=== PATIENT | male | born 1950 | race Caucasian/White ===

== ENCOUNTER → 2017-03-26 | Outpatient (CLI) | payer MEDICARE, OTHER ==
[2017-03-26 06:43] LABS: MEAN CORPUSCULAR HEMOGLOBIN 29.7 pg (27.0-33.0); MEAN CORPUSCULAR HGB CONC 33.6 g/dl (32.0-36.5); MEAN CORPUSCULAR VOLUME 88.6 fl (80.0-96.0); WHITE BLOOD COUNT 5.3 K/mm3 (4.0-10.0)
== END ==
LOC: M LAB 06:10
PROVIDERS: ATTEND Internal Medicine Cardiovascular Disease
DX: R97.20 Elevated prostate specific antigen [PSA] (principal); E78.5 Hyperlipidemia, unspecified; E11.9 Type 2 diabetes mellitus without complications; I25.10 Atherosclerotic heart disease of native coronary artery without angina pectoris

== ENCOUNTER → 2017-09-14 | Outpatient (CLI) | payer MEDICARE, OTHER ==
[2017-09-14 12:53] LABS: MEAN CORPUSCULAR HEMOGLOBIN 28.9 pg (27.0-33.0); MEAN CORPUSCULAR VOLUME 90.3 fl (80.0-96.0); PLATELET COUNT, AUTOMATED 162 10^3/uL (150-450); RED CELL DISTRIBUTION WIDTH 14.6 % (11.5-14.5)
[2017-09-14 13:05] LABS: ANION GAP 9 MEQ/L (8-16); BLOOD UREA NITROGEN 28 MG/DL (7-18); CALCIUM LEVEL 9.5 MG/DL (8.8-10.2); CARBON DIOXIDE LEVEL 25 MEQ/L (21-32); CHLORIDE LEVEL 108 MEQ/L (98-107); CREATININE FOR GFR 1.04 MG/DL (0.70-1.30); GLOMERULAR FILTRATION RATE > 60.0 (>49); GLUCOSE, FASTING 130 MG/DL (80-110); POTASSIUM SERUM 4.6 MEQ/L (3.5-5.1); SODIUM LEVEL 142 MEQ/L (136-145)
== END ==
LOC: M WUC 08:50
PROVIDERS: ATTEND Internal Medicine Cardiovascular Disease
DX: E11.9 Type 2 diabetes mellitus without complications (principal); I25.10 Atherosclerotic heart disease of native coronary artery without angina pectoris

== ENCOUNTER → 2018-01-15 | Outpatient (CLI) | payer MEDICARE, OTHER ==
[2018-01-15 13:22] LABS: CREATININE FOR GFR 1.18 MG/DL (0.70-1.30); GLOMERULAR FILTRATION RATE > 60.0 (>49)
[2018-01-15 13:22] LABS: BLOOD UREA NITROGEN 26 MG/DL (7-18)
== END ==
LOC: M WUC 08:47
DX: R97.20 Elevated prostate specific antigen [PSA] (principal); Z01.812 Encounter for preprocedural laboratory examination
CPT/HCPCS: 82565

== ENCOUNTER → 2018-03-12 | Outpatient (CLI) | payer MEDICARE, OTHER ==
[2018-03-12 12:22] LABS: ESTIMATED AVERAGE GLUCOSE 151 MG/DL (60-110); HEMOGLOBIN A1c 6.9 %
== END ==
LOC: M WUC 08:45
DX: E11.9 Type 2 diabetes mellitus without complications (principal)
CPT/HCPCS: 83036

== ENCOUNTER → 2018-08-17 | Outpatient (CLI) | payer MEDICARE, OTHER ==
[2018-08-17 20:16] LABS: PROSTATIC SPECIFIC AG MONITOR 8.67 NG/ML (< 4.0)
== END ==
LOC: M WUC 16:31
DX: R97.20 Elevated prostate specific antigen [PSA] (principal)
CPT/HCPCS: 84153

== ENCOUNTER → 2018-10-08 | Outpatient (CLI) | payer MEDICARE, OTHER | LOC: M WUC 08:02 | PROVIDERS: ATTEND Urology | DX: R97.20 Elevated prostate specific antigen [PSA] (principal) | CPT/HCPCS: 36415; G0103 ==

== ENCOUNTER → 2019-04-02 | Outpatient (CLI) | payer MEDICARE, OTHER ==
[2019-04-02 17:56] LABS: HEMATOCRIT 41.8 % (42.0-52.0); MEAN CORPUSCULAR HEMOGLOBIN 27.9 pg (27.0-33.0); MEAN CORPUSCULAR HGB CONC 31.1 g/dl (32.0-36.5); MEAN CORPUSCULAR VOLUME 89.7 fl (80.0-96.0); PLATELET COUNT, AUTOMATED 180 10^3/uL (150-450); RED BLOOD COUNT 4.66 10^6/uL (4.30-6.10)
[2019-04-02 18:02] LABS: ALBUMIN 3.4 GM/DL (3.2-5.2); ALT/SGPT 71 U/L (12-78); BILIRUBIN,TOTAL 0.2 MG/DL (0.2-1.0); BLOOD UREA NITROGEN 19 MG/DL (7-18); CALCIUM LEVEL 8.5 MG/DL (8.8-10.2); CARBON DIOXIDE LEVEL 26 MEQ/L (21-32); CHLORIDE LEVEL 106 MEQ/L (98-107); CHOLESTEROL LEVEL 135 MG/DL (<200); CHOLESTEROL RISK RATIO 3.214 (<5); CREATININE FOR GFR 1.03 MG/DL (0.70-1.30); GLOMERULAR FILTRATION RATE > 60.0 (>49); GLUCOSE, FASTING 186 MG/DL (70-100); HDL CHOLESTEROL 42 MG/DL (>40); LDL CHOLESTEROL 69 MG/DL (<100); NON-HDL-C 93 MG/DL; POTASSIUM SERUM 4.5 MEQ/L (3.5-5.1); SODIUM LEVEL 142 MEQ/L (136-145); TRIGLYCERIDES LEVEL 122 MG/DL (<150)
[2019-04-02 18:12] LABS: HEMOGLOBIN A1c 8.7 %
[2019-04-06 00:06] LABS: PSA % FREE 7.7 % (.); PSA FREE 0.56 ng/mL; PSA TOTAL 7.3 ng/mL (0.0-4.0)
== END ==
LOC: M WUC 08:17
PROVIDERS: ATTEND Internal Medicine Cardiovascular Disease
DX: I25.10 Atherosclerotic heart disease of native coronary artery without angina pectoris (principal)

== ENCOUNTER → 2019-09-17 | Outpatient (CLI) | payer MEDICARE, OTHER ==
[2019-09-17 14:17] LABS: ALBUMIN 3.6 GM/DL (3.2-5.2); ALT/SGPT 41 U/L (12-78); BILIRUBIN,TOTAL 0.4 MG/DL (0.2-1.0); BLOOD UREA NITROGEN 23 MG/DL (7-18); CALCIUM LEVEL 9.3 MG/DL (8.8-10.2); CARBON DIOXIDE LEVEL 28 MEQ/L (21-32); CHLORIDE LEVEL 108 MEQ/L (98-107); CREATININE FOR GFR 1.04 MG/DL (0.70-1.30); GLOMERULAR FILTRATION RATE > 60.0 (>49); GLUCOSE, FASTING 110 MG/DL (70-100); POTASSIUM SERUM 4.6 MEQ/L (3.5-5.1); SODIUM LEVEL 143 MEQ/L (136-145); TOTAL PROTEIN 7.2 GM/DL (6.4-8.2)
[2019-09-17 14:33] LABS: HEMOGLOBIN A1c 7.5 %
[2019-09-17 14:41] LABS: MALB URINE SIEMENS 13.4 MG/L; MAU/CREAT RATIO 13.2 MCG/MG (0.0-30.0)
== END ==
LOC: M WUC 08:04
PROVIDERS: ATTEND Physician Assistant
DX: E11.9 Type 2 diabetes mellitus without complications (principal); Z79.899 Other long term (current) drug therapy

== ENCOUNTER → 2019-12-17 | Outpatient (CLI) | payer MEDICARE, OTHER ==
[2019-12-17 12:46] LABS: BASO % 0.5 % (0.0-1.0); EOS # 0.2 10^3/uL (0.0-0.5); HEMATOCRIT 46.2 % (42.0-52.0); HEMOGLOBIN 14.3 g/dl (13.5-17.5); LYMPH # 3.2 10^3/uL (1.5-5.0); LYMPH % 43.3 % (24.0-44.0); MEAN CORPUSCULAR HEMOGLOBIN 27.8 pg (27.0-33.0); MEAN CORPUSCULAR VOLUME 89.9 fl (80.0-96.0); MONO # 0.6 10^3/uL (0.0-0.8); MONO % 7.7 % (0.0-5.0); NEUTROPHILS # 3.3 10^3/uL (1.5-8.5); NEUTROPHILS % 45.2 % (36.0-66.0); PLATELET COUNT, AUTOMATED 205 10^3/uL (150-450); RED BLOOD COUNT 5.14 10^6/uL (4.30-6.10); WHITE BLOOD COUNT 7.4 10^3/uL (4.0-10.0)
[2019-12-17 12:51] LABS: ALT/SGPT 43 U/L (12-78); BILIRUBIN,TOTAL 0.4 MG/DL (0.2-1.0); BLOOD UREA NITROGEN 27 MG/DL (7-18); CALCIUM LEVEL 9.1 MG/DL (8.8-10.2); CARBON DIOXIDE LEVEL 26 MEQ/L (21-32); CHLORIDE LEVEL 109 MEQ/L (98-107); CHOLESTEROL LEVEL 133 MG/DL (<200); CHOLESTEROL RISK RATIO 2.829 (<5); CREATININE FOR GFR 1.04 MG/DL (0.70-1.30); GLOMERULAR FILTRATION RATE > 60.0 (>49); GLUCOSE, FASTING 106 MG/DL (70-100); HDL CHOLESTEROL 47 MG/DL (>40); LDL CHOLESTEROL 65 MG/DL (<100); NON-HDL-C 86 MG/DL; POTASSIUM SERUM 4.9 MEQ/L (3.5-5.1); SODIUM LEVEL 141 MEQ/L (136-145); TOTAL PROTEIN 7.4 GM/DL (6.4-8.2); TRIGLYCERIDES LEVEL 104 MG/DL (<150)
[2019-12-17 13:02] LABS: HEMOGLOBIN A1c 7.1 %
== END ==
LOC: M WUC 08:17
PROVIDERS: ATTEND Family Medicine
DX: E11.65 Type 2 diabetes mellitus with hyperglycemia (principal); E78.5 Hyperlipidemia, unspecified

== ENCOUNTER 2020-04-07 23:30 | Emergency (ER) | payer MEDICARE, OTHER ==
[~2020-04-07] VITALS: Ht 170.2 cm; Wt 100.0 kg
[2020-04-07] MEDS ORDERED: METF500T13 PO (23:46)
[2020-04-07] MEDS ORDERED: ROSU20TA5 PO (23:46)
[2020-04-07] MEDS ORDERED: MONT10TA10 PO (23:46)
[2020-04-07] MEDS ORDERED: FLOM0.4C39 PO (23:46)
[2020-04-07] MEDS ORDERED: JARD1TAB3 PO (23:46)
[2020-04-07] MEDS ORDERED: METO1TAB32 PO (23:46)
[2020-04-07] MEDS ORDERED: ASPI81TA86 PO (23:46)
--- NOTE | 2020-04-08 01:02 | REPVR ---
PROCEDURE INFORMATION: Exam: US Pelvis Limited, Male Exam date and time: 04/08/2020 12:51 AM Age: 70 years old Clinical indication: Perianal pain; Additional info: Eval perirectal mass TECHNIQUE: Imaging protocol: Real-time pelvic ultrasound with image documentation. COMPARISON: No relevant prior studies available. FINDINGS: Left perianal fluid collection with internal complexity measuring 3.3 x 1.9 x 1.8 cm consistent with abscess. IMPRESSION: Complex left perianal fluid collection consistent with abscess measuring 3.3 x 1.9 x 1.8 cm. Electronically signed by: Saulo Olivares On 04/08/2020 01:01:38 AM
[2020-04-08] MEDS ORDERED: HYDROMORPHONE HCL 0.5 MG/ 0.5 ML SYRINGE (J1170 PER 1) IM ONE (01:30)
[2020-04-08] MEDS ORDERED: AUGMENTIN 875 MG TAB PO ONE (02:00)
[2020-04-08] MEDS ORDERED: AUGM500T34 PO (02:01)
[2020-04-08 02:15] VITALS: BP 110/60
[2020-04-08] MEDS ORDERED: NORCO 5/325MG TABLET (BULK FOR ED) PO ONE (02:15)
== END 2020-04-08 02:17 | disposition home or self-care (01) ==
LOC: M ED 23:30
DX: R10.2 Pelvic and perineal pain (principal); R93.5 Abnormal findings on diagnostic imaging of other abdominal regions, including retroperitoneum
CPT/HCPCS: 76857; 87070; 87077; 87186; 96372; 99283; J1170

== ENCOUNTER → 2020-06-01 | Outpatient (REF) | payer MEDICARE, OTHER ==
[~2020-06-01] MED LIST: ASPI81TA86 PO; AUGM500T34 PO; FLOM0.4C39 PO; JARD1TAB3 PO; METF500T13 PO; METO1TAB32 PO; MONT10TA4 PO; ROSU20TA5 PO
[2020-07-04 21:58] LABS: ALBUMIN 3.5 GM/DL (3.2-5.2); ALT/SGPT 32 U/L (12-78); BILIRUBIN,TOTAL 0.4 MG/DL (0.2-1.0); BLOOD UREA NITROGEN 20 MG/DL (7-18); CALCIUM LEVEL 9.4 MG/DL (8.8-10.2); CARBON DIOXIDE LEVEL 30 MEQ/L (21-32); CHLORIDE LEVEL 107 MEQ/L (98-107); CREATININE FOR GFR 1.09 MG/DL (0.70-1.30); GLOMERULAR FILTRATION RATE > 60.0 (>49); GLUCOSE, FASTING 115 MG/DL (70-100); POTASSIUM SERUM 5.3 MEQ/L (3.5-5.1); SODIUM LEVEL 141 MEQ/L (136-145); TOTAL PROTEIN 6.9 GM/DL (6.4-8.2)
[2020-07-04 21:59] LABS: HEMOGLOBIN A1c 6.6 %
== END ==
LOC: M WUC 08:27
PROVIDERS: ATTEND Physician Assistant
DX: E11.65 Type 2 diabetes mellitus with hyperglycemia (principal)

== ENCOUNTER 2020-11-12 16:14 | Inpatient (IN) | payer MEDICARE, OTHER ==
[~2020-11-12] VITALS: Ht 170.2 cm; Wt 101.9 kg
[~2020-11-12 16:14] MED LIST changes: +MONT10TA10 PO; -MONT10TA4 PO
--- OUTSIDE RECORDS SUMMARY | 2020-11-12 17:02 | CCD ---
Author Author [facility] Organization [facility] Address Unknown Phone Unavailable Care Team Providers Care Reverberatory Skimmer Name Role Phone Bob, Reagan PA Unavailable Unavailable Bob, Reagan PA Unavailable Unavailable Bob, Reagan PA Unavailable Unavailable Bob, Reagan PA Unavailable Unavailable Bob, Reagan PA Unavailable Unavailable Bob, Reagan PA Unavailable Unavailable Bob, Reagan PA Unavailable Unavailable Bob, Reagan PA Unavailable Unavailable Bob, Reagan PA Unavailable Unavailable Bob, Reagan PA Unavailable Unavailable Bob, Reagan PA Unavailable Unavailable Bob, Reagan PA Unavailable Unavailable Bob, Reagan PA Unavailable Unavailable Bob, Reagan PA Unavailable Unavailable Bob, Reagan PA Unavailable Unavailable Bob, Reagan PA Unavailable Unavailable Bob, Reagan PA Unavailable Unavailable Bob, Reagan PA Unavailable Unavailable Bob, Reagan PA Unavailable Unavailable Bob, Reagan PA Unavailable Unavailable Bob, Reagan PA Unavailable Unavailable Bob, Reagan PA Unavailable Unavailable Bob, Reagan PA Unavailable Unavailable Bob, Reagan PA Unavailable Unavailable Bob, Reagan PA Unavailable Unavailable Bob, Reagan PA Unavailable Unavailable Bob, Reagan PA Unavailable Unavailable Bob, Reagan PA Unavailable Unavailable Bob, Reagan PA Unavailable Unavailable Bob, Reagan PA Unavailable Unavailable Bob, Reagan PA Unavailable Unavailable Bob, Reagan PA Unavailable Unavailable Bob, Reagan PA Unavailable Unavailable Bob, Reagan PA Unavailable Unavailable Bob, Reagan PA Unavailable Unavailable Bob, Reagan PA Unavailable Unavailable Bob, Reagan PA Unavailable Unavailable Bob, Reagan PA Unavailable Unavailable Bob, Reagan PA Unavailable Unavailable Bob, Reagan PA Unavailable Unavailable Bob, Reagan PA Unavailable Unavailable Bob, Reagan PA Unavailable Unavailable Bob, Reagan PA Unavailable Unavailable Bob, Reagan PA Unavailable Unavailable Bob, Reagan PA Unavailable Unavailable Bob, Reagan PA Unavailable Unavailable Bob, Reagan PA Unavailable Unavailable Bob, Reagan PA Unavailable Unavailable Woods, L Marina PA Unavailable Unavailable Woods, L Marina PA Unavailable Unavailable Woods, L Marina PA Unavailable Unavailable Woods, L Marina PA Unavailable Unavailable Woods, L Marina PA Unavailable Unavailable Woods, L Marina PA Unavailable Unavailable Woods, L Marina PA Unavailable Unavailable Woods, L Marina PA Unavailable Unavailable Woods, L Marina PA Unavailable Unavailable Woods, L Marina PA Unavailable Unavailable Woods, L Marina PA Unavailable Unavailable Woods, L Marina PA Unavailable Unavailable Woods, L Marina PA Unavailable Unavailable Woods, L Marina PA Unavailable Unavailable Woods, L Marina PA Unavailable Unavailable Woods, L Marina PA Unavailable Unavailable Woods, L Marina PA Unavailable Unavailable Woods, L Marina PA Unavailable Unavailable Woods, L Marina PA Unavailable Unavailable Woods, L Marina PA Unavailable Unavailable Woods, L Marina PA Unavailable Unavailable Woods, L Marina PA Unavailable Unavailable Woods, L Marina PA Unavailable Unavailable Woods, L Marina PA Unavailable Unavailable Woods, L Marina PA Unavailable Unavailable Woods, L Marina PA Unavailable Unavailable Woods, L Marina PA Unavailable Unavailable Woods, L Marina PA Unavailable Unavailable Woods, L Marina PA Unavailable Unavailable Woods, L Marina PA Unavailable Unavailable Woods, L Marina PA Unavailable Unavailable Woods, L Marina PA Unavailable Unavailable Woods, L Marina PA Unavailable Unavailable Woods, L Marina PA Unavailable Unavailable Woods, L Marina PA Unavailable Unavailable Woods, L Marina PA Unavailable Unavailable KAYLEEN-XOCHITL, GHAZALA DO Unavailable Unavailable KAYLEEN-XOCHITL, GHAZALA DO Unavailable Unavailable KALYEEN-XOCHITL, GHAZALA DO Unavailable Unavailable KAYLEEN-XOCHITL, GHAZALA DO Unavailable Unavailable KAYLEEN-XOCHITL, GHAZALA DO Unavailable Unavailable KAYLEEN-XOCHITL, GHAZALA DO Unavailable Unavailable KAYLEEN-XOCHITL, GHAZALA DO Unavailable Unavailable KAYLEEN-XOCHITL, GHAZALA DO Unavailable Unavailable KAYLEEN-XOCHITL, GHAZALA DO Unavailable Unavailable KAYLEEN-XOCHITL, GHAZALA DO Unavailable Unavailable KAYLEEN-XOCHITL, GHAZALA DO Unavailable Unavailable KAYLEEN-XOCHITL, GHAZALA DO Unavailable Unavailable KAYLEEN-XOCHITL, GHAZALA DO Unavailable Unavailable KAYLEEN-XOCHITL, GHAZALA DO Unavailable Unavailable KAYLEEN-XOCHITL, GHAZALA DO Unavailable Unavailable KAYLEEN-XOCHITL, GHAZALA DO Unavailable Unavailable KAYLEEN-XOCHITL, GHAZALA DO Unavailable Unavailable KAYLEEN-XOCHITL, GHAZALA DO Unavailable Unavailable KAYLEEN-XOCHITL, GHAZALA DO Unavailable Unavailable KAYLEEN-XOCHITL, GHAZALA DO Unavailable Unavailable KAYLEEN-XOCHITL, GHAZALA DO Unavailable Unavailable KAYLEEN-XOCHITL, GHAZALA DO Unavailable Unavailable KAYLEEN-XOCHITL, GHAZALA DO Unavailable Unavailable KAYLEEN-XOCHITL, GHAZALA DO Unavailable Unavailable KAYLEEN-XOCHITL, GHAZALA DO Unavailable Unavailable KAYLEEN-XOCHITL, GHAZALA DO Unavailable Unavailable KAYLEEN-XOCHITL, GHAZALA DO Unavailable Unavailable KYALEEN-XOCHITL, GHAZALA DO Unavailable Unavailable KAYLEEN-XOCHITL, GHAZALA DO Unavailable Unavailable KAYLEEN-XOCHITL, GHAZALA DO Unavailable Unavailable KAYLEEN-XOCHITL, GHAZALA DO Unavailable Unavailable KAYLEEN-XOCHITL, GHAZALA DO Unavailable Unavailable KAYLEEN-XOCHITL, GHAZALA DO Unavailable Unavailable KAYLEEN-XOCHITL, GHAZALA DO Unavailable Unavailable KAYLEEN-XOCHITL, GHAZALA DO Unavailable Unavailable KAYLEEN-XOCHITL, GHAZALA DO Unavailable Unavailable KAYLEEN-XOCHITL, GHAZALA DO Unavailable Unavailable KAYLEEN-XOCHITL, GHAZALA DO Unavailable Unavailable KAYLEEN-XOCHITL, GHAZALA DO Unavailable Unavailable KAYLEEN-XOCHITL, GHAZALA DO Unavailable Unavailable KAYLEEN-XOCHITL, GHAZALA DO Unavailable Unavailable KAYLEEN-XOCHITL, GHAZALA DO Unavailable Unavailable KAYLEEN-XOCHITL, GHAZALA DO Unavailable Unavailable KAYLEEN-XOCHITL, GHAZALA DO Unavailable Unavailable KAYLEEN-XOCHITL, GHAZALA DO Unavailable Unavailable KAYLEEN-XOCHITL, GHAZALA DO Unavailable Unavailable KAYLEEN-XOCHITL, GHAZALA DO Unavailable Unavailable KAYLEEN-XOCHITL, GHAZALA DO Unavailable Unavailable KAYLEEN-XOCHITL, GHAZALA DO Unavailable Unavailable KAYLEEN-XOCHITL, GHAZALA DO Unavailable Unavailable KAYLEEN-XOCHITL, GHAZALA DO Unavailable Unavailable KAYLEEN-XOCHITL, GHAZALA DO Unavailable Unavailable KAYLEEN-XOCHITL, GHAZALA DO Unavailable Unavailable KAYLEEN-XOCHITL, GHAZALA DO Unavailable Unavailable KAYLEEN-XOCHITL, GHAZALA DO Unavailable Unavailable KAYLEEN-XOCHITL, GHAZALA DO Unavailable Unavailable KAYLEEN-XOCHITL, GHAZALA DO Unavailable Unavailable KAYLEEN-XOCHITL, GHAZALA DO Unavailable Unavailable KAYLEEN-XOCHITL, GHAZALA DO Unavailable Unavailable KAYLEEN-XOCHITL, GHAZALA DO Unavailable Unavailable KAYLEEN-XOCHITL, GHAZALA DO Unavailable Unavailable KAYLEEN-XOCHITL, GHAZALA DO Unavailable Unavailable KAYLEEN-XOCHITL, GHAZALA DO Unavailable Unavailable KAYLEEN-XOCHITL, GHAZALA DO Unavailable Unavailable KAYLEEN-XOCHITL, GHAZALA DO Unavailable Unavailable KAYLEEN-XOCHITL, GHAZALA DO Unavailable Unavailable KAYLEEN-XOCHITL, GHAZALA DO Unavailable Unavailable KAYLEEN-XOCHITL, GHAZALA DO Unavailable Unavailable KAYLEEN-XOCHITL, GHAZALA DO Unavailable Unavailable KAYLEEN-XOCHITL, GHAZALA DO Unavailable Unavailable KAYLEEN-XOCHITL, GHAZALA DO Unavailable Unavailable KAYLEEN-XOCHITL, GHAZALA DO Unavailable Unavailable KAYLEEN-XOCHITL, GHAZALA DO Unavailable Unavailable KAYLEEN-XOCHITL, GHAZALA DO Unavailable Unavailable KAYLEEN-XOCHITL, GHAZALA DO Unavailable Unavailable KAYLEEN-XOCHITL, GHAZALA DO Unavailable Unavailable KAYLEEN-XOCHITL, GHAZALA DO Unavailable Unavailable KAYLEEN-XOCHITL, GHAZALA DO Unavailable Unavailable KAYLEEN-XOCHITL, GHAZALA DO Unavailable Unavailable KAYLEEN-XOCHITL, GHAZALA DO Unavailable Unavailable KAYLEEN-XOCHITL, GHAZALA DO Unavailable Unavailable KAYLEEN-XOCHITL, GHAZALA DO Unavailable Unavailable Daly, Ly BUGGY MAN Unavailable Unavailable Daly, Ly BUGGY MAN Unavailable Unavailable Daly, Ly BUGGY MAN Unavailable Unavailable Daly, Ly BUGGY MAN Unavailable Unavailable Daly, Ly BUGGY MAN Unavailable Unavailable Daly, Ly BUGGY MAN Unavailable Unavailable Daly, Ly BUGGY MAN Unavailable Unavailable Daly, Ly BUGGY MAN Unavailable Unavailable Daly, Ly BUGGY MAN Unavailable Unavailable Daly, Ly BUGGY MAN Unavailable Unavailable Daly, Ly BUGGY MAN Unavailable Unavailable O'aiyana, A Narayan PA Unavailable Unavailable O'aiyana, A Narayan PA Unavailable Unavailable O'aiyana, A Narayna PA Unavailable Unavailable O'aiyana, A Narayan PA Unavailable Unavailable O'aiyana, A Narayan PA Unavailable Unavailable O'aiyana, A Narayan PA Unavailable Unavailable O'aiyana, A Narayan PA Unavailable Unavailable O'aiyana, A Narayan PA Unavailable Unavailable O'aiyana, A Narayan PA Unavailable Unavailable O'aiyana, A Narayan PA Unavailable Unavailable O'aiyana, A Narayan PA Unavailable Unavailable O'aiyana, A Narayan PA Unavailable Unavailable O'aiyana, A Narayan PA Unavailable Unavailable O'aiyana, A Narayan PA Unavailable Unavailable O'aiyana, A Narayan PA Unavailable Unavailable O'aiyana, A Narayan PA Unavailable Unavailable O'aiyana, A Narayan PA Unavailable Unavailable O'aiyana, A Narayan PA Unavailable Unavailable O'aiyana, A Narayan PA Unavailable Unavailable O'aiyana, A Narayan PA Unavailable Unavailable O'aiyana, A Narayan PA Unavailable Unavailable O'aiyana, A Narayan PA Unavailable Unavailable O'aiyana, A Narayan PA Unavailable Unavailable O'aiyana, A Narayan PA Unavailable Unavailable O'aiyana, A Narayan PA Unavailable Unavailable O'aiyana, A Narayan PA Unavailable Unavailable O'aiyana, A Narayan PA Unavailable Unavailable O'aiyana, A Narayan PA Unavailable Unavailable O'aiyana, A Narayan PA Unavailable Unavailable O'aiyana, A Narayan PA Unavailable Unavailable O'aiyana, A Narayan PA Unavailable Unavailable O'aiyana, A Narayan PA Unavailable Unavailable Ventura, V MOHIT PA-C Unavailable Unavailable Ventura, V MOHIT PA-C Unavailable Unavailable Ventura, V MOHIT PA-C Unavailable Unavailable Sebas, V MOHIT PA-C Unavailable Unavailable Ventura, V MOHIT PA-C Unavailable Unavailable Ventura, V MOHIT PA-C Unavailable Unavailable Ventura, V MOHIT PA-C Unavailable Unavailable Re-disclosure Warning The records that you are about to access may contain information from federally-assisted alcohol or drug abuse programs. If such information is present, then the following federally mandated warning applies: This information has been disclosed to you from records protected by federal confidentiality rules (42 CFR part 2). The federal rules prohibit you from making any further disclosure of this information unless further disclosure is expressly permitted by the written consent of the person to whom it pertains or as otherwise permitted by 42 CFR part 2. A general authorization for the release of medical or other information is NOT sufficient for this purpose. The Federal rules restrict any use of the information to criminally investigate or prosecute any alcohol or drug abuse patient.The records that you are about to access may contain highly sensitive health information, the redisclosure of which is protected by Article 27-F of the [facility] Public Health law. If you continue you may have access to information: Regarding HIV / AIDS; Provided by facilities licensed or operated by the [facility] Office of Mental Health; or Provided by the [facility] Office for People With Developmental Disabilities. If such information is present, then the following [facility] mandated warning applies: This information has been disclosed to you from confidential records which are protected by state law. State law prohibits you from making any further disclosure of this information without the specific written consent of the person to whom it pertains, or as otherwise permitted by law. Any unauthorized further disclosure in violation of state law may result in a fine or mcc sentence or both. A general authorization for the release of medical or other information is NOT sufficient authorization for further disc losure. Family History Family Member Name Family Member Gender Family Member Status Date o f Status Description Data Source(s) Unknown Unknown Problem [facility] ([facility]) father, mother and sister Unknown Male Problem [facility] ([facility]) () Unknown Female Problem [facility] ([facility]) Encounters Encounter Providers Location Date Indications Data Source(s ) Outpatient Attender: MOHIT TOSCANOCReferrer: John [email or web address] 10/16/2020 12:00:00 AM EST - 10/16/2020 04:21:20 PM EST [facility] Outpatient Attender: Narayan [facility] 06/19/2020 03:00:00 PM EDT [facility] ([facility]) Outpatient Attender: Reagan [facility] 04/10/2020 01:00:00 PM EDT [facility] ([facility]) Outpatient Attender: Marina [email or web address] 12:00:00 AM EDT - 04/09/2020 04:01:17 PM EDT [facility] Outpatient Attender: Ly Daly NP Donna Becerra Gretel fidelina 04/07/2020 11:10:00 AM EDT [facility] Outpatient Attender: Narayan MONROE [facility] 12/20/2019 02:30:00 PM EST [facility] ([facility]) Outpatient Attender: Marina [email or web address] 12:00:00 AM EST [facility] Outpatient Attender: GHAZALA LANGSTON DO [facility] 09/19/2019 01:30:00 PM EST [facility] ([facility]) Immunizations Vaccine Date Status Description Data Source(s) INFLUENZA VACCINE QUADRIVALENT (65 YR UP)/MF59 C.1/PF 08/13/2020 12:00:00 AM EDT completed [facility] Medications Medication Brand Name Start Date Product Form Dose Route Admi nistrative Instructions Pharmacy Instructions Status Indications Reaction Description Data Source(s) Rosuvastatin calcium 20 MG Oral Tablet rosuvastatin (C RESTOR) 20 MG tablet rosuvastatin (CRESTOR) 20 MG tablet 09/25/2020 12:00:00 AM EST 20 mg Oral active Hyperlipidemia, unspecified hyperlipidemia type Take 1 tablet (20 mg total) by mouth daily [facility] Hyperlipidemia, unspecified hyperlipidem ia type FLUAD QUADRIVALENT 0.5 ML PRSY [id number] 08/13/2020 12:00:00 AM EDT active INJECT DIRECTED IN THE LE FT ARM [facility] 24 HR metoprolol succinate 25 MG Extende d Release Oral Tablet metoprolol succinate (TOPROL-XL) 25 MG 24 hr tablet metoprolol succinate (TOPROL-XL) 25 MG 24 hr tablet 07/02/2020 12:00:00 AM EDT activ e TAKE ONE TABLET BY MOUTH EVERY DAY [facility] 500-125 mg 04/08/2020 12:00:00 AM EDT tablet 20 TAKE ONE TABLET BY MOUTH EVERY 8 HOURS TAKE ONE TABLET BY MOUTH EVERY 8 HOURS SOLD: 04/08/2020 [facility] Amoxicillin 500 MG / Clavulanate 125 MG Oral Tablet amoxicillin-clavulanate (AUGMENTIN) 500-125 MG per tablet amoxicillin-clavulanate (AUGMENTIN) 500- 125 MG per tablet 04/08/2020 12:00:00 AM EDT aborted [facility] 2.5 % 04/07/2020 12:00:00 AM EDT cream with perineal tu licator 60 APPLY RECTALLY TWO TIMES A DAY FOR 14 DAYS APPLY RECTALLY TWO TIMES A DAY FOR 14 DAYS SOLD: 04/07/2020 [facility] Hydrocortisone 25 MG/ML Rectal Cream Hydrocortisone (Periana l) 04/07/2020 12:00:00 AM EDT active M [facility]ENT ([facility]) Hydrocortisone 25 MG/ML Topical Cream [P roctozone HC] PROCTOZONE-HC 2.5 % rectal cream PROCTOZONE-HC 2.5 % rectal cream 04/07/2020 12:00:00 AM EDT active as needed [facility] empagliflozin 25 MG Oral Tablet [Jardiance] JARDIANCE 25 MG TABS JARDIANCE 25 MG TABS 03/12/2020 12:00:00 AM EDT active [facility] tadalafil 5 MG Oral Tablet tadalafil (CIALIS) 5 MG tab let tadalafil (CIALIS) 5 MG tablet 03/01/2020 12:00:00 AM EDT active [facility] empagliflozin 25 MG Oral Tablet [Jardiance] Jardiance 12/20/2019 12:00:00 AM EST ORAL active [facility] ([facility]) Metformin hydrochloride 500 MG Oral Tablet metFORMIN ( GLUCOPHAGE) 500 MG tablet metFORMIN (GLUCOPHAGE) 500 MG tablet 09/25/2019 12:00:00 AM EST 100 0 mg Oral active Take 1,000 mg by mouth 2 (two) times a day with meals [facility] Insurance Providers Payer name Policy type / Coverage type Policy ID Covered libertarian ID Covered libertarian's relationship to shah Policy Shah Plan Information [facility] [id number] SP [id number] MEDICARE [id number] SP [id number] UMR [id number] MEDICARE [id number] UMR [id number] Jaelyn [id number] MEDICARE [id number] Jaelyn [id number] UMR O [id number] S [id number] MEDICARE C [id number] S [id number] [facility] [id number] SP [id number] [employer] Med[employer] Part B [id number] Self [id number] Medicare Medigap Part B [id number] Self [id number] Umr Medigap Part B [id number] Self [id number] Medicare Medicare Primary [id number] Self [id number] MEDICARE [id number] SP [id number] A [employer] [id number] SP [id number] [employer] Medigap Part B [id number] Self [id number] Medicare Medicare Primary [id number] Self [id number] [employer] Medigap Part B [id number] Self [id number] Medicare Natl Gov't Servi Medicare Primary [id number] Self [id number] [employer] Commercial Self [employer] (pr) Commercial Self [employer]-O/P [id number] 18 [id number] Problems, Conditions, and Diagnoses Code Display Name Description Problem Type Effective Dates Data Source(s) E66.9 Class 2 obesity in adult Class 2 obesity in adult 6457 200010/16/2020 12:00:00 AM EST [facility] [id number] Long-term current use of oral hypoglycem ic medication Long-term current use of oral hypoglycemic medication Problem 06/19/2020 12:00 :00 AM EDT [facility] ([facility]) [id number] Diabetic peripheral neuropathy Diabetic peripheral leonel ropathy Problem 06/19/2020 12:00:00 AM EDT [facility] ([facility]) M79.604 Leg pain, anterior, right Leg pain, anterior, right [id number] 04/09/2020 12:00:00 AM EDT [facility] [id number] Type II diabetes mellitus uncontrolled T ype II diabetes mellitus uncontrolled Problem 12/20/2019 12:00:00 AM EST [facility] ([facility]) Z98.61 Coronary angioplasty status Coronary angioplasty statu s Diagnosis 10/16/2020 03:19:46 PM EST [facility] E11.65 Type 2 diabetes mellitus with hyperglyce gretel Type 2 diabetes mellitus with hyperglyce Diagnosis 04/09/2020 02:58:03 PM EDT [facility] R97.20 Elevated prostate specific antigen (PSA) Elevated prostate specific antigen (PSA) Diagnosis 04/09/2020 02:58:03 PM EDT [facility] E78.2 Mixed hyperlipidemia Mixed hyperlipidemia Diagnosis 04/09/2020 02:58:03 PM EDT [facility] I73.9 Peripheral vascular disease, unspecified Peripheral vascular disease, unspecified Diagnosis 04/09/2020 02:58:03 PM EDT [facility] Surgeries/Procedures Procedure Description Date Indications Data Source(s) ECG ROUTINE ECG W/LEAST 12 LDS W/I&R POCT AMB EKG Routine 10/16/2020 4:10 PM EST Coronary angioplasty status 10/16/2020 09:10:00 PM EST Coron mercedes angioplasty status [facility] Coronary angioplasty status Results ID Date Data Source [id number] 10/16/2020 08:07:00 AM EST [facility] Name Value Range Interpretation Code Description Data Mandi rce(s) Supporting Document(s) SARS-CoV-2 [facility] This lab was ordered by [facility] and reported by [facility]. ID Date Data Source [id number] 09/18/2020 04:00:00 AM EST [facility] Name Value Range Interpretation Code Description Data Mandi rce(s) Supporting Document(s) SARS-CoV-2 [facility] This lab was ordered by [facility] and reported by [facility]. ID Date Data Source [id number] 09/04/2020 12:00:00 AM EST [facility] Name Value Range Interpretation Code Description Data Mandi rce(s) Supporting Document(s) SARS [facility] This lab was ordered by [facility]- [facility] and reported by [employer]. ID Date Data Source [id number] 08/28/2020 12:00:00 AM EST [facility] Name Value Range Interpretation Code Description Data Mandi rce(s) Supporting Document(s) SARS [facility] This lab was ordered by [facility] and reported by [employer]. ID Date Data Source [id number] 08/21/2020 12:00:00 AM EDT [facility] Name Value Range Interpretation Code Description Data Mandi rce(s) Supporting Document(s) SARS [facility] This lab was ordered by [facility] and reported by [employer]. ID Date Data Source [id number] 08/14/2020 12:30:00 AM EDT [facility] Name Value Range Interpretation Code Description Data Mandi rce(s) Supporting Document(s) SARS-CoV-2 [facility] This lab was ordered by [employer] and reported by [employer]. ID Date Data Source [id number] 07/24/2020 10:07:00 PM EDT [facility] Name Value Range Interpretation Code Description Data Mandi rce(s) Supporting Document(s) SARS-CoV-2 [facility] This lab was ordered by [employer] and reported by [employer]. ID Date Data Source [id number] 07/17/2020 08:21:00 AM EDT [facility] Name Value Range Interpretation Code Description Data Mandi rce(s) Supporting Document(s) SARS-CoV-2 [facility] This lab was ordered by [employer] and reported by [employer]. ID Date Data Source [id number] 07/10/2020 10:01:00 AM EDT [facility] Name Value Range Interpretation Code Description Data Mandi rce(s) Supporting Document(s) SARS-CoV-2 [facility] This lab was ordered by [employer] and reported by [employer]. ID Date Data Source [id number] 07/03/2020 01:51:00 PM EDT [facility] Name Value Range Interpretation Code Description Data Mandi rce(s) Supporting Document(s) SARS-CoV-2 [facility] This lab was ordered by [employer] and reported by [employer]. ID Date Data Source [id number] 06/26/2020 06:00:00 PM EDT [facility] Name Value Range Interpretation Code Description Data Mandi rce(s) Supporting Document(s) SARS-CoV-2 [facility] This lab was ordered by [facility] and reported by [employer]. ID Date Data Source [id number] 06/19/2020 12:00:00 AM EDT [facility] Name Value Range Interpretation Code Description Data Mandi rce(s) Supporting Document(s) 2018-nCoV RNA XXX RYLIE+probe-Imp [facility] This lab was ordered by [facility] and repo rted by [employer] ID Date Data Source [id number] 06/12/2020 12:00:00 AM EDT [facility] Name Value Range Interpretation Code Description Data Mandi rce(s) Supporting Document(s) 2018-nCoV RNA XXX RYLIE+probe-Imp [facility] This lab was ordered by [facility] and repo rted by [employer] ID Date Data Source [id number] 06/06/2020 12:00:00 AM EDT [facility] Patient Name: WILLIS [id number] Date of : 1950[place] [address] Date of Exam: 06/06/2020PH#: Fax: EXAM: CT ANGIO LWR EXTR W/O&W/DYEPROCEDURE INFORMATION:Exam: CTA Right Lower Extremity With ContrastExam date and time: 06/06/2020 12:36 PM Age: 70 years oldClinical indication: NumbnessTECHNIQUE: Imaging protocol: CTA images of the Right lower extremity withintravenous contrast using CT angiography protocol. 3D rendering: MIPand/or 3D reconstructed images were created by the technologist. Radiationoptimization: All CT scans at this facility use at least one of these doseoptimization techniques: automated exposure control; mA and/or kVadjustment per patient size (includes targeted exams where dose is matchedto clinical indication); or iterative reconstruction. Contrast material:OPTIRAY 350; Contrast volume: 125 ml; Contrast route: INTRAVENOUS (IV);COMPARISON: No relevant prior studies available.FINDINGS: Right iliac arteries: There is opacification the right iliacartery and right femoral artery. There is also opacification of the femoralartery through the thigh along with popliteal artery. There is 3 vesselrunoff with good opacification of all 3 vessels. There is opacification ofthe dorsal and plantar arch.Right femoral/popliteal arteries: No occlusion or significant stenosis.Right infrapopliteal arteries: No occlusion or significant stenosis.Bladder: There is moderate enlargement of the prostate with impression onthe floor of the urinary bladder.Bones/joints: There is no evidence of fracture. There is osteophyteformation at the 1st metatarsophalangeal joint. There is moderate posteriorosteophyte formation L5- S1. There is no evidence of bony abnormality.IMPRESSION:1. Good opacification of the right femoral artery, popliteal artery, withthree-vessel runoff and also opacification of the dorsal in plantar arch.No evidence of bony or soft tissue abnormality.2. Moderate enlargement the prostate impressing on the floor of the urinarybladder.Thank you for allowing us to participate in the care of your patient.Dictated and Authenticated by: Job Peoples MD 06/06/2020 5:24 PM [facility] ( & [place])Jose AlfredoV/Rosanna you for referring WILLIS RAMIREZ to our office. Electronically Signed - JOSE ALFREDO 06/07/20 8:47 Name Value Range Interpretation Code Description Data Mandi rce(s) Supporting Document(s) ID Date Data Source [id number] 06/01/2020 08:30:00 AM EDT [facility] ([facility]) Name Value Range Interpretation Code Description Data Mandi rce(s) Supporting Document(s) Creatinine, Urine Laboratory test result Normal (applies to non-numeric results) [facility] ([facility]) Test not performed. Please resubmit wit h new order and sample. Malb Urine Siemens 11.0 mg/L Normal (applies to non-numer ic results) [facility] ([facility]) ID Date Data Source [id number] 06/01/2020 08:30:00 AM EDT [facility]) Name Value Range Interpretation Code Description Data Mandi rce(s) Supporting Document(s) Hemoglobin A1c 6.6 % Normal (applies to non-numeric r esults) [facility] ([facility]) <content>REFERENCE RANGES:</content><br/ ><content></content>
<content><=5.6% NORMAL</content>
<content>5.7-6.4% SUGGESTS IMPAIRED GLUCOSE METABOLISM/PREDIABETIC</content>
<content>>= 6.5% ABNORMAL</content>
<content></content> Estimated Average Glucose 143 mg/dL 60-110 Above high normal [facility] ([facility]) ID Date Data Source [id number] 06/01/2020 08:30:00 AM EDT [facility] ([facility]) Name Value Range Interpretation Code Description Data Mandi rce(s) Supporting Document(s) Glucose, Fasting 115 mg/dL 70-100 Above high normal [facility] ([facility]) Glomerular Filtration Rate Laboratory test result Normal (applies to non- numeric results) [facility] ([facility]) <content>Units are mL/min/1.73 m2</content>
<content></content>
<content>Chronic Kidney Disease Staging per NKF:</content>
<content></content>
<content>Stage I & II GFR >=60 Normal to Mildly Decreased</content>
<content>Stage III GFR 30- 59 Moderately Decreased</content>
<content>Stage IV GFR 15-29 Severely Decreased</content>
<content>Stage V GFR <15 Very Little GFR Left</content>
<content>ESRD GFR <15 on LAW PROFESSOR</content>
<content></content> Creatinine For GFR 1.09 mg/dL 0.70-1.30 Normal (applies to non -numeric results) [facility] ([facility]) Blood Urea Nitrogen 20 mg/dL 7-18 Above high normal [facility] Potassium Serum 5.3 meq/L 3.5-5.1 Above high normal [facility] ([facility]) Chloride Level 107 meq/L 98-107 Normal (applies to non-numeric r esults) [facility] ([facility]) Sodium Level 141 meq/L 136-145 Normal (applies to non-numeric res ults) [facility] ([facility]) Carbon Dioxide Level 30 meq/L 21-32 Normal (applies to non-num magalis results) [facility] ([facility]) Anion Gap 4 meq/L 8-16 Below low normal [facility] ( [facility]) Ast/Sgot 18 U/L 7-37 Normal (applies to non-numeric resul ts) [facility] ([facility]) Calcium Level 9.4 mg/dL 8.8-10.2 Normal (applies to non-numeric re sults) [facility] ([facility]) Bilirubin,Total 0.4 mg/dL 0.2-1.0 Normal (applies to non-numeric results) [facility] ([facility]) Alkaline Phosphatase 66 U/L 45-117 Normal (applies to non-num magalis results) [facility] ([facility]) Alt/SGPT 32 U/L 12-78 Normal (applies to non-numeric resul ts) [facility] ([facility]) Albumin 3.5 GM/DL 3.2-5.2 Normal (applies to non-numeric resul ts) [facility] ([facility]) Total Protein 6.9 GM/DL 6.4-8.2 Normal (applies to non-numeric re sults) [facility] ([facility]) Albumin/Globulin Ratio 1.0 Normal (applies to non-n umeric results) [facility] ([facility]) ID Date Data Source [id number] 05/29/2020 12:00:00 AM EDT [facility] Name Value Range Interpretation Code Description Data [facility] rce(s) Supporting Document(s) 2019-nCoV RNA XXX RYLIE+probe-Imp [facility] This lab was ordered by [employer] and repo rted by [employer]. ID Date Data Source [id number] 05/22/2020 12:00:00 AM EDT [facility] Name Value Range Interpretation Code Description Data Mandi rce(s) Supporting Document(s) 2018-nCoV RNA XXX RYLIE+probe-Imp [facility] This lab was ordered by [facility] and repo rted by [employer] ID Date Data Source [id number] 05/15/2020 12:00:00 AM EDT [facility] Name Value Range Interpretation Code Description Data Mandi rce(s) Supporting Document(s) 2018-nCoV RNA XXX RYLIE+probe-Imp [facility] This lab was ordered by [employer] and repo rted by [employer] ID Date Data Source [id number] 05/08/2020 12:00:00 AM EDT [facility] Name Value Range Interpretation Code Description Data Mandi rce(s) Supporting Document(s) 2018-nCoV RNA XXX RYLIE+probe-Imp [facility] This lab was ordered by [employer] and repo rted by [employer] ID Date Data Source [id number] 05/01/2020 12:00:00 AM EDT [facility] Name Value Range Interpretation Code Description Data Mandi rce(s) Supporting Document(s) 2018-nCoV RNA XXX RYLIE+probe-Imp [facility] This lab was ordered by [facility] and repo rted by [employer] ID Date Data Source [id number] 04/24/2020 12:00:00 AM EDT [facility] Name Value Range Interpretation Code Description Data Mandi rce(s) Supporting Document(s) 2018-nCoV RNA XXX RYLIE+probe-Imp [facility] This lab was ordered by [employer] and repo rted by [employer]. ID Date Data Source [id number] 04/17/2020 12:00:00 AM EDT [facility] Name Value Range Interpretation Code Description Data Mandi rce(s) Supporting Document(s) 2018-nCoV RNA XXX RYLIE+probe-Imp [facility] This lab was ordered by [employer] and repo rted by [employer]. ID Date Data Source [id number] 04/10/2020 12:00:00 AM EDT [facility] Name Value Range Interpretation Code Description Data Mandi rce(s) Supporting Document(s) 2019-nCoV RNA XXX RYLIE+probe-Imp [facility] This lab was ordered by [employer] and repo rted by [employer]. ID Date Data Source [id number] 04/08/2020 02:03:00 AM EDT [facility] ([facility]) Name Value Range Interpretation Code Description Data Mandi rce(s) Supporting Document(s) Wound Culture Laboratory test result Normal (applies t o non-numeric results) [facility] ([facility]) <content>FULL REPORT IN LAB NOTES ([facility] a nd [facility]).</content>
<content></content>
<content>ORGANISM 1: STREP AGALACTIAE GROUP B</content>
<content></content>
<content>QUANTITY OF GROWTH FEW</content>
<content></content>
<content></content>
<content>ORGAN ISM 1: STREP AGALACTIAE GROUP B</content>
<content></content>
<content> STREP AGALACTIAE GROUP B: REACTION</content>
<content>ICR (INDUCIBLE CC RESISTANCE) IV ICR TEST RESULT</content>
<content>TETRACYCLINE PO 250 mg qid <=0.25 S</content>
<content>PENICILLIN G IV 1 mu q6h <=0.06 S</content>
<content>PENICILLIN G PO 250mg q6h fasting <=0.06 S</content>
<content>AMPICILLIN IV 500mg q6h <=0.25 S</content>
<content>AMPICILLIN PO 500mg q6h fasting <=0.25 S</content>
<content>ERYTHROMYCIN IV 500mg q6h >=8 R</content>
<content> ERYTHROMYCIN PO 500mg q6h >=8 R</content>
<content>LEVOFLOXACIN IV 500mg qd 0.5 S</content>
<content>LEVOFLOXACIN PO 250mg qd 0.5 S</content>
<content>LEVOFLOXACIN PO 500mg qd 0.5 S</content>
<content>VANCOMYCIN IV 500mg q8h 0.5 S</content>
<content>MOXIFLOXACIN (AVELOX) IV 400MG QD 0.12 S</content>
<content> MOXIFLOXACIN (AVELOX) PO 400MG QD 0.12 S</content>
<content>CEFTRIAXONE IV 1gm q24h <=0.12 S</content>
<content>CEFOTAXIME IV 1gm q8h <=0.12 S</content>
<content>An isolate with a (+) POSITIVE ICR test is considered</content>
<content>CLINDAMYCIN RESISTANT; however, clindamycin may still</content>
<content>be effective in some patients.</content>
<content>An isolate with a (-) NEGATIVE ICR test is considered</content>
<content>CLIDAMYCIN SENSITIVE.</content>
<content></content> ID Date Data Source [id number] 04/08/2020 12:00:00 AM EDT [facility] Name Value Range Interpretation Code Description Data Mandi rce(s) Supporting Document(s) 2018-nCoV RNA XXX RYLIE+probe-Imp [facility] This lab was ordered by [employer] rted by [employer]. ID Date Data Source [id number] 04/03/2020 12:00:00 AM EDT [facility] Name Value Range Interpretation Code Description Data Mandi rce(s) Supporting Document(s) 2018-nCoV RNA XXX RYLIE+probe-Imp [facility] This lab was ordered by [employer] rted by [employer]. ID Date Data Source [id number] 04/02/2020 12:00:00 AM EDT [facility] Name Value Range Interpretation Code Description Data Mandi rce(s) Supporting Document(s) 2018-nCoV RNA XXX RYLIE+probe-Imp [facility] This lab was ordered by [facility] and repo rted by [employer] ID Date Data Source [id number] 03/26/2020 12:00:00 AM EDT [facility] Name Value Range Interpretation Code Description Data Mandi rce(s) Supporting Document(s) 2018-nCoV RNA XXX RYLIE+probe-Imp [facility] This lab was ordered by [facility] and repo rted by [employer] ID Date Data Source [id number] 03/19/2020 12:00:00 AM EDT [facility] Name Value Range Interpretation Code Description Data Mandi rce(s) Supporting Document(s) 2018-nCoV RNA XXX RYLIE+probe-Imp [facility] This lab was ordered by [facility] and repo rted by [employer] ID Date Data Source [id number] 12/17/2019 08:19:00 AM EST [facility] ([facility]) Name Value Range Interpretation Code Description Data Mandi rce(s) Supporting Document(s) Red Blood Count 5.14 10 4.30-6.10 Normal (applies to non-numeric results) [facility] ([facility]) White Blood Count 7.4 10 4.0-10.0 Normal (applies to non-numeri c results) [facility] ([facility]) Hemoglobin 14.3 g/dL 13.5-17.5 Normal (applies to non-numeric resul ts) [facility] ([facility]) Hematocrit 46.2 % 42.0-52.0 Normal (applies to non-numeric resul ts) [facility] ([facility]) Mean Corpuscular Volume 89.9 fl 80.0-96.0 Normal ( applies to non-numeric results) [facility] ([facility]) Mean Corpuscular Hemoglobin 27.8 pg 27.0-33.0 Norm al (applies to non-numeric results) [facility] ([facility]) Mean Corpuscular HGB Conc 31.0 g/dL 32.0-36.5 Below low normal [facility] ([facility]) Red Cell Distribution Width 14.9 % 11.5-14.5 Above high normal [facility] ([facility]) Neutrophils % 45.2 % 36.0-66.0 Normal (applies to non-numeric re sults) [facility] ([facility]) Platelet Count, Automated 205 10 150-450 Normal (applies to non-numeric results) [facility] ([facility]) Lymph % 43.3 % 24.0-44.0 Normal (applies to non-numeric resul ts) [facility] ([facility]) [place] % 7.7 % 0.0-5.0 Above high normal [facility] ([facility]) Baso % 0.5 % 0.0-1.0 Normal (applies to non-numeric resul ts) [facility] ([facility]) Eos % 3.0 % 0.0-3.0 Normal (applies to non-numeric resul ts) [facility] ([facility]) Immature Granulocyte % 0.3 % 0-3.0 Normal (applies to non-n umeric results) [facility] ([facility]) Nucleated Red Blood Cell % 0.0 % 0-0 Normal (applies to n on-numeric results) [facility] ([facility]) Neutrophils # 3.3 10 1.5-8.5 Normal (applies to non-numeric re sults) [facility] ([facility]) Lymph # 3.2 10 1.5-5.0 Normal (applies to non-numeric resul ts) [facility] ([facility]) [place] # 0.6 10 0.0-0.8 Normal (applies to non-numeric resul ts) [facility] ([facility]) Eos # 0.2 10 0.0-0.5 Normal (applies to non-numeric resul ts) [facility] ([facility]) Baso # 0.0 10 0.0-0.2 Normal (applies to non-numeric resul ts) [facility] ([facility]) ID Date Data Source [id number] 12/17/2019 08:19:00 AM EST [facility] ([facility]) Name Value Range Interpretation Code Description Data Mandi rce(s) Supporting Document(s) Triglycerides Level 104 mg/dL Normal (applies to non-nume kristen results) [facility] ([facility]) HDL Cholesterol 47 mg/dL Normal (applies to non-numeric results) [facility] ([facility]) Cholesterol Level 133 mg/dL Normal (applies to non-numeri c results) [facility] ([facility]) LDL Cholesterol 65 mg/dL Normal (applies to non-numeric results) [facility] ([facility]) Non-HDL-C 86 mg/dL Normal (applies to non-numeric resul ts) [facility] ([facility]) Cholesterol Risk Ratio 2.829 Normal (applies to non-n umeric results) [facility] ([facility]) ID Date Data Source [id number] 12/17/2019 08:19:00 AM EST [facility] ([facility]) Name Value Range Interpretation Code Description Data Mandi rce(s) Supporting Document(s) Hemoglobin A1c 7.1 % Normal (applies to non-numeric r esults) [facility] ([facility]) REFERENCE RANGES: 4.5-5.6% NORMAL 5.7-6.4% SUGGESTS IMPAIRED GLUCOSE META BOLISM >= 6.5% ABNORMAL Estimated Average Glucose 157 mg/dL 60-110 Above high normal [facility] ([facility]) ID Date Data Source [id number] 12/17/2019 08:19:00 AM EST [facility] Name Value Range Interpretation Code Description Data Mandi rce(s) Supporting Document(s) Glucose, Fasting 106 mg/dL 70-100 Above high normal [facility]) Creatinine For GFR 1.04 mg/dL 0.70-1.30 Normal (applies to non -numeric results) [facility] ([facility]) Blood Urea Nitrogen 27 mg/dL 7-18 Above high normal [facility] ([facility]) Glomerular Filtration Rate Laboratory test result Normal (applies to non- numeric results) [facility] ([facility]) <content>Units are mL/min/1.73 m2</content>
<content></content>
<content>Chronic Kidney Disease Staging per NKF:</content>
<content></content>
<content>Stage I & II GFR >=60 Normal to Mildly Decreased</content>
<content>Stage III GFR 30- 59 Moderately Decreased</content>
<content>Stage IV GFR 15-29 Severely Decreased</content>
<content>Stage V GFR <15 Very Little GFR Left</content>
<content>ESRD GFR <15 on LAW PROFESSOR</content>
<content></content> Sodium Level 141 meq/L 136-145 Normal (applies to non-numeric res ults) [facility] ([facility]) Chloride Level 109 meq/L 98-107 Above high normal [facility] ([facility]) Potassium Serum 4.9 meq/L 3.5-5.1 Normal (applies to non-numeric results) [facility] ([facility]) Carbon Dioxide Level 26 meq/L 21-32 Normal (applies to non-num magalis results) [facility] ([facility]) Anion Gap 6 meq/L 8-16 Below low normal [facility] ( [facility]) Ast/Sgot 19 U/L 7-37 Normal (applies to non-numeric resul ts) [facility] ([facility]) Calcium Level 9.1 mg/dL 8.8-10.2 Normal (applies to non-numeric re sults) [facility] ([facility]) Alt/SGPT 43 U/L 12-78 Normal (applies to non-numeric resul ts) [facility] ([facility]) Alkaline Phosphatase 65 U/L 45-117 Normal (applies to non-num magalis results) [facility] ([facility]) Bilirubin,Total 0.4 mg/dL 0.2-1.0 Normal (applies to non-numeric results) [facility] ([facility]) Albumin 4.0 GM/DL 3.2-5.2 Normal (applies to non-numeric resul ts) [facility] ([facility]) Total Protein 7.4 GM/DL 6.4-8.2 Normal (applies to non-numeric re sults) [facility] ([facility]) Albumin/Globulin Ratio 1.18 1.00-1.93 Normal (applies to non-numeric results) [facility] ([facility]) ID Date Data Source [id number] 09/17/2019 08:04:00 AM EST [facility] ([facility]) Name Value Range Interpretation Code Description Data Mandi rce(s) Supporting Document(s) Creatinine, Urine 101.0 mg/dL Normal (applies to non-numer ic results) [facility] ([facility]) Malb Urine Siemens 13.4 mg/L Normal (applies to non-numer ic results) [facility] ([facility]) Jordy/Creat Ratio 13.2 MCG/MG 0.0-30.0 Normal (applies to non-numeric results) [facility] ([facility]) THE [employer] STATES THAT MICROALBUMINURIA IS PRESENT IF THE MICROALBUMIN/CREATININE RATIO EXCEEDS 30 MCG/MG. THE THRESHOLD FOR CLINICAL ALBUMINURIA IS REACHED AT 300 MCG/MG. THE CLASSIFICATION OF A PATIENT SHOULD BE BASED UPON AT LEAST 2 OF 3 ABNORMAL RESULTS ON SPECIMENS COLLECTED WITHIN A 3 TO 6 MONTH TIME FRAME. ID Date Data Source [id number] 09/17/2019 08:04:00 AM EST [facility] Name Value Range Interpretation Code Description Data Mandi rce(s) Supporting Document(s) Hemoglobin A1c 7.5 % Normal (applies to non-numeric r esults) [facility]) REFERENCE RANGES: 4.5-5.6% NORMAL 5.7-6.4% SUGGESTS IMPAIRED GLUCOSE META BOLISM >= 6.5% ABNORMAL Estimated Average Glucose 169 mg/dL 60-110 Above high normal [facility] ([facility]) ID Date Data Source [id number] 09/17/2019 08:04:00 AM EST [facility] Name Value Range Interpretation Code Description Data Mandi rce(s) Supporting Document(s) Glucose, Fasting 110 mg/dL 70-100 Above high normal [facility] Blood Urea Nitrogen 23 mg/dL 7-18 Above high normal [facility] ([facility]) Creatinine For GFR 1.04 mg/dL 0.70-1.30 Normal (applies to non -numeric results) [facility] ([facility]) Glomerular Filtration Rate > 60.0 Normal (applies to n on-numeric results) [facility]) <content>Units are mL/min/1.73 m2</content>
<content></content>
<content>Chronic Kidney Disease Staging per NKF:</content>
<content></content>
<content>Stage I & II GFR >=60 Normal to Mildly Decreased</content>
<content>Stage III GFR 30- 59 Moderately Decreased</content>
<content>Stage IV GFR 15-29 Severely Decreased</content>
<content>Stage V GFR <15 Very Little GFR Left</content>
<content>ESRD GFR <15 on LAW PROFESSOR</content>
<content></content> Sodium Level 143 meq/L 136-145 Normal (applies to non-numeric res ults) [facility] ([facility]) Potassium Serum 4.6 meq/L 3.5-5.1 Normal (applies to non-numeric results) [facility] ([facility]) Chloride Level 108 meq/L 98-107 Above high normal [facility] ([facility]) Carbon Dioxide Level 28 meq/L 21-32 Normal (applies to non-num magalis results) [facility] ([facility]) Anion Gap 7 meq/L 8-16 Below low normal [facility] ( [facility]) Ast/Sgot 25 U/L 7-37 Normal (applies to non-numeric resul ts) [facility] ([facility]) Calcium Level 9.3 mg/dL 8.8-10.2 Normal (applies to non-numeric re sults) [facility] ([facility]) Alt/SGPT 41 U/L 12-78 Normal (applies to non-numeric resul ts) [facility] ([facility]) Alkaline Phosphatase 67 U/L 45-117 Normal (applies to non-num magalis results) [facility] ([facility]) Bilirubin,Total 0.4 mg/dL 0.2-1.0 Normal (applies to non-numeric results) [facility] ([facility]) Total Protein 7.2 GM/DL 6.4-8.2 Normal (applies to non-numeric re sults) [facility] ([facility]) Albumin/Globulin Ratio 1.00 1.00-1.93 Normal (applies to non-numeric results) [facility] ([facility]) Albumin 3.6 GM/DL 3.2-5.2 Normal (applies to non-numeric resul ts) [facility] ([facility]) Procedure Social History Code Duration Value Status Description Data Source(s ) Alcohol intake 10/16/2020 12:00:00 AM EST Yes completed [facility] Smoking 10/16/2020 12:00:00 AM EST Never smoker completed Never s moker [facility] Smoking 04/07/2020 12:00:00 AM EDT Patient has never smoked co mpleted Patient has never smoked [facility] ([facility]) Smoking 09/19/2019 12:00:00 AM EST Patient has never smoked co mpleted Patient has never smoked [facility] ([facility] Vital Signs ID Date Data Source UNK Name Value Range Interpretation Code Description Data Source(s) Oxygen saturation in Arterial blood by Pulse oximetry 96 % 96 % [facility] Body mass index (BMI) [Ratio] 35.71 kg/m2 35.71 kg/m2 [facility] Body weight 103.42 kg 103.42 kg [facility] Body height 170.2 cm 170.2 cm [facility] Heart rate 92 /min 92 /min [facility] Diastolic blood pressure 70 mm[Hg] 70 mm[Hg] [facility] Systolic blood pressure 108 mm[Hg] 108 mm[Hg] [facility] Oxygen saturation in Arterial blood by Pulse oximetry 89 % 89 % [facility] ([facility] Body temperature 98.5 [degF] 98.5 [degF] [facility] ([facility] Respiratory rate 18 /min 18 /min [facility] ( [facility] Heart rate 89 /min 89 /min [facility] [facility]) Body mass index (BMI) [Ratio] 35.9 kg/m2 35.9 k g/m2 [facility] ([facility] Body weight 220.38 [lb_av] 220.38 [lb_av] MEDEN T ([facility]) Body height 65.7 [in_i] 65.7 [in_i] [facility] ([facility]) 5'5.70" Diastolic blood pressure 68 mm[Hg] 68 mm[Hg] [facility] ([facility]) Systolic blood pressure 122 mm[Hg] 122 mm[Hg] M EDENT ([facility]) Oxygen saturation in Arterial blood by Pulse oximetry 96 % 96 % [facility] ([facility] Body temperature 99.4 [degF] 99.4 [degF] [facility] ([facility]) Respiratory rate 20 /min 20 /min [facility] ( [facility] Heart rate 92 /min 92 /min [facility] ([facility] Body mass index (BMI) [Ratio] 35.8 kg/m2 35.8 k g/m2 [facility] ([facility] Body weight 220.00 [lb_av] 220.00 [lb_av] MEDEN T ([facility]) Body height 65.7 [in_i] 65.7 [in_i] [facility] ([facility]) 5'5.70" Diastolic blood pressure 84 mm[Hg] 84 mm[Hg] [facility] ([facility] Systolic blood pressure 124 mm[Hg] 124 mm[Hg] M EDENT ([facility]) Body mass index (BMI) [Ratio] 34.1 kg/m2 34.1 k g/m2 [facility] ([facility]) Body height 67 [in_i] 67 [in_i] MEDENT ([facility], [facility]) 5'7" Body weight 218.00 [lb_av] 218.00 [lb_av] MEDEN T ([facility], [facility]) Body temperature 98.3 [degF] 98.3 [degF] [facility] ([facility], [facility]) Oxygen saturation in Arterial blood by Pulse oximetry 96 % 96 % [facility] ([facility], [facility]) Respiratory rate 17 /min 17 /min [facility] ( [facility], [facility]) Heart rate 89 /min 89 /min [facility] ([facility], [facility]) Diastolic blood pressure 78 mm[Hg] 78 mm[Hg] [facility] ([facility], [facility]) Systolic blood pressure 118 mm[Hg] 118 mm[Hg] M EDENT ([facility]) Oxygen saturation in Arterial blood by Pulse oximetry 97 % 97 % [facility] ([facility] Body temperature 98.5 [degF] 98.5 [degF] [facility] ([facility]) Respiratory rate 18 /min 18 /min [facility] ( [facility] Heart rate 78 /min 78 /min [facility] ([facility] Body mass index (BMI) [Ratio] 36.4 kg/m2 36.4 k g/m2 [facility] ([facility] Body weight 223.38 [lb_av] 223.38 [lb_av] MEDEN T ([facility] Body height 65.7 [in_i] 65.7 [in_i] [facility] ([facility]) 5'5.70" Diastolic blood pressure 78 mm[Hg] 78 mm[Hg] [facility] ([facility] Systolic blood pressure 122 mm[Hg] 122 mm[Hg] M EDENT ([facility] Body weight 229.38 [lb_av] 229.38 [lb_av] MEDEN T ([facility] Body height 65.7 [in_i] 65.7 [in_i] [facility] ([facility]) 5'5.70" Diastolic blood pressure 70 mm[Hg] 70 mm[Hg] [facility] ([facility] Systolic blood pressure 135 mm[Hg] 135 mm[Hg] M EDENT ([facility]) Oxygen saturation in Arterial blood by Pulse oximetry 95 % 95 % [facility] ([facility] Body temperature 98.9 [degF] 98.9 [degF] [facility] ([facility] Respiratory rate 18 /min 18 /min [facility] ( [facility] Heart rate 88 /min 88 /min [facility] ([facility] Body mass index (BMI) [Ratio] 37.4 kg/m2 37.4 k g/m2 [facility] ([facility]) Patient Treatment Plan of Care Planned Activity Planned Date Details Description Data Source (s) Rosuvastatin calcium 20 MG Oral Tablet 09/25/2020 12:00:00 AM EST [facility] FLUAD QUADRIVALENT 0.5 ML PRSY 08/13/2020 12:00:00 AM EDT [facility] 24 HR metoprolol succinate 25 MG Extended Release Oral Tablet 07/02/2020 12:00:00 AM EDT [facility] Amoxicillin 500 MG / Clavulanate 125 MG Oral Tablet 04/08/20 12:00:00 AM EDT [facility] Hydrocortisone 25 MG/ML Topical Cream [Proctozone HC] 04/07/2020 12:00:00 AM EDT [facility] empagliflozin 25 MG Oral Tablet [Jardiance] 03/12/2020 12:00:00 AM EDT [facility] tadalafil 5 MG Oral Tablet 03/01/2020 12:00:00 AM EDT [facility] Metformin hydrochloride 500 MG Oral Tablet 09/25/2019 12:00:00 AM E [facility]
[2020-11-12] MEDS ORDERED: NS 1,000 ML IV ONE (17:15)
[2020-11-12] MEDS ORDERED: ACETAMINOPHEN 325 MG TAB PO ONE (17:15)
[2020-11-12] MEDS ORDERED: ONDANSETRON 4MG/2ML VIAL IV ONE (17:15)
[2020-11-12 17:37] LABS: BASO % 0.3 % (0.0-1.0); EOS % 0.1 % (0.0-3.0); HEMATOCRIT 40.5 % (42.0-52.0); HEMOGLOBIN 12.7 g/dl (13.5-17.5); LYMPH # 0.7 10^3/uL (1.5-5.0); LYMPH % 9.7 % (24.0-44.0); MEAN CORPUSCULAR HEMOGLOBIN 28.2 pg (27.0-33.0); MEAN CORPUSCULAR HGB CONC 31.4 g/dl (32.0-36.5); MEAN CORPUSCULAR VOLUME 89.8 fl (80.0-96.0); MONO # 0.6 10^3/uL (0.0-0.8); MONO % 8.4 % (0.0-5.0); NEUTROPHILS # 5.6 10^3/uL (1.5-8.5); NEUTROPHILS % 81.1 % (36.0-66.0); PLATELET COUNT, AUTOMATED 180 10^3/uL (150-450); RED BLOOD COUNT 4.51 10^6/uL (4.30-6.10); WHITE BLOOD COUNT 6.9 10^3/uL (4.0-10.0)
[2020-11-12 17:55] LABS: D-DIMER QUANT 617.94 ng/ml (<500)
[2020-11-12 18:05] LABS: ALBUMIN 3.5 GM/DL (3.2-5.2); BILIRUBIN,DIRECT 0.2 MG/DL (0.0-0.2); BILIRUBIN,TOTAL 0.4 MG/DL (0.2-1.0); C REACTIVE PROTEIN QUANTITATIV 6.22 MG/DL (0.00-0.30); TOTAL PROTEIN 6.8 GM/DL (6.4-8.2)
--- NOTE | 2020-11-12 18:06 | REP ---
INDICATION: CHEST PAIN. COMPARISON: Comparison chest x-ray April 16, 2012. TECHNIQUE: Portable upright AP chest radiograph. FINDINGS: The lungs are well inflated and free of infiltrate. Pleural angles are sharp. Heart size is normal. Pulmonary vasculature is not increased. Thoracic aorta is somewhat tortuous as before. IMPRESSION: No active disease. <Electronically signed by Eliecer Huntley > 11/12/20 [id number]
[2020-11-12 18:21] LABS: ERYTHROCYTE SEDIMENTATION RATE 47 mm/hr (0-20)
[2020-11-12] MEDS ORDERED: ISOVUE-370 76% 100ML VIAL As Ordered ONE (19:02)
--- OUTSIDE RECORDS SUMMARY | 2020-11-12 19:05 | CCD ---
Author Author [facility] Organization [facility] Address Unknown Phone Unavailable Care Team Providers Care Salt Manager Name Role Phone Bob, Reagan PA Unavailable [...] Unavailable Bob, Reagan PA Unavailable Unavailable Bob, Reagna PA Unavailable Unavailable Bob, Reagan PA Unavailable [...] Unavailable KAYLEEN-XOCHITL, GHAZALA DO Unavailable Unavailable KAYLEEN-XOCHITL, HGAZALA DO Unavailable Unavailable KAYLEEN-XOCHITL, GHAZALA DO Unavailable [...] KAYLEEN-XOCHITL, GHAZALA DO Unavailable Unavailable Daly, Ly PRODUCTION HELPER Unavailable Unavailable Daly, Ly PRODUCTION HELPER Unavailable Unavailable Daly, Ly PRODUCTION HELPER Unavailable Unavailable Daly, Ly PRODUCTION HELPER Unavailable Unavailable Daly, Ly PRODUCTION HELPER Unavailable Unavailable Daly, Ly PRODUCTION HELPER Unavailable Unavailable Daly, Ly PRODUCTION HELPER Unavailable Unavailable Daly, Ly PRODUCTION HELPER Unavailable Unavailable Daly, Ly PRODUCTION HELPER Unavailable Unavailable Daly, Ly PRODUCTION HELPER Unavailable Unavailable Daly, Ly PRODUCTION HELPER Unavailable Unavailable O'aiyana, A Narayan PA Unavailable [...] Unavailable O'aiyana, A Narayan PA Unavailable Unavailable Gaston, V MOHIT PA-C Unavailable Unavailable Gaston, V MOHIT PA-C Unavailable Unavailable Gaston, V MOHIT PA-C Unavailable Unavailable Sebas, V MOHIT PA-C Unavailable Unavailable Gaston, V MOHIT PA-C Unavailable Unavailable Gaston, V MOHIT PA-C Unavailable Unavailable Gaston, V MOHIT PA-C Unavailable Unavailable Re-disclosure Warning [...] is protected by Article 27-F of the [facility] Public Health law. If you continue you may have access to information: Regarding HIV / AIDS; Provided by facilities licensed or operated by the [facility] Office of Mental Health; or Provided by the [facility] Office for People With Developmental Disabilities. If such information is present, then the following [facility] mandated warning applies: This information has [...] law may result in a fine or alf sentence or both. A general authorization for the release of medical or other information is NOT sufficient authorization for further disc losure. Family History Family Member Name Family Member Gender Family Member Status Date o f Status Description Data Source(s) Unknown Unknown Problem [facility] ([facility]) father, mother and sister Unknown Male Problem [facility] ([facility] [facility] [place]) () Unknown Female Problem [facility] ([facility]) Encounters Encounter Providers Location Date Indications Data Source(s ) Outpatient Attender: MOHIT TOSCANOCReferrer: John [email or web address] 10/16/2020 12:00:00 AM EST - 10/16/2020 04:21:20 PM EST [facility] Outpatient Attender: Narayan MONROE [facility] 06/19/2020 03:00:00 PM EDT [facility] ([facility]) Outpatient Attender: Reagan MONROE [facility] 04/10/2020 01:00:00 PM EDT [facility] (Family Medicine [facility]) Outpatient Attender: Marina [email or web address] 12:00:00 AM EDT - 04/09/2020 04:01:17 PM EDT [facility] Outpatient Attender: Ly Daly NP Donna Becerra Gretel fidelina 04/07/2020 11:10:00 AM EDT [facility] Outpatient Attender: Narayan MONROE [facility] 12/20/2019 02:30:00 PM EST [facility] ([facility]) Outpatient Attender: Marina [email or web address] 12:00:00 AM EST [facility] Outpatient Attender: GHAZALA LANGSTON DO [facility] 09/19/2019 01:30:00 PM EST [facility] ([facility]) Immunizations Vaccine Date Status Description Data Source(s) INFLUENZA VACCINE QUADRIVALENT (65 YR UP)/MF59 C.1/PF 08/13/2020 12:00:00 AM EDT completed [facility] Medications Medication Brand Name Start Date Product Form Dose Route Admi nistrative Instructions Pharmacy Instructions Status Indications Reaction Description Data Source(s) Rosuvastatin calcium 20 MG Oral Tablet rosuvastatin (C RESTOR) 20 MG tablet rosuvastatin (CRESTOR) 20 MG tablet 09/25/2020 12:00:00 AM EST 20 mg Oral active Hyperlipidemia, unspecified hyperlipidemia type Take 1 tablet (20 mg total) by mouth daily [facility] Hyperlipidemia, unspecified hyperlipidem ia type FLUAD QUADRIVALENT 0.5 ML PRSY [id number] 08/13/2020 12:00:00 AM EDT active INJECT DIRECTED IN THE LE FT ARM [facility] 24 HR metoprolol succinate 25 MG Extende d Release Oral Tablet metoprolol succinate (TOPROL-XL) 25 MG 24 hr tablet metoprolol succinate (TOPROL-XL) 25 MG 24 hr tablet 07/02/2020 12:00:00 AM EDT activ e TAKE ONE TABLET BY MOUTH EVERY DAY [facility] 500-125 mg 04/08/2020 12:00:00 AM EDT tablet 20 TAKE ONE TABLET BY MOUTH EVERY 8 HOURS TAKE ONE TABLET BY MOUTH EVERY 8 HOURS SOLD: 04/08/2020 [facility] Amoxicillin 500 MG / Clavulanate 125 MG Oral Tablet amoxicillin-clavulanate (AUGMENTIN) 500-125 MG per tablet amoxicillin-clavulanate (AUGMENTIN) 500- 125 MG per tablet 04/08/2020 12:00:00 AM EDT aborted [facility] 2.5 % 04/07/2020 12:00:00 AM EDT cream with perineal tu licator 60 APPLY RECTALLY TWO TIMES A DAY FOR 14 DAYS APPLY RECTALLY TWO TIMES A DAY FOR 14 DAYS SOLD: 04/07/2020 [facility] Hydrocortisone 25 MG/ML Rectal Cream Hydrocortisone (Periana l) 04/07/2020 12:00:00 AM EDT active M [facility] ([facility]) Hydrocortisone 25 MG/ML Topical Cream [P roctozone HC] PROCTOZONE-HC 2.5 % rectal cream PROCTOZONE-HC 2.5 % rectal cream 04/07/2020 12:00:00 AM EDT active as needed [facility] empagliflozin 25 MG Oral Tablet [Jardiance] JARDIANCE 25 MG TABS JARDIANCE 25 MG TABS 03/12/2020 12:00:00 AM EDT active [facility] tadalafil 5 MG Oral Tablet tadalafil (CIALIS) 5 MG tab let tadalafil (CIALIS) 5 MG tablet 03/01/2020 12:00:00 AM EDT active [facility] empagliflozin 25 MG Oral Tablet [Jardiance] Jardiance 12/20/2019 12:00:00 AM EST ORAL active [facility] ([facility]) Metformin hydrochloride 500 MG Oral Tablet metFORMIN ( GLUCOPHAGE) 500 MG tablet metFORMIN (GLUCOPHAGE) 500 MG tablet 09/25/2019 12:00:00 AM EST 100 0 mg Oral active Take 1,000 mg by mouth 2 (two) times a day with meals [facility] Insurance Providers Payer name Policy type / Coverage type Policy ID Covered democrat ID Covered democrat's relationship to shah Policy Shah Plan Information [facility] [id number] SP [id number] MEDICARE [id number] SP [id number] UMR [id number] MEDICARE [id number] UMR [id number] Jaelyn [id number] MEDICARE [id number] Jaelyn [id number] UMR O [id number] S [id number] MEDICARE C [id number] S [id number] UMR [facility] [id number] SP [id number] [employer] Medigap Part B [id number] Self [id number] Medicare Medigap Part B [id number] Self [id number] Umr Medigap Part B [id number] Self [id number] Medicare Medicare Primary [id number] Self [id number] MEDICARE [id number] SP [id number] A POMCO [id number] SP [id number] [employer] Medigap Part B [id number] Self [id number] Medicare Medicare Primary [id number] Self [id number] [employer] Medigap Part B [id number] Self [id number] Medicare Natl Gov't Servi Medicare Primary [id number] Self [id number] [employer] Commercial Self [employer] (pr) Commercial Self POMCO-O/P [id number] 18 [id number] Problems, Conditions, and Diagnoses Code Display Name Description Problem Type Effective Dates Data Source(s) E66.9 Class 2 obesity in adult Class 2 obesity in adult 6457 200010/16/2020 12:00:00 AM EST [facility] [id number] Long-term current use of oral hypoglycem ic medication Long-term current use of oral hypoglycemic medication Problem 06/19/2020 12:00 :00 AM EDT [facility] ([facility]) [id number] Diabetic peripheral neuropathy Diabetic peripheral leonel ropathy Problem 06/19/2020 12:00:00 AM EDT [facility] ([facility]) M79.604 Leg pain, anterior, right Leg pain, anterior, right [id number] 04/09/2020 12:00:00 AM EDT [facility] [id number] Type II diabetes mellitus uncontrolled T ype II diabetes mellitus uncontrolled Problem 12/20/2019 12:00:00 AM EST [facility] (Famil [facility]) Z98.61 Coronary angioplasty status Coronary angioplasty statu s Diagnosis 10/16/2020 03:19:46 PM EST [facility] E11.65 Type 2 diabetes mellitus with hyperglyce gretel Type 2 diabetes mellitus with hyperglyce Diagnosis 04/09/2020 02:58:03 PM EDT [facility] R97.20 Elevated prostate specific antigen (PSA) Elevated prostate specific antigen (PSA) Diagnosis 04/09/2020 02:58:03 PM EDT [facility] E78.2 Mixed hyperlipidemia Mixed hyperlipidemia Diagnosis 04/09/2020 02:58:03 PM EDT [facility] I73.9 Peripheral vascular disease, unspecified Peripheral vascular disease, unspecified Diagnosis 04/09/2020 02:58:03 PM EDT [facility] Surgeries/Procedures Procedure Description Date Indications Data Source(s) ECG ROUTINE ECG W/LEAST 12 LDS W/I&R POCT AMB EKG Routine 10/16/2020 4:10 PM EST Coronary angioplasty status 10/16/2020 09:10:00 PM EST Coron mercedes angioplasty status [facility] Coronary angioplasty status Results ID Date Data Source [id number] 10/16/2020 08:07:00 AM EST [facility] Name Value Range Interpretation Code Description Data Mandi rce(s) Supporting Document(s) SARS-CoV-2 [facility] This lab was ordered by [email or web address] and reported by [employer]. ID Date Data Source [id number] 09/18/2020 04:00:00 AM EST [facility] Name Value Range Interpretation Code Description Data Mandi rce(s) Supporting Document(s) SARS-CoV-2 [facility] This lab was ordered by [email or web address] and reported by [employer]. ID Date Data Source [id number] 09/04/2020 12:00:00 AM EST [facility] Name Value Range Interpretation Code Description Data Mandi rce(s) Supporting Document(s) SARS [facility] This lab was ordered by [facility] and reported by [employer]. ID Date Data Source [id number] 08/28/2020 12:00:00 AM EST [facility] Name Value Range Interpretation Code Description Data Mandi rce(s) Supporting Document(s) SARS [facility] This lab was ordered by [facility] and reported by [employer]. ID Date Data Source [id number] 08/21/2020 12:00:00 AM EDT [facility] Name Value Range Interpretation Code Description Data Mandi rce(s) Supporting Document(s) SARS [facility] This lab was ordered by [facility] and reported by [employer]. ID Date Data Source [id number] 08/14/2020 12:30:00 AM EDT [facility] Name Value Range Interpretation Code Description Data Mandi rce(s) Supporting Document(s) SARS-CoV-2 [facility] This lab was ordered by [email or web address] and reported by [employer]. ID Date Data Source [id number] 07/24/2020 10:07:00 PM EDT [facility] Name Value Range Interpretation Code Description Data Mandi rce(s) Supporting Document(s) SARS-CoV-2 [facility] This lab was ordered by [email or web address] and reported by [employer]. ID Date Data Source [id number] 07/17/2020 08:21:00 AM EDT [facility] Name Value Range Interpretation Code Description Data Mandi rce(s) Supporting Document(s) SARS-CoV-2 [facility] This lab was ordered by [email or web address] and reported by [employer]. ID Date Data Source [id number] 07/10/2020 10:01:00 AM EDT [facility] Name Value Range Interpretation Code Description Data Mandi rce(s) Supporting Document(s) SARS-CoV-2 [facility] This lab was ordered by [email or web address] and reported by [employer]. ID Date Data Source [id number] 07/03/2020 01:51:00 PM EDT [facility] Name Value Range Interpretation Code Description Data Mandi rce(s) Supporting Document(s) SARS-CoV-2 [facility] This lab was ordered by [email or web address] and reported by [employer]. ID Date Data Source [id number] 06/26/2020 06:00:00 PM EDT [facility] Name Value Range Interpretation Code Description Data Mandi rce(s) Supporting Document(s) SARS-CoV-2 [facility] This lab was ordered by [facility] and reported by [employer]. ID Date Data Source [id number] 06/19/2020 12:00:00 AM EDT [facility] Name Value Range Interpretation Code Description Data Mandi rce(s) Supporting Document(s) 2018-nCoV RNA XXX RYLIE+probe-Imp [facility] This lab was ordered by [employer] and repo rted by [employer] ID Date Data Source [id number] 06/12/2020 12:00:00 AM EDT [facility] Name Value Range Interpretation Code Description Data Mandi rce(s) Supporting Document(s) 2018-nCoV RNA XXX RYLIE+probe-Imp [facility] This lab was ordered by [employer] and repo rted by [employer] ID Date Data Source [id number] 06/06/2020 12:00:00 AM EDT [facility] [place] Patient Name: WILLIS [id number] Date of : 1950[place] [address] Date of Exam: 06/06/2020PH#: Fax: EXAM: CT [...] by: Job Peoples MD 06/06/2020 5:[address] [facility] ( [facility] [place])Jose AlfredoV/Rosanna you for referring WILLIS RAMIREZ to our office. Electronically Signed - JOSE ALFREDO 06/07/20 8:47 Name Value Range Interpretation Code Description Data Mandi rce(s) Supporting Document(s) ID Date Data Source [id number] 06/01/2020 08:30:00 AM EDT [facility] Name Value Range Interpretation Code Description Data Mandi rce(s) Supporting Document(s) Creatinine, Urine Laboratory test result Normal (applies to non-numeric results) [facility] ([facility]) Test not performed. Please resubmit wit h new order and sample. Malb Urine Siemens 11.0 mg/L Normal (applies to non-numer ic results) [facility] ([facility]) ID Date Data Source [id number] 06/01/2020 08:30:00 AM EDT [facility]) Name Value Range Interpretation Code Description Data Mandi rce(s) Supporting Document(s) Hemoglobin A1c 6.6 % Normal (applies to non-numeric r esults) [facility] ([facility]) <content>REFERENCE RANGES:</content><br/ ><content></content>
<content><=5.6% NORMAL</content>
<content>5.7-6.4% SUGGESTS IMPAIRED GLUCOSE METABOLISM/PREDIABETIC</content>
<content>>= 6.5% ABNORMAL</content>
<content></content> Estimated Average Glucose 143 mg/dL 60-110 Above high normal [facility] ([facility]) ID Date Data Source [id number] 06/01/2020 08:30:00 AM EDT [facility] ([facility]) Name Value Range Interpretation Code Description Data Mandi rce(s) Supporting Document(s) Glucose, Fasting 115 mg/dL 70-100 Above high normal [facility] ([facility]) Glomerular Filtration Rate Laboratory test result Normal (applies to non- numeric results) [facility] ([facility]) <content>Units are mL/min/1.73 m2</content>
<content></content>
<content>Chronic Kidney Disease Staging per NKF:</content>
<content></content>
<content>Stage I & II GFR >=60 Normal to Mildly Decreased</content>
<content>Stage III GFR 30- 59 Moderately Decreased</content>
<content>Stage IV GFR 15-29 Severely Decreased</content>
<content>Stage V GFR <15 Very Little GFR Left</content>
<content>ESRD GFR <15 on SOCIETY REPORTER</content>
<content></content> Creatinine For GFR 1.09 mg/dL 0.70-1.30 Normal (applies to non -numeric results) [facility] ([facility]) Blood Urea Nitrogen 20 mg/dL 7-18 Above high normal [facility] Potassium Serum 5.3 meq/L 3.5-5.1 Above high normal [facility] ([facility]) Chloride Level 107 meq/L 98-107 Normal (applies to non-numeric r esults) [facility] ([facility]) Sodium Level 141 meq/L 136-145 Normal (applies to non-numeric res ults) [facility] ([facility]) Carbon Dioxide Level 30 meq/L 21-32 Normal (applies to non-num magalis results) [facility] ([facility]) Anion Gap 4 meq/L 8-16 Below low normal [facility] ( [facility]) Ast/Sgot 18 U/L 7-37 Normal (applies to non-numeric resul ts) [facility]) Calcium Level 9.4 mg/dL 8.8-10.2 Normal (applies to non-numeric re sults) [facility] ([facility]) Bilirubin,Total 0.4 mg/dL 0.2-1.0 Normal (applies to non-numeric results) [facility] ([facility]) Alkaline Phosphatase 66 U/L 45-117 Normal (applies to non-num magalis results) [facility] ([facility]) Alt/SGPT 32 U/L 12-78 Normal (applies to non-numeric resul ts) [facility] ([facility]) Albumin 3.5 GM/DL 3.2-5.2 Normal (applies to non-numeric resul ts) [facility] ([facility]) Total Protein 6.9 GM/DL 6.4-8.2 Normal (applies to non-numeric re sults) [facility] ([facility]) Albumin/Globulin Ratio 1.0 Normal (applies to non-n umeric results) [facility] ([facility]) ID Date Data Source [id number] 05/29/2020 12:00:00 AM EDT [facility] Name Value Range Interpretation Code Description Data [facility] rce(s) Supporting Document(s) 2019-nCoV RNA XXX RYLIE+probe-Imp [facility] This lab was ordered by [employer] and repo rted by [employer]. ID Date Data Source [id number] 05/22/2020 12:00:00 AM EDT [facility] Name Value Range Interpretation Code Description Data Mandi rce(s) Supporting Document(s) 2018-nCoV RNA XXX RYLIE+probe-Imp [facility] This lab was ordered by [facility] and repo rted by [employer] ID Date Data Source [id number] 05/15/2020 12:00:00 AM EDT [facility] Name Value Range Interpretation Code Description Data Mandi rce(s) Supporting Document(s) 2018-nCoV RNA XXX RYLIE+probe-Imp [facility] This lab was ordered by [employer] and repo rted by [employer] ID Date Data Source [id number] 05/08/2020 12:00:00 AM EDT [facility] Name Value Range Interpretation Code Description Data Mandi rce(s) Supporting Document(s) 2018-nCoV RNA XXX RYLIE+probe-Imp [facility] This lab was ordered by [employer] and repo rted by [employer] ID Date Data Source [id number] 05/01/2020 12:00:00 AM EDT [facility] Name Value Range Interpretation Code Description Data Mandi rce(s) Supporting Document(s) 2018-nCoV RNA XXX RYLIE+probe-Imp [facility] This lab was ordered by [facility] and repo rted by [employer] ID Date Data Source [id number] 04/24/2020 12:00:00 AM EDT [facility] Name Value Range Interpretation Code Description Data Mandi rce(s) Supporting Document(s) 2018-nCoV RNA XXX RYLIE+probe-Imp [facility] This lab was ordered by [employer] and repo rted by [employer]. ID Date Data Source [id number] 04/17/2020 12:00:00 AM EDT [facility] Name Value Range Interpretation Code Description Data Mandi rce(s) Supporting Document(s) 2018-nCoV RNA XXX RYLIE+probe-Imp [facility] This lab was ordered by [employer] and repo rted by [employer]. ID Date Data Source [id number] 04/10/2020 12:00:00 AM EDT [facility] Name Value Range Interpretation Code Description Data Mandi rce(s) Supporting Document(s) 2019-nCoV RNA XXX RYLIE+probe-Imp [facility] This lab was ordered by [employer] and repo rted by [employer]. ID Date Data Source [id number] 04/08/2020 02:03:00 AM EDT [facility] ([facility]) Name Value Range Interpretation Code Description Data Mandi rce(s) Supporting Document(s) Wound Culture Laboratory test result Normal (applies t o non-numeric results) [facility] ([facility]) <content>FULL REPORT IN LAB NOTES (eCW a [...]
<content>CLIDAMYCIN SENSITIVE.</content>
<content></content> ID Date Data Source [id number] 04/08/2020 12:00:00 AM EDT [facility] Name Value Range Interpretation Code Description Data Mandi rce(s) Supporting Document(s) 2018-nCoV RNA XXX RYLIE+probe-Imp [facility] This lab was ordered by [employer] rted by [employer]. ID Date Data Source [id number] 04/03/2020 12:00:00 AM EDT [facility] Name Value Range Interpretation Code Description Data Mandi rce(s) Supporting Document(s) 2018-nCoV RNA XXX RYLIE+probe-Imp [facility] This lab was ordered by [employer] rted by [employer]. ID Date Data Source [id number] 04/02/2020 12:00:00 AM EDT [facility] Name Value Range Interpretation Code Description Data Mandi rce(s) Supporting Document(s) 2018-nCoV RNA XXX RYLIE+probe-Imp [facility] This lab was ordered by [facility] and repo rted by [employer] ID Date Data Source [id number] 03/26/2020 12:00:00 AM EDT [facility] Name Value Range Interpretation Code Description Data Mandi rce(s) Supporting Document(s) 2018-nCoV RNA XXX RYLIE+probe-Imp [facility] This lab was ordered by [facility] and repo rted by [employer] ID Date Data Source [id number] 03/19/2020 12:00:00 AM EDT [facility] Name Value Range Interpretation Code Description Data Mandi rce(s) Supporting Document(s) 2018-nCoV RNA XXX RYLIE+probe-Imp [facility] This lab was ordered by [facility] and repo rted by [employer] ID Date Data Source [id number] 12/17/2019 08:19:00 AM EST [facility] ([facility]) Name Value Range Interpretation Code Description Data Mandi rce(s) Supporting Document(s) Red Blood Count 5.14 10 4.30-6.10 Normal (applies to non-numeric results) [facility]) White Blood Count 7.4 10 4.0-10.0 Normal (applies to non-numeri c results) [facility] ([facility]) Hemoglobin 14.3 g/dL 13.5-17.5 Normal (applies to non-numeric resul ts) [facility] ([facility]) Hematocrit 46.2 % 42.0-52.0 Normal (applies to non-numeric resul ts) [facility] ([facility]) Mean Corpuscular Volume 89.9 fl 80.0-96.0 Normal ( applies to non-numeric results) [facility] ([facility]) Mean Corpuscular Hemoglobin 27.8 pg 27.0-33.0 Norm al (applies to non-numeric results) [facility] ([facility]) Mean Corpuscular HGB Conc 31.0 g/dL 32.0-36.5 Below low normal [facility] ([facility]) Red Cell Distribution Width 14.9 % 11.5-14.5 Above high normal [facility] ([facility]) Neutrophils % 45.2 % 36.0-66.0 Normal (applies to non-numeric re sults) [facility] ([facility]) Platelet Count, Automated 205 10 150-450 Normal (applies to non-numeric results) [facility] ([facility]) Lymph % 43.3 % 24.0-44.0 Normal (applies to non-numeric resul ts) [facility] ([facility]) Lander % 7.7 % 0.0-5.0 Above high normal [facility] ([facility]) Baso % 0.5 % 0.0-1.0 Normal (applies to non-numeric resul ts) [facility] ([facility]) Eos % 3.0 % 0.0-3.0 Normal (applies to non-numeric resul ts) [facility] ([facility]) Immature Granulocyte % 0.3 % 0-3.0 Normal (applies to non-n umeric results) [facility] ([facility]) Nucleated Red Blood Cell % 0.0 % 0-0 Normal (applies to n on-numeric results) [facility] ([facility]) Neutrophils # 3.3 10 1.5-8.5 Normal (applies to non-numeric re sults) [facility] ([facility]) Lymph # 3.2 10 1.5-5.0 Normal (applies to non-numeric resul ts) [facility] ([facility]) Lander # 0.6 10 0.0-0.8 Normal (applies to non-numeric resul ts) [facility] ([facility]) Eos # 0.2 10 0.0-0.5 Normal (applies to non-numeric resul ts) [facility] ([facility]) Baso # 0.0 10 0.0-0.2 Normal (applies to non-numeric resul ts) [facility] ([facility]) ID Date Data Source [id number] 12/17/2019 08:19:00 AM EST [facility] ([facility]) Name Value Range Interpretation Code Description Data Mandi rce(s) Supporting Document(s) Triglycerides Level 104 mg/dL Normal (applies to non-nume kristen results) [facility] ([facility]) HDL Cholesterol 47 mg/dL Normal (applies to non-numeric results) [facility] ([facility]) Cholesterol Level 133 mg/dL Normal (applies to non-numeri c results) [facility]) LDL Cholesterol 65 mg/dL Normal (applies to non-numeric results) [facility] ([facility]) Non-HDL-C 86 mg/dL Normal (applies to non-numeric resul ts) [facility] ([facility]) Cholesterol Risk Ratio 2.829 Normal (applies to non-n umeric results) [facility] ([facility]) ID Date Data Source [id number] 12/17/2019 08:19:00 AM EST [facility] ([facility]) Name Value Range Interpretation Code Description Data Mandi rce(s) Supporting Document(s) Hemoglobin A1c 7.1 % Normal (applies to non-numeric r esults) [facility] ([facility]) REFERENCE RANGES: 4.5-5.6% NORMAL 5.7-6.4% SUGGESTS IMPAIRED GLUCOSE META BOLISM >= 6.5% ABNORMAL Estimated Average Glucose 157 mg/dL 60-110 Above high normal [facility] ([facility]) ID Date Data Source [id number] 12/17/2019 08:19:00 AM EST [facility] Name Value Range Interpretation Code Description Data Mandi rce(s) Supporting Document(s) Glucose, Fasting 106 mg/dL 70-100 Above high normal [facility] Creatinine For GFR 1.04 mg/dL 0.70-1.30 Normal (applies to non -numeric results) [facility]) Blood Urea Nitrogen 27 mg/dL 7-18 Above high normal [facility] ([facility]) Glomerular Filtration Rate Laboratory test result Normal (applies to non- numeric results) [facility] ([facility]) <content>Units are mL/min/1.73 m2</content>
<content></content>
<content>Chronic Kidney Disease Staging per NKF:</content>
<content></content>
<content>Stage I & II GFR >=60 Normal to Mildly Decreased</content>
<content>Stage III GFR 30- 59 Moderately Decreased</content>
<content>Stage IV GFR 15-29 Severely Decreased</content>
<content>Stage V GFR <15 Very Little GFR Left</content>
<content>ESRD GFR <15 on SOCIETY REPORTER</content>
<content></content> Sodium Level 141 meq/L 136-145 Normal (applies to non-numeric res ults) [facility]) Chloride Level 109 meq/L 98-107 Above high normal [facility] ([facility]) Potassium Serum 4.9 meq/L 3.5-5.1 Normal (applies to non-numeric results) [facility] ([facility]) Carbon Dioxide Level 26 meq/L 21-32 Normal (applies to non-num magalis results) [facility] ([facility]) Anion Gap 6 meq/L 8-16 Below low normal [facility] ( [facility]) Ast/Sgot 19 U/L 7-37 Normal (applies to non-numeric resul ts) [facility] ([facility]) Calcium Level 9.1 mg/dL 8.8-10.2 Normal (applies to non-numeric re sults) [facility] ([facility]) Alt/SGPT 43 U/L 12-78 Normal (applies to non-numeric resul ts) [facility] ([facility]) Alkaline Phosphatase 65 U/L 45-117 Normal (applies to non-num magalis results) [facility] ([facility]) Bilirubin,Total 0.4 mg/dL 0.2-1.0 Normal (applies to non-numeric results) [facility] ([facility]) Albumin 4.0 GM/DL 3.2-5.2 Normal (applies to non-numeric resul ts) [facility] ([facility]) Total Protein 7.4 GM/DL 6.4-8.2 Normal (applies to non-numeric re sults) [facility] ([facility]) Albumin/Globulin Ratio 1.18 1.00-1.93 Normal (applies to non-numeric results) [facility] ([facility]) ID Date Data Source [id number] 09/17/2019 08:04:00 AM EST [facility] ([facility]) Name Value Range Interpretation Code Description Data Mandi rce(s) Supporting Document(s) Creatinine, Urine 101.0 mg/dL Normal (applies to non-numer ic results) [facility] ([facility]) Malb Urine Siemens 13.4 mg/L Normal (applies to non-numer ic results) [facility] ([facility]) Jordy/Creat Ratio 13.2 MCG/MG 0.0-30.0 Normal (applies to non-numeric results) [facility] ([facility]) THE [employer] STATES THAT MICROALBUMINURIA IS PRESENT IF THE MICROALBUMIN/CREATININE RATIO EXCEEDS 30 MCG/MG. THE THRESHOLD FOR CLINICAL ALBUMINURIA IS REACHED AT 300 MCG/MG. THE CLASSIFICATION OF A PATIENT SHOULD BE BASED UPON AT LEAST 2 OF 3 ABNORMAL RESULTS ON SPECIMENS COLLECTED WITHIN A 3 TO 6 MONTH TIME FRAME. ID Date Data Source [id number] 09/17/2019 08:04:00 AM EST [facility] Name Value Range Interpretation Code Description Data Mandi rce(s) Supporting Document(s) Hemoglobin A1c 7.5 % Normal (applies to non-numeric r esults) [facility]) REFERENCE RANGES: 4.5-5.6% NORMAL 5.7-6.4% SUGGESTS IMPAIRED GLUCOSE META BOLISM >= 6.5% ABNORMAL Estimated Average Glucose 169 mg/dL 60-110 Above high normal [facility] ([facility]) ID Date Data Source [id number] 09/17/2019 08:04:00 AM EST [facility] Name Value Range Interpretation Code Description Data Mandi rce(s) Supporting Document(s) Glucose, Fasting 110 mg/dL 70-100 Above high normal [facility] Blood Urea Nitrogen 23 mg/dL 7-18 Above high normal [facility] ([facility]) Creatinine For GFR 1.04 mg/dL 0.70-1.30 Normal (applies to non -numeric results) [facility] ([facility]) Glomerular Filtration Rate > 60.0 Normal (applies to n on-numeric results) [facility]) <content>Units are mL/min/1.73 m2</content>
<content></content>
<content>Chronic Kidney Disease Staging per NKF:</content>
<content></content>
<content>Stage I & II GFR >=60 Normal to Mildly Decreased</content>
<content>Stage III GFR 30- 59 Moderately Decreased</content>
<content>Stage IV GFR 15-29 Severely Decreased</content>
<content>Stage V GFR <15 Very Little GFR Left</content>
<content>ESRD GFR <15 on SOCIETY REPORTER</content>
<content></content> Sodium Level 143 meq/L 136-145 Normal (applies to non-numeric res ults) [facility] ([facility]) Potassium Serum 4.6 meq/L 3.5-5.1 Normal (applies to non-numeric results) [facility] ([facility]) Chloride Level 108 meq/L 98-107 Above high normal [facility] ([facility]) Carbon Dioxide Level 28 meq/L 21-32 Normal (applies to non-num magalis results) [facility] ([facility]) Anion Gap 7 meq/L 8-16 Below low normal [facility] ( [facility]) Ast/Sgot 25 U/L 7-37 Normal (applies to non-numeric resul ts) [facility] ([facility]) Calcium Level 9.3 mg/dL 8.8-10.2 Normal (applies to non-numeric re sults) [facility] ([facility]) Alt/SGPT 41 U/L 12-78 Normal (applies to non-numeric resul ts) [facility] ([facility]) Alkaline Phosphatase 67 U/L 45-117 Normal (applies to non-num magalis results) [facility] ([facility]) Bilirubin,Total 0.4 mg/dL 0.2-1.0 Normal (applies to non-numeric results) [facility] ([facility]) Total Protein 7.2 GM/DL 6.4-8.2 Normal (applies to non-numeric re sults) [facility] ([facility]) Albumin/Globulin Ratio 1.00 1.00-1.93 Normal (applies to non-numeric results) [facility] ([facility]) Albumin 3.6 GM/DL 3.2-5.2 Normal (applies to non-numeric resul ts) [facility] ([facility]) Procedure Social History Code Duration Value Status Description Data Source(s ) Alcohol intake 10/16/2020 12:00:00 AM EST Yes completed [facility] Smoking 10/16/2020 12:00:00 AM EST Never smoker completed Never s moker [facility] Smoking 04/07/2020 12:00:00 AM EDT Patient has never smoked co mpleted Patient has never smoked [facility] ([facility]) Smoking 09/19/2019 12:00:00 AM EST Patient has never smoked co mpleted Patient has never smoked [facility] ([facility]) Vital Signs ID Date Data Source UNK Name Value Range Interpretation Code Description Data Source(s) Oxygen saturation in Arterial blood by Pulse oximetry 96 % 96 % [facility] Body mass index (BMI) [Ratio] 35.71 kg/m2 35.71 kg/m2 [facility] Body weight 103.42 kg 103.42 kg [facility] Body height 170.2 cm 170.2 cm [facility] Heart rate 92 /min 92 /min [facility] Diastolic blood pressure 70 mm[Hg] 70 mm[Hg] [facility] Systolic blood pressure 108 mm[Hg] 108 mm[Hg] [facility] Oxygen saturation in Arterial blood by Pulse oximetry 89 % 89 % [facility] Body temperature 98.5 [degF] 98.5 [degF] [facility] ([facility]) Respiratory rate 18 /min 18 /min [facility] ( [facility]) Heart rate 89 /min 89 /min [facility] Body mass index (BMI) [Ratio] 35.9 kg/m2 35.9 k g/m2 [facility] ([facility]) Body weight 220.38 [lb_av] 220.38 [lb_av] [facility] ([facility]) Body height 65.7 [in_i] 65.7 [in_i] [facility] ([facility]) 5'5.70" Diastolic blood pressure 68 mm[Hg] 68 mm[Hg] [facility] ([facility]) Systolic blood pressure 122 mm[Hg] 122 mm[Hg] [facility] ([facility]) Oxygen saturation in Arterial blood by Pulse oximetry 96 % 96 % [facility] ([facility]) Body temperature 99.4 [degF] 99.4 [degF] [facility] ([facility]) Respiratory rate 20 /min 20 /min [facility] ( [facility]) Heart rate 92 /min 92 /min [facility] ([facility]) Body mass index (BMI) [Ratio] 35.8 kg/m2 35.8 k g/m2 [facility] ([facility]) Body weight 220.00 [lb_av] 220.00 [lb_av] [facility] ([facility]) Body height 65.7 [in_i] 65.7 [in_i] [facility] ([facility]) 5'5.70" Diastolic blood pressure 84 mm[Hg] 84 mm[Hg] [facility] ([facility]) Systolic blood pressure 124 mm[Hg] 124 mm[Hg] [facility] ([facility]) Body mass index (BMI) [Ratio] 34.1 kg/m2 34.1 k g/m2 [facility] ([facility]) Body height 67 [in_i] 67 [in_i] [facility] ([facility], [facility]) 5'7" Body weight 218.00 [lb_av] 218.00 [lb_av] [facility] ([facility], [facility]) Body temperature 98.3 [degF] 98.3 [degF] [facility] ([facility], [facility]) Oxygen saturation in Arterial blood by Pulse oximetry 96 % 96 % [facility] ([facility], [facility]) Respiratory rate 17 /min 17 /min [facility] ( [facility], [facility]) Heart rate 89 /min 89 /min [facility] ([facility], [facility]) Diastolic blood pressure 78 mm[Hg] 78 mm[Hg] [facility] ([facility], [facility]) Systolic blood pressure 118 mm[Hg] 118 mm[Hg] [facility] ([facility]) Oxygen saturation in Arterial blood by Pulse oximetry 97 % 97 % [facility] ([facility]) Body temperature 98.5 [degF] 98.5 [degF] [facility] ([facility]) Respiratory rate 18 /min 18 /min [facility] ( [facility]) Heart rate 78 /min 78 /min [facility] ([facility]) Body mass index (BMI) [Ratio] 36.4 kg/m2 36.4 k g/m2 [facility] ([facility]) Body weight 223.38 [lb_av] 223.38 [lb_av] [facility] ([facility]) Body height 65.7 [in_i] 65.7 [in_i] [facility] ([facility]) 5'5.70" Diastolic blood pressure 78 mm[Hg] 78 mm[Hg] [facility] ([facility]) Systolic blood pressure 122 mm[Hg] 122 mm[Hg] [facility] ([facility]) Body weight 229.38 [lb_av] 229.38 [lb_av] [facility] ([facility]) Body height 65.7 [in_i] 65.7 [in_i] [facility] ([facility]) 5'5.70" Diastolic blood pressure 70 mm[Hg] 70 mm[Hg] [facility] ([facility]) Systolic blood pressure 135 mm[Hg] 135 mm[Hg] [facility] ([facility]) Oxygen saturation in Arterial blood by Pulse oximetry 95 % 95 % [facility] ([facility]) Body temperature 98.9 [degF] 98.9 [degF] [facility] ([facility]) Respiratory rate 18 /min 18 /min [facility] ( [facility]) Heart rate 88 /min 88 /min [facility] ([facility]) Body mass index (BMI) [Ratio] 37.4 kg/m2 37.4 k g/m2 [facility] ([facility]) Patient Treatment Plan of Care Planned Activity Planned Date Details Description Data Source (s) Rosuvastatin calcium 20 MG Oral Tablet 09/25/2020 12:00:00 AM EST [facility] FLUAD QUADRIVALENT 0.5 ML PRSY 08/13/2020 12:00:00 AM EDT [facility] 24 HR metoprolol succinate 25 MG Extended Release Oral Tablet 07/02/2020 12:00:00 AM EDT [facility] Amoxicillin 500 MG / Clavulanate 125 MG Oral Tablet 04/08/20 12:00:00 AM EDT [facility] Hydrocortisone 25 MG/ML Topical Cream [Proctozone HC] 04/07/2020 12:00:00 AM EDT [facility] empagliflozin 25 MG Oral Tablet [Jardiance] 03/12/2020 12:00:00 AM EDT [facility] tadalafil 5 MG Oral Tablet 03/01/2020 12:00:00 AM EDT [facility] Metformin hydrochloride 500 MG Oral Tablet 09/25/2019 12:00:[address] [facility]
--- NOTE | 2020-11-12 19:19 | REPVR ---
PROCEDURE INFORMATION: Exam: CT Head Without Contrast Exam date and time: 11/12/2020 6:47 PM Age: 70 years old Clinical indication: Pain; Headache; Additional info: Loc, hit head TECHNIQUE: Imaging protocol: Computed tomography of the head without contrast. Radiation optimization: All CT scans at this facility use at least one of these dose optimization techniques: automated exposure control; mA and/or kV adjustment per patient size (includes targeted exams where dose is matched to clinical indication); or iterative reconstruction. COMPARISON: No relevant prior studies available. FINDINGS: Brain: Age-related volume loss. No acute intracranial hemorrhage, midline shift or intracranial mass effect. Chronic lacunar infarct versus perivascular space at the left lentiform nucleus. Cerebral ventricles: No hydrocephalus. Bones/joints: Unremarkable. No acute fracture. Paranasal sinuses: Visualized sinuses are unremarkable. No fluid levels. Mastoid air cells: Visualized mastoid air cells are well aerated. Soft tissues: Unremarkable. IMPRESSION: No acute intracranial abnormality. Electronically signed by: Shaun Clark On 11/12/2020 19:18:45 PM
--- NOTE | 2020-11-12 19:53 | REPVR ---
PROCEDURE INFORMATION: Exam: CT Angiography Chest With Contrast Exam date and time: 11/12/2020 7:30 PM Age: 70 years old Clinical indication: Chest pain; Additional info: Pain on inspiration TECHNIQUE: Imaging protocol: Computed tomographic angiography of the chest with intravenous contrast. 3D rendering (Not supervised by radiologist): MIP and/or 3D reconstructed images were created by the technologist. Radiation optimization: All CT scans at this facility use at least one of these dose optimization techniques: automated exposure control; mA and/or kV adjustment per patient size (includes targeted exams where dose is matched to clinical indication); or iterative reconstruction. Contrast material: ISOVUE 370; Contrast volume: 75 ml; Contrast route: INTRAVENOUS (IV); COMPARISON: ME PORTABLE CHEST X-RAY 11/12/2020 5:48 PM FINDINGS: Pulmonary arteries: No evidence of pulmonary embolus. Aorta: Unremarkable. No aortic aneurysm. No aortic dissection. Lungs: Airspace disease predominately involving the right lower lobe with mild involvement of the right upper lobe, lingula and left lower lobe. Pleural space: Unremarkable. No pneumothorax. No pleural effusion. Heart: Unremarkable. No cardiomegaly. No pericardial effusion. Lymph nodes: Unremarkable. No enlarged lymph nodes. Liver: Hepatic steatosis. Gallbladder and bile ducts: Previous cholecystectomy. Bones/joints: There are degenerative changes involving the spine. Soft tissues: Unremarkable. IMPRESSION: 1. Airspace disease greatest at the right lower lobe concerning for pneumonia. 2. No evidence of pulmonary embolus. Electronically signed by: Shaun Clark On 11/12/2020 19:53:15 PM
[2020-11-12] MEDS ORDERED: ALBUTEROL 90 MCG/ACT 8GM HFA INHALER INH ONE (20:45)
[2020-11-12] MEDS ORDERED: TAMSULOSIN 0.4 MG CAP PO SCH (21:00)
[2020-11-12] MEDS ORDERED: HumaLOG INSULIN (NovoLOG) PER UNIT SC SCH (21:00)
[2020-11-12] MEDS ORDERED: methylPREDNISolone 125MG 2ML VIAL IV STA (22:23)
[2020-11-12] MEDS ORDERED: DEXTROSE 50% 50 ML SYRINGE IV PRN (22:30)
[2020-11-12] MEDS ORDERED: ACETAMINOPHEN TAB 650MG DOSE (2X325MG) PO PRN (22:30)
[2020-11-12] MEDS ORDERED: GLUCOSE 4GM CHEW TABLET PO PRN (22:30)
[2020-11-12] MEDS ORDERED: GLUCAGON INJ 1MG VIAL SC PRN (22:30)
[2020-11-12] MEDS ORDERED: MAG SULF 1GM/100ML (MAG RUN) 1 GM in IV 1 EA IV ONE (22:30)
[2020-11-12] MEDS ORDERED: MAALOX 30 ML SUSP *UDC PO PRN (22:30)
[2020-11-12] MEDS ORDERED: MOM 30ML SUSPENSION UDC PO PRN (22:30)
[2020-11-12] MEDS ORDERED: CIAL5TAB PO (22:34)
[2020-11-12] MEDS ORDERED: METF-839 PO (22:34)
[2020-11-12] MEDS ORDERED: FLOM0.4C39 PO (22:34)
[2020-11-12] MEDS ORDERED: MONT10TA10 PO (22:34)
[2020-11-12] MEDS ORDERED: JARD1TAB3 PO (22:34)
[2020-11-12] MEDS ORDERED: ASPI-161 PO (22:34)
[2020-11-12] MEDS ORDERED: METO1TAB32 PO (22:34)
[2020-11-12] MEDS ORDERED: ROSU20TA5 PO (22:34)
--- NOTE | 2020-11-12 22:37 | HPEPDOC ---
[facility] Medical History & Physical Date of Admission Nov 12, 2020 Date of Service: Nov 12, 2020 Primary Care Physician: GHAZALA LANGSTON DO Attending Physician: ADAMA BUSH MD History and Physical TIME OF SERVICE: 1055PM CHIEF COMPLAINT: passed out HISTORY OF PRESENT ILLNESS: This 70 yr old M was diagnosed with COVID on Wednesday and moved out of his primary residence to another house. He has been having a dry cough, chest pain with coughing, fever, chills, episodes of sweating, and nausea without vomiting. He denies having diarrhea or rashes. At about 1 or 2 PM he passed out. When he woke-up he found himself on the ground therefore he decided to come to the ER for evaluation. He was told that he likely hit his head by ER staff because he had a bruise on his head. REVIEW OF SYSTEMS: 12-point review of systems negative except as listed in HPI PAST MEDICAL/ SURGICAL HISTORY: BPH s/p TURM CAD s/p placement of 1 stent (he denies having an acute NH) DM2 Class 1 Obesity Appendectomy Cholecystectomy SOCIAL HISTORY: He doesnt smoke He drinks alcohol occasionally FAMILY HISTORY: Both his parents had cancer ALLERGIES: Please see below. HOME MEDICATIONS: Please see below. PHYSICAL EXAMINATION: Vital Signs Date Time Temp Pulse Resp B/P (MAP) Pulse Ox O2 Delivery O2 Flow Rate FiO2 11/12/20 16:29 84 19 96 11/12/20 16:30 129/67 (87) 11/12/20 17:00 102.1 11/12/20 17:30 Room Air GENERAL APPEARANCE: NAD HEENT: lips are not cyanotic / he is on room air CARDIOVASCULAR: his pulse is regular / he doesnt have BLE edema LUNGS: O2 sats are 98% / he is able to speak full sentences without stopping to take a breath/ he is not tacypneic and is not using accessory muscles ABDOMEN: obese MUSCULOSKELETAL: ZORAN x4 INTEGUMENT: bruising at the left frontal aspect of his skull NEUROLOGICAL: CN 2-12 grossly intact / speech not dysarthric PSYCHIATRIC: A&O x3 LABORATORY DATA: 11/12/20 17:18 11/12/20 17:18: Immature Granulocyte % (Auto) 0.4, Neutrophils (%) (Auto) 81.1H, Lymphocytes (%) (Auto) 9.7L, Monocytes (%) (Auto) 8.4H, Eosinophils (%) (Auto) 0.1, Basophils (%) (Auto) 0.3, Neutrophils # (Auto) 5.6, Lymphocytes # (Auto) 0.7L, Monocytes # (Auto) 0.6, Eosinophils # (Auto) 0.0, Basophils # (Auto) 0.0, Nucleated Red Blood Cells % (auto) 0.0, Erythrocyte Sedimentation Rate 47H, D-Dimer, Quantitative 617.94H, Total Bilirubin 0.4, Direct Bilirubin 0.2, Aspartate Amino Transf (AST/SGOT) 101H, Alanine Aminotransferase (ALT/SGPT) 97H, Alkaline Phosphatase 63, C-Reactive Protein, Quantitative 6.22H, PF-Reb-I-Type Natriureti c Peptide 72, Total Protein 6.8, Albumin 3.5, Albumin/Globulin Ratio 1.1 11/12/20 17:47: POC Glucose (Misc Panel) 161H, POC Sodium (Misc Panel) 137, POC Potassium (Misc Panel) 4.0, POC Chloride (Misc Panel) 100, POC Total CO2 (Misc Panel) 26.0, POC Blood Urea Nitrogen (Misc Panel 21, POC Ionized Calcium (Misc Panel) 4.5, POC Creatinine (Misc Panel) 1.1, POC Hematocrit (Misc Panel) 42.0 11/12/20 17:49: POC Lactate (Misc Panel) 1.73 11/12/20 18:02: POC Troponin I (Misc) 0.00 IMAGING: Chest xray IMPRESSION: No active disease. CT head IMPRESSION: No acute intracranial abnormality. CT chest IMPRESSION: 1. Airspace disease greatest at the right lower lobe concerning for pneumonia. 2. No evidence of pulmonary embolus. MICROBIOLOGY: per patient COVID -19 positive ASSESSMENT: is a 70 yr old w a hx of CAD, DM & obesity who was diagnosed with COVID-19 2 days ago and came to the hospital for evaluation after having a syncopal event; he will be admitted for evaluation of syncope. PLAN: 1 Syncope Possibly due to hypoxia vs other cause TBD Plan: admit to medical floor / telemetry / f/u ABG & orthostats / dc in AM w recs to PCP for 2. COVID-19 associated RLL PNA He has dyspnea, cough, fever, and nausea The abnormal ESR, d-dimer, LFTs, ferritin and CRP are likely due to COVID-19 His qCSI score is 0 therefore he doesnt meet criteria for admission for COVID Plan: continuous pulse ox / droplet precautions / in f/u repeat plts (if low indicates bad prognosis), CRP (if high indicates bad prognosis), troponins, INR, BMP, fibrinogen, INR, D-dimer, PT, PTT (if patient has DIC indicates bad prognosis), ferritin, LDH / he is not a candidate for Remdesivir or steroids / f/u sputum cx, mycoplasma and legionella / will start PO Levofloxacin for PNA 3. DM2 Plan: diabetic diet / f/u accuchecks & A1C / hypoglycemia protocol / sliding scale insulin / hold oral anti-glycemic agents 4. Chronic CAD Plan: c/w ASA, BB and statin 5. BPH Plan: tamsulosin 6. Class 1 Obesity Since the patients BMI >35 with co-existing DM he is a candidate for bariatric surgery Plan: f/u A1C / the patient can f/u w his PCP for sleep apnea screening, undercover agent consult, to discuss staring Saxenda, which is indicated in patients with a BMI >27 with co-existing DM, HTN or dyslipidemia to help with weight control as an adjunct to exercise & referral to a Bariatric Surgeon / recommend cardiovascular exercise for 40 min 4-5 days a week DVT Px ASA with medium dose Lovenox Dispo: possibly home in the morning with PO abx if there are no events on telemetry Home Medications Scheduled Aspirin (Aspirin EC) 81 Mg Tablet.dr, 81 MG PO DAILY Empagliflozin (Jardiance) 25 Mg Tablet, 25 MG PO DAILY Metformin HCl (Metformin HCl) 500 Mg Tablet, 500 MG PO BID Metoprolol Succinate (Metoprolol Succinate) 25 Mg Tab.er.24h, 25 MG PO DAILY Montelukast Sodium (Montelukast Sodium) 10 Mg Tablet, 10 MG PO DAILY Rosuvastatin Calcium (Rosuvastatin Calcium) 20 Mg Tablet, 20 MG PO QHS Tadalafil (Cialis) 5 Mg Tablet, 5 MG PO QHS Tamsulosin HCl (Flomax) 0.4 Mg Capsule, 0.8 MG PO QHS Allergies Coded Allergies: No Known Allergies (Unverified , 04/07/20) A-FIB/CHADSVASC A-FIB History Current/History of A-Fib/PAF?: No Current PO Anticoag Therapy: No ADAMA BUSH MD Nov 12, 2020 22:37
[2020-11-12] MEDS ORDERED: ALBUTEROL 90 MCG/ACT 8GM HFA INHALER INH PRN (22:45)
--- OUTSIDE RECORDS SUMMARY | 2020-11-12 22:46 | CCD ---
Author Author [facility] Organization [facility] Address Unknown Phone Unavailable Care Team Providers Care Manager Test Name Role Phone Bob, Reagan PA Unavailable [...] KAYLEEN-XOCHITL, GHAZALA DO Unavailable Unavailable Daly, Ly HYDRAULIC RIVETER Unavailable Unavailable Daly, Ly HYDRAULIC RIVETER Unavailable Unavailable Daly, Ly HYDRAULIC RIVETER Unavailable Unavailable Daly, Ly HYDRAULIC RIVETER Unavailable Unavailable Daly, Ly HYDRAULIC RIVETER Unavailable Unavailable Daly, Ly HYDRAULIC RIVETER Unavailable Unavailable Daly, Yl HYDRAULIC RIVETER Unavailable Unavailable Daly, Ly HYDRAULIC RIVETER Unavailable Unavailable Daly, Ly HYDRAULIC RIVETER Unavailable Unavailable Daly, Ly HYDRAULIC RIVETER Unavailable Unavailable Daly, Ly HYDRAULIC RIVETER Unavailable Unavailable O'aiyana, A Narayan PA Unavailable [...] Unavailable O'aiyana, A Narayan PA Unavailable Unavailable [place], V MOHIT PA-C Unavailable Unavailable [place], V MOHIT PA-C Unavailable Unavailable [place], V MOHIT PA-C Unavailable Unavailable Sebas, V MOHIT PA-C Unavailable Unavailable [place], V MOHIT PA-C Unavailable Unavailable [place], V MOHIT PA-C Unavailable Unavailable [place], V MOHIT PA-C Unavailable Unavailable Re-disclosure Warning [...] is protected by Article 27-F of the [facility] Public Health law. If you continue you may have access to information: Regarding HIV / AIDS; Provided by facilities licensed or operated by the [facility] Office of Mental Health; or Provided by the [facility] Office for People With Developmental Disabilities. If such information is present, then the following [facility] mandated warning applies: This information has [...] law may result in a fine or prison sentence or both. A general authorization for the release of medical or other information is NOT sufficient authorization for further disc losure. Family History Family Member Name Family Member Gender Family Member Status Date o f Status Description Data Source(s) Unknown Unknown Problem [facility] ([facility]) father, mother and sister Unknown Male Problem [facility] ([facility] [place] () Unknown Female Problem [facility] ([facility]) Encounters Encounter Providers Location Date Indications Data Source(s ) Outpatient Attender: MOHIT TOSCANOCReferrer: John [email or web address] 10/16/2020 12:00:00 AM EST - 10/16/2020 04:21:20 PM EST [facility] Outpatient Attender: Narayan MONROE [facility] 06/19/2020 03:00:00 PM EDT [facility] ([facility]) Outpatient Attender: Reagan MONROE Family [facility] 04/10/2020 01:00:00 PM EDT [facility] ([facility]) Outpatient Attender: Marina [email or web address] 12:00:00 AM EDT - 04/09/2020 04:01:17 PM EDT [facility] Outpatient Attender: Ly Daly NP Donna Becerra Gretel fidelina 04/07/2020 11:10:00 AM EDT [facility] ([facility] Outpatient Attender: Narayan MONROE [facility] 12/20/2019 02:30:00 PM EST [facility] ([facility]) Outpatient Attender: Marina [email or web address] 12:00:00 AM EST [facility] Outpatient Attender: GHAZALA LANGSTON DO [facility] 09/19/2019 01:30:00 PM EST [facility] ([facility]) Immunizations Vaccine Date Status Description Data Source(s) INFLUENZA VACCINE QUADRIVALENT (65 YR UP)/MF59 C.1/PF 08/13/2020 12:00:00 AM EDT completed [facility] Medications Medication Brand Name Start Date Product Form Dose Route Admi nistrative Instructions Pharmacy Instructions Status Indications Reaction Description Data Source(s) Rosuvastatin calcium 20 MG Oral Tablet rosuvastatin (C RESTOR) 20 MG tablet rosuvastatin (CRESTOR) 20 MG tablet 09/25/2020 12:00:00 AM EST 20 mg Oral active Hyperlipidemia, unspecified hyperlipidemia type Take 1 tablet (20 mg total) by mouth daily [facility] Hyperlipidemia, unspecified hyperlipidem ia type FLUAD QUADRIVALENT 0.5 ML PRSY [id number] 08/13/2020 12:00:00 AM EDT active INJECT DIRECTED IN THE LE FT ARM [facility] 24 HR metoprolol succinate 25 MG Extende d Release Oral Tablet metoprolol succinate (TOPROL-XL) 25 MG 24 hr tablet metoprolol succinate (TOPROL-XL) 25 MG 24 hr tablet 07/02/2020 12:00:00 AM EDT activ e TAKE ONE TABLET BY MOUTH EVERY DAY [facility] 500-125 mg 04/08/2020 12:00:00 AM EDT tablet 20 TAKE ONE TABLET BY MOUTH EVERY 8 HOURS TAKE ONE TABLET BY MOUTH EVERY 8 HOURS SOLD: 04/08/2020 [facility] Amoxicillin 500 MG / Clavulanate 125 MG Oral Tablet amoxicillin-clavulanate (AUGMENTIN) 500-125 MG per tablet amoxicillin-clavulanate (AUGMENTIN) 500- 125 MG per tablet 04/08/2020 12:00:00 AM EDT aborted [facility] 2.5 % 04/07/2020 12:00:00 AM EDT cream with perineal tu licator 60 APPLY RECTALLY TWO TIMES A DAY FOR 14 DAYS APPLY RECTALLY TWO TIMES A DAY FOR 14 DAYS SOLD: 04/07/2020 [facility] Hydrocortisone 25 MG/ML Rectal Cream Hydrocortisone (Periana l) 04/07/2020 12:00:00 AM EDT active M [facility] ([facility]) Hydrocortisone 25 MG/ML Topical Cream [P roctozone HC] PROCTOZONE-HC 2.5 % rectal cream PROCTOZONE-HC 2.5 % rectal cream 04/07/2020 12:00:00 AM EDT active as needed [facility] empagliflozin 25 MG Oral Tablet [Jardiance] JARDIANCE 25 MG TABS JARDIANCE 25 MG TABS 03/12/2020 12:00:00 AM EDT active [facility] tadalafil 5 MG Oral Tablet tadalafil (CIALIS) 5 MG tab let tadalafil (CIALIS) 5 MG tablet 03/01/2020 12:00:00 AM EDT active [facility] empagliflozin 25 MG Oral Tablet [Jardiance] Jardiance 12/20/2019 12:00:00 AM EST ORAL active [facility] ([facility]) Metformin hydrochloride 500 MG Oral Tablet metFORMIN ( GLUCOPHAGE) 500 MG tablet metFORMIN (GLUCOPHAGE) 500 MG tablet 09/25/2019 12:00:00 AM EST 100 0 mg Oral active Take 1,000 mg by mouth 2 (two) times a day with meals [facility] Insurance Providers Payer name Policy type / Coverage type Policy ID Covered republican ID Covered republican's relationship to shah Policy Shah Plan Information [facility] [id number] SP [id number] MEDICARE [id number] SP [id number] UMR [id number] MEDICARE [id number] UMR [id number] Jaelyn [id number] MEDICARE [id number] Jaelyn [id number] UMR O [id number] S [id number] MEDICARE C [id number] S [id number] UMR [facility] [id number] SP [id number] [employer] Medigap Part B [id number] Self [id number] Medicare Medigap Part B [id number] Self [id number] Umr Medigap Part B [id number] Self [id number] Medicare Medicare Primary [id number] Self [id number] MEDICARE [id number] SP [id number] A [employer]OM[employer] [id number] SP [id number] [employer] Medigap Part B [id number] Self [id number] Medicare Medicare Primary [id number] Self [id number] [place] Medigap Part B [id number] Self [id number] Medicare Natl Gov't Servi Medicare Primary [id number] Self [id number] [employer] Commercial Self [employer] (pr) Commercial Self [employer]OM[employer]-O/P [id number] 18 [id number] Problems, Conditions, and Diagnoses Code Display Name Description Problem Type Effective Dates Data Source(s) E66.9 Class 2 obesity in adult Class 2 obesity in adult 6457 200010/16/2020 12:00:00 AM EST [facility] [id number] Long-term current use of oral hypoglycem ic medication Long-term current use of oral hypoglycemic medication Problem 06/19/2020 12:00 :00 AM EDT [facility] ([facility]) [id number] Diabetic peripheral neuropathy Diabetic peripheral leonel ropathy Problem 06/19/2020 12:00:00 AM EDT [facility] ([facility]) M79.604 Leg pain, anterior, right Leg pain, anterior, right 64 [id number] 04/09/2020 12:00:00 AM EDT [facility] [id number] Type II diabetes mellitus uncontrolled T ype II diabetes mellitus uncontrolled Problem 12/20/2019 12:00:00 AM EST [facility] ([facility]) Z98.61 Coronary angioplasty status Coronary angioplasty statu s Diagnosis 10/16/2020 03:19:46 PM EST [facility] E11.65 Type 2 diabetes mellitus with hyperglyce gretel Type 2 diabetes mellitus with hyperglyce Diagnosis 04/09/2020 02:58:03 PM EDT [facility] R97.20 Elevated prostate specific antigen (PSA) Elevated prostate specific antigen (PSA) Diagnosis 04/09/2020 02:58:03 PM EDT [facility] E78.2 Mixed hyperlipidemia Mixed hyperlipidemia Diagnosis 04/09/2020 02:58:03 PM EDT [facility] I73.9 Peripheral vascular disease, unspecified Peripheral vascular disease, unspecified Diagnosis 04/09/2020 02:58:03 PM EDT [facility] Surgeries/Procedures Procedure Description Date Indications Data Source(s) ECG ROUTINE ECG W/LEAST 12 LDS W/I&R POCT AMB EKG Routine 10/16/2020 4:10 PM EST Coronary angioplasty status 10/16/2020 09:10:00 PM EST Coron mercedes angioplasty status [facility] Coronary angioplasty status Results ID Date Data Source [id number] 10/16/2020 08:07:00 AM EST [facility] Name Value Range Interpretation Code Description Data Mandi rce(s) Supporting Document(s) SARS-CoV-2 [facility] This lab was ordered by [facility] and reported by [employer]. ID Date Data Source [id number] 09/18/2020 04:00:00 AM EST [facility] Name Value Range Interpretation Code Description Data Mandi rce(s) Supporting Document(s) SARS-CoV-2 [facility] This lab was ordered by [facility] and reported by [employer]. ID Date Data Source [id number] 09/04/2020 12:00:00 AM EST [facility] Name Value Range Interpretation Code Description Data Mandi rce(s) Supporting Document(s) SARS [facility] This lab was ordered by [facility]- Employee and reported by [employer]. ID Date Data Source [id number] 08/28/2020 12:00:00 AM EST [facility] Name Value Range Interpretation Code Description Data Mandi rce(s) Supporting Document(s) SARS [facility] This lab was ordered by [facility] and reported by [employer]. ID Date Data Source [id number] 08/21/2020 12:00:00 AM EDT [facility] Name Value Range Interpretation Code Description Data Mandi rce(s) Supporting Document(s) SARS [facility] This lab was ordered by [facility]- Employee and reported by [employer]. ID Date Data Source [id number] 08/14/2020 12:30:00 AM EDT [facility] Name Value Range Interpretation Code Description Data Mandi rce(s) Supporting Document(s) SARS-CoV-2 [facility] This lab was ordered by [facility] and reported by [employer]. ID Date Data Source [id number] 07/24/2020 10:07:00 PM EDT [facility] Name Value Range Interpretation Code Description Data Mandi rce(s) Supporting Document(s) SARS-CoV-2 [facility] This lab was ordered by [facility] and reported by [employer]. ID Date Data Source [id number] 07/17/2020 08:21:00 AM EDT [facility] Name Value Range Interpretation Code Description Data Manid rce(s) Supporting Document(s) SARS-CoV-2 [facility] This lab was ordered by [facility] and reported by [employer]. ID Date Data Source [id number] 07/10/2020 10:01:00 AM EDT [facility] Name Value Range Interpretation Code Description Data Mandi rce(s) Supporting Document(s) SARS-CoV-2 [facility] This lab was ordered by [facility] and reported by [employer]. ID Date Data Source [id number] 07/03/2020 01:51:00 PM EDT [facility] Name Value Range Interpretation Code Description Data Mandi rce(s) Supporting Document(s) SARS-CoV-2 [facility] This lab was ordered by [facility] and reported by [employer]. ID Date Data Source [id number] 06/26/2020 06:00:00 PM EDT [facility] Name Value Range Interpretation Code Description Data Mandi rce(s) Supporting Document(s) SARS-CoV-2 [facility] This lab was ordered by [facility] and reported by [employer]. ID Date Data Source [id number] 06/19/2020 12:00:00 AM EDT [facility] Name Value Range Interpretation Code Description Data Mandi rce(s) Supporting Document(s) 2018-nCoV RNA XXX RYLIE+probe-Imp [facility] This lab was ordered by [email or web address] and repo rted by [employer] ID Date Data Source [id number] 06/12/2020 12:00:00 AM EDT [facility] Name Value Range Interpretation Code Description Data Mandi rce(s) Supporting Document(s) 2018-nCoV RNA XXX RYLIE+probe-Imp [facility] This lab was ordered by [email or web address] and repo rted by [employer] ID Date Data Source [id number] 06/06/2020 12:00:00 AM EDT [facility] Patient Name: WILLIS [id number] Date of : 1950[place] [address] Date of Exam: 06/06/2020PH#: Fax: EXAM: CT [...] by: Job Peoples MD 06/06/2020 5:24 PM [facility] ( & [place])Jose AlfredoV/Rosanna you for referring WILLIS RAMIREZ to our office. Electronically Signed - JOSE ALFREDO 06/07/20 8:47 Name Value Range Interpretation Code Description Data Mandi rce(s) Supporting Document(s) ID Date Data Source [id number] 06/01/2020 08:30:00 AM [facility] Name Value Range Interpretation Code Description Data Mandi rce(s) Supporting Document(s) Creatinine, Urine Laboratory test result Normal (applies to non-numeric results) [facility] ([facility]) Test not performed. Please resubmit wit h new order and sample. Malb Urine Siemens 11.0 mg/L Normal (applies to non-numer ic results) [facility] ([facility]) ID Date Data Source [id number] 06/01/2020 08:30:00 AM EDT [facility]) Name Value Range Interpretation Code Description Data Mandi rce(s) Supporting Document(s) Hemoglobin A1c 6.6 % Normal (applies to non-numeric r esults) [facility] ([facility]) <content>REFERENCE RANGES:</content><br/ ><content></content>
<content><=5.6% NORMAL</content>
<content>5.7-6.4% SUGGESTS IMPAIRED GLUCOSE METABOLISM/PREDIABETIC</content>
<content>>= 6.5% ABNORMAL</content>
<content></content> Estimated Average Glucose 143 mg/dL 60-110 Above high normal [facility] ([facility]) ID Date Data Source [id number] 06/01/2020 08:30:00 AM EDT [facility] ([facility]) Name Value Range Interpretation Code Description Data Mandi rce(s) Supporting Document(s) Glucose, Fasting 115 mg/dL 70-100 Above high normal [facility] ([facility]) Glomerular Filtration Rate Laboratory test result Normal (applies to non- numeric results) [facility] ([facility]) <content>Units are mL/min/1.73 m2</content>
<content></content>
<content>Chronic Kidney Disease Staging per NKF:</content>
<content></content>
<content>Stage I & II GFR >=60 Normal to Mildly Decreased</content>
<content>Stage III GFR 30- 59 Moderately Decreased</content>
<content>Stage IV GFR 15-29 Severely Decreased</content>
<content>Stage V GFR <15 Very Little GFR Left</content>
<content>ESRD GFR <15 on [employer] SUPERVISOR</content>
<content></content> Creatinine For GFR 1.09 mg/dL 0.70-1.30 Normal (applies to non -numeric results) [facility] ([facility]) Blood Urea Nitrogen 20 mg/dL 7-18 Above high [facility] Potassium Serum 5.3 meq/L 3.5-5.1 Above high normal [facility] ([facility]) Chloride Level 107 meq/L 98-107 Normal (applies to non-numeric r esults) [facility] ([facility]) Sodium Level 141 meq/L 136-145 Normal (applies to non-numeric res ults) [facility] ([facility]) Carbon Dioxide Level 30 meq/L 21-32 Normal (applies to non-num magalis results) [facility] ([facility]) Anion Gap 4 meq/L 8-16 Below low normal [facility] ( [facility]) Ast/Sgot 18 U/L 7-37 Normal (applies to non-numeric resul ts) [facility] Calcium Level 9.4 mg/dL 8.8-10.2 Normal (applies to non-numeric re sults) [facility] ([facility]) Bilirubin,Total 0.4 mg/dL 0.2-1.0 Normal (applies to non-numeric results) [facility] ([facility]) Alkaline Phosphatase 66 U/L 45-117 Normal (applies to non-num magalis results) [facility] ([facility]) Alt/SGPT 32 U/L 12-78 Normal (applies to non-numeric resul ts) [facility]) Albumin 3.5 GM/DL 3.2-5.2 Normal (applies to non-numeric resul ts) [facility]) Total Protein 6.9 GM/DL 6.4-8.2 Normal (applies to non-numeric re sults) [facility] ([facility]) Albumin/Globulin Ratio 1.0 Normal (applies to non-n umeric results) [facility] ([facility]) ID Date Data Source [id number] 05/29/2020 12:00:00 AM EDT [facility] Name Value Range Interpretation Code Description Data [facility] rce(s) Supporting Document(s) 2019-nCoV RNA XXX RYLIE+probe-Imp [facility] This lab was ordered by [facility] [employer] and repo rted by [employer]. ID Date Data Source [id number] 05/22/2020 12:00:00 AM EDT [facility] Name Value Range Interpretation Code Description Data Mandi rce(s) Supporting Document(s) 2018-nCoV RNA XXX RYLIE+probe-Imp [facility] This lab was ordered by [facility] and repo rted by [employer] ID Date Data Source [id number] 05/15/2020 12:00:00 AM EDT [facility] Name Value Range Interpretation Code Description Data Mandi rce(s) Supporting Document(s) 2018-nCoV RNA XXX RYLIE+probe-Imp [facility] This lab was ordered by [facility] and repo rted by [employer] ID Date Data Source [id number] 05/08/2020 12:00:00 AM EDT [facility] Name Value Range Interpretation Code Description Data Mandi rce(s) Supporting Document(s) 2018-nCoV RNA XXX RYLIE+probe-Imp [facility] This lab was ordered by [facility] and repo rted by [employer] ID Date Data Source [id number] 05/01/2020 12:00:00 AM EDT [facility] Name Value Range Interpretation Code Description Data Mandi rce(s) Supporting Document(s) 2018-nCoV RNA XXX RYLIE+probe-Imp [facility] This lab was ordered by [facility] and repo rted by [employer] ID Date Data Source [id number] 04/24/2020 12:00:00 AM EDT [facility] Name Value Range Interpretation Code Description Data Mandi rce(s) Supporting Document(s) 2018-nCoV RNA XXX RYLIE+probe-Imp [facility] This lab was ordered by [facility] [employer] and repo rted by [employer]. ID Date Data Source [id number] 04/17/2020 12:00:00 AM EDT [facility] Name Value Range Interpretation Code Description Data Mandi rce(s) Supporting Document(s) 2018-nCoV RNA XXX RYLIE+probe-Imp [facility] This lab was ordered by [facility] and repo rted by [employer]. ID Date Data Source [id number] 04/10/2020 12:00:00 AM EDT [facility] Name Value Range Interpretation Code Description Data Mandi rce(s) Supporting Document(s) 2019-nCoV RNA XXX RYLIE+probe-Imp [facility] This lab was ordered by [email or web address] and repo rted by [employer]. ID Date Data Source [id number] 04/08/2020 02:03:00 AM EDT [facility] ([facility]) Name Value Range Interpretation Code Description Data Mandi rce(s) Supporting Document(s) Wound Culture Laboratory test result Normal (applies t o non-numeric results) [facility] ([facility]) <content>FULL REPORT IN LAB NOTES (eCW a [...]
<content>CLIDAMYCIN SENSITIVE.</content>
<content></content> ID Date Data Source [id number] 04/08/2020 12:00:00 AM EDT [facility] Name Value Range Interpretation Code Description Data Mandi rce(s) Supporting Document(s) 2018-nCoV RNA XXX RYLIE+probe-Imp [facility] This lab was ordered by [employer] [facility] [employer]. ID Date Data Source [id number] 04/03/2020 12:00:00 AM EDT [facility] Name Value Range Interpretation Code Description Data Mandi rce(s) Supporting Document(s) 2018-nCoV RNA XXX RYLIE+probe-Imp [facility] This lab was ordered by [employer] [facility] [facility] [employer]. ID Date Data Source [id number] 04/02/2020 12:00:00 AM EDT [facility] Name Value Range Interpretation Code Description Data Mandi rce(s) Supporting Document(s) 2018-nCoV RNA XXX RYLIE+probe-Imp [facility] This lab was ordered by [facility] and repo rted by [employer] ID Date Data Source [id number] 03/26/2020 12:00:00 AM EDT [facility] Name Value Range Interpretation Code Description Data Mandi rce(s) Supporting Document(s) 2018-nCoV RNA XXX RYLIE+probe-Imp [facility] This lab was ordered by [facility] and repo rted by [employer] ID Date Data Source [id number] 03/19/2020 12:00:00 AM EDT [facility] Name Value Range Interpretation Code Description Data Mandi rce(s) Supporting Document(s) 2018-nCoV RNA XXX RYLIE+probe-Imp [facility] This lab was ordered by [facility] and repo rted by [employer] ID Date Data Source [id number] 12/17/2019 08:19:00 AM EST [facility] ([facility]) Name Value Range Interpretation Code Description Data Mandi rce(s) Supporting Document(s) Red Blood Count 5.14 10 4.30-6.10 Normal (applies to non-numeric results) [facility] White Blood Count 7.4 10 4.0-10.0 Normal (applies to non-numeri c results) [facility]) Hemoglobin 14.3 g/dL 13.5-17.5 Normal (applies to non-numeric resul ts) [facility]) Hematocrit 46.2 % 42.0-52.0 Normal (applies to non-numeric resul ts) [facility]) Mean Corpuscular Volume 89.9 fl 80.0-96.0 Normal ( applies to non-numeric results) [facility] ([facility]) Mean Corpuscular Hemoglobin 27.8 pg 27.0-33.0 Norm al (applies to non-numeric results) [facility] ([facility]) Mean Corpuscular HGB Conc 31.0 g/dL 32.0-36.5 Below low normal [facility] ([facility]) Red Cell Distribution Width 14.9 % 11.5-14.5 Above high normal [facility] ([facility]) Neutrophils % 45.2 % 36.0-66.0 Normal (applies to non-numeric re sults) [facility] ([facility]) Platelet Count, Automated 205 10 150-450 Normal (applies to non-numeric results) [facility] ([facility]) Lymph % 43.3 % 24.0-44.0 Normal (applies to non-numeric resul ts) [facility] ([facility]) Stanton % 7.7 % 0.0-5.0 Above high normal [facility] ([facility]) Baso % 0.5 % 0.0-1.0 Normal (applies to non-numeric resul ts) [facility] ([facility]) Eos % 3.0 % 0.0-3.0 Normal (applies to non-numeric resul ts) [facility] ([facility]) Immature Granulocyte % 0.3 % 0-3.0 Normal (applies to non-n umeric results) [facility] ([facility]) Nucleated Red Blood Cell % 0.0 % 0-0 Normal (applies to n on-numeric results) [facility] ([facility]) Neutrophils # 3.3 10 1.5-8.5 Normal (applies to non-numeric re sults) [facility] ([facility]) Lymph # 3.2 10 1.5-5.0 Normal (applies to non-numeric resul ts) [facility] ([facility]) Stanton # 0.6 10 0.0-0.8 Normal (applies to non-numeric resul ts) [facility] ([facility]) Eos # 0.2 10 0.0-0.5 Normal (applies to non-numeric resul ts) [facility] ([facility]) Baso # 0.0 10 0.0-0.2 Normal (applies to non-numeric resul ts) [facility] ([facility]) ID Date Data Source [id number] 12/17/2019 08:19:00 AM EST [facility] ([facility]) Name Value Range Interpretation Code Description Data Mandi rce(s) Supporting Document(s) Triglycerides Level 104 mg/dL Normal (applies to non-nume kristen results) [facility] ([facility]) HDL Cholesterol 47 mg/dL Normal (applies to non-numeric results) [facility] ([facility]) Cholesterol Level 133 mg/dL Normal (applies to non-numeri c results) [facility] ([facility]) LDL Cholesterol 65 mg/dL Normal (applies to non-numeric results) [facility] ([facility]) Non-HDL-C 86 mg/dL Normal (applies to non-numeric resul ts) [facility] ([facility]) Cholesterol Risk Ratio 2.829 Normal (applies to non-n umeric results) [facility] ([facility]) ID Date Data Source [id number] 12/17/2019 08:19:00 AM EST [facility] ([facility]) Name Value Range Interpretation Code Description Data Mandi rce(s) Supporting Document(s) Hemoglobin A1c 7.1 % Normal (applies to non-numeric r esults) [facility] ([facility]) REFERENCE RANGES: 4.5-5.6% NORMAL 5.7-6.4% SUGGESTS IMPAIRED GLUCOSE META BOLISM >= 6.5% ABNORMAL Estimated Average Glucose 157 mg/dL 60-110 Above high normal [facility] ([facility]) ID Date Data Source [id number] 12/17/2019 08:19:00 AM EST [facility] Name Value Range Interpretation Code Description Data Mandi rce(s) Supporting Document(s) Glucose, Fasting 106 mg/dL 70-100 Above high normal [facility] Creatinine For GFR 1.04 mg/dL 0.70-1.30 Normal (applies to non -numeric results) [facility] ([facility]) Blood Urea Nitrogen 27 mg/dL 7-18 Above high normal [facility] ([facility]) Glomerular Filtration Rate Laboratory test result Normal (applies to non- numeric results) [facility] ([facility]) <content>Units are mL/min/1.73 m2</content>
<content></content>
<content>Chronic Kidney Disease Staging per NKF:</content>
<content></content>
<content>Stage I & II GFR >=60 Normal to Mildly Decreased</content>
<content>Stage III GFR 30- 59 Moderately Decreased</content>
<content>Stage IV GFR 15-29 Severely Decreased</content>
<content>Stage V GFR <15 Very Little GFR Left</content>
<content>ESRD GFR <15 on [employer]</content>
<content></content> Sodium Level 141 meq/L 136-145 Normal (applies to non-numeric res ults) [facility] ([facility]) Chloride Level 109 meq/L 98-107 Above high normal [facility] ([facility]) Potassium Serum 4.9 meq/L 3.5-5.1 Normal (applies to non-numeric results) [facility] ([facility]) Carbon Dioxide Level 26 meq/L 21-32 Normal (applies to non-num magalis results) [facility] ([facility]) Anion Gap 6 meq/L 8-16 Below low normal [facility] ( [facility]) Ast/Sgot 19 U/L 7-37 Normal (applies to non-numeric resul ts) [facility] ([facility]) Calcium Level 9.1 mg/dL 8.8-10.2 Normal (applies to non-numeric re sults) [facility] ([facility]) Alt/SGPT 43 U/L 12-78 Normal (applies to non-numeric resul ts) [facility] ([facility]) Alkaline Phosphatase 65 U/L 45-117 Normal (applies to non-num magalis results) [facility] ([facility]) Bilirubin,Total 0.4 mg/dL 0.2-1.0 Normal (applies to non-numeric results) [facility] ([facility]) Albumin 4.0 GM/DL 3.2-5.2 Normal (applies to non-numeric resul ts) [facility] ([facility]) Total Protein 7.4 GM/DL 6.4-8.2 Normal (applies to non-numeric re sults) [facility] ([facility]) Albumin/Globulin Ratio 1.18 1.00-1.93 Normal (applies to non-numeric results) [facility] ([facility]) ID Date Data Source [id number] 09/17/2019 08:04:00 AM EST [facility] ([facility]) Name Value Range Interpretation Code Description Data Mandi rce(s) Supporting Document(s) Creatinine, Urine 101.0 mg/dL Normal (applies to non-numer ic results) [facility] ([facility]) Malb Urine Siemens 13.4 mg/L Normal (applies to non-numer ic results) [facility] ([facility]) Jordy/Creat Ratio 13.2 MCG/MG 0.0-30.0 Normal (applies to non-numeric results) [facility] ([facility]) [employer] STATES THAT MICROALBUMINURIA IS PRESENT IF THE MICROALBUMIN/CREATININE RATIO EXCEEDS 30 MCG/MG. THE THRESHOLD FOR CLINICAL ALBUMINURIA IS REACHED AT 300 MCG/MG. THE CLASSIFICATION OF A PATIENT SHOULD BE BASED UPON AT LEAST 2 OF 3 ABNORMAL RESULTS ON SPECIMENS COLLECTED WITHIN A 3 TO 6 MONTH TIME FRAME. ID Date Data Source [id number] 09/17/2019 08:04:00 AM EST [facility] Name Value Range Interpretation Code Description Data Mandi rce(s) Supporting Document(s) Hemoglobin A1c 7.5 % Normal (applies to non-numeric r esults) [facility] REFERENCE RANGES: 4.5-5.6% NORMAL 5.7-6.4% SUGGESTS IMPAIRED GLUCOSE META BOLISM >= 6.5% ABNORMAL Estimated Average Glucose 169 mg/dL 60-110 Above high normal [facility] ([facility]) ID Date Data Source [id number] 09/17/2019 08:04:00 AM EST [facility] Name Value Range Interpretation Code Description Data Mandi rce(s) Supporting Document(s) Glucose, Fasting 110 mg/dL 70-100 Above high normal [facility] Blood Urea Nitrogen 23 mg/dL 7-18 Above high normal [facility] ([facility]) Creatinine For GFR 1.04 mg/dL 0.70-1.30 Normal (applies to non -numeric results) [facility] ([facility]) Glomerular Filtration Rate > 60.0 Normal (applies to n on-numeric results) [facility] <content>Units are mL/min/1.73 m2</content>
<content></content>
<content>Chronic Kidney Disease Staging per NKF:</content>
<content></content>
<content>Stage I & II GFR >=60 Normal to Mildly Decreased</content>
<content>Stage III GFR 30- 59 Moderately Decreased</content>
<content>Stage IV GFR 15-29 Severely Decreased</content>
<content>Stage V GFR <15 Very Little GFR Left</content>
<content>ESRD GFR <15 on [employer]</content>
<content></content> Sodium Level 143 meq/L 136-145 Normal (applies to non-numeric res ults) [facility] ([facility]) Potassium Serum 4.6 meq/L 3.5-5.1 Normal (applies to non-numeric results) [facility] ([facility]) Chloride Level 108 meq/L 98-107 Above high normal [facility] ([facility]) Carbon Dioxide Level 28 meq/L 21-32 Normal (applies to non-num magalis results) [facility] ([facility]) Anion Gap 7 meq/L 8-16 Below low normal [facility] ( [facility]) Ast/Sgot 25 U/L 7-37 Normal (applies to non-numeric resul ts) [facility] ([facility]) Calcium Level 9.3 mg/dL 8.8-10.2 Normal (applies to non-numeric re sults) [facility] ([facility]) Alt/SGPT 41 U/L 12-78 Normal (applies to non-numeric resul ts) [facility] ([facility]) Alkaline Phosphatase 67 U/L 45-117 Normal (applies to non-num magalis results) [facility] ([facility]) Bilirubin,Total 0.4 mg/dL 0.2-1.0 Normal (applies to non-numeric results) [facility] ([facility]) Total Protein 7.2 GM/DL 6.4-8.2 Normal (applies to non-numeric re sults) [facility] ([facility]) Albumin/Globulin Ratio 1.00 1.00-1.93 Normal (applies to non-numeric results) [facility] ([facility]) Albumin 3.6 GM/DL 3.2-5.2 Normal (applies to non-numeric resul ts) [facility] ([facility]) Procedure Social History Code Duration Value Status Description Data Source(s ) Alcohol intake 10/16/2020 12:00:00 AM EST Yes completed [facility] Smoking 10/16/2020 12:00:00 AM EST Never smoker completed Never s moker [facility] Smoking 04/07/2020 12:00:00 AM EDT Patient has never smoked co mpleted Patient has never smoked [facility] ([facility]) Smoking 09/19/2019 12:00:00 AM EST Patient has never smoked co mpleted Patient has never smoked [facility] ([facility]) Vital Signs ID Date Data Source UNK Name Value Range Interpretation Code Description Data Source(s) Oxygen saturation in Arterial blood by Pulse oximetry 96 % 96 % [facility] Body mass index (BMI) [Ratio] 35.71 kg/m2 35.71 kg/m2 [facility] Body weight 103.42 kg 103.42 kg [facility] Body height 170.2 cm 170.2 cm [facility] Heart rate 92 /min 92 /min [facility] Diastolic blood pressure 70 mm[Hg] 70 mm[Hg] [facility] Systolic blood pressure 108 mm[Hg] 108 mm[Hg] [facility] Oxygen saturation in Arterial blood by Pulse oximetry 89 % 89 % [facility] Body temperature 98.5 [degF] 98.5 [degF] [facility] ([facility]) Respiratory rate 18 /min 18 /min [facility] ( [facility]) Heart rate 89 /min 89 /min [facility] Body mass index (BMI) [Ratio] 35.9 kg/m2 35.9 k g/m2 [facility] ([facility]) Body weight 220.38 [lb_av] 220.38 [lb_av] [facility] ([facility]) Body height 65.7 [in_i] 65.7 [in_i] [facility] ([facility]) 5'5.70" Diastolic blood pressure 68 mm[Hg] 68 mm[Hg] [facility] ([facility]) Systolic blood pressure 122 mm[Hg] 122 mm[Hg] [facility] ([facility]) Oxygen saturation in Arterial blood by Pulse oximetry 96 % 96 % [facility] ([facility]) Body temperature 99.4 [degF] 99.4 [degF] [facility] ([facility]) Respiratory rate 20 /min 20 /min [facility] ( [facility]) Heart rate 92 /min 92 /min [facility] ([facility]) Body mass index (BMI) [Ratio] 35.8 kg/m2 35.8 k g/m2 [facility] ([facility]) Body weight 220.00 [lb_av] 220.00 [lb_av] [facility] ([facility]) Body height 65.7 [in_i] 65.7 [in_i] [facility] ([facility]) 5'5.70" Diastolic blood pressure 84 mm[Hg] 84 mm[Hg] [facility] ([facility]) Systolic blood pressure 124 mm[Hg] 124 mm[Hg] [facility] ([facility]) Body mass index (BMI) [Ratio] 34.1 kg/m2 34.1 k g/m2 [facility] ([facility]) Body height 67 [in_i] 67 [in_i] [facility] ([facility]) 5'7" Body weight 218.00 [lb_av] 218.00 [lb_av] [facility] ([facility], [facility]) Body temperature 98.3 [degF] 98.3 [degF] [facility] ([facility], [facility]) Oxygen saturation in Arterial blood by Pulse oximetry 96 % 96 % [facility] ([facility], [facility]) Respiratory rate 17 /min 17 /min [facility] ( [facility], [facility]) Heart rate 89 /min 89 /min [facility] ([facility]) Diastolic blood pressure 78 mm[Hg] 78 mm[Hg] [facility] ([facility], [facility]) Systolic blood pressure 118 mm[Hg] 118 mm[Hg] [facility] ([facility]) Oxygen saturation in Arterial blood by Pulse oximetry 97 % 97 % [facility] ([facility]) Body temperature 98.5 [degF] 98.5 [degF] [facility] ([facility]) Respiratory rate 18 /min 18 /min [facility] ( [facility]) Heart rate 78 /min 78 /min [facility] ([facility]) Body mass index (BMI) [Ratio] 36.4 kg/m2 36.4 k g/m2 [facility] ([facility]) Body weight 223.38 [lb_av] 223.38 [lb_av] [facility] ([facility]) Body height 65.7 [in_i] 65.7 [in_i] [facility] ([facility]) 5'5.70" Diastolic blood pressure 78 mm[Hg] 78 mm[Hg] [facility] ([facility]) Systolic blood pressure 122 mm[Hg] 122 mm[Hg] [facility] ([facility]) Body weight 229.38 [lb_av] 229.38 [lb_av] [facility] ([facility]) Body height 65.7 [in_i] 65.7 [in_i] [facility] ([facility]) 5'5.70" Diastolic blood pressure 70 mm[Hg] 70 mm[Hg] [facility] ([facility]) Systolic blood pressure 135 mm[Hg] 135 mm[Hg] [facility] ([facility]) Oxygen saturation in Arterial blood by Pulse oximetry 95 % 95 % [facility] ([facility]) Body temperature 98.9 [degF] 98.9 [degF] [facility] ([facility]) Respiratory rate 18 /min 18 /min [facility] ( [facility]) Heart rate 88 /min 88 /min [facility] ([facility]) Body mass index (BMI) [Ratio] 37.4 kg/m2 37.4 k g/m2 [facility] ([facility] Patient Treatment Plan of Care Planned Activity Planned Date Details Description Data Source (s) Rosuvastatin calcium 20 MG Oral Tablet 09/25/2020 12:00:00 AM EST [facility] FLUAD QUADRIVALENT 0.5 ML PRSY 08/13/2020 12:00:00 AM EDT [facility] 24 HR metoprolol succinate 25 MG Extended Release Oral Tablet 07/02/2020 12:00:00 AM EDT [facility] Amoxicillin 500 MG / Clavulanate 125 MG Oral Tablet 04/08/20 12:00:00 AM EDT [facility] Hydrocortisone 25 MG/ML Topical Cream [Proctozone HC] 04/07/2020 12:00:00 AM EDT [facility] empagliflozin 25 MG Oral Tablet [Jardiance] 03/12/2020 12:00:00 AM EDT [facility] tadalafil 5 MG Oral Tablet 03/01/2020 12:00:00 AM EDT [facility] Metformin hydrochloride 500 MG Oral Tablet 09/25/2019 12:00:00 AM E [facility]
[2020-11-12 22:51] LABS: PROTHROMBIN TIME 13.4 SECONDS (12.5-14.3)
[2020-11-12 22:52] LABS: PARTIAL THROMBOPLASTIN TIME 30.6 SECONDS (24.2-38.5)
[2020-11-12 22:58] LABS: ABG HCO3 23.5 MEQ/L (22.0-26.0); ABG O2 SATURATION 96.6 % (95.0-99.0); ABG PARTIAL PRESSURE CO2 38.6 mmHg (35.0-45.0); ABG PARTIAL PRESSURE O2 85.3 mmHg (75.0-100.0); ABG STANDARD HCO3 23.7 MEQ/L (22.0-26.0); ABG TOTAL CO2 24.7 MEQ/L (23.0-31.0); ABG pH (ARTERIAL) 7.403 UNITS (7.350-7.450)
[2020-11-12 22:59] LABS: MAGNESIUM LEVEL 2.1 MG/DL (1.8-2.4)
[2020-11-12] MEDS ORDERED: cefTRIAXone SOD 1 GM in D5W MINI-BAG PLUS 50 ML IV SCH (23:00)
[2020-11-12] MEDS ORDERED: AZITHROMYCIN INJ 500 MG, VIAL MATE ADAPTER 1 EACH in D5W 250 ML IV SCH (23:30)
[2020-11-12 23:44] VITALS: BP 131/67
[2020-11-13] VITALS: O2SAT 97
[2020-11-13] MEDS: ENOXAPARIN 60MG/0.6ML SYRINGE (J1650 PER 10MG) SC SCH ×2 (00:34→12:14)
[2020-11-13] MEDS ORDERED: LevoFLOXacin 750 MG TABLET PO SCH (00:45)
[2020-11-13 04:00] VITALS: O2SAT 98
[2020-11-13 04:05] VITALS: BP 118/71
--- NOTE | 2020-11-13 05:57 | ECGEPIP ---
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
[2020-11-13 07:02] LABS: BASO % 0.2 % (0.0-1.0); EOS % 0.2 % (0.0-3.0); HEMATOCRIT 38.3 % (42.0-52.0); HEMOGLOBIN 12.3 g/dl (13.5-17.5); LYMPH # 1.5 10^3/uL (1.5-5.0); LYMPH % 25.5 % (24.0-44.0); MEAN CORPUSCULAR HEMOGLOBIN 28.5 pg (27.0-33.0); MEAN CORPUSCULAR HGB CONC 32.1 g/dl (32.0-36.5); MEAN CORPUSCULAR VOLUME 88.7 fl (80.0-96.0); MONO # 0.7 10^3/uL (0.0-0.8); MONO % 11.3 % (0.0-5.0); NEUTROPHILS # 3.8 10^3/uL (1.5-8.5); NEUTROPHILS % 62.5 % (36.0-66.0); PLATELET COUNT, AUTOMATED 170 10^3/uL (150-450); RED BLOOD COUNT 4.32 10^6/uL (4.30-6.10)
[2020-11-13 07:28] LABS: BLOOD UREA NITROGEN 23 MG/DL (7-18); CALCIUM LEVEL 8.5 MG/DL (8.8-10.2); CARBON DIOXIDE LEVEL 27 MEQ/L (21-32); CHLORIDE LEVEL 107 MEQ/L (98-107); CREATININE FOR GFR 0.94 MG/DL (0.70-1.30); GLOMERULAR FILTRATION RATE > 60.0 (>49); GLUCOSE, FASTING 97 MG/DL (70-100); IRON (FE) 21 UG/DL (65-175); MAGNESIUM LEVEL 2.5 MG/DL (1.8-2.4); PERCENT SATURATION 8.4 % (19.7-50.0); POTASSIUM SERUM 3.8 MEQ/L (3.5-5.1); SODIUM LEVEL 140 MEQ/L (136-145); TOTAL IRON BINDING CAPACITY 250 UG/DL (250-450); TROPONIN I < 0.02 NG/ML (< 0.10)
[2020-11-13] MEDS: HumaLOG INSULIN (NovoLOG) PER UNIT SC SCH ×2 (07:30→12:14)
[2020-11-13] MEDS ORDERED: ADVAIR HFA 230/21MCG INHALER INH SCH (08:00)
[2020-11-13] MEDS ORDERED: predniSONE 20 MG TAB PO SCH (09:00)
[2020-11-13] MEDS ORDERED: PANTOPRAZOLE 40MG TAB (PROTONIX) PO SCH (09:00)
[2020-11-13] MEDS ORDERED: MONTELUKAST 10 MG TAB PO SCH (09:00)
[2020-11-13] MEDS ORDERED: ASPIRIN 81 MG ENTERIC TAB PO SCH (09:00)
[2020-11-13] MEDS ORDERED: METOPROLOL SUCC *XL* 25MG TAB (TopROL *XL*) PO SCH (09:00)
[2020-11-13 09:39] VITALS: BP 129/72
[2020-11-13 09:44] LABS: HEMOGLOBIN A1c 7.2 %
[2020-11-13 11:10] LABS: FOLATE 18.6 NG/ML (>5.4); VITAMIN B12 LEVEL 343 PG/ML (247-911)
[2020-11-13 11:44] VITALS: BP 127/66
[2020-11-13 12:19] VITALS: BP_SYST 130; BP_SYST 131; BP_DIAS 64; BP_DIAS 67; BP_DIAS 71
[2020-11-13] MEDS ORDERED: LEVO750T13 PO (13:52)
[2020-11-13] MEDS ORDERED: VENTAER INH (13:52)
--- NOTE | 2020-11-13 17:07 | DS.PDOC ---
Discharge Summary General Date of Admission Nov 12, 2020 at 22:40 Date of Discharge 11/13/2020 Discharge Summary PROCEDURES PERFORMED DURING STAY: [None]. ADMITTING DIAGNOSES: Syncope Covid-19 infection DM2 Chronic CAD BPH Class 1 obesity DISCHARGE DIAGNOSES: Syncope Covid-19 infection DM2 Chronic CAD BPH Class 1 obesity COMPLICATIONS/CHIEF COMPLAINT: Pneumonia Due To Covid 19 Virus, Syncope. HISTORY OF PRESENT ILLNESS: This 70 yr old M was diagnosed with COVID on Wednesday and moved out of his primary residence to another house. He has been having a dry cough, chest pain with coughing, fever, chills, episodes of sweating, and nausea without vomiting. He denies having diarrhea or rashes. At about 1 or 2 PM he passed out. When he woke-up he found himself on the ground therefore he decided to come to the ER for evaluation. He was told that he likely hit his head by ER staff because he had a bruise on his head. HOSPITAL COURSE: Patient was admitted for overnight observation on telemetry given syncope as reason for admission. He endorses reduced po fluid intake, which has contributed to syncopal episodes in the past. No concerning events were noted on telemetry. An echo was performed to assess for contractility and valvular function, and will be followed up on outpatient basis. Patient's orthostatic blood pressures were unremarkable. He had a fever of 100.5, which is likely related to covid-19 infection. He had no leukocytosis. CXR was positive for likely pneumonia and patient was started on a 7 day course of levaquin (qtc 431). Patient was stable upon DC and was advised to quarantine for total of 10 days and to follow up with his PCP in 3-5 days. DISCHARGE MEDICATIONS: Please see below. ALLERGIES: Please see below. PHYSICAL EXAMINATION ON DISCHARGE: VITAL SIGNS: please see below General: NAD, comfortable HEENT: PERRLA, EOMI, sclerae clear Neck: supple, normal ROM, no JVD Respiratory: lungs CTAB, no wheeze, no rales, no crackles CVS: RRR, normal S1, S2, no murmurs Abdo: soft, no masses, no hepatosplenomegaly, BS+, no rebound tenderness Extremities: no edema, pulses 2+ MSK: no joint deformities, normal ROM Neuro: no focal neuro deficits, moving all 4 extremities, CN2-12 intact. Strength 5/5 in all 4 extremities. No nystagmus. Psych: calm, cooperative, AAO x 3 LABORATORY DATA: Please see below. IMAGING: Chest xray IMPRESSION: No active disease. CT head IMPRESSION: No acute intracranial abnormality. CT chest IMPRESSION: 1. Airspace disease greatest at the right lower lobe concerning for pneumonia. 2. No evidence of pulmonary embolus. PROGNOSIS: good ACTIVITY: As tolerated DIET: consistent carbohydrate DISCHARGE PLAN: follow up with PCP 3-5 days. Continue to quarantine for 10 days. DISPOSITION: home, with quarantine DISCHARGE INSTRUCTIONS: . Please follow-up with your primary care doctor within 3-5 days . Please taking medications as prescribed. Levaquin for 7 days total. . If you develop bleeding, chest pain, shortness of breath, seizures, nausea, fevers, or otherwise worsening of your symptoms, please call 911 or return to the nearest emergency room ITEMS TO FOLLOWUP ON ON OUTPATIENT: Echocardiogram DISCHARGE CONDITION: [Stable]. TIME SPENT ON DISCHARGE: 35 minutes Vital Signs/I&Os Vital Signs Date Time Temp Pulse Resp B/P (MAP) Pulse Ox O2 Delivery O2 Flow Rate FiO2 11/13/20 13:15 100.0 11/13/20 12:19 85 131/64 (86) 86 130/67 (88) 96 130/71 (90) 11/13/20 11:44 20 98 Room Air I&O- Last 24 Hours up to 6 AM 11/13/20 06:00 Intake Total 1120 ml Balance 1120 ml Laboratory Data Labs 24H Laboratory Tests 2 11/12/20 17:18: Immature Granulocyte % (Auto) 0.4, Neutrophils (%) (Auto) 81.1H, Lymphocytes (%) (Auto) 9.7L, Monocytes (%) (Auto) 8.4H, Eosinophils (%) (Auto) 0.1, Basophils (%) (Auto) 0.3, Neutrophils # (Auto) 5.6, Lymphocytes # (Auto) 0.7L, Monocytes # (Auto) 0.6, Eosinophils # (Auto) 0.0, Basophils # (Auto) 0.0, Nucleated Red Blood Cells % (auto) 0.0, Erythrocyte Sedimentation Rate 47H, Prothrombin Time 13.4, Prothromb Time International Ratio 1.00, Activated Partial Thromboplast Time 30.6, Fibrinogen 533H, D-Dimer, Quantitative 617.94H, Magnesium Level 2.1, Ferritin 701H, Total Bilirubin 0.4, Direct Bilirubin 0.2, Aspartate Amino Transf (AST/SGOT) 101H, Alanine Aminotransferase (ALT/SGPT) 97H, Alkaline Phosphatase 63, Lactate Dehydrogenase 211, C-Reactive Protein, Quantitative 6.22H, JC-Mfh-R-Type Natriuretic Peptide 72, Total Protein 6.8, Albumin 3.5, Albumin/Globulin Ratio 1.1 11/12/20 17:47: POC Glucose (Misc Panel) 161H, POC Sodium (Misc Panel) 137, POC Potassium (Misc Panel) 4.0, POC Chloride (Misc Panel) 100, POC Total CO2 (Misc Panel) 26.0, POC Blood Urea Nitrogen (Misc Panel 21, POC Ionized Calcium (Misc Panel) 4.5, POC Creatinine (Misc Panel) 1.1, POC Hematocrit (Misc Panel) 42.0 11/12/20 17:49: POC Lactate (Misc Panel) 1.73 11/12/20 18:02: POC Troponin I (Misc) 0.00 11/12/20 22:23: Blood Gas Bicarbonate Standard 23.7, Arterial Blood pH 7.403, Arterial Blood Partial Pressure CO2 38.6, Arterial Blood Partial Pressure O2 85.3, Arterial Blood Total CO2 24.7, Arterial Blood HCO3 23.5, Arterial Blood Base Excess -1.0, Arterial Blood Oxygen Saturation 96.6 11/13/20 00:10: Troponin I < 0.02 11/13/20 00:14: Bedside Glucose (Misc Panel) 164H 11/13/20 06:34: Troponin I < 0.02, Immature Granulocyte % (Auto) 0.3, Neutrophils (%) (Auto) 62.5, Lymphocytes (%) (Auto) 25.5, Monocytes (%) (Auto) 11.3H, Eosinophils (%) (Auto) 0.2, Basophils (%) (Auto) 0.2, Neutrophils # (Auto) 3.8, Lymphocytes # (Auto) 1.5, Monocytes # (Auto) 0.7, Eosinophils # (Auto) 0.0, Basophils # (Auto) 0.0, Nucleated Red Blood Cells % (auto) 0.0, Anion Gap 6L, Glomerular Filtration Rate > 60.0, Estimated Mean Plasma Glucose 160H, Hemoglobin A1c 7.2, Calcium Level 8.5L, Magnesium Level 2.5H, Iron Level 21L, Total Iron Binding Capacity 250, Transferrin % Saturation 8.4L, Vitamin B12 Level 343, Folate 18.6, Procalcitonin 0.26 11/13/20 11:34: Bedside Glucose (Misc Panel) 116H 11/13/20 12:50: Lab Scanned Report Miscellaneous Lab CBC/BMP Laboratory Tests 11/12/20 17:18 11/13/20 06:34 FSBS Laboratory Tests Test 11/13/20 00:14 11/13/20 11:34 Range/Units Bedside Glucose (Misc Panel) 164 116 80-115 MG/DL Microbiology Microbiology 11/13/20 Stool Occult Blood (DIANA) - Final, Complete Discharge Medications Scheduled Aspirin (Aspirin EC) 81 Mg Tablet.dr, 81 MG PO DAILY, (Reported) Empagliflozin (Jardiance) 25 Mg Tablet, 25 MG PO DAILY, (Reported) Levofloxacin (Levofloxacin) 750 Mg Tablet, 750 MG PO DAILY@06 Metformin HCl (Metformin HCl) 500 Mg Tablet, 500 MG PO BID, (Reported) Metoprolol Succinate (Metoprolol Succinate) 25 Mg Tab.er.24h, 25 MG PO DAILY, (Reported) Montelukast Sodium (Montelukast Sodium) 10 Mg Tablet, 10 MG PO DAILY, (Reported) Rosuvastatin Calcium (Rosuvastatin Calcium) 20 Mg Tablet, 20 MG PO QHS, (Reported) Tadalafil (Cialis) 5 Mg Tablet, 5 MG PO QHS, (Reported) Tamsulosin HCl (Flomax) 0.4 Mg Capsule, 0.8 MG PO QHS, (Reported) Scheduled PRN Albuterol Sulfate (Ventolin Hfa) 18 Gm Hfa.aer.ad, 2 PUFF INH Q4H PRN for dys pnea Allergies Coded Allergies: No Known Allergies (Unverified , 04/07/20) BAO ADKINS MD Nov 13, 2020 17:07
[2020-11-13] MEDS ORDERED: ROSUVASTATIN 10 MG TAB (CRESTOR) PO SCH (21:00)
--- NOTE | 2020-11-15 12:12 | ECHO ---
DATE OF PROCEDURE: 11/13/2020 Age: 70 Gender: Male REFERRING PHYSICIAN: Michelle Souza MD PATIENT LOCATION: Room 4110 REASON FOR STUDY: Syncope. 2D MEASUREMENTS: IVS 0.87 cm LV 5.1 cm LVPW 0.9 cm LA 4.3 cm Aorta 3.0 cm IVC 1.7 cm DOPPLER MEASUREMENT Peak velocity across the aortic valve 1.6 m/s Peak velocity across the LVOT 1.1 m/s Mitral E 0.89 Mitral A 0.93 with a ratio of less than 1.0 2D COMMENTS: 1. Normal left ventricle size, wall thickness, and normal global left ventricular systolic function. The estimated left ventricular systolic ejection fraction is 60% to 65%. 2. Mildly enlarged left atrium. Normal right atrium and right ventricle. 3. The atrial septum appeared to be normal without evidence of defect or shunt. 4. Normal aortic root. 5. No pericardial effusion seen. 6. Mildly calcified aortic valve with normal leaflet excursion. Mildly calcified mitral annulus with normal anterior mitral valve leaflet motion. Normal tricuspid valve. The pulmonic valve and proximal pulmonary artery branches were not well visualized. 7. The inferior vena cava was normal in size, central venous pressure is most likely normal. DOPPLER: No significant valvular abnormalities detected. Assessment of the left ventricular diastolic function revealed abnormal relaxation consistent with features of grade 1 left ventricular diastolic dysfunction. IMPRESSION: 1. Normal global left ventricular systolic function. There are some features of left ventricular diastolic dysfunction manifested by abnormal relaxation. 2. Aortic valve sclerosis without stenosis or aortic regurgitation. 3. Isolated mildly dilated left atrium at 4.3 cm. Mitral annular calcification was noted, but no evidence of significant mitral regurgitation or stenosis. MTDD
[2020-11-15 15:08] LABS: MYCOPLASMA PNEUMONIAE IgG <100 U/mL (0-99); MYCOPLASMA PNEUMONIAE IgM <770 U/mL (0-769)
== END 2020-11-13 16:38 | disposition home or self-care (01) | DRG 177 ==
LOC: M ED 16:14 → M ED INP 22:40 → M 4MAIN 23:45
PROVIDERS: ADMIT Internal Medicine; ATTEND Family Medicine
DX: U07.1 COVID-19 (principal); J12.89 Other viral pneumonia; N40.0 Benign prostatic hyperplasia without lower urinary tract symptoms; I25.10 Atherosclerotic heart disease of native coronary artery without angina pectoris; R55 Syncope and collapse; E11.9 Type 2 diabetes mellitus without complications; E66.9 Obesity, unspecified; Z90.49 Acquired absence of other specified parts of digestive tract; Z95.5 Presence of coronary angioplasty implant and graft; Z79.82 Long term (current) use of aspirin; Z79.84 Long term (current) use of oral hypoglycemic drugs; Z79.899 Other long term (current) drug therapy; Z68.35 Body mass index [BMI] 35.0-35.9, adult

== ENCOUNTER 2020-11-17 21:51 | Inpatient (IN) | payer MEDICARE, OTHER ==
[~2020-11-17] VITALS: Ht 170.2 cm; Wt 100.8 kg
[~2020-11-17 21:51] MED LIST changes: +ASPI-161 PO; +CIAL5TAB PO; +LEVO750T13 PO; +METF-839 PO; +VENTAER INH
[2020-11-17] MEDS ORDERED: METAL LOCK LOOP XX ONE (22:38)
[2020-11-17] MEDS ORDERED: ACETAMINOPHEN 500 MG TAB PO ONE (22:45)
[2020-11-17 22:52] LABS: BASO % 0.1 % (0.0-1.0); HEMATOCRIT 42.8 % (42.0-52.0); HEMOGLOBIN 13.7 g/dl (13.5-17.5); LYMPH # 0.6 10^3/uL (1.5-5.0); LYMPH % 5.8 % (24.0-44.0); MEAN CORPUSCULAR HEMOGLOBIN 27.8 pg (27.0-33.0); MONO # 0.4 10^3/uL (0.0-0.8); MONO % 4.3 % (0.0-5.0); NEUTROPHILS # 8.7 10^3/uL (1.5-8.5); PLATELET COUNT, AUTOMATED 258 10^3/uL (150-450); RED BLOOD COUNT 4.92 10^6/uL (4.30-6.10); WHITE BLOOD COUNT 9.9 10^3/uL (4.0-10.0)
--- NOTE | 2020-11-17 23:02 | REPVR ---
PROCEDURE INFORMATION: Exam: XR Chest, 1 View Exam date and time: 11/17/2020 10:52 PM Age: 70 years old Clinical indication: Shortness of breath; Additional info: Coronavirus workup TECHNIQUE: Imaging protocol: XR of the chest Views: 1 view. COMPARISON: [place] PORTABLE CHEST X-RAY 11/12/2020 5:48 PM FINDINGS: Lungs: Airspace disease at the left greater than right lung bases. Pleural space: Unremarkable. No pleural effusion. No pneumothorax. Heart/Mediastinum: Stable cardiac silhouette. Vasculature: Elongation of the thoracic aorta. Bones/joints: Unremarkable. IMPRESSION: Airspace disease at the left greater than right lung bases. Electronically signed by: Shaun Clark On 11/17/2020 23:01:49 PM
[2020-11-17 23:03] LABS: INR 1.12; PROTHROMBIN TIME 14.6 SECONDS (12.5-14.3)
[2020-11-17 23:04] LABS: PARTIAL THROMBOPLASTIN TIME 31.5 SECONDS (24.2-38.5)
[2020-11-17 23:07] LABS: D-DIMER QUANT 1722.37 ng/ml (<500)
[2020-11-17 23:29] LABS: BLOOD UREA NITROGEN 33 MG/DL (7-18); CREATININE FOR GFR 1.18 MG/DL (0.70-1.30); GLUCOSE, FASTING 120 MG/DL (70-100)
[2020-11-17 23:30] LABS: ALBUMIN 2.8 GM/DL (3.2-5.2); ALT/SGPT 36 U/L (12-78); BILIRUBIN,TOTAL 0.6 MG/DL (0.2-1.0); CALCIUM LEVEL 8.8 MG/DL (8.8-10.2); CARBON DIOXIDE LEVEL 23 MEQ/L (21-32); CHLORIDE LEVEL 105 MEQ/L (98-107); CK-MB VALUE MASS < 1.0 NG/ML (<3.6); CPK CREATINE PHOSPHOKINASE 95 U/L (39-308); FERRITIN 1550 NG/ML (26-388); GLOMERULAR FILTRATION RATE > 60.0 (>49); LDH LACTATE DEHYDROGENASE 383 U/L (87-241); MB/CK RELATIVE INDEX 1.05 (< OR =4); SODIUM LEVEL 138 MEQ/L (136-145); TOTAL PROTEIN 7.1 GM/DL (6.4-8.2); TROPONIN I < 0.02 NG/ML (< 0.10)
--- NOTE | 2020-11-17 23:32 | HPEPDOC ---
[facility] Medical History & Physical Date of Admission Nov 17, 2020 Date of Service: Nov 18, 2020 Attending Physician: ADAMA BUSH MD History and Physical TIME OF SERVICE: 1200am CHIEF COMPLAINT: dyspnea HISTORY OF PRESENT ILLNESS: This 70 yr old M was diagnosed with COVID 19 on Nov 10 and admitted for observation overnight from Nov 12 to after having a syncopal event. Today he returned with c/o feeling short of breath, feeling tired, feeling nauseous and having a poor appetite because food tastes bad. Per EMS O2 sats were noted to be 84% on RA when they arrived; when the patient arrived in the ER his O2 sats improved to the 90s on 3L. REVIEW OF SYSTEMS: 12-point review of systems negative except as listed in HPI PAST MEDICAL/ SURGICAL HISTORY: BPH s/p TURP CAD s/p placement of 1 stent (he denies having an acute FL) DM2 Class 1 Obesity Appendectomy Cholecystectomy SOCIAL HISTORY: He doesnt smoke He drinks alcohol occasionally FAMILY HISTORY: Both his parents had cancer ALLERGIES: Please see below. HOME MEDICATIONS: Please see below. PHYSICAL EXAMINATION: GENERAL APPEARANCE: appears ill / NAD HEENT: EOMI / NC in place CARDIOVASCULAR: tachycardic / NMRG LUNGS: equal air entry bilaterally / lungs CTAB ABDOMEN: obese MUSCULOSKELETAL: ZORAN x4 NEUROLOGICAL: CN 2-12 grossly intact / speech not dysarthric PSYCHIATRIC: A&O x3 /able to understand and follow all commands LABORATORY DATA: 11/17/20 22:36 Immature Granulocyte % (Auto) 1.8, Neutrophils (%) (Auto) 88.0H, Lymphocytes (%) (Auto) 5.8L, Monocytes (%) (Auto) 4.3, Eosinophils (%) (Auto) 0.0, Basophils (%) (Auto) 0.1, Neutrophils # (Auto) 8.7H, Lymphocytes # (Auto) 0.6L, Monocytes # (Auto) 0.4, Eosinophils # (Auto) 0.0, Basophils # (Auto) 0.0, Nucleated Red Blood Cells % (auto) 0.0, Prothrombin Time 14.6H, Prothromb Time International Ratio 1.12, Activated Partial Thromboplast Time 31.5, Fibrinogen 1248H, D-Dimer, Quantitative 1722.37H, Anion Gap 10, Glomerular Filtration Rate > 60.0, Calcium Level 8.8, Ferritin 1550H, Total Bilirubin 0.6, Aspartate Amino Transf (AST/SGOT) 37, Alanine Aminotransferase (ALT/SGPT) 36, Alkaline Phosphatase 64, Lactate Dehydrogenase 383H, Total Creatine Kinase 95, Creatine Kinase MB < 1.0, Creatine Kinase MB Relative Index 1.05, Troponin I < 0.02, C-Reactive Protein, Quantitative 25.70H, Total Protein 7.1, Albumin 2.8L, Albumin/Globulin Ratio 0.7 IMAGING: Chest xray IMPRESSION: Airspace disease at the left greater than right lung bases. MICROBIOLOGY: blood cx pending ASSESSMENT: is a 70 yr old w a hx of CAD, DM & obesity who was diagnosed with COVID-19 on Nov 10; EMS was called bc he was feeling short of breath. He will be admitted for management of hypoxemia 2/2 COVID. PLAN: 1. Sepsis 2/2 COVID-19 SIRs criteria include tachycardia and tachypnea Plan: continuous pulse ox / supplemental O2 up to 3L with target O2 sats between 92-95% / contact & air borne precautions / f/u lactic acid repeat plts (if low indicates bad prognosis), CRP (if high indicates bad prognosis), INR, BMP, fibrinogen, INR, D-dimer, PT, PTT (if patient has DIC indicates bad prognosis), ferritin, LDH, procalcitonin (if elevated will help rule out bacterial PNA), troponins (if elevated will need to order Echo to r/o cardiomyopathy) / f/u VBG to assess degree of hypoxemia / because he has clinical features c/w PNA will start Ceftriaxone, Azithromycin and Vanc for CAP pending procalcitonin, sputum cx, strep pneumo, legionella & mycoplasma, MRSA to r/o bacterial PNA / lovenox and ASA for embolic prophylaxis / will start IV dexamethasone / he has had the infection for several days therefore he is not a candidate for Remdesivir 3. DM2 A1c 7.2% Plan: diabetic diet / f/u accuchecks / hypoglycemia protocol / sliding scale insulin / hold oral anti-glycemic agents 4. Chronic CAD Plan: c/w ASA, BB and statin 5. BPH Plan: tamsulosin 6. Class 1 Obesity Since the patients BMI >35 with co-existing DM he is a candidate for bariatric surgery Plan: the patient can f/u w his PCP for sleep apnea screening, dough molder hand consult, to discuss staring Saxenda, which is indicated in patients with a BMI >27 with co-existing DM, HTN or dyslipidemia to help with weight control as an adjunct to exercise & referral to a Bariatric Surgeon / recommend cardiovascular exercise for 40 min 4-5 days a week DVT Px ASA with medium dose Lovenox Dispo: likely home after more than 2 midnights stay Home Medications Scheduled Aspirin (Aspirin EC) 81 Mg Tablet.dr, 81 MG PO DAILY Empagliflozin (Jardiance) 25 Mg Tablet, 25 MG PO DAILY Metformin HCl (Metformin HCl) 500 Mg Tablet, 1,000 MG PO BID Metoprolol Succinate (Metoprolol Succinate) 25 Mg Tab.er.24h, 25 MG PO DAILY Montelukast Sodium (Montelukast Sodium) 10 Mg Tablet, 10 MG PO DAILY Rosuvastatin Calcium (Rosuvastatin Calcium) 20 Mg Tablet, 20 MG PO DAILY Tadalafil (Cialis) 5 Mg Tablet, 5 MG PO QHS Tamsulosin HCl (Flomax) 0.4 Mg Capsule, 0.8 MG PO QHS levoFLOXacin (levoFLOXacin) 750 Mg Tablet, 750 MG PO DAILY STARTED 11/13/20 X 6 DAYS Scheduled PRN Albuterol Sulfate (Albuterol Sulfate Hfa) 8.5 Gm Hfa.aer.ad, 2 PUFFS INH Q4H PRN for SHORTNESS OF BREATH Allergies Coded Allergies: No Known Allergies (Unverified , 04/07/20) A-FIB/CHADSVASC A-FIB History Current/History of A-Fib/PAF?: No Current PO Anticoag Therapy: No ADAMA BUSH MD Nov 17, 2020 23:31
[2020-11-17] MEDS ORDERED: MAALOX 30 ML SUSP *UDC PO PRN (23:45)
[2020-11-17] MEDS ORDERED: MOM 30ML SUSPENSION UDC PO PRN (23:45)
[2020-11-17] MEDS ORDERED: ENOXAPARIN 100MG/1ML SYRINGE (J1650 PER 10MG) SC SCH (23:45)
[2020-11-17] MEDS ORDERED: VANCOMYCIN HCL 1,000 MG, VIAL MATE ADAPTER 1 EACH in D5W 250 ML IV SCH (23:45)
[2020-11-17] MEDS ORDERED: GLUCOSE 4GM CHEW TABLET PO PRN (23:45)
[2020-11-17] MEDS ORDERED: GLUCAGON INJ 1MG VIAL SC PRN (23:45)
[2020-11-17] MEDS ORDERED: LEVO750T14 PO (23:54)
[2020-11-17] MEDS ORDERED: ALBU8.5H INH (23:54)
[2020-11-18] MEDS ORDERED: NS 1,000 ML IV ONE
[2020-11-18 00:21] LABS: MAGNESIUM LEVEL 2.5 MG/DL (1.8-2.4)
[2020-11-18] MEDS: AZITHROMYCIN INJ 500 MG, VIAL MATE ADAPTER 1 EACH in D5W 250 ML IV SCH (00:24)
[2020-11-18] MEDS: ENOXAPARIN 100MG/1ML SYRINGE (J1650 PER 10MG) SC SCH ×2 (00:25→09:44)
[2020-11-18] MEDS: cefTRIAXone SOD 1 GM in D5W MINI-BAG PLUS 50 ML IV SCH (02:32)
[2020-11-18 03:56] VITALS: BP 122/75
[2020-11-18 08:00] VITALS: BP 157/81; O2SAT 90
[2020-11-18 09:29] LABS: VENOUS BASE EXCESS -0.5 (-2.0-2.0); VENOUS HCO3 24.2 MEQ/L (23.0-27.0); VENOUS O2 SATURATION 51.1 % (60.0-80.0); VENOUS PARTIAL PRESSURE O2 27.1 mmHg (30.0-50.0); VENOUS TOTAL CO2 25.4 MEQ/L (24.0-28.0)
[2020-11-18 09:36] LABS: BASO % 0.2 % (0.0-1.0); HEMOGLOBIN 13.6 g/dl (13.5-17.5); LYMPH # 1.1 10^3/uL (1.5-5.0); LYMPH % 10.8 % (24.0-44.0); MEAN CORPUSCULAR HEMOGLOBIN 27.6 pg (27.0-33.0); MEAN CORPUSCULAR HGB CONC 30.9 g/dl (32.0-36.5); MEAN CORPUSCULAR VOLUME 89.4 fl (80.0-96.0); MONO # 0.4 10^3/uL (0.0-0.8); MONO % 4.2 % (0.0-5.0); NEUTROPHILS # 8.7 10^3/uL (1.5-8.5); NEUTROPHILS % 83.1 % (36.0-66.0); PLATELET COUNT, AUTOMATED 272 10^3/uL (150-450); RED BLOOD COUNT 4.92 10^6/uL (4.30-6.10); WHITE BLOOD COUNT 10.5 10^3/uL (4.0-10.0)
[2020-11-18] MEDS: HumaLOG INSULIN (NovoLOG) PER UNIT SC SCH ×4 (09:43→20:29)
[2020-11-18] MEDS: dexameTHASONE 4 MG/ML 1ML VIAL (J1100 PER 1MG) IV SCH (09:43)
[2020-11-18] MEDS: ASPIRIN 81 MG ENTERIC TAB PO SCH (09:44)
[2020-11-18 10:12] LABS: BLOOD UREA NITROGEN 35 MG/DL (7-18); CALCIUM LEVEL 8.7 MG/DL (8.8-10.2); CARBON DIOXIDE LEVEL 26 MEQ/L (21-32); CHLORIDE LEVEL 105 MEQ/L (98-107); CREATININE FOR GFR 1.25 MG/DL (0.70-1.30); GLOMERULAR FILTRATION RATE > 60.0 (>49); GLUCOSE, FASTING 126 MG/DL (70-100); MAGNESIUM LEVEL 2.8 MG/DL (1.8-2.4); SODIUM LEVEL 140 MEQ/L (136-145)
[2020-11-18] MEDS ORDERED: ISOVUE-370 76% 100ML VIAL As Ordered ONE (10:39)
--- NOTE | 2020-11-18 11:05 | IPNPDOC ---
Text Note Date of Service The patient was seen on 11/18/20. NOTE update: @1615, was told by staff patient got up to use bathroom and failed to replace his oxygen, staff noticed he was satting in the 70's and moved quickly to replace it. He did have any symptoms during this time and did not notice much of a difference. She replaced it with nasal cannula without improvement, followed by high flow, then non-rebreather. She was able to put him on a venti mask but it was nearly maxed out, gave instructions to start patient on vapotherm. Subjective: No acute events overnight. Patient feels his shortness of breath is mostly unchanged, he continues to have shortness of breath, pleurisy, poor appetite, and complains of not having had a bowel movement in about 5 days, but relents this may be a result of his poor oral intake. He otherwise denies chest pain, palpitations, nausea/vomiting/diarrhea. Interval history: Patient states he has a weeklong history of symptomatology. He was diagnosed on 11/10/2020 and admitted for observation from following a syncopal event. He returned on 11/17 complaining of shortness of breath, fat igue, nausea, and poor appetite. On arrival he was saturating 84% on room air chest x-ray showing airspace disease left greater than right in the lung bases and was subsequently admitted for hypoxemia related to Covid 19 pneumonia. Objective: Physical examination: Vitals: See below. Satting 86% on 5 L nasal cannula General: Pleasant, nontoxic appearing male laying comfortably on his back in no acute distress speaking in complete sentences. HEENT: NC, AT. EOMI, no scleral icterus. Mucous membranes moist. Neck: No lymphadenopathy or JVD CV: RRR, Normal S1 and S2. No murmurs, gallops, or rubs. Resp: Diminished breath sounds bilaterally. No wheezes, crackles. Rhonchi auscultated in LLL. Abdomen: Bowel sounds present. Soft, NT, ND. Extremities: No swelling or edema. Assessment/Plan: Patient is a 70-year-old male with known Covid 19 who presents with a week long history of worsening upper respiratory symptoms admitted for acute hypoxic respiratory failure and sepsis secondary to Covid pneumonia #. Acute hypoxic respiratory failure secondary to Covid 19 pneumonia -Continue Rocephin and azithromycin for CAP, Patient was previously on Levaquin x5 days outpatient since 11/13/2020, this was not continued inpatient. -Pro-calcitonin, sputum culture, strep pneumo, Legionella, Mycoplasma, MRSA pending -IV dexamethasone (day 2) -Given risk factors (obesity, CAD, diabetes ) will start patient on Remdesivir (day 1) #. Sepsis secondary to Covid pneumonia -Improving, lactic acid trended down after single liter bolus, he has already been placed on antibiotics, and given the delicate fluid balance that Covid patients tend to have I agree with the decision to not follow a 30 mL/kg bolus for this patient as per sepsis guidelines. #. Type 2 diabetes A1c 7.2% Will continue to follow his insulin requirements as he continues dexamethasone Sliding scale insulin, diabetic diet #. Chronic CAD Continue aspirin, beta indigo, statin #. BPH Continue Flomax #. Class I obesity Complicating care DVT prophylaxis: Aspirin with prophylactic Lovenox. CODE STATUS: FULL CODE Disposition: Pending clinical improvement VS,Alberto, I+O VS, Alberto, I+O Laboratory Tests 11/17/20 22:36 11/18/20 09:20 Vital Signs Date Time Temp Pulse Resp B/P (MAP) Pulse Ox O2 Delivery O2 Flow Rate FiO2 11/18/20 08:00 99.3 98 20 157/81 (106) 90 Nasal Cannula 4.0 I&O- Last 24 Hours up to 6 AM 11/18/20 06:00 Intake Total 1305 ml Output Total 0 ml Balance 1305 ml GME ATTESTATION GME ATTESTATION My faculty preceptor for this patient encounter was physically present during the encounter and was fully available. All aspects of the patient interview, examination, medical decision making process, and medical care plan development were reviewed and approved by the faculty preceptor. The faculty preceptor is aware and concurs with the plan as stated in the body of this note and will attest to such by his/her cosignature. ATTENDING NOTE I, Khanh Stephenson MD, have independently examined this patient and performed my own physical exam, as well as reviewed the documentation and edited where necessary. I have discussed in detail with the resident / student the findings and plan of treatment as documented by the resident / student and edited their note. I agree with their findings and treatment plan and have edited their documentation. MELODY CABRERA DO Nov 18, 2020 11:05 KHANH STEPHENSON MD Nov 22, 2020 12:49
[2020-11-18] MEDS: ACETAMINOPHEN TAB 650MG DOSE (2X325MG) PO PRN (11:11)
[2020-11-18 12:00] VITALS: O2SAT 91
[2020-11-18] MEDS ORDERED: REMDESIVIR 200 MG in NS 250 ML IV ONE (12:00)
--- NOTE | 2020-11-18 12:03 | REP ---
INDICATION: SOB. COMPARISON: Comparison is made with chest x-ray from [address] angiography November 12, 2020.. TECHNIQUE: Contrast dose: 75 ML of Isovue [address] technique: Helical scanning is acquired and overlapping 1.5 mm and contiguous 3 mm axial images are reformatted. In addition, maximum intensity projection and multiplanar re-formation images are generated in sagittal and coronal imaging projections. FINDINGS: There is good opacification in the pulmonary arterial tree. There is no evidence of vessel cut off or filling defect to suggest pulmonary embolus. Homogeneous opacity is seen in the thoracic aorta. There is no evidence of aneurysm or dissection. Lung window settings demonstrate there are extensive infiltrates with ground-glass opacities predominantly peripheral but also perihilar. Bilateral involvement of the upper and lower lung mcallister. In comparison with November 12, 2020, there has been a extensive progression bilaterally. There are some reactive hilar and mediastinal lymph nodes again noted essentially unchanged. No pleural or pericardial effusion is seen. In the upper abdomen, there is fatty infiltration of the liver. An accessory splenule is seen in the left upper quadrant. No adrenal lesion is seen. IMPRESSION: Extensive progressive bilateral airspace disease consistent with progressive viral pneumonia. The lung mcallister are significantly worse than they were on [address] evidence of pulmonary embolus.. <Electronically signed by Eliecer Huntley > 11/18/20 1200
[2020-11-18] MEDS ORDERED: SODIUM CHLORIDE 0.9% INJ 10 ML SYR IV ONE (14:00)
[2020-11-18 16:00] VITALS: BP 133/73; O2SAT 90
[2020-11-18 20:00] VITALS: BP 117/64; O2SAT 96
[2020-11-18] MEDS: ENOXAPARIN 40MG/0.4ML SYRINGE (J1650 PER 10MG) SC SCH (20:44)
[2020-11-19] VITALS (7 sets, daily range): BP systolic 124–148; BP diastolic 58–77; O2SAT 91–95
[2020-11-19] MEDS: AZITHROMYCIN INJ 500 MG, VIAL MATE ADAPTER 1 EACH in D5W 250 ML IV SCH (00:20)
[2020-11-19] MEDS: cefTRIAXone SOD 1 GM in D5W MINI-BAG PLUS 50 ML IV SCH (01:34)
[2020-11-19] MEDS: ASPIRIN 81 MG ENTERIC TAB PO SCH (08:51)
[2020-11-19] MEDS: ENOXAPARIN 40MG/0.4ML SYRINGE (J1650 PER 10MG) SC SCH ×2 (08:51→20:35)
[2020-11-19] MEDS: dexameTHASONE 4 MG/ML 1ML VIAL (J1100 PER 1MG) IV SCH (08:51)
[2020-11-19] MEDS: HumaLOG INSULIN (NovoLOG) PER UNIT SC SCH ×4 (08:52→20:34)
[2020-11-19] MEDS: LEVEMIR (INSULIN DETEMIR) 1 UNITS/0.01ML SC SCH (09:00)
[2020-11-19 09:38] LABS: ALBUMIN 2.5 GM/DL (3.2-5.2); ALT/SGPT 32 U/L (12-78); BILIRUBIN,DIRECT 0.2 MG/DL (0.0-0.2); BILIRUBIN,TOTAL 0.4 MG/DL (0.2-1.0); CPK CREATINE PHOSPHOKINASE 98 U/L (39-308); FERRITIN 1780 NG/ML (26-388); LDH LACTATE DEHYDROGENASE 437 U/L (87-241); NT-PRO BNP 92 PG/ML (<125); TOTAL PROTEIN 6.5 GM/DL (6.4-8.2); TROPONIN I < 0.02 NG/ML (< 0.10)
[2020-11-19 09:49] LABS: INR 1.08; PARTIAL THROMBOPLASTIN TIME 40.3 SECONDS (24.2-38.5); PROTHROMBIN TIME 14.2 SECONDS (12.5-14.3)
[2020-11-19] MEDS: REMDESIVIR 100 MG in NS 250 ML IV SCH (12:48)
[2020-11-19] MEDS: SODIUM CHLORIDE 0.9% INJ 10 ML SYR IV SCH (12:48)
--- NOTE | 2020-11-19 12:54 | IPNPDOC ---
Text Note Date of Service The patient was seen on 11/19/20. NOTE Subjective: No acute events overnight. Patient tolerated the vapotherm well requiring uptitration to now 36L @100% FiO2 satting at 92%. He continues to not endorse dyspnea, but does not feel it has worsened since admission and stated today he was, "feeling pretty good". He states he was able to have a BM this morning and is tolerating his diet adequately. He otherwise denies chest pain, palpitations, nausea/vomiting/diarrhea. Interval history: Patient states he has a history of symptomatology since 11/10/2020 when he was diagnosed with COVID. He was admitted for observation from following a syncopal event. He returned on 11/17 complaining of shortness of breath, fatigue, nausea, and poor appetite. On arrival he was saturating 84% on room air chest x-ray showing airspace disease left greater than right in the lung bases and was subsequently admitted for hypoxemia related to Covid 19 pneumonia. Objective: Physical examination: Vitals: See below. General: Pleasant, nontoxic appearing male laying comfortably on his back in no acute distress speaking in complete sentences. HEENT: NC, AT. EOMI, no scleral icterus. Mucous membranes moist. Neck: No lymphadenopathy or JVD CV: RRR, Normal S1 and S2. No murmurs, gallops, or rubs. Resp: Diminished breath sounds bilaterally. No wheezes, crackles. Rhonchi auscultated in LLL. Abdomen: Bowel sounds present. Soft, NT, ND. Extremities: No swelling or edema. Neuro: A/Ox3, no focal neuro deficits, moves all 4 extremities. Assessment: Patient is a 70-year-old male with known Covid 19 who presents with a week long history of worsening upper respiratory symptoms admitted for acute hypoxic respiratory failure and sepsis secondary to Covid pneumonia. On day 1 of hospitalization he desaturated into the 70s after forgetting to replace his hi- flow nasal cannula which eventually required vapotherm, but was not in any respiratory distress during the event. Plan: #. Acute hypoxic respiratory failure secondary to Covid 19 pneumonia -Continue Rocephin and azithromycin for CAP (day 3), Pro-calcitonin >0.5. Patient was previously on Levaquin x5 days outpatient since 11/13/2020, this was not continued inpatient. -Sputum culture, strep pneumo, Legionella, Mycoplasma, MRSA pending. BC negx2. -IV dexamethasone (day 3) -Continue Remdesivir (day 2) given his risk factors (obesity, hx of CAD, diabetes) -Patient was updated on plan regarding his care. #. Sepsis secondary to Covid pneumonia -Resolved. #. Type 2 diabetes A1c 7.2% Will continue to follow his insulin requirements as he continues dexamethasone Sliding scale insulin, diabetic diet #. Chronic CAD Continue aspirin, beta indigo, statin #. BPH Continue Flomax #. Obesity Complicating care DVT prophylaxis: Aspirin with prophylactic Lovenox. CODE STATUS: FULL CODE Disposition: Pending clinical improvement VS,Fishbone, I+O VS, Fishbone, I+O Vital Signs Date Time Temp Pulse Resp B/P (MAP) Pulse Ox O2 Delivery O2 Flow Rate FiO2 11/19/20 10:37 92 HVNI-Vapotherm 36.0 100 11/19/20 08:00 98.1 85 19 133/74 (93) I&O- Last 24 Hours up to 6 AM 11/19/20 06:00 Intake Total 1550 ml Output Total 1550 ml Balance 0 ml GME ATTESTATION GME ATTESTATION My faculty preceptor for this patient encounter was physically present during the encounter and was fully available. All aspects of the patient interview, examination, medical decision making process, and medical care plan development were reviewed and approved by the faculty preceptor. The faculty preceptor is aware and concurs with the plan as stated in the body of this note and will attest to such by his/her cosignature. ATTENDING NOTE I, Khanh Stephenson MD, have independently examined this patient and performed my own physical exam, as well as reviewed the documentation and edited where necessary. I have discussed in detail with the resident / student the findings and plan of treatment as documented by the resident / student and edited their note. I agree with their findings and treatment plan and have edited their documentation. MELODY CABRERA DO Nov 19, 2020 12:54 KHANH STEPHENSON MD Nov 22, 2020 12:55
[2020-11-19] MEDS: ROSUVASTATIN 10 MG TAB (CRESTOR) PO SCH (18:17)
[2020-11-19] MEDS: BENZONATATE 100 MG CAP PO SCH (20:34)
[2020-11-19] MEDS: TAMSULOSIN 0.4 MG CAP PO SCH (20:34)
[2020-11-20] VITALS (9 sets, daily range): BP systolic 126–148; BP diastolic 64–78; O2SAT 88–94
[2020-11-20] MEDS: AZITHROMYCIN INJ 500 MG, VIAL MATE ADAPTER 1 EACH in D5W 250 ML IV SCH ×2 (00:06→23:12)
[2020-11-20] MEDS: cefTRIAXone SOD 1 GM in D5W MINI-BAG PLUS 50 ML IV SCH (01:18)
[2020-11-20] MEDS: HumaLOG INSULIN (NovoLOG) PER UNIT SC SCH ×4 (08:47→20:16)
[2020-11-20] MEDS: ENOXAPARIN 40MG/0.4ML SYRINGE (J1650 PER 10MG) SC SCH ×2 (08:48→20:21)
[2020-11-20] MEDS: LEVEMIR (INSULIN DETEMIR) 1 UNITS/0.01ML SC SCH (08:48)
[2020-11-20] MEDS: MONTELUKAST 10 MG TAB PO SCH (08:49)
[2020-11-20] MEDS: dexameTHASONE 4 MG/ML 1ML VIAL (J1100 PER 1MG) IV SCH (08:49)
[2020-11-20] MEDS: ASPIRIN 81 MG ENTERIC TAB PO SCH (08:49)
[2020-11-20] MEDS: ROSUVASTATIN 10 MG TAB (CRESTOR) PO SCH (08:49)
[2020-11-20] MEDS: BENZONATATE 100 MG CAP PO SCH ×3 (08:49→20:22)
[2020-11-20] MEDS: METOPROLOL SUCC *XL* 25MG TAB (TopROL *XL*) PO SCH (08:50)
[2020-11-20 09:05] LABS: BASO # 0.1 10^3/uL (0.0-0.2); BASO % 0.4 % (0.0-1.0); HEMOGLOBIN 13.2 g/dl (13.5-17.5); LYMPH # 1.4 10^3/uL (1.5-5.0); LYMPH % 11.2 % (24.0-44.0); MEAN CORPUSCULAR HGB CONC 31.4 g/dl (32.0-36.5); MEAN CORPUSCULAR VOLUME 89.2 fl (80.0-96.0); MONO # 0.6 10^3/uL (0.0-0.8); MONO % 4.5 % (0.0-5.0); NEUTROPHILS # 10.3 10^3/uL (1.5-8.5); NEUTROPHILS % 81.7 % (36.0-66.0); PLATELET COUNT, AUTOMATED 309 10^3/uL (150-450); RED BLOOD COUNT 4.71 10^6/uL (4.30-6.10); WHITE BLOOD COUNT 12.6 10^3/uL (4.0-10.0)
[2020-11-20 09:24] LABS: BLOOD UREA NITROGEN 32 MG/DL (7-18); CALCIUM LEVEL 8.7 MG/DL (8.8-10.2); CARBON DIOXIDE LEVEL 29 MEQ/L (21-32); CHLORIDE LEVEL 104 MEQ/L (98-107); CREATININE FOR GFR 0.97 MG/DL (0.70-1.30); GLOMERULAR FILTRATION RATE > 60.0 (>49); GLUCOSE, FASTING 141 MG/DL (70-100); POTASSIUM SERUM 3.8 MEQ/L (3.5-5.1); SODIUM LEVEL 143 MEQ/L (136-145)
[2020-11-20] MEDS ORDERED: FUROSEMIDE 20MG/2ML VIAL (J1940) IV ONE (10:00)
--- NOTE | 2020-11-20 10:34 | IPNPDOC ---
Text Note Date of Service The patient was seen on 11/20/20. NOTE Subjective: No acute events overnight. Patient's main complaint this morning is pleuritic chest pain that occurs primarily when he coughs or takes a very deep breath. It is unaffected by laying backward or forward. He denies any chest pain outside of this, pressure, palpitations, shortness of breath, abdominal pain, nausea, vomiting, diarrhea. He continues to tolerate his diet well. He continues to have no difficulties or issues going to the bathroom. Interval history: Patient states he has a history of symptomatology since 11/10/2020 when he was diagnosed with COVID. He was admitted for observation from following a syncopal event. He returned on 11/17 complaining of shortness of breath, fatigue, nausea, and poor appetite. On arrival he was saturating 84% on room air chest x-ray showing airspace disease left greater than right in the lung bases and was subsequently admitted for hypoxemia related to Covid 19 pneumonia. Objective: Physical examination: Vitals: See below. General: Pleasant, nontoxic appearing male laying comfortably on his back in no acute distress speaking in complete sentences. HEENT: NC, AT. EOMI, no scleral icterus. Mucous membranes moist. Neck: No lymphadenopathy or JVD CV: RRR, Normal S1 and S2. No murmurs, gallops, or rubs. Resp: Diminished inspiratory and expiratory breath sounds bilaterally. No wheezes, crackles, or rhonchi. Abdomen: Bowel sounds present. Soft, NT, ND. Extremities: No swelling or edema. Neuro: A/Ox3, no focal neuro deficits, moves all 4 extremities. Assessment: Patient is a 70-year-old male with known Covid 19 who presents with a week long history of worsening upper respiratory symptoms admitted for acute hypoxic respiratory failure and sepsis secondary to Covid pneumonia. On day 1 of hospitalization he desaturated into the 70s after forgetting to replace his hi- flow nasal cannula which eventually required vapotherm, but was not in any respiratory distress during the event. He has not required any additional supplemental oxygen and does not seem to be worsening at this time, some of the inflammatory markers on his lab work seem to be improving. Plan: #. Acute hypoxic respiratory failure secondary to Covid 19 pneumonia -Continue Rocephin and azithromycin for CAP (day 4), Pro-calcitonin >0.5. -Will recheck pro-calcitonin tomorrow. Patient was encouraged to lie prone for as often during the day and night as he was able to tolerate. - Mycoplasma pending, MRSA negative. BC negx2. -IV dexamethasone (day 4) -Continue Remdesivir (day 3) given his risk factors (obesity, hx of CAD, diabetes) -Patient was updated on plan regarding his care. 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 Informed nursing to trial him on 30L @80% FiO2 as he seems to be tolerating 36 L at 100% well for the past 48 hours without noticeable change unless he exerts himself. #. Type 2 diabetes A1c 7.2% Will continue to follow his insulin requirements as he continues dexamethasone Sliding scale insulin, diabetic diet #. Chronic CAD -Continue aspirin, beta indigo, statin #. BPH -Continue Flomax #. Obesity -Complicating care DVT prophylaxis: Aspirin with prophylactic Lovenox. CODE STATUS: FULL CODE Disposition: Pending clinical improvement VS,Alberto, I+O VS, Alberto, I+O Laboratory Tests 11/20/20 08:26 Vital Signs Date Time Temp Pulse Resp B/P (MAP) Pulse Ox O2 Delivery O2 Flow Rate FiO2 11/20/20 09:30 92 HVNI-Vapotherm 34.0 100 11/20/20 08:50 87 126/78 11/20/20 08:00 98.7 19 I&O- Last 24 Hours up to 6 AM 11/20/20 06:00 Intake Total 425 ml Output Total 375 ml Balance 50 ml GME ATTESTATION GME ATTESTATION My faculty preceptor for this patient encounter was physically present during the encounter and was fully available. All aspects of the patient interview, examination, medical decision making process, and medical care plan development were reviewed and approved by the faculty preceptor. The faculty preceptor is aware and concurs with the plan as stated in the body of this note and will attest to such by his/her cosignature. MELODY CABRERA DO Nov 20, 2020 10:34
[2020-11-20] MEDS: REMDESIVIR 100 MG in NS 250 ML IV SCH (12:26)
[2020-11-20] MEDS: SODIUM CHLORIDE 0.9% INJ 10 ML SYR IV SCH (14:11)
[2020-11-20] MEDS ORDERED: GABAPENTIN 100 MG CAP PO PRN (15:00)
[2020-11-20] MEDS ORDERED: FAMOTIDINE 20 MG TAB PO ONE (15:15)
[2020-11-20] MEDS ORDERED: IBUPROFEN 600MG TAB PO ONE (15:15)
[2020-11-20] MEDS ORDERED: COMBIVENT RESPIMAT 100-20MCG INHALER 4GM INH PRN (15:15)
[2020-11-20 16:11] LABS: MYCOPLASMA PNEUMONIAE IgG <100 U/mL (0-99); MYCOPLASMA PNEUMONIAE IgM <770 U/mL (0-769)
[2020-11-20] MEDS: TAMSULOSIN 0.4 MG CAP PO SCH (20:22)
[2020-11-21] VITALS (13 sets, daily range): BP systolic 107–146; BP diastolic 58–80; O2SAT 88–93
[2020-11-21] MEDS: cefTRIAXone SOD 1 GM in D5W MINI-BAG PLUS 50 ML IV SCH (01:07)
[2020-11-21 07:28] LABS: BASO # 0.1 10^3/uL (0.0-0.2); BASO % 0.5 % (0.0-1.0); EOS % 0.3 % (0.0-3.0); HEMATOCRIT 46.4 % (42.0-52.0); HEMOGLOBIN 14.1 g/dl (13.5-17.5); LYMPH # 1.3 10^3/uL (1.5-5.0); LYMPH % 11.3 % (24.0-44.0); MEAN CORPUSCULAR HEMOGLOBIN 27.4 pg (27.0-33.0); MEAN CORPUSCULAR HGB CONC 30.4 g/dl (32.0-36.5); MEAN CORPUSCULAR VOLUME 90.1 fl (80.0-96.0); MONO # 0.5 10^3/uL (0.0-0.8); MONO % 3.8 % (0.0-5.0); NEUTROPHILS # 9.6 10^3/uL (1.5-8.5); NEUTROPHILS % 80.7 % (36.0-66.0); PLATELET COUNT, AUTOMATED 315 10^3/uL (150-450); RED BLOOD COUNT 5.15 10^6/uL (4.30-6.10); WHITE BLOOD COUNT 11.9 10^3/uL (4.0-10.0)
[2020-11-21 08:09] LABS: ABG BASE EXCESS 0.5 (-2.0-2.0); ABG HCO3 23.6 MEQ/L (22.0-26.0); ABG PARTIAL PRESSURE CO2 33.3 mmHg (35.0-45.0); ABG PARTIAL PRESSURE O2 64.3 mmHg (75.0-100.0); ABG STANDARD HCO3 24.8 MEQ/L (22.0-26.0); ABG TOTAL CO2 24.7 MEQ/L (23.0-31.0); ABG pH (ARTERIAL) 7.469 UNITS (7.350-7.450)
[2020-11-21 08:43] LABS: ALBUMIN 2.6 GM/DL (3.2-5.2); ALT/SGPT 34 U/L (12-78); BILIRUBIN,DIRECT < 0.1 MG/DL (0.0-0.2); BILIRUBIN,TOTAL 0.4 MG/DL (0.2-1.0); BLOOD UREA NITROGEN 29 MG/DL (7-18); CALCIUM LEVEL 8.8 MG/DL (8.8-10.2); CARBON DIOXIDE LEVEL 29 MEQ/L (21-32); CHLORIDE LEVEL 105 MEQ/L (98-107); GLOMERULAR FILTRATION RATE > 60.0 (>49); GLUCOSE, FASTING 117 MG/DL (70-100); SODIUM LEVEL 141 MEQ/L (136-145)
[2020-11-21] MEDS: dexameTHASONE 4 MG/ML 1ML VIAL (J1100 PER 1MG) IV SCH (08:44)
[2020-11-21] MEDS: ENOXAPARIN 40MG/0.4ML SYRINGE (J1650 PER 10MG) SC SCH ×2 (08:45→20:08)
[2020-11-21] MEDS: BENZONATATE 100 MG CAP PO SCH ×3 (08:45→20:08)
[2020-11-21] MEDS: FAMOTIDINE 20 MG TAB PO SCH (08:46)
[2020-11-21] MEDS: MONTELUKAST 10 MG TAB PO SCH (08:46)
[2020-11-21] MEDS: ASPIRIN 81 MG ENTERIC TAB PO SCH (08:46)
[2020-11-21] MEDS: METOPROLOL SUCC *XL* 25MG TAB (TopROL *XL*) PO SCH (08:46)
[2020-11-21] MEDS: ROSUVASTATIN 10 MG TAB (CRESTOR) PO SCH (08:46)
[2020-11-21] MEDS: HumaLOG INSULIN (NovoLOG) PER UNIT SC SCH ×4 (09:00→20:09)
[2020-11-21] MEDS: ACETAMINOPHEN TAB 650MG DOSE (2X325MG) PO PRN (09:00)
[2020-11-21] MEDS: LEVEMIR (INSULIN DETEMIR) 1 UNITS/0.01ML SC SCH (09:00)
--- NOTE | 2020-11-21 09:50 | REP ---
INDICATION: dyspnea COMPARISON: 11/17/2020 TECHNIQUE: Portable AP view of the chest FINDINGS: Diffuse bilateral infiltrates again noted which may be slightly increased from prior examination. No effusion. No pneumothorax. Mediastinum and cardiac silhouette are incompletely evaluated due to overlying opacities. Skeletal structures intact. IMPRESSION: Diffuse bilateral infiltrates slightly increased from prior examination. <Electronically signed by Ángel Oliver > 11/21/20 0946
--- NOTE | 2020-11-21 11:37 | IPNPDOC ---
Text Note Date of Service The patient was seen on 11/21/20. NOTE Subjective: Received vocera from nursing shortly after 0700 that patient was maxed out on vapotherm and was saturating 85%. Apparently this had been occurring on and off for the past 3-4 hours as staff was uptitrating his oxygen and fiO2. Nursing staff attempted some repositioning with some success but noted significantly increased tachypnea. On entering the room the patient was breathing fast, speaking in incomplete sentences but on questioning did not feel he was especially short of breath. He also denied any fevers, chills, chest pain, abdominal pain, nausea, vomiting, diarrhea. Objective: Physical examination: Vitals: See below. General: Mildly toxic appearing male laying on his right side speaking in incomplete sentences using accessory muscles of respiration. HEENT: NC, AT. EOMI, no scleral icterus. Mucous membranes moist. Neck: No lymphadenopathy or JVD CV: RRR, Normal S1 and S2. No murmurs, gallops, or rubs. Resp: Diminished and shallow inspiratory and expiratory breath sounds bilaterally. No wheezes, crackles, or rhonchi. No dullness to percussion appreciated. Patient is using supraclavicular and intercostal accessory respiratory muscles. Abdomen: Bowel sounds present. Soft, NT, ND. Extremities: No swelling or edema. Neuro: A/Ox3, no focal neuro deficits, moves all 4 extremities. Assessment: Patient is a 70-year-old male with known Covid 19 since 11/10 who presented on 11/17 with a week long history of worsening upper respiratory sympto ms admitted for acute hypoxic respiratory failure and sepsis secondary to Covid pneumonia. On day 1 of hospitalization he desaturated into the 70s after forgetting to replace his hi-flow nasal cannula which eventually required vapotherm, but was not in any respiratory distress during the event. He has not required any additional supplemental oxygen and does not seem to be worsening at this time, some of the inflammatory markers on his lab work seem to be improving. On day 5 of his hospital stay patient was maxed out on Vapotherm and not maintaining his saturations so patient was transferred to the ICU and pulmonology was consulted for consideration of BiPAP. They advised CPAP at night, increased proning, incentive spirometry, oxycodone for his cough as they felt he was taking breaths that were too shallow. Plan: #. Acute hypoxic respiratory failure secondary to Covid 19 pneumonia -Continue Rocephin and azithromycin for CAP (day 5), Pro-calcitonin >0.5. -Pro-calcitonin downtrending. Patient was encouraged to lie prone for as often during the day and night as he was able to tolerate. - Mycoplasma, MRSA negative. BC negx2. -IV dexamethasone (day 5) -Continue Remdesivir (day 4) given his risk factors (obesity, hx of CAD, diabetes) -Patient appeared to be worsening clinically so he he was transferred to the ICU and pulmonology was consulted for consideration of BiPAP. They are advising CPAP at night given the likelihood of his SB, oxycodone with incentive spirometry as he is taking shallow breaths as he is afraid to take deep breaths because his cough is so painful. -Patient was updated on plan regarding his care. #. Type 2 diabetes A1c 7.2% Will continue to follow his insulin requirements as he continues dexamethasone Sliding scale insulin, diabetic diet #. Chronic CAD -Continue aspirin, beta indigo, statin #. BPH -Continue Flomax #. Obesity -Complicating care DVT prophylaxis: Aspirin with prophylactic Lovenox. CODE STATUS: FULL CODE Disposition: Pending clinical improvement VS,Fishbone, I+O VS, Fishbone, I+O Laboratory Tests 11/21/20 07:05 Vital Signs Date Time Temp Pulse Resp B/P (MAP) Pulse Ox O2 Delivery O2 Flow Rate FiO2 11/21/20 11:00 88 135/74 (94) 89 HVNI-Vapotherm 40.0 100 11/21/20 10:00 101.2 30 I&O- Last 24 Hours up to 6 AM 11/21/20 06:00 Intake Total 2400 ml Output Total 1800 ml Balance 600 ml GME ATTESTATION GME ATTESTATION My faculty preceptor for this patient encounter was physically present during the encounter and was fully available. All aspects of the patient interview, examination, medical decision making process, and medical care plan development were reviewed and approved by the faculty preceptor. The faculty preceptor is aware and concurs with the plan as stated in the body of this note and will attest to such by his/her cosignature. MELODY CABRERA DO Nov 21, 2020 11:37
[2020-11-21] MEDS: REMDESIVIR 100 MG in NS 250 ML IV SCH (12:10)
[2020-11-21] MEDS: guaiFENesin ER 600 MG TAB PO SCH ×2 (12:10→20:08)
[2020-11-21] MEDS: oxyCODONE 5MG TAB PO PRN ×2 (12:12→20:07)
[2020-11-21] MEDS: SODIUM CHLORIDE 0.9% INJ 10 ML SYR IV SCH (13:43)
--- NOTE | 2020-11-21 14:36 | CR ---
PULMONARY/CRITICAL CARE CONSULTATION DATE: 11/21/20 CHIEF COMPLAINT: Dyspnea. HISTORY OF PRESENT ILLNESS: Mr. Mary is a 70-year-old male with a past medical history of CAD, diabetes and obesity who presented with complaints of worsening dyspnea and fatigue. Patient had initially been diagnosed with COVID-19 on November 10. He had then presented to the ED on the with a complaint of syncope and he was admitted overnight for observation. Patient was quarantining at home when he started having more fatigue and dyspnea as well as nausea and a decreased appetite. Upon arrival to the ED on 11/18/20 patient was found to be hypoxic, he was 84% reportedly on room air although is oxygenation did improve with nasal cannula supplementation. Patient was noted to have significant desaturation with exertion. He was started on remdesivir as well as dexamethasone. Patient was also given broad spectrum antibiotics with Rocephin and azithromycin. The patient was initially admitted to the medical floor. He had worsening hypoxia; however, and was changed to Vapotherm. During the course of the next few days patient was requiring increasing amount of oxygen supplementation on the Vapotherm and was up to maximum settings of 100% FiO2 at 40 liters a minute. Despite this he was noted to be more tachypneic and was desating into the 80s on maximum settings. Patient was therefore transferred to the ICU for further management. In the ICU patient is tachypneic. He is using some mild accessory muscles for respiration although appears to be taking mostly abdominal breathing and is shallow breathing currently. He explains that he has not been taking deep breaths as it causes him to cough and then he will have chest pain particularly with coughing or with deep inspiration. He does not have an incentive spirometer and while he has been told to prone he admits he has been doing it only briefly yesterday. In terms of his dyspnea patient does not feel that his shortness of breath or dyspnea has significantly worsened. He denies any chest pain currently and has not had any abdominal pain or nausea or vomiting. He denies noticing any increased lower extremity edema. Patient denies any prior history of sleep apnea although he does admit that if his were questioned that she would probably report that he has had witnessed apneas and snoring at night. In terms of his cough patient reports his cough is mostly non-productive. He denies noticing any hemoptysis. He has not had any wheezing that he notices. PAST MEDICAL AND SURGICAL HISTORY: 1. BPH status post TURP. 2. CAD status post stent. 3. Diabetes. 4. Obesity. 5. Appendectomy. 6. Cholecystectomy. HOME MEDICATIONS: 1. Aspirin. 2. Jardiance. 3. Metformin. 4. Metoprolol. 5. Montelukast. 6. Rosuvastatin. 7. Tadalafil. 8. Tamsulosin. 9. Levaquin. 10. Albuterol p.r.n. ALLERGIES: No known drug allergies. SOCIAL HISTORY: Patient denies a history of smoking and drinks alcohol occasionally. FAMILY HISTORY: Parents with a history of cancer. PHYSICAL EXAMINATION: Vitals: T-max 103.2, pulse 106, respirations 36, blood pressure 139/64, O2 sat 91% on Vapotherm 40 liters a minute at 100% FiO2. In 1.7 liters out 1.6 liters. General: Patient is an obese male and is lying in bed, appears tachypneic and using some mild accessory muscles for respiration mostly abdominal breathing. He appears to have very shallow respirations. He is able to speak in short sentences. HEENT: Normocephalic, atraumatic. Pupils are reactive to light bilaterally. There are moist mucous membranes noted. Mallampati score 4. Neck: Supple, trachea is midline. No palpable cervical adenopathy and no JVD. Cardiac: Regular rate and rhythm, normal S1 and S2, unable to clearly auscultate any murmurs. Pulmonary: Diminished breath sounds bilaterally with crackles noted at the bases. There is no wheezing. There is occasional scant rhonchi. LABORATORY DATA: WBC 11, hemoglobin 14.1, platelets 315. Sodium 141, potassium 5, chloride 105, bicarb 29, BUN 29, creatinine 1, glucose 117. AST/ALT 34/74. Albumin 2.6. Ferritin is 1780. D-dimer 1557. Procalcitonin 0.79. ABG pH 7.469, PCO2 33.3, PO2 64.3. IMAGING: Chest x-ray this morning shows diffuse bilateral infiltrates with slight increase compared to admission chest x-ray particularly on the right upper lobe. ASSESSMENT AND PLAN: Mr. Mary is a 70-year-old male with a past medical history of obesity, diabetes, CAD who presented with worsening dyspnea. Patient with acute hypoxemic respiratory failure in the setting of COVID-19 pneumonia. -Acute hypoxemic respiratory failure in the setting of COVID-19 pneumonia with possible superimposed bacterial pneumonia: Patient has been on remdesivir as well as dexamethasone. As he has been requiring increasing amounts of FiO2 we will discontinue the dexamethasone and place patient on baricitinib instead as he is requiring Vapotherm for oxygenation. -Patient is on ceftriaxone and azithromycin for possible superimposed bacterial pneumonia. We will continue to trend his procalcitonin and deescalate antibiotics accordingly. -Patient was noted to have worsening hypoxia which is likely in the setting also of his poor inspiratory effort and very shallow breathing. He admits that he has not been taking deep breaths due to his concerns with coughing and chest pain with coughing and deep inspiration. We gave patient an incentive spirometer and observed his use. Patient had very poor attempt with the incentive spirometer initially, but with continued encouragement was noted to have improvement in its usage. Would continue to encourage incentive spirometer 10 times an hour and we will give him oxycodone p.r.n. for pain relief. We will also order Mucinex to help with his mucus clearance and he can continue with Tessalon Perles as needed for his cough. Patient was also encouraged to have awake pronation more often during the day. Patient was educated on the benefits of awake pronation with COVID-19 pneumonia. -Patient also is suspected to have undiagnosed SB given his body habitus and history with prior sleep symptoms. We can trial patient on CPAP at night and with naps to also help with giving additional positive pressure ventilation to help with his atelectasis. We will need to titrate his pressures to achieve adequate ventilation and oxygenation. If having difficulty with table top can transition him to our inpatient CPAP/BiPAP machine. - cont with vapotherm during the day and wean down FiO2 and flow rates as tolerated -Continue with DVT prophylaxis with weight based dosing given his morbid obesity. cont to trend D-dimer CODE STATUS: Full Code. Total care time spent not including any procedures approximately 1 hour and 30 minutes. MTDD
[2020-11-21] MEDS: TAMSULOSIN 0.4 MG CAP PO SCH (20:08)
[2020-11-22] VITALS (15 sets, daily range): BP systolic 92–157; BP diastolic 51–74; O2SAT 87–92
[2020-11-22] MEDS: AZITHROMYCIN INJ 500 MG, VIAL MATE ADAPTER 1 EACH in D5W 250 ML IV SCH (00:10)
[2020-11-22] MEDS: cefTRIAXone SOD 1 GM in D5W MINI-BAG PLUS 50 ML IV SCH (01:59)
[2020-11-22 05:11] LABS: BASO % 0.3 % (0.0-1.0); EOS # 0.1 10^3/uL (0.0-0.5); EOS % 0.6 % (0.0-3.0); HEMATOCRIT 40.1 % (42.0-52.0); HEMOGLOBIN 12.7 g/dl (13.5-17.5); LYMPH # 1.1 10^3/uL (1.5-5.0); LYMPH % 10.1 % (24.0-44.0); MEAN CORPUSCULAR HEMOGLOBIN 27.8 pg (27.0-33.0); MEAN CORPUSCULAR HGB CONC 31.7 g/dl (32.0-36.5); MEAN CORPUSCULAR VOLUME 87.7 fl (80.0-96.0); MONO # 0.3 10^3/uL (0.0-0.8); MONO % 2.4 % (0.0-5.0); NEUTROPHILS % 84.2 % (36.0-66.0); PLATELET COUNT, AUTOMATED 312 10^3/uL (150-450); RED BLOOD COUNT 4.57 10^6/uL (4.30-6.10); WHITE BLOOD COUNT 10.7 10^3/uL (4.0-10.0)
[2020-11-22 05:37] LABS: BLOOD UREA NITROGEN 21 MG/DL (7-18); CALCIUM LEVEL 8.7 MG/DL (8.8-10.2); CARBON DIOXIDE LEVEL 30 MEQ/L (21-32); CHLORIDE LEVEL 104 MEQ/L (98-107); CREATININE FOR GFR 0.84 MG/DL (0.70-1.30); GLOMERULAR FILTRATION RATE > 60.0 (>49); GLUCOSE, FASTING 121 MG/DL (70-100); POTASSIUM SERUM 3.8 MEQ/L (3.5-5.1); SODIUM LEVEL 141 MEQ/L (136-145)
[2020-11-22] MEDS: ENOXAPARIN 40MG/0.4ML SYRINGE (J1650 PER 10MG) SC SCH ×2 (08:34→21:14)
[2020-11-22] MEDS: LEVEMIR (INSULIN DETEMIR) 1 UNITS/0.01ML SC SCH (08:34)
[2020-11-22] MEDS: ROSUVASTATIN 10 MG TAB (CRESTOR) PO SCH (08:36)
[2020-11-22] MEDS: BENZONATATE 100 MG CAP PO SCH ×3 (08:36→21:13)
[2020-11-22] MEDS: MONTELUKAST 10 MG TAB PO SCH (08:36)
[2020-11-22] MEDS: BARICITINIB 2MG TABLET (OLUMIANT) FOR EUA PO SCH (08:36)
[2020-11-22] MEDS: METOPROLOL SUCC *XL* 25MG TAB (TopROL *XL*) PO SCH (08:37)
[2020-11-22] MEDS: ACETAMINOPHEN TAB 650MG DOSE (2X325MG) PO PRN ×2 (08:37→15:53)
[2020-11-22] MEDS: FAMOTIDINE 20 MG TAB PO SCH (08:37)
[2020-11-22] MEDS: guaiFENesin ER 600 MG TAB PO SCH ×2 (08:37→21:13)
[2020-11-22] MEDS: HumaLOG INSULIN (NovoLOG) PER UNIT SC SCH ×4 (08:42→21:00)
[2020-11-22] MEDS: ASPIRIN 81 MG ENTERIC TAB PO SCH (08:46)
[2020-11-22] MEDS: REMDESIVIR 100 MG in NS 250 ML IV SCH (12:34)
--- NOTE | 2020-11-22 12:55 | CCN ---
CRITICAL CARE NOTE DATE: 11/22/2020 The patient is seen in the intensive care unit. This is hospital day #5. He remains on high-flow oxygen via VapoTherm with borderline saturations, treating COVID pneumonia, which has failed to respond to initial attempts at therapy. He did have a trial of continuous positive airway pressure (CPAP) last evening. Oxygen saturations do appear to respond favorably to the prone position. His temperature is 98. Maximum temperature for the past 24 hours is 103. Pulse rate is 90, respiratory rate 20, blood pressure 121/68. Intake and output for the past 24 hours are 2915 in, 1470 out, since midnight 605 in, 380 out. At bedside he is ill appearing. His mucosa is moist. Neck is supple. There is no obvious jugular venous distention, but he has a beard neck. Carotid upstroke is palpable bilaterally. Heart sounds are regular but somewhat distant. Breath sounds are diminished globally. There is some subtle inspiratory crepitance in the bases on deep effort. Abdomen is soft, obese with intact bowel sounds. Extremities are cool. Pulses diminished but palpable. There are no focal neurologic deficits noted. Diagnostic studies reviewed and assessed include a CBC which shows a white count down slightly at 10.7. Hemoglobin is down slightly at 12.7. Hematocrit is 40. Platelet count is 312. Differential white cell count shows 84% neutrophils. His electrolytes are sodium 141, potassium 3.8, chloride 104, CO2 of 30, BUN 21, creatinine 0.84, down from 1. Glucose is 121. Most recent liver enzymes from yesterday were AST 55, ALT 34. Last serum ferritin on November 19 was 1780. C-reactive protein on November 17 was 25.7. D-dimer on November 20 was 1557. Fibrinogen 892. I reviewed imaging studies. On November 21, a chest x-ray showed some diffuse interstitial markings but areas of questionable consolidation in the right upper lobe and left lower lobe. Blood cultures on November 17 were negative times two. On review of medications, he is on day #3 of remdesivir. He received 3 days of dexamethasone and yesterday his first dose of baricitinib. He is on day #3 of Rocephin, day #3 of azithromycin. Lovenox is currently at 40 mg every 12 hours and Pepcid once a day. He started yesterday on oxycodone for pleuritic chest pain and receives Toprol. The primary problem requiring critical attention COVID pneumonia with hypoxemic respiratory failure. This is day #3 of remdesivir. We will continue with VapoTherm and encourage use of noninvasive ventilation CPAP as tolerated. We will continue to position the patient in the prone position and continue his monoclonal antibody therapy with baricitinib. We will recheck a chest x-ray in the morning and inflammatory markers to assess efficacy. From an infectious disease standpoint, the secondary infection is of significant concern, particularly given the x-ray findings. We will continue with Rocephin and azithromycin, obtain a sputum if he is able to produce one, and recheck a chest x-ray in the morning. Hypercoagulable state of COVID pneumonia. The patient is on 40 mg of Lovenox every 12 hours. At this point we will recheck a D-dimer. If elevated, we may need to go to full-dose anticoagulation. The patient's condition is critical. Prognosis is guarded. Intensive care unit (ICU) care is appropriate at this point. One-hundred and 17 minutes was spent in the provision of bedside critical care and coordination, exclusive of any time spent in the performance of procedures.
[2020-11-22] MEDS: SODIUM CHLORIDE 0.9% INJ 10 ML SYR IV SCH (13:45)
--- NOTE | 2020-11-22 14:50 | IPNPDOC ---
Text Note Date of Service The patient was seen on 11/22/20. NOTE Subjective: No acute events overnight. Patient tolerating CPAP well overnight and continues during the daytime to be on Vapotherm maxed out. Patient otherwise continues to not endorse any shortness of breath and states that he otherwise feels okay. He continues to attempt Emma prone position as often as possible. He denies any fevers, chills, chest pain, abdominal pain, nausea, vomiting, diarrhea. Objective: Physical examination: Vitals: See below. General: Fatigued appearing male laying on his right side speaking in complete sentences without use of accessory muscles of respiration. HEENT: NC, AT. EOMI, no scleral icterus. Mucous membranes moist. Neck: No lymphadenopathy or JVD CV: RRR, Normal S1 and S2. No murmurs, gallops, or rubs. Resp: Diminished and shallow inspiratory and expiratory breath sounds bilaterally. No wheezes, crackles, or rhonchi. No dullness to percussion appreciated. Abdomen: Bowel sounds present. Soft, NT, ND. Extremities: No swelling or edema. Neuro: A/Ox3, no focal neuro deficits, moves all 4 extremities. Assessment: Patient is a 70-year-old male with known Covid 19 since 11/10 who presented on 11/17 with a week long history of worsening upper respiratory symptoms admitted for acute hypoxic respiratory failure and sepsis secondary to Covid pneumonia. On day 1 of hospitalization he desaturated into the 70s after forgetting to replace his hi-flow nasal cannula which eventually required vapotherm, but was not in any respiratory distress during the event. He has not required any additional supplemental oxygen and does not seem to be worsening at this time, some of the inflammatory markers on his lab work seem to be improv ing. On day 5 of his hospital stay patient was maxed out on Vapotherm and not maintaining his saturations so patient was transferred to the ICU and pulmonology was consulted for consideration of BiPAP. They advised CPAP at night, increased proning, incentive spirometry, oxycodone for his cough as they felt he was taking breaths that were too shallow. Plan: #. Acute hypoxemc respiratory failure secondary to Covid 19 pneumonia -Pulmonology consulted on 11/21 and transferred to ICU for worsening respiratory failure, recommendations appreciated. -Rocephin and azithromycin for CAP (day 6), Pro-calcitonin >0.33. -Remdesivir (day 5) given his risk factors (obesity, hx of CAD, diabetes), Baricitinib (day 2) -IV dexamethasone (day 6) - Mycoplasma, MRSA negative. BC negx2. -CPAP during sleep, vapotherm during waking hours. Incentive spirometry, increase proning encouraged. -Patient was updated on plan regarding his care. #. Type 2 diabetes A1c 7.2% Will continue to follow his insulin requirements as he continues dexamethasone Sliding scale insulin, diabetic diet #. Chronic CAD -Continue aspirin, beta indigo, statin #. BPH -Continue Flomax #. Obesity -Complicating care DVT prophylaxis: Aspirin with prophylactic Lovenox. CODE STATUS: FULL CODE Disposition: Pending clinical improvement VS,Alberto, I+O VS, Alberto, I+O Laboratory Tests 11/22/20 04:50 Vital Signs Date Time Temp Pulse Resp B/P (MAP) Pulse Ox O2 Delivery O2 Flow Rate FiO2 11/22/20 12:01 97.8 77 20 123/60 (81) 92 HVNI-Vapotherm 40.0 100 I&O- Last 24 Hours up to 6 AM 11/22/20 05:59 Intake Total 3160 ml Output Total 1450 ml Balance 1710 ml GME ATTESTATION GME ATTESTATION My faculty preceptor for this patient encounter was physically present during the encounter and was fully available. All aspects of the patient interview, examination, medical decision making process, and medical care plan development were reviewed and approved by the faculty preceptor. The faculty preceptor is aware and concurs with the plan as stated in the body of this note and will attest to such by his/her cosignature. ATTENDING NOTE I, Khanh Stephenson MD, have independently examined this patient and performed my own physical exam, as well as reviewed the documentation and edited where necessary. I have discussed in detail with the resident / student the findings and plan of treatment as documented by the resident / student and edited their note. I agree with their findings and treatment plan and have edited their documentation. MELODY CABRERA DO Nov 22, 2020 14:50 KHANH STEPHENSON MD Nov 29, 2020 12:35
[2020-11-22] MEDS: TAMSULOSIN 0.4 MG CAP PO SCH (21:13)
[2020-11-23] VITALS (12 sets, daily range): BP systolic 91–152; BP diastolic 51–85; O2SAT 90–96
[2020-11-23] MEDS: AZITHROMYCIN INJ 500 MG, VIAL MATE ADAPTER 1 EACH in D5W 250 ML IV SCH (00:01)
[2020-11-23] MEDS: cefTRIAXone SOD 1 GM in D5W MINI-BAG PLUS 50 ML IV SCH (01:43)
[2020-11-23 05:15] LABS: BASO % 0.2 % (0.0-1.0); EOS # 0.1 10^3/uL (0.0-0.5); EOS % 0.4 % (0.0-3.0); HEMATOCRIT 42.3 % (42.0-52.0); HEMOGLOBIN 13.5 g/dl (13.5-17.5); LYMPH # 1.1 10^3/uL (1.5-5.0); LYMPH % 7.9 % (24.0-44.0); MEAN CORPUSCULAR HEMOGLOBIN 27.8 pg (27.0-33.0); MEAN CORPUSCULAR HGB CONC 31.9 g/dl (32.0-36.5); MONO # 0.4 10^3/uL (0.0-0.8); MONO % 2.6 % (0.0-5.0); NEUTROPHILS # 11.9 10^3/uL (1.5-8.5); NEUTROPHILS % 87.5 % (36.0-66.0); PLATELET COUNT, AUTOMATED 334 10^3/uL (150-450); RED BLOOD COUNT 4.86 10^6/uL (4.30-6.10); WHITE BLOOD COUNT 13.7 10^3/uL (4.0-10.0)
[2020-11-23 05:38] LABS: INR 1.2; PROTHROMBIN TIME 15.5 SECONDS (12.5-14.3)
[2020-11-23 05:39] LABS: PARTIAL THROMBOPLASTIN TIME 31.7 SECONDS (24.2-38.5)
[2020-11-23 05:41] LABS: D-DIMER QUANT 3002.55 ng/ml (<500)
[2020-11-23 05:49] LABS: ALBUMIN 2.1 GM/DL (3.2-5.2); ALT/SGPT 26 U/L (12-78); BILIRUBIN,DIRECT 0.2 MG/DL (0.0-0.2); BILIRUBIN,TOTAL 0.5 MG/DL (0.2-1.0); BLOOD UREA NITROGEN 18 MG/DL (7-18); CALCIUM LEVEL 8.2 MG/DL (8.8-10.2); CARBON DIOXIDE LEVEL 29 MEQ/L (21-32); CHLORIDE LEVEL 100 MEQ/L (98-107); CHOLESTEROL LEVEL 66 MG/DL (< 200); CPK CREATINE PHOSPHOKINASE 124 U/L (39-308); CREATININE FOR GFR 0.84 MG/DL (0.70-1.30); FERRITIN 931 NG/ML (26-388); GLOMERULAR FILTRATION RATE > 60.0 (>49); GLUCOSE, FASTING 121 MG/DL (70-100); LDH LACTATE DEHYDROGENASE 636 U/L (87-241); PHOSPHORUS LEVEL 3.1 MG/DL (2.5-4.9); POTASSIUM SERUM 4.4 MEQ/L (3.5-5.1); SODIUM LEVEL 136 MEQ/L (136-145); TOTAL PROTEIN 6.1 GM/DL (6.4-8.2); TRIGLYCERIDES LEVEL 58 MG/DL (<150)
[2020-11-23] MEDS: ENOXAPARIN 40MG/0.4ML SYRINGE (J1650 PER 10MG) SC SCH (08:06)
[2020-11-23] MEDS: HumaLOG INSULIN (NovoLOG) PER UNIT SC SCH ×4 (08:06→20:05)
[2020-11-23] MEDS: LEVEMIR (INSULIN DETEMIR) 1 UNITS/0.01ML SC SCH (08:06)
[2020-11-23] MEDS: BARICITINIB 2MG TABLET (OLUMIANT) FOR EUA PO SCH (08:07)
[2020-11-23] MEDS: ROSUVASTATIN 10 MG TAB (CRESTOR) PO SCH (08:08)
[2020-11-23] MEDS: BENZONATATE 100 MG CAP PO SCH ×3 (08:08→20:06)
[2020-11-23] MEDS: ASPIRIN 81 MG ENTERIC TAB PO SCH (08:08)
[2020-11-23] MEDS: FAMOTIDINE 20 MG TAB PO SCH (08:08)
[2020-11-23] MEDS: METOPROLOL SUCC *XL* 25MG TAB (TopROL *XL*) PO SCH (08:08)
[2020-11-23] MEDS: MONTELUKAST 10 MG TAB PO SCH (08:08)
[2020-11-23] MEDS: guaiFENesin ER 600 MG TAB PO SCH ×2 (08:08→20:06)
--- NOTE | 2020-11-23 08:12 | REP ---
INDICATION: covid pn. COMPARISON: Comparison chest x-ray 21 November 2020. TECHNIQUE: Portable upright AP chest radiograph. FINDINGS: Extensive bilateral infiltrates persist and there is evidence of some radiographic progression in the right apex and in the size the infiltrate on the left. Platelike atelectasis is observed in the right base and there is increased consolidation in the right lower lobe. Heart is not enlarged. Monitoring electrodes are in oxygen delivery tubing are seen.. IMPRESSION: Radiographic progression of infiltrates.. <Electronically signed by Eliecer Huntley > 11/23/20 0844
--- NOTE | 2020-11-23 10:03 | IPNPDOC ---
Text Note Date of Service The patient was seen on 11/23/20. NOTE Subjective: No acute events overnight. Patient can use tolerated CPAP well overnight and is still maxed out on his Vapotherm. He continues to deny any shortness of breath, chest pain, abdominal pain, nausea, vomiting, diarrhea. His only main complaint is splinting. We had an extensive discussion regarding his CODE STATUS. Specifically I discussed that patients who are intubated with COVID do relatively poorly and that I could not say where his respiratory status was head ed. He was fairly shocked by the conversation as this seemed to be the first time he had considered his own mortality. We discussed this conversation should also be had in conjunction with his family and that it was not intended to pressure him into any situation, but was done to ensure that his wishes regarding his care was honored. He verbalized understanding and agreement and stated that he would like some more time to consider this. For now he will continue to be FULL CODE. Objective: Physical examination: Vitals: See below. General: Fatigued appearing male laying on his right side speaking in complete sentences without use of accessory muscles of respiration. HEENT: NC, AT. EOMI, no scleral icterus. Mucous membranes moist. Neck: No lymphadenopathy or JVD CV: RRR, Normal S1 and S2. No murmurs, gallops, or rubs. Resp: Diminished and shallow inspiratory and expiratory breath sounds bilaterally. No wheezes, crackles, or rhonchi. No dullness to percussion appreciated. Abdomen: Bowel sounds present. Soft, NT, ND. Extremities: No swelling or edema. Neuro: A/Ox3, no focal neuro deficits, moves all 4 extremities. Assessment: Patient is a 70-year-old male with known Covid 19 since 11/10 who presented on 11/17 with a week long history of worsening upper respiratory symptoms admitted for acute hypoxic respiratory failure and sepsis secondary to Covid pneumonia. On day 1 of hospitalization he desaturated into the 70s after forgetting to replace his hi-flow nasal cannula which eventually required vapotherm, but was not in any respiratory distress during the event. He has not required any additional supplemental oxygen and does not seem to be worsening at this time, some of the inflammatory markers on his lab work seem to be improving. On day 5 of his hospital stay patient was maxed out on Vapotherm and not maintaining his saturations so patient was transferred to the ICU and pulmonology was consulted for consideration of BiPAP. They advised CPAP at night, increased proning, incentive spirometry, oxycodone for his cough as they felt he was taking breaths that were too shallow. Plan: #. Acute hypoxic respiratory failure secondary to Covid 19 pneumonia, possibly 2 /2 PE -Pulmonology consulted on 11/21 and transferred to ICU for worsening respiratory failure, recommendations appreciated. -Rocephin and azithromycin for CAP (day 7), repeat pro pam pending. - Baricitinib (day 3), Remdesivir given (11/18-11/23) -IV dexamethasone (day 6) - Mycoplasma, MRSA negative. BC negx2. -CPAP during sleep, vapotherm during waking hours. Incentive spirometry, increase proning encouraged. -Patient was updated on plan regarding his care. - Will increase anticoagulation to therapeutic dosing #. Type 2 diabetes A1c 7.2% Will continue to follow his insulin requirements as he continues dexamethasone Sliding scale insulin, diabetic diet #. Chronic CAD -Continue aspirin, beta indigo, statin #. BPH -Continue Flomax #. Obesity -Complicating care DVT prophylaxis: Aspirin with now therapeutic Lovenox. CODE STATUS: Remains FULL CODE Disposition: - Pending clinical improvement VS,Alberto, I+O VS, Alberto, I+O Laboratory Tests 11/23/20 04:56 11/23/20 04:57 Vital Signs Date Time Temp Pulse Resp B/P (MAP) Pulse Ox O2 Delivery O2 Flow Rate FiO2 11/23/20 08:08 113/58 11/23/20 08:00 101.8 109 25 88 HVNI-Vapotherm 40.0 100 I&O- Last 24 Hours up to 6 AM 11/23/20 05:59 Intake Total 1530 ml Output Total 1500 ml Balance 30 ml GME ATTESTATION GME ATTESTATION My faculty preceptor for this patient encounter was physically present during the encounter and was fully available. All aspects of the patient interview, examination, medical decision making process, and medical care plan development were reviewed and approved by the faculty preceptor. The faculty preceptor is aware and concurs with the plan as stated in the body of this note and will attest to such by his/her cosignature. ATTENDING NOTE I, Hilario Baldwin, have independently examined this patient and performed my own physical exam, as well as reviewed the documentation and edited where necessary. I have discussed in detail with the resident / student the findings and plan of treatment as documented by the resident / student and edited their note. I agree with their findings and treatment plan and have edited their documentation. I will continue to follow the patient during this hospital stay. MELODY CABRERA DO Nov 23, 2020 10:03 HILARIO BALDWIN MD Nov 23, 2020 14:10
[2020-11-23] MEDS: ACETAMINOPHEN TAB 650MG DOSE (2X325MG) PO PRN ×3 (10:38→22:26)
[2020-11-23] MEDS: ALBUTEROL SULFATE 2.5 MG/0.5 ML INH NEB SOLN NEB SCH ×2 (13:54→21:01)
[2020-11-23] MEDS: TAMSULOSIN 0.4 MG CAP PO SCH (20:06)
[2020-11-23] MEDS: ENOXAPARIN 100MG/1ML SYRINGE (J1650 PER 10MG) SC SCH (20:07)
[2020-11-24] VITALS (11 sets, daily range): BP systolic 94–149; BP diastolic 50–73; O2SAT 87–96
[2020-11-24] MEDS: AZITHROMYCIN INJ 500 MG, VIAL MATE ADAPTER 1 EACH in D5W 250 ML IV SCH ×3
[2020-11-24] MEDS: cefTRIAXone SOD 1 GM in D5W MINI-BAG PLUS 50 ML IV SCH (01:08)
[2020-11-24] MEDS: ALBUTEROL SULFATE 2.5 MG/0.5 ML INH NEB SOLN NEB SCH ×4 (02:59→20:23)
[2020-11-24] MEDS: ACETAMINOPHEN TAB 650MG DOSE (2X325MG) PO PRN ×5 (03:54→23:31)
[2020-11-24 05:52] LABS: BASO % 0.2 % (0.0-1.0); EOS # 0.1 10^3/uL (0.0-0.5); EOS % 0.7 % (0.0-3.0); HEMATOCRIT 39.4 % (42.0-52.0); HEMOGLOBIN 12.2 g/dl (13.5-17.5); LYMPH # 0.8 10^3/uL (1.5-5.0); LYMPH % 6.8 % (24.0-44.0); MEAN CORPUSCULAR HEMOGLOBIN 26.9 pg (27.0-33.0); MONO # 0.2 10^3/uL (0.0-0.8); MONO % 2.1 % (0.0-5.0); NEUTROPHILS # 10.1 10^3/uL (1.5-8.5); PLATELET COUNT, AUTOMATED 322 10^3/uL (150-450); RED BLOOD COUNT 4.53 10^6/uL (4.30-6.10); WHITE BLOOD COUNT 11.3 10^3/uL (4.0-10.0)
[2020-11-24 06:27] LABS: ALBUMIN 1.9 GM/DL (3.2-5.2); ALT/SGPT 19 U/L (12-78); BILIRUBIN,TOTAL 0.5 MG/DL (0.2-1.0); BLOOD UREA NITROGEN 21 MG/DL (7-18); CALCIUM LEVEL 7.9 MG/DL (8.8-10.2); CARBON DIOXIDE LEVEL 29 MEQ/L (21-32); CHLORIDE LEVEL 100 MEQ/L (98-107); CHOLESTEROL LEVEL 71 MG/DL (< 200); CPK CREATINE PHOSPHOKINASE 169 U/L (39-308); CREATININE FOR GFR 0.88 MG/DL (0.70-1.30); FERRITIN 1152 NG/ML (26-388); GLOMERULAR FILTRATION RATE > 60.0 (>49); GLUCOSE, FASTING 127 MG/DL (70-100); LDH LACTATE DEHYDROGENASE 744 U/L (87-241); PHOSPHORUS LEVEL 2.8 MG/DL (2.5-4.9); POTASSIUM SERUM 4.7 MEQ/L (3.5-5.1); SODIUM LEVEL 135 MEQ/L (136-145); TOTAL PROTEIN 5.8 GM/DL (6.4-8.2); TRIGLYCERIDES LEVEL 84 MG/DL (<150)
--- NOTE | 2020-11-24 08:08 | REP ---
INDICATION: Hypoxia. COMPARISON: Comparison chest x-ray 23 November 2020. TECHNIQUE: Portable upright AP chest radiograph. FINDINGS: There are extensive bilateral infiltrates again noted unchanged from yesterday's radiograph. Monitoring electrodes and oxygen delivery tubing are seen. Heart is not felt to be enlarged. No new area of consolidation is seen.. IMPRESSION: Extensive bilateral infiltrates persist unchanged.. <Electronically signed by Eliecer Huntley > 11/24/20 0815
[2020-11-24] MEDS: ENOXAPARIN 100MG/1ML SYRINGE (J1650 PER 10MG) SC SCH ×2 (08:16→20:59)
[2020-11-24] MEDS: LEVEMIR (INSULIN DETEMIR) 1 UNITS/0.01ML SC SCH (08:16)
[2020-11-24] MEDS: HumaLOG INSULIN (NovoLOG) PER UNIT SC SCH ×4 (08:16→21:00)
[2020-11-24] MEDS: FAMOTIDINE 20 MG TAB PO SCH (08:17)
[2020-11-24] MEDS: guaiFENesin ER 600 MG TAB PO SCH ×2 (08:17→20:58)
[2020-11-24] MEDS: BENZONATATE 100 MG CAP PO SCH ×3 (08:18→20:58)
[2020-11-24] MEDS: MONTELUKAST 10 MG TAB PO SCH (08:18)
[2020-11-24] MEDS: ROSUVASTATIN 10 MG TAB (CRESTOR) PO SCH (08:18)
[2020-11-24] MEDS: ASPIRIN 81 MG ENTERIC TAB PO SCH (08:18)
[2020-11-24] MEDS: BARICITINIB 2MG TABLET (OLUMIANT) FOR EUA PO SCH (08:18)
[2020-11-24] MEDS: METOPROLOL SUCC *XL* 25MG TAB (TopROL *XL*) PO SCH (08:19)
[2020-11-24] MEDS ORDERED: PIPERACILLIN/TAZOBACTAM SOD 3.375 GM in D5W MINI-BAG PLUS 50 ML IV SCH (11:00)
[2020-11-24] MEDS: MEROPENEM INJ 1 GM in IV 1 EA IV SCH ×2 (11:51→20:58)
--- NOTE | 2020-11-24 12:21 | IPNPDOC ---
Text Note Date of Service The patient was seen on 11/24/20. NOTE Subjective: Patient is a 70-year-old male with a PMHx of CAD s/p CABG, DM2, BPH, who was diagnosed with COVID19 (11/10) and presented to the ER on 11/18 after reporting shortness of breath and passing out. Patient was admitted to the hospital service for further evaluation and treatment. Patient was seen and examined at the bedside. Currently patient reports that her breathing has been relatively unchanged. They deny any chest pain. Reports a mild cough without any significant expectoration. Denies any nausea, vomiting, abdominal pain, diarrhea, or urinary discomfort. Objective: Vitals (See below) General: Sitting up in chair with feet up on the bed watching television, appears comfortable, AAOx3 HEENT: NC, AT CVS: RRR, +S1S2 Lungs: Poor inspiratory effort bilaterally. Could not appreciate any wheezing or crackles Abdomen: Soft, ND, NT Extremities: No evidence of edema, - Calf tenderness Assessment and plan: Acute hypoxic respiratory failure - likely 2/2 COVID19 pneumonia, possibly 2/2 PE, possibly 2/2 superimposed bacterial infection - Currently patient reports that his breathing has remained unchanged - Currently is on maxed out Vapotherm therapy / CPAP at night - COVID positive on 11/10 - Inflammatory markers worsening - MRSA screen negative - c/w Baricitinib (Day #4); s/p Remdesivir (5 day course) - Will DC Ceftriaxone and Azithromycin (Day #8) - Will start Meropenem (Day #1) - c/w full anticoagulation with Lovenox - c/ w Incentive spirometry / Acapella / Mucinex - Pulmonology consulted; appreciate their input 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% - c/w ISS and Levemir - c/w Gabapentin Chronic CAD - c/w ASA 81, Metoprolol, Rosuvastatin BPH - c/w Tamsulosin Obesity - BMI of 34 - Complicating care GI prophylaxis - c/w Famotidine - Will start Protonix DVT prophylaxis - c/w Lovenox weight-based therapeutic dosing Disposition: - Awaiting clinical improvement VS,Fishbone, I+O VS, Fishbone, I+O Laboratory Tests 11/24/20 05:29 Vital Signs Date Time Temp Pulse Resp B/P (MAP) Pulse Ox O2 Delivery O2 Flow Rate FiO2 11/24/20 09:00 106 91 HVNI-Vapotherm 40.0 100 11/24/20 08:19 114/65 11/24/20 08:13 99.5 24 I&O- Last 24 Hours up to 6 AM 11/24/20 06:00 Intake Total 1070 ml Output Total 975 ml Balance 95 ml JAY BALDWIN MD Nov 24, 2020 12:20
[2020-11-24] MEDS ORDERED: PANTOPRAZOLE 40MG VIAL (C9113 PER 1) IV SCH (13:00)
[2020-11-24 13:16] LABS: INFLUENZA A AMPLIFICATION NEGATIVE (NEGATIVE); INFLUENZA B AMPLIFICATION NEGATIVE (NEGATIVE)
--- NOTE | 2020-11-24 14:29 | CCN ---
CRITICAL CARE NOTE DATE: 11/23/2020 SUBJECTIVE: The patient is seen in the intensive care unit with COVID pneumonia on 100% oxygen via Vapotherm critically ill. This is hospital day #6. OBJECTIVE: VITAL SIGNS: His temperature is 101.8, T-max over the past 24 hours 102.5. Pulse rate is 109, respirations 25, blood pressure 113/58. His saturation of oxygen is 88% on 100% Vapotherm. INTAKE AND OUTPUT: For the past 24 hours 1895 in and 1330 out; since midnight 240 in and 500 out. GENERAL APPEARANCE: He is ill-appearing. HEENT: His mucosa are pink. NECK: Supple. There is no meningismus. HEART: Sounds are regular and somewhat distant. RESPIRATORY: Breath sounds are diminished bilaterally with left basilar rales. ABDOMEN: Soft. There are bowel sounds in the right lower quadrant. EXTREMITIES: Show no edema. Pulses are easily palpable. DIAGNOSTIC STUDIES: His white cell count is up slightly at 13.7, hemoglobin is 13.5, hematocrit 42.3, platelet count 334,000. Differential white cell count shows 87.5 neutrophils. The electrolytes are sodium 136, potassium is up slightly at 4.4, chloride 100, CO2 of 29. BUN is 18, creatinine 0.84, glucose 121. His calcium is 8.2 on an albumin of 2.1. Inflammatory markers were evaluated; his ferritin is 931, which is decreased. CRP is 19.1, which is decreased. The LDH is up slightly at 636. His D-dimer was quite elevated at 3002. PT 15, PTT 31. I have reviewed his x-ray. There is consolidation in the right upper lobe and left lower lobe somewhat worse than on previous imaging studies. MEDICATION REVIEW: This is day #5 of ceftriaxone, day #5 of azithromycin, day #5 remdesivir. He received three doses of dexamethasone and now is receiving baricitinib this is day #2. He is receiving aspirin 81 mg a day, Toprol 25 mg a day, Pepcid, Lovenox 40 mg q. 12 hours currently. ASSESSMENT AND PLAN: The primary problem requiring critical attention is acute hypoxic respiratory failure. Saturations are borderline acceptable on 100% oxygen via Vapotherm. He is poorly tolerant of CPAP. His saturations are somewhat better in the prone posture. We will encourage prone posturing and closely monitor gas exchange. Should he develop respiratory distress, it will be necessary to place an endotracheal tube and perform a formal mechanically ventilation. As this is associated with significant comorbidities, we will avoid this step if at all possible. COVID pneumonia. The patient is completing remdesivir today. 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 Secondary infectious disease. His clinical presentation supports a secondary pneumonia with dense infiltrates in the lung. He is receiving Rocephin and azithromycin, but remains febrile and his white cell count remains elevated. We will attempt to obtain a sputum study today. I will also add nebulized therapy to facilitate secretion clearance. Hypercoagulability. The patient's D-dimer is quite elevated. I have discussed this with the primary team and they will be increasing the Lovenox dose today. Deep vein thrombosis (DVT) and ulcer prophylaxis are in place. I have reviewed the patient's status with the intensive care unit (ICU) team and the primary care service. The goals of care for the day were reviewed. The patient is critically ill. Prognosis is guarded. ICU care is appropriate. CRITICAL CARE TIME: 86 minutes spent in the provision of bedside critical care and coordination; exclusive of any time spent in the performance of procedures.
--- NOTE | 2020-11-24 14:51 | CCN ---
CRITICAL CARE NOTE DATE: 11/24/2020 SUBJECTIVE: The patient is seen in the intensive care unit hypoxemic requiring full dose Vapotherm 100%. He remains tachypneic. OBJECTIVE: VITAL SIGNS: His temperature is 99.5, T-max over the past 24 hours 101.7, pulse rate 106, respirations 24, blood pressure 114/65. Saturation of oxygen is 91% on 100% Vapotherm. INTAKE AND OUTPUT: For the past 24 hours 370 in and 925 out; since midnight 980 in and 550 out. GENERAL APPEARANCE: He is ill-appearing. His oral mucosa is pink. NECK: Supple. No meningismus. HEART: Sounds are regular. RESPIRATORY: Breath sounds diminished with crepitant rales in the bases and some tubular breath sounds. ABDOMEN: Soft and obese. EXTREMITIES: Show no significant edema. DIAGNOSTIC STUDIES: White cell count is down at 11.3, neutrophil percent 89, hemoglobin 12.2, hematocrit 39.4, platelet count 322,000. Sodium is 135, potassium 4.7, chloride 100, CO2 of 29, BUN 21, creatinine 0.88, glucose 127. AST is 42, ALT 19, albumin 1.9. His calcium is 7.9. D-dimer of 3956. Procalcitonin 0.43. LDH is up at 744. Ferritin is up at 1152. CRP is up at 27.1. Chest x-ray was read as showing no change. I do believe there is some improvement in aeration of the right upper lobe. MEDICATION REVIEW: This is day #7 of the Rocephin, day #7 of azithromycin. The patient has received three days of dexamethasone and is on day #3 of baricitinib. Nebulized Albuterol was started yesterday. Lovenox dose was increased yesterday to 100 q. 12 hours. MICROBIOLOGY STUDIES: Sputum is pending. Blood cultures are negative x2. ASSESSMENT AND PLAN: The primary problem requiring critical attention is COVID pneumonia with hypoxic respiratory failure. His oxygen status remains poor on 100% Vapotherm. He is tolerating CPAP poorly. We will reassess the pressures. I will change his nebulized therapy deliver to [facility] to address basilar atelectasis. From secondary infectious disease, the patient is still febrile despite seven days of Rocephin and azithromycin. His white cell count is somewhat improved and the procalcitonin is negative. We will recheck a flu swab and methicillin-resistant Staphylococcus aureus (MRSA) screen and change to a carbapenem in place of the Rocephin and azithromycin. Hypercoagulable state. The patient was changed to full dose Lovenox. D-dimer remains quite elevated. Obstructive sleep apnea syndrome. This is an empiric diagnosis. We will continue use of pressure therapy when the patient is napping and sleeping at night. Deep vein thrombosis (DVT) prophylaxis is being addressed with Lovenox. The patient's condition was reviewed with the intensive care unit (ICU) team and attending hospitalist service. Goals of care were addressed. CRITICAL CARE TIME: 73 minutes spent in the provision of bedside critical care and coordination; exclusive of any procedure time.
[2020-11-24] MEDS: PANTOPRAZOLE 40MG VIAL (C9113 PER 1) IV SCH (14:57)
[2020-11-24] MEDS: TAMSULOSIN 0.4 MG CAP PO SCH (20:58)
[2020-11-25] VITALS: BP 114/65
[2020-11-25] MEDS: ALBUTEROL SULFATE 2.5 MG/0.5 ML INH NEB SOLN NEB SCH ×4 (01:50→20:24)
[2020-11-25 04:00] VITALS: BP 123/61
[2020-11-25 05:04] LABS: BASO % 0.2 % (0.0-1.0); EOS # 0.1 10^3/uL (0.0-0.5); EOS % 0.4 % (0.0-3.0); HEMATOCRIT 39.8 % (42.0-52.0); HEMOGLOBIN 12.5 g/dl (13.5-17.5); LYMPH # 0.9 10^3/uL (1.5-5.0); LYMPH % 7.3 % (24.0-44.0); MEAN CORPUSCULAR HEMOGLOBIN 27.3 pg (27.0-33.0); MEAN CORPUSCULAR HGB CONC 31.4 g/dl (32.0-36.5); MEAN CORPUSCULAR VOLUME 86.9 fl (80.0-96.0); MONO # 0.2 10^3/uL (0.0-0.8); MONO % 2.1 % (0.0-5.0); NEUTROPHILS # 10.4 10^3/uL (1.5-8.5); NEUTROPHILS % 89.2 % (36.0-66.0); PLATELET COUNT, AUTOMATED 342 10^3/uL (150-450); RED BLOOD COUNT 4.58 10^6/uL (4.30-6.10); WHITE BLOOD COUNT 11.7 10^3/uL (4.0-10.0)
[2020-11-25 05:44] LABS: ALBUMIN 1.8 GM/DL (3.2-5.2); ALT/SGPT 18 U/L (12-78); BILIRUBIN,TOTAL 0.4 MG/DL (0.2-1.0); BLOOD UREA NITROGEN 22 MG/DL (7-18); CALCIUM LEVEL 8.7 MG/DL (8.8-10.2); CARBON DIOXIDE LEVEL 29 MEQ/L (21-32); CHLORIDE LEVEL 101 MEQ/L (98-107); CHOLESTEROL LEVEL 72 MG/DL (< 200); CPK CREATINE PHOSPHOKINASE 118 U/L (39-308); CREATININE FOR GFR 0.92 MG/DL (0.70-1.30); FERRITIN 1269 NG/ML (26-388); GLOMERULAR FILTRATION RATE > 60.0 (>49); GLUCOSE, FASTING 120 MG/DL (70-100); LDH LACTATE DEHYDROGENASE 685 U/L (87-241); PHOSPHORUS LEVEL 3.2 MG/DL (2.5-4.9); POTASSIUM SERUM 4.3 MEQ/L (3.5-5.1); SODIUM LEVEL 136 MEQ/L (136-145); TOTAL PROTEIN 7.1 GM/DL (6.4-8.2); TRIGLYCERIDES LEVEL 101 MG/DL (<150)
[2020-11-25] MEDS: MEROPENEM INJ 1 GM in IV 1 EA IV SCH ×3 (06:05→20:01)
[2020-11-25] MEDS: HumaLOG INSULIN (NovoLOG) PER UNIT SC SCH ×4 (07:30→20:17)
[2020-11-25 08:00] VITALS: BP 121/61
[2020-11-25] MEDS: BARICITINIB 2MG TABLET (OLUMIANT) FOR EUA PO SCH (08:58)
[2020-11-25] MEDS: guaiFENesin ER 600 MG TAB PO SCH ×2 (08:59→20:00)
[2020-11-25] MEDS: ROSUVASTATIN 10 MG TAB (CRESTOR) PO SCH (08:59)
[2020-11-25] MEDS: LEVEMIR (INSULIN DETEMIR) 1 UNITS/0.01ML SC SCH (09:00)
[2020-11-25] MEDS: METOPROLOL SUCC *XL* 25MG TAB (TopROL *XL*) PO SCH (09:01)
[2020-11-25] MEDS: ASPIRIN 81 MG ENTERIC TAB PO SCH (09:01)
[2020-11-25] MEDS: BENZONATATE 100 MG CAP PO SCH ×3 (09:01→20:00)
[2020-11-25] MEDS: MONTELUKAST 10 MG TAB PO SCH (09:01)
[2020-11-25] MEDS: ENOXAPARIN 100MG/1ML SYRINGE (J1650 PER 10MG) SC SCH ×2 (09:04→20:01)
--- NOTE | 2020-11-25 10:07 | IPNPDOC ---
Text Note Date of Service The patient was seen on 11/25/20. NOTE Subjective: Patient is a 70-year-old male with a PMHx of CAD s/p CABG, DM2, BPH, who was diagnosed with COVID19 (11/10) and presented to the ER on 11/18 after reporting shortness of breath and passing out. Patient was admitted to the hospital service for further evaluation and treatment. Patient was seen and examined at the bedside. Currently patient reports that they feel fine. There is seen with a BiPAP mask on laying on their side. Has not experience any nausea, vomiting, abdominal pain, diarrhea. Objective: Vitals (See below) General: Laying on his side with BiPAP mask in place, appears to be comfortable, is awake, alert and oriented 3 HEENT: NC, AT CVS: +S1S2 Lungs: Air entry is fair bilaterally. There is faint wheezing that can be appreciated at lower bases. No crackles or rhonchi Abdomen: Soft, nondistended, without tenderness Extremities: Lower extremities are without edema, - Calf tenderness Assessment and plan: Acute hypoxic respiratory failure - likely 2/2 COVID19 pneumonia, possibly 2/2 PE, possibly 2/2 superimposed bacterial infection - Patient is seen with BiPAP mask in place - Currently patient is essentially maxed out FiO2 with BiPAP - Extensive discussion with patient about intubation and mechanical ventilation; advised him that there is a strong likelihood that he could get intubated this hospitalization - COVID positive on 11/10 - Inflammatory markers continued to worsen - MRSA screen negative - c/w Baricitinib (Day #5); s/p Remdesivir (5 day course) - Will DC Ceftriaxone and Azithromycin (Complected 8 days); c/w Meropenem (Day #2) - c/w full anticoagulation with Lovenox - c/ w Incentive spirometry / Acapella / Mucinex - Pulmonology consulted; appreciate their input 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% - c/w ISS and Levemir - c/w Gabapentin Chronic CAD - c/w ASA 81, Metoprolol, Rosuvastatin BPH - c/w Tamsulosin Obesity - BMI of 34 - Complicating care GI prophylaxis - s/p Famotidine - c/w Protonix DVT prophylaxis - c/w Lovenox weight-based therapeutic dosing Disposition: - Awaiting clinical improvement VS,Fishbone, I+O VS, Bae, I+O Laboratory Tests 11/25/20 04:51 Vital Signs Date Time Temp Pulse Resp B/P (MAP) Pulse Ox O2 Delivery O2 Flow Rate FiO2 11/25/20 06:00 109 90 NIPPV (BIPAP/CPAP) 100 11/25/20 04:00 100.9 32 123/61 (81) 11/24/20 16:00 40.0 I&O- Last 24 Hours up to 6 AM 11/25/20 06:00 Intake Total 630 ml Output Total 900 ml Balance -270 ml JAY BALDWIN MD Nov 25, 2020 10:07
[2020-11-25 12:00] VITALS: BP 120/66
--- NOTE | 2020-11-25 13:21 | CCN ---
CRITICAL CARE NOTE ADDENDUM DATE: 11/24/2020 TIME: 5:15 p.m. I was called back to the Intensive Care Unit to reevaluate the patient. Oxygen saturations had fallen into the 70s and the patient was placed onto noninvasive ventilation at an inspiratory pressure of 10 over expiratory pressure of 4. This with prone posturing resulted in improvement in saturations into the 90s. However, the patient is expressing frustration and is uncomfortable in the prone posture. I spoke with him at bedside about mechanical ventilation and he is considering it. At the moment he wishes to continue noninvasive positive pressure ventilation and will do the best he can to work with nursing. I have made it clear to him that if his condition worsens or if he is unable to comply with treatments for any reason, we would be left with no other option and that he could . He has agreed to let us know if he feels he will be unable to comply with therapy in order that we might have time to prepare and to get him intubated. I also made it clear to him that mechanical ventilation is associated with many complications. A long course of treatment in patients who have COVID pneumonia requiring mechanical ventilation had a very high mortality. We will continue maximal medical therapy at this point. Fifty seven minutes were spent in the provision of bedside critical care and coordination exclusive of any time for the performance of procedures.
--- NOTE | 2020-11-25 13:59 | CCN ---
CRITICAL CARE NOTE DATE: 11/25/2020 SUBJECTIVE: The patient was seen in the Intensive Care Unit on noninvasive ventilation. This is hospital day #8. He was changed from CPAP to noninvasive ventilation last evening. He is tolerating it reasonably well with tidal volumes in the 700s. OBJECTIVE: Vital signs: His temperature is 100.9. T-max for the past 24 hours 101.7. Pulse rate 109. Respirations 32. Blood pressure 123/61. 100% oxygen via the noninvasive ventilators yielding a saturation of 90%. I&O for the past 24 hours 1550 in and 1200 out, since midnight 160 in and 250 out. General: At bedside, he is ill appearing. His oral mucosa is pink. Neck: Supple. No meningismus. No adenopathy. Heart: Heart sounds are regular without appreciable murmur. Lungs: Breath sounds are diminished, asymmetric, more diminished in the left than the right. There are crepitant rales and some tubular breath sounds in the left base. Chest: Symmetric. There is no accessory muscle use on noninvasive ventilation. Abdomen: Soft, obese. Extremities: No significant edema at this point. Peripheral pulses are palpable. DIAGNOSTIC STUDIES: White cell count remains stable at 11.7 with 89% neutrophils, hemoglobin 12.5, hematocrit 39.8, platelet count 342,000. Sodium 136, potassium 4.3, chloride 101, CO2 29, BUN 22, creatinine 0.92, glucose 120. AST and ALT are stable at 43 and 18. Ferritin is up at 1,269, but activated protein C is down at 26.6, and the LDH is down at 685. D-dimer remains very elevated at greater than 4,000. MEDICATIONS: On medications review, he has received five days of Remdesivir, three days of dexamethasone, and is on baricitinib. This is day #2 of meropenem. Lovenox is 100 q.12 hours and Protonix 40 a day. PRIMARY PROBLEM REQUIRING CRITICAL ATTENTION: 1. Acute hypoxic respiratory failure. This is day #2 of noninvasive ventilation. He is tolerating it reasonably well, and his saturations are within the acceptable range. 2. COVID pneumonia status post Remdesivir and now on baricitinib in an effort to reduce climatologist, and his inflammatory markers are mixed. 3. Secondary infectious disease. He was changed yesterday to carbapenem, and over the course of time, his temperature does seem somewhat better. His white blood cells remain borderline elevated. 4. Procoagulant state related to COVID. The patient is now on full dose Lovenox. His D-dimer is quite high suggesting significant clot burden. 5. Nutritional support. The patient is able to come off to Vapotherm briefly to eat. 6. DVT and ulcer prophylaxis are in place. CONDITION: The patient's condition is critical. PROGNOSIS: Guarded. I have updated the ICU team and the attending hospitalist service on the patient's status and plans of care for the day. Seventy-seven minutes was spent in the provision of bedside critical care and coordination excluding any procedure time.
[2020-11-25 16:00] VITALS: BP 152/85
[2020-11-25] MEDS: PANTOPRAZOLE 40MG VIAL (C9113 PER 1) IV SCH (16:52)
[2020-11-25] MEDS: ACETAMINOPHEN TAB 650MG DOSE (2X325MG) PO PRN ×2 (17:05→23:57)
[2020-11-25 20:00] VITALS: BP 110/53
[2020-11-25] MEDS: TAMSULOSIN 0.4 MG CAP PO SCH (20:00)
[2020-11-26] VITALS (129 sets, daily range): BP systolic 72–192; BP diastolic 48–107; O2SAT 90–91
[2020-11-26] MEDS: ALBUTEROL SULFATE 2.5 MG/0.5 ML INH NEB SOLN NEB SCH ×3 (01:53→19:44)
[2020-11-26] MEDS: MEROPENEM INJ 1 GM in IV 1 EA IV SCH ×3 (03:10→20:03)
[2020-11-26 05:18] LABS: BASO % 0.2 % (0.0-1.0); EOS % 0.3 % (0.0-3.0); HEMATOCRIT 39.9 % (42.0-52.0); HEMOGLOBIN 12.6 g/dl (13.5-17.5); LYMPH # 0.9 10^3/uL (1.5-5.0); LYMPH % 7.3 % (24.0-44.0); MEAN CORPUSCULAR HEMOGLOBIN 27.8 pg (27.0-33.0); MEAN CORPUSCULAR HGB CONC 31.6 g/dl (32.0-36.5); MEAN CORPUSCULAR VOLUME 88.1 fl (80.0-96.0); MONO # 0.3 10^3/uL (0.0-0.8); MONO % 2.3 % (0.0-5.0); NEUTROPHILS # 10.7 10^3/uL (1.5-8.5); NEUTROPHILS % 89.2 % (36.0-66.0); PLATELET COUNT, AUTOMATED 338 10^3/uL (150-450); RED BLOOD COUNT 4.53 10^6/uL (4.30-6.10)
[2020-11-26 05:43] LABS: ALBUMIN 1.9 GM/DL (3.2-5.2); ALT/SGPT 24 U/L (12-78); BILIRUBIN,TOTAL 0.5 MG/DL (0.2-1.0); BLOOD UREA NITROGEN 24 MG/DL (7-18); CALCIUM LEVEL 8.5 MG/DL (8.8-10.2); CARBON DIOXIDE LEVEL 31 MEQ/L (21-32); CHLORIDE LEVEL 100 MEQ/L (98-107); CHOLESTEROL LEVEL 80 MG/DL (< 200); CPK CREATINE PHOSPHOKINASE 104 U/L (39-308); CREATININE FOR GFR 1.07 MG/DL (0.70-1.30); FERRITIN 1432 NG/ML (26-388); GLOMERULAR FILTRATION RATE > 60.0 (>49); GLUCOSE, FASTING 143 MG/DL (70-100); LDH LACTATE DEHYDROGENASE 875 U/L (87-241); PHOSPHORUS LEVEL 3.3 MG/DL (2.5-4.9); POTASSIUM SERUM 4.4 MEQ/L (3.5-5.1); SODIUM LEVEL 137 MEQ/L (136-145); TOTAL PROTEIN 6.5 GM/DL (6.4-8.2); TRIGLYCERIDES LEVEL 101 MG/DL (<150)
--- NOTE | 2020-11-26 08:27 | REP ---
INDICATION: Covid pn.. COMPARISON: Comparison chest x-ray 24 November 2020. TECHNIQUE: Portable upright AP chest radiograph. FINDINGS: Patient's parenchymal infiltrates have become more opaque and consolidative as well as more extensive in appearance. The left heart border and most of the left hemidiaphragm are obscured today. There is new consolidation in the right inferior perihilar region.. IMPRESSION: Rapid progression of radiographic findings of pneumonia bilaterally.. <Electronically signed by Eliecer Huntley > 11/26/20 0387
[2020-11-26] MEDS ORDERED: METOPROLOL TART 25 MG TABLET PO SCH (09:00)
[2020-11-26] MEDS ORDERED: propofoL 1,000 MG in IV 1 EA IV SCH (09:45)
[2020-11-26] MEDS ORDERED: D5W/0.9% SODIUM CHLORIDE 1,000 ML IV SCH (10:00)
[2020-11-26] MEDS ORDERED: EPIDURAL/PCA KEYS XX PRN (10:00)
--- NOTE | 2020-11-26 10:03 | IPNPDOC ---
Date Seen The patient was seen on 11/26/20. Progress Note SUBJECTIVE: 70 yo M with a hx of CAD s/p CABG, DM2, BPH. Diagnosed with covid on 11/10. Presented to ER 11/18 with SOB and syncope. Had persistent decline since admission, attempted to tolerate BIPAP but ultimately required intubation on 11/26/20. Had discussion with patient who chose to be intubated. OBJECTIVE PHYSICAL EXAMINATION: VITAL SIGNS: please see below General: ET tube in placed. Sedated. HEENT: PERRLA, EOMI, sclerae clear Neck: supple, normal ROM, no JVD Respiratory: reduced air entry bilaterally, faint wheeze at lung bases. CVS: RRR, normal S1, S2, no murmurs Abdo: soft, no masses, no hepatosplenomegaly, BS+, no rebound tenderness Extremities: no edema, pulses 2+ MSK: no joint deformities, normal ROM LABORATORY DATA, IMAGING STUDIES, MICROBIOLOGY: Please see below. DVT prophylaxis ordered?: Full dose AC with lovenox, 1 mg/kg q12h ASSESSMENT AND PLAN: PROBLEMS: Acute hypoxic respiratory failure - likely 2/2 COVID19 pneumonia, possibly 2/2 PE, possibly 2/2 superimposed bacterial infection - COVID positive on 11/10 - unable to maintain O2 saturation on BIPAP, noted fatigue - patient wished to be intubated this morning. - Inflammatory markers unchanged, elevated - MRSA screen negative - c/w Baricitinib (Day #6); s/p Remdesivir (5 day course) - Will DC Ceftriaxone and Azithromycin (Complected 8 days); c/w Meropenem (Day #3) - c/w full anticoagulation with Lovenox - c/ w Incentive spirometry / Acapella / Mucinex - Pulmonology consulted, input is greatly appreciated 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% - c/w ISS and Levemir - c/w Gabapentin Chronic CAD - c/w ASA 81, Metoprolol, Rosuvastatin BPH - c/w Tamsulosin Obesity - BMI of 34 - Complicating care GI prophylaxis - s/p Famotidine - c/w Protonix DVT prophylaxis - Lovenox 1 mg/kg q12h Disposition: - awaiting clinical improvement - guarded prognosis - I spoke to patient's Mrs. Dottie Mary at [phone] and updated her as to intubation, guarded prognosis and answered all questions in detail. VS, I&O, 24H, Fishbone Vital Signs/I&O Vital Signs Date Time Temp Pulse Resp B/P (MAP) Pulse Ox O2 Delivery O2 Flow Rate FiO2 11/26/20 08:11 100 11/26/20 08:11 91 BIPAP/CPAP 11/26/20 03:55 99.3 106 24 140/83 (102) 11/24/20 16:00 40.0 I&O- Last 24 Hours up to 6 AM 11/26/20 06:00 Intake Total 762 ml Output Total 1050 ml Balance -288 ml Laboratory Data 24H LABS Laboratory Tests 2 11/25/20 12:15: Bedside Glucose (Misc Panel) 106 11/25/20 16:50: Bedside Glucose (Misc Panel) 100 11/25/20 20:05: Bedside Glucose (Misc Panel) 188H 11/26/20 04:46: Immature Granulocyte % (Auto) 0.7, Neutrophils (%) (Auto) 89.2H, Lymphocytes (%) (Auto) 7.3L, Monocytes (%) (Auto) 2.3, Eosinophils (%) (Auto) 0.3, Basophils (%) (Auto) 0.2, Neutrophils # (Auto) 10.7H, Lymphocytes # (Auto) 0.9L, Monocytes # (Auto) 0.3, Eosinophils # (Auto) 0.0, Basophils # (Auto) 0.0, Nucleated Red Blood Cells % (auto) 0.0, D-Dimer, Quantitative > 4000H, Anion Gap 6L, Glomerular Filtration Rate > 60.0, Calcium Level 8.5L, Phosphorus Level 3.3, Ferritin 1432H, Total Bilirubin 0.5, Aspartate Amino Transf (AST/SGOT) 55H, Alanine Aminotransferase (ALT/SGPT) 24, Alkaline Phosphatase 124H, Lactate Dehydrogenase 875H, Total Creatine Kinase 104, C-Reactive Protein, Quantitative 26.60H, Total Protein 6.5, Albumin 1.9L, Albumin/Globulin Ratio 0.4, Triglycerides Level 101, Cholesterol Level 80 11/26/20 08:33: Bedside Glucose (Misc Panel) 135H CBC/BMP Laboratory Tests 11/26/20 04:46 Microbiology Microbiology 11/17/20 Blood Culture - Final, Complete NO GROWTH AFTER 5 DAYS 11/17/20 Blood Culture - Final, Complete NO GROWTH AFTER 5 DAYS BAO ADKINS MD Nov 26, 2020 10:02
[2020-11-26] MEDS ORDERED: GLUCOSE 4GM CHEW TABLET PO PRN (10:15)
[2020-11-26] MEDS ORDERED: GLUCAGON INJ 1MG VIAL SC PRN (10:15)
[2020-11-26] MEDS ORDERED: DEXTROSE 50% 50 ML SYRINGE IV PRN (10:15)
[2020-11-26] MEDS ORDERED: ETOMIDATE INJ 20MG/10ML VIAL ONE (10:35)
[2020-11-26] MEDS ORDERED: propofoL 200 MG/20 ML VIAL ONE (10:35)
[2020-11-26] MEDS ORDERED: SUCCINYLCHOLINE 100 MG/5 ML SYRINGE (J0330) ONE (10:35)
--- NOTE | 2020-11-26 10:38 | REP ---
INDICATION: ETT placement. 9:54 a.m. film. COMPARISON: November 26 2020 at 6:57 a.m.. TECHNIQUE: Portable upright AP chest radiograph. FINDINGS: Endotracheal tube is seen passed in good position at the level of the aortic knob. NG tube enters the left upper quadrant. A right subclavian line is inserted with its tip in the expected location of the superior vena cava. Monitoring electrodes are seen. Heavy bilateral mixed interstitial and alveolar infiltrates are again noted. There is no evidence of pneumothorax.. IMPRESSION: Endotracheal, nasogastric, and right subclavian lines in good position. Heavy infiltrates persist. No complication is seen.. <Electronically signed by Eliecer Huntley > 11/26/20 1039
[2020-11-26 10:54] LABS: ABG BASE EXCESS 0.8 (-2.0-2.0); ABG O2 SATURATION 89.8 % (95.0-99.0); ABG PARTIAL PRESSURE CO2 38.8 mmHg (35.0-45.0); ABG PARTIAL PRESSURE O2 57.5 mmHg (75.0-100.0); ABG TOTAL CO2 26.2 MEQ/L (23.0-31.0); ABG pH (ARTERIAL) 7.427 UNITS (7.350-7.450)
[2020-11-26] MEDS: VECURONIUM BROMIDE 50 MG in D5W 50 ML IV SCH ×2 (11:03→23:15)
[2020-11-26] MEDS: ENOXAPARIN 100MG/1ML SYRINGE (J1650 PER 10MG) SC SCH ×2 (11:04→20:03)
[2020-11-26] MEDS: propofoL 1,000 MG in IV 1 EA IV SCH ×3 (11:15→20:04)
[2020-11-26] MEDS: MORPHINE SULF IN 0.9% NACL 100 MG in IV 1 EA IV SCH ×2 (11:23)
[2020-11-26] MEDS: ASPIRIN 81 MG ENTERIC TAB PO SCH (11:24)
[2020-11-26] MEDS: guaiFENesin ER 600 MG TAB PO SCH (11:24)
[2020-11-26] MEDS: BENZONATATE 100 MG CAP PO SCH (11:24)
[2020-11-26] MEDS: METOPROLOL SUCC *XL* 25MG TAB (TopROL *XL*) PO SCH (11:24)
[2020-11-26] MEDS: IPRATROPIUM 0.5MG/ALBUTEROL 2.5MG INH SOL UD 3ML (DUONEB) NEB SCH ×3 (11:59→19:44)
[2020-11-26] MEDS: BARICITINIB 2MG TABLET (OLUMIANT) FOR EUA PO SCH (12:20)
[2020-11-26] MEDS: ACETAMINOPHEN TAB 650MG DOSE (2X325MG) PO PRN (12:20)
[2020-11-26] MEDS: ROSUVASTATIN 10 MG TAB (CRESTOR) PO SCH (12:20)
[2020-11-26] MEDS: LEVEMIR (INSULIN DETEMIR) 1 UNITS/0.01ML SC SCH (12:21)
[2020-11-26] MEDS: HumaLOG INSULIN (NovoLOG) PER UNIT SC SCH ×3 (12:22→23:54)
[2020-11-26] MEDS: CHLORHEXIDINE GLUCONATE 0.12 % 15ML UDC (PERIDEX ORAL RINSE) MT SCH ×2 (12:31→20:03)
--- NOTE | 2020-11-26 12:46 | CCN ---
CRITICAL CARE NOTE DATE: 11/26/2020 SUBJECTIVE: I was called stat to the intensive care unit. The patient's respiratory rate and heart rate have abruptly increased, his oxygen saturation has fallen and on my arrival, he is struggling for breath tachypneic with saturations in the 70s. OBJECTIVE: VITAL SIGNS: Temperature 99.3, T-max for the past 24 hours 102.2, pulse rate 160, respirations 36, blood pressure 140/63. He is on maximal noninvasive ventilation at 100% oxygen with saturation 76. INTAKE AND OUTPUT: For the past 24 hours 722 in and 1150 out; since midnight 100 in and 158 out. GENERAL APPEARANCE: He is ill-appearing, in extremis with respiratory distress. HEENT: Oral mucosa is pink. NECK: Supple. There is no obvious jugular venous distention. HEART: Sounds are regular rapid. LUNGS: Breath sounds are dime with diffuse rales. Diminished throughout all lung mcallister. ABDOMEN: Soft. EXTREMITIES: Showing minimal edema. DIAGNOSTIC STUDIES: Quickly reviewed. His white cell count is 12, hemoglobin is 12.6, hematocrit 39.9, platelet count 338,000. Differential white cell count shows 89% neutrophils. His sodium is 137, potassium 4.4, chloride 100, CO2 of 31, BUN 24, creatinine 1.07, AST 55, ALT 24. LDH is up at 875, and ferritin is up at 1432, and CRP is stable at 26.6. His D-dimer remains elevated at greater than 4000. Chest imaging shows increased infiltrates bilaterally. ASSESSMENT AND PLAN: The primary problem requiring critical attention is acute respiratory distress syndrome (ARDS) secondary to COVID pneumonia with hypoxic respiratory failure. The patient has failed noninvasive measures and will now require an endotracheal tube intubation and mechanical ventilatory support. The intubation team has been activated. We will initiate mechanical ventilation with lung protective setting and check arterial blood gases. The patient will be paralyzed for 48 hours and prone posturing will be utilized consistently. COVID pneumonia. The patient has received a full course of remdesivir, three days of dexamethasone, and is currently on baricitinib. As his inflammatory markers remain elevated, I am considering a change back to glucocorticoids. Secondary infection. This is day #3 of meropenem. We will obtain a sputum study once he is intubated. Procoagulant state of COVID infection. The patient is on full dose Lovenox. D-dimer remains elevated suggesting ongoing clotting. Nutritional support. Will begin tube feedings once the patient is intubated and sedated. Deep vein thrombosis (DVT) and ulcer prophylaxis are in place. I have discussed the case with the attending hospitalist service who are in contact with the patient's family. The intensive care unit (ICU) team is aware of the goals of care for the day. We will proceed with intubation and mechanically ventilatory support immediately. The patient's condition is critical. Prognosis is guarded to poor. CRITICAL CARE TIME: 150 minutes spent in the provision of bedside critical care and coordination; excluding any time for the performance of procedures.
--- NOTE | 2020-11-26 13:14 | RO ---
OPERATIVE NOTE DATE OF OPERATION: 11/26/2020 PREOPERATIVE DIAGNOSIS: Hypovolemia. POSTOPERATIVE DIAGNOSIS: Hypovolemia. PROCEDURE: Right subclavian CVP placement. SURGEON: Alexx Rubin DO, [facility] [employer]: ANESTHESIA: DESCRIPTION OF PROCEDURE: The patient was seen in the intensive care unit now having been intubated and mechanically ventilated. Venous access is limited and he is felt to be hypovolemic. The procedure was felt to be emergent. The skin overlying the right subclavian vein was prepped with ChloraPrep and draped in sterile fashion. 25-gauge needle was used to create a skin wheal with 1% Lidocaine. Thereafter, a 17-gauge introducer needle was placed in through the skin and into the right subclavian vein. Free return of venous blood was obtained. Vascular-tip guidewire was advanced, small incision made adjacent to the guidewire and catheter passed to distance of 18 cm. Catheter was sewn in place. Sterile dressing was applied. Postprocedure chest x-ray confirms placement of the catheter. There were no complications.
[2020-11-26] MEDS: NOREPINEPHRINE BITARTRATE 8 MG in D5W 492 ML IV SCH (14:06)
--- NOTE | 2020-11-26 15:59 | ECGEPIP ---
[facility] Test Date: 2020-11-26 Pat Name: WILLIS RAMIREZ Department: Room: [place] [address] Gender: Male [employer]: HOLLIE : 1950 Requested By: Alexx Rubin [facility] Order Number: [id number] Reading MD: Alexx Greenberg Measurements Intervals [place] Rate: 91 P: 50 WV: 185 QRS: 44 QRSD: 101 T: 38 QT: 368 QTc: 453 Interpretive Statements SINUS RHYTHM Improved repolarization compared with 11/12/2020 Electronically Signed on 11-26-2020 15:59:15 EST by Alexx Greenberg
[2020-11-26] MEDS: PANTOPRAZOLE 40MG VIAL (C9113 PER 1) IV SCH (16:25)
[2020-11-26 18:25] LABS: ABG BASE EXCESS -0.7 (-2.0-2.0); ABG HCO3 27.1 MEQ/L (22.0-26.0); ABG O2 SATURATION 98.4 % (95.0-99.0); ABG PARTIAL PRESSURE O2 122.6 mmHg (75.0-100.0); ABG STANDARD HCO3 23.9 MEQ/L (22.0-26.0); ABG TOTAL CO2 28.9 MEQ/L (23.0-31.0)
[2020-11-26] MEDS ORDERED: SODIUM BICARBONATE 150 MEQ in D5W 1,000 ML IV SCH (20:00)
[2020-11-27] VITALS (18 sets, daily range): BP systolic 80–140; BP diastolic 50–76
[2020-11-27] MEDS: propofoL 1,000 MG in IV 1 EA IV SCH ×4 (00:57→20:58)
[2020-11-27] MEDS: NOREPINEPHRINE BITARTRATE 8 MG in D5W 492 ML IV SCH (02:20)
[2020-11-27] MEDS: ACETAMINOPHEN TAB 650MG DOSE (2X325MG) PO PRN ×3 (02:53→19:23)
[2020-11-27] MEDS: MEROPENEM INJ 1 GM in IV 1 EA IV SCH ×3 (02:55→19:39)
[2020-11-27 04:12] LABS: BASO % 0.2 % (0.0-1.0); EOS # 0.2 10^3/uL (0.0-0.5); EOS % 1.5 % (0.0-3.0); HEMATOCRIT 36.3 % (42.0-52.0); HEMOGLOBIN 11.2 g/dl (13.5-17.5); LYMPH # 0.9 10^3/uL (1.5-5.0); LYMPH % 8.5 % (24.0-44.0); MEAN CORPUSCULAR HEMOGLOBIN 27.6 pg (27.0-33.0); MEAN CORPUSCULAR HGB CONC 30.9 g/dl (32.0-36.5); MEAN CORPUSCULAR VOLUME 89.4 fl (80.0-96.0); MONO # 0.2 10^3/uL (0.0-0.8); MONO % 2.3 % (0.0-5.0); NEUTROPHILS # 9.2 10^3/uL (1.5-8.5); PLATELET COUNT, AUTOMATED 284 10^3/uL (150-450); RED BLOOD COUNT 4.06 10^6/uL (4.30-6.10); WHITE BLOOD COUNT 10.5 10^3/uL (4.0-10.0)
[2020-11-27 04:57] LABS: ALBUMIN 1.5 GM/DL (3.2-5.2); ALT/SGPT 69 U/L (12-78); BILIRUBIN,TOTAL 0.3 MG/DL (0.2-1.0); BLOOD UREA NITROGEN 21 MG/DL (7-18); CALCIUM LEVEL 8.2 MG/DL (8.8-10.2); CARBON DIOXIDE LEVEL 31 MEQ/L (21-32); CHLORIDE LEVEL 101 MEQ/L (98-107); CHOLESTEROL LEVEL 63 MG/DL (< 200); CPK CREATINE PHOSPHOKINASE 58 U/L (39-308); CREATININE FOR GFR 0.88 MG/DL (0.70-1.30); FERRITIN 2348 NG/ML (26-388); GLOMERULAR FILTRATION RATE > 60.0 (>49); GLUCOSE, FASTING 177 MG/DL (70-100); LDH LACTATE DEHYDROGENASE 603 U/L (87-241); PHOSPHORUS LEVEL 2.3 MG/DL (2.5-4.9); POTASSIUM SERUM 3.7 MEQ/L (3.5-5.1); SODIUM LEVEL 138 MEQ/L (136-145); TOTAL PROTEIN 6.8 GM/DL (6.4-8.2); TRIGLYCERIDES LEVEL 160 MG/DL (<150)
[2020-11-27] MEDS: HumaLOG INSULIN (NovoLOG) PER UNIT SC SCH ×3 (05:19→17:13)
[2020-11-27 06:13] LABS: ABG BASE EXCESS 4.9 (-2.0-2.0); ABG HCO3 29.3 MEQ/L (22.0-26.0); ABG O2 SATURATION 97.3 % (95.0-99.0); ABG PARTIAL PRESSURE CO2 42.3 mmHg (35.0-45.0); ABG PARTIAL PRESSURE O2 88.6 mmHg (75.0-100.0); ABG STANDARD HCO3 28.9 MEQ/L (22.0-26.0); ABG TOTAL CO2 30.6 MEQ/L (23.0-31.0); ABG pH (ARTERIAL) 7.458 UNITS (7.350-7.450)
--- NOTE | 2020-11-27 08:18 | REP ---
INDICATION: ett. COMPARISON: Comparison portable chest x-ray November 26, 2020 and she 24 November 2020. TECHNIQUE: Portable upright AP chest radiograph. FINDINGS: Extensive bilateral interstitial infiltrates persist essentially unchanged. There are a few air bronchograms on the left and the right. Endotracheal tube is in good position. NG tube enters the left upper quadrant. Right subclavian line remains in place. Monitoring electrodes and oxygen delivery tubing are seen.. IMPRESSION: Extensive bilateral infiltrates persist essentially unchanged.. <Electronically signed by Eliecer Huntley > 11/27/20 9820
[2020-11-27] MEDS: IPRATROPIUM 0.5MG/ALBUTEROL 2.5MG INH SOL UD 3ML (DUONEB) NEB SCH ×4 (08:49→19:35)
[2020-11-27] MEDS: ASPIRIN 81 MG ENTERIC TAB PO SCH (09:00)
[2020-11-27] MEDS: CHLORHEXIDINE GLUCONATE 0.12 % 15ML UDC (PERIDEX ORAL RINSE) MT SCH ×2 (09:06→20:03)
[2020-11-27] MEDS: BARICITINIB 2MG TABLET (OLUMIANT) FOR EUA PO SCH (09:07)
[2020-11-27] MEDS: ROSUVASTATIN 10 MG TAB (CRESTOR) PO SCH (09:07)
[2020-11-27] MEDS: ENOXAPARIN 100MG/1ML SYRINGE (J1650 PER 10MG) SC SCH ×2 (09:08→20:04)
[2020-11-27] MEDS: LEVEMIR (INSULIN DETEMIR) 1 UNITS/0.01ML SC SCH (09:10)
[2020-11-27 10:25] LABS: ABG BASE EXCESS 7.9 (-2.0-2.0); ABG HCO3 32.2 MEQ/L (22.0-26.0); ABG O2 SATURATION 96.4 % (95.0-99.0); ABG PARTIAL PRESSURE CO2 43.6 mmHg (35.0-45.0); ABG STANDARD HCO3 31.7 MEQ/L (22.0-26.0); ABG TOTAL CO2 33.5 MEQ/L (23.0-31.0); ABG pH (ARTERIAL) 7.486 UNITS (7.350-7.450)
[2020-11-27] MEDS ORDERED: SODIUM CHLORIDE 0.9% 1000ML IV ONE (11:15)
--- NOTE | 2020-11-27 11:42 | IPNPDOC ---
Date Seen The patient was seen on 11/27/20. Progress Note 70 yo M with a hx of CAD s/p CABG, DM2, BPH. Diagnosed with covid on 11/10. Presented to ER 11/18 with SOB and syncope. Had persistent decline since admission, attempted to tolerate BIPAP but ultimately required intubation on 11/26/20. Patient seems to have tolerated vent well overnight, and is planned for proning today. He continues to receive meropenem, baricitinib and full dose anticoagulation with lovenox. Given intubated status and increased complexity, primary inpatient care of patient was accepted by solar pool heating installer service, Dr. Rubin, which is greatly appreciated. VS, I&O, 24H, Fishbone Vital Signs/I&O Vital Signs Date Time Temp Pulse Resp B/P (MAP) Pulse Ox O2 Delivery O2 Flow Rate FiO2 11/27/20 10:15 91 86/53 (64) 93 Ventilator 90 11/27/20 10:00 102.1 26 11/26/20 09:15 10.0 I&O- Last 24 Hours up to 6 AM 11/27/20 06:00 Intake Total 2214.2 ml Output Total 900 ml Balance 1314.2 ml Laboratory Data 24H LABS Laboratory Tests 2 11/26/20 17:43: Bedside Glucose (Misc Panel) 183H 11/26/20 18:15: Blood Gas Bicarbonate Standard 23.9, Arterial Blood pH 7.280L, Arterial Blood Partial Pressure CO2 59.0H, Arterial Blood Partial Pressure O2 122.6H, Arterial Blood Total CO2 28.9, Arterial Blood HCO3 27.1H, Arterial Blood Base Excess - 0.7, Arterial Blood Oxygen Saturation 98.4 11/26/20 23:50: Bedside Glucose (Misc Panel) 147H 11/27/20 04:00: Immature Granulocyte % (Auto) 0.5, Neutrophils (%) (Auto) 87.0H, Lymphocytes (%) (Auto) 8.5L, Monocytes (%) (Auto) 2.3, Eosinophils (%) (Auto) 1.5, Basophils (%) (Auto) 0.2, Neutrophils # (Auto) 9.2H, Lymphocytes # (Auto) 0.9L, Monocytes # (Auto) 0.2, Eosinophils # (Auto) 0.2, Basophils # (Auto) 0.0, Nucleated Red Blo od Cells % (auto) 0.0, D-Dimer, Quantitative > 4000H, Anion Gap 6L, Glomerular Filtration Rate > 60.0, Calcium Level 8.2L, Phosphorus Level 2.3#L, Ferritin 2348H, Total Bilirubin 0.3, Aspartate Amino Transf (AST/SGOT) 97H, Alanine Aminotransferase (ALT/SGPT) 69, Alkaline Phosphatase 151H, Lactate Dehydrogenase 603H, Total Creatine Kinase 58, C-Reactive Protein, Quantitative 24.90H, Total Protein 6.8, Albumin 1.5#L, Albumin/Globulin Ratio 0.3, Triglycerides Level 160H, Cholesterol Level 63, Procalcitonin 3.40 11/27/20 05:50: Blood Gas Bicarbonate Standard 28.9H, Arterial Blood pH 7.458H, Arterial Blood Partial Pressure CO2 42.3, Arterial Blood Partial Pressure O2 88.6, Arterial Blood Total CO2 30.6, Arterial Blood HCO3 29.3H, Arterial Blood Base Excess 4.9H, Arterial Blood Oxygen Saturation 97.3 11/27/20 10:13: Blood Gas Bicarbonate Standard 31.7H, Arterial Blood pH 7.486H, Arterial Blood Partial Pressure CO2 43.6, Arterial Blood Partial Pressure O2 76.0, Arterial Blood Total CO2 33.5H, Arterial Blood HCO3 32.2H, Arterial Blood Base Excess 7.9H, Arterial Blood Oxygen Saturation 96.4 CBC/BMP Laboratory Tests 11/27/20 04:00 Microbiology Microbiology 11/26/20 Gram Stain - Final, Resulted 11/26/20 Sputum Culture, Resulted Pending 11/17/20 Blood Culture - Final, Complete NO GROWTH AFTER 5 DAYS 11/17/20 Blood Culture - Final, Complete NO GROWTH AFTER 5 DAYS BAO ADKINS MD Nov 27, 2020 11:42
[2020-11-27] MEDS ORDERED: D5W/0.9% SODIUM CHLORIDE 1,000 ML IV SCH (11:45)
--- NOTE | 2020-11-27 12:39 | CCN ---
CRITICAL CARE NOTE DATE: 11/27/2020 SUBJECTIVE: The patient is seen in the intensive care unit intubated, mechanically ventilated, sedate, and paralyzed. This is hospital day #10, endotracheal tube day #2, right subclavian catheter day #2. With lung protected ventilation, a mild metabolic acidosis developed last evening prompting the addition of IV fluids with bicarb. Following his intubation and application of sedation and paralysis, his blood pressure was low prompting the addition of Levophed. Over the course of the last 12 hours, the Levophed has been able to be weaned. OBJECTIVE: VITAL SIGNS: At bedside, his temperature is 101.5, T-max for the past 24 hours 104, heart rate 94, respirations 26/26 delivered, blood pressure 104/60, oxygen delivered is 100%, and saturation the monitor is 99. INTAKE AND OUTPUT: For the past 24 hours 1598 in, 600 out; since midnight 716 in, 400 out. CVP is 7. GENERAL APPEARANCE: He is ill-appearing. HEENT: His oral mucosa is pink. Endotracheal tube is in good position as is the orogastric tube. NECK: Supple. HEART: Sounds are regular without appreciable murmur. LUNGS: Breath sounds diminished. Crepitant rales are appreciated. ABDOMEN: Soft. EXTREMITIES: Show no significant edema. DIAGNOSTIC STUDIES: White blood cell count is 10.5, hemoglobin is 11.2, hematocrit 36.3, platelet count 284,000. Differential white cell count shows 87% neutrophils. The electrolytes are sodium 138, potassium 3.7, chloride 101, CO2 of 31, BUN 21, creatinine 0.88, glucose 177 range 135 to 188. His calcium is 8.2, but the albumin is 1.5. Phosphorus is 2.3. Ferritin is up at 2348 from 1432. His AST is up slightly at 97, ALT is 69, alkaline phosphatase 151, and the LDH is down at 603. The C-reactive protein is down slightly at 24.3. Procalcitonin is elevated at 3.4. Arterial blood gases showed a pH of 7.45, pCO2 of 42, pO2 of 88. This is on a pressure control mode of ventilation rate of 26, peak 22/PEEP of 8, FiO2 of 1.0. DIAGNOSTIC IMAGING: Reviewed. Chest x-ray shows tubes and lines to be in good position. There are diffuse bilateral infiltrates a little change from yesterday with perhaps some improvement in aeration. MEDICATION REVIEW: This is day #4 of meropenem. He is receiving an IV at 60/hour of D5 with 3 amp of bicarb. Sedation with propofol. Pain control with morphine. Paralysis with vecuronium. Nebulized Albuterol four times daily, Protonix 40 mg daily, Lovenox 100 mg q. 12 hours, baricitinib 4 mg daily, Crestor 20 mg a day, Levemir 4 units daily, aspirin 81 mg a day, Tylenol as needed for fever. MICROBIOLOGY: No new studies are available. Sputum has been sent. ASSESSMENT AND PLAN: 1. The primary problem requiring critical attention is acute respiratory distress syndrome (ARDS) secondary to COVID pneumonia. This is day #2 of mechanical ventilation. His gas exchange is somewhat improved. I will try an increase in positive end-expiratory pressure (PEEP) and recheck arterial blood gases. With lung protection settings, his pCO2 has improved. I will consider stopping the intravenous (IV) bicarbonate. 2. Infectious disease. This is day #4 of meropenem. The patient remains quite febrile. I will recheck blood cultures and sputum cultures have been sent. He is on day #6 of 14 of baricitinib and has received remdesivir earlier in the course of his illness. 3. Shock. The patient required Levophed earlier, but this has been weaned off. His central venous pressure (CVP) is now 7. We will continue with low intravascular volume strategy in light of the ARDS, while attempting to remain away from pressors if possible. 4. Procoagulant state of COVID infection. The patient is on full dose Lovenox. 5. Nutritional support. The patient is tolerating tube feedings at 30 mL/hour. We will advance to 60 mL/hour. 6. Glycemic control is acceptable at this point with long-acting and short-acting insulin on an as-needed basis. 7. Deep vein thrombosis (DVT) and ulcer prophylaxis are in place. I have discussed the patient's status and current therapies with the attending hospitalist service. I have updated the intensive care unit (ICU) team on the plans of care for the day. We will be targeting 16 hours of prone posturing, as he appears to improve his gas exchange significantly in this position. His condition remains critical. Prognosis is guarded. CRITICAL CARE TIME: 87 minutes spent in the provision of bedside critical care and coordination; excluding any time for the performance of procedures. AFTAB
[2020-11-27] MEDS ORDERED: FLUCONAZOLE 200 MG in IV 1 EA IV ONE (16:00)
[2020-11-27] MEDS: MORPHINE SULF IN 0.9% NACL 100 MG in IV 1 EA IV SCH ×2 (17:02)
[2020-11-27] MEDS: VECURONIUM BROMIDE 50 MG in D5W 50 ML IV SCH (17:07)
[2020-11-27] MEDS: PANTOPRAZOLE 40MG VIAL (C9113 PER 1) IV SCH (17:08)
[2020-11-28] VITALS (23 sets, daily range): BP systolic 101–183; BP diastolic 55–96
[2020-11-28] MEDS: HumaLOG INSULIN (NovoLOG) PER UNIT SC SCH ×5 (00:50→23:34)
[2020-11-28] MEDS: propofoL 1,000 MG in IV 1 EA IV SCH ×5 (00:50→19:43)
[2020-11-28] MEDS: MEROPENEM INJ 1 GM in IV 1 EA IV SCH ×3 (03:33→19:44)
[2020-11-28 03:48] LABS: ABG BASE EXCESS 3.8 (-2.0-2.0); ABG HCO3 31.7 MEQ/L (22.0-26.0); ABG O2 SATURATION 86.3 % (95.0-99.0); ABG PARTIAL PRESSURE O2 54.7 mmHg (75.0-100.0); ABG STANDARD HCO3 27.6 MEQ/L (22.0-26.0); ABG TOTAL CO2 33.7 MEQ/L (23.0-31.0); ABG pH (ARTERIAL) 7.311 UNITS (7.350-7.450)
[2020-11-28 03:52] LABS: ABG PARTIAL PRESSURE CO2 64.3 mmHg (35.0-45.0)
[2020-11-28 04:24] LABS: BASO % 0.2 % (0.0-1.0); EOS # 0.2 10^3/uL (0.0-0.5); EOS % 1.7 % (0.0-3.0); HEMATOCRIT 40.1 % (42.0-52.0); HEMOGLOBIN 11.9 g/dl (13.5-17.5); LYMPH # 1.2 10^3/uL (1.5-5.0); LYMPH % 10.5 % (24.0-44.0); MEAN CORPUSCULAR HEMOGLOBIN 27.9 pg (27.0-33.0); MEAN CORPUSCULAR HGB CONC 29.7 g/dl (32.0-36.5); MEAN CORPUSCULAR VOLUME 93.9 fl (80.0-96.0); MONO # 0.4 10^3/uL (0.0-0.8); MONO % 3.2 % (0.0-5.0); NEUTROPHILS # 9.6 10^3/uL (1.5-8.5); NEUTROPHILS % 83.9 % (36.0-66.0); PLATELET COUNT, AUTOMATED 317 10^3/uL (150-450); RED BLOOD COUNT 4.27 10^6/uL (4.30-6.10); WHITE BLOOD COUNT 11.4 10^3/uL (4.0-10.0)
[2020-11-28] MEDS ORDERED: methylPREDNISolone 125MG 2ML VIAL IV ONE (04:30)
[2020-11-28 04:57] LABS: INR 1.01; PROTHROMBIN TIME 13.5 SECONDS (12.5-14.3)
[2020-11-28 04:58] LABS: PARTIAL THROMBOPLASTIN TIME 38.5 SECONDS (24.2-38.5)
[2020-11-28] MEDS: ACETAMINOPHEN TAB 650MG DOSE (2X325MG) PO PRN (05:02)
[2020-11-28 05:03] LABS: ALBUMIN 1.4 GM/DL (3.2-5.2); ALT/SGPT 52 U/L (12-78); BILIRUBIN,TOTAL 0.2 MG/DL (0.2-1.0); BLOOD UREA NITROGEN 17 MG/DL (7-18); CALCIUM LEVEL 8.1 MG/DL (8.8-10.2); CARBON DIOXIDE LEVEL 33 MEQ/L (21-32); CHLORIDE LEVEL 102 MEQ/L (98-107); CHOLESTEROL LEVEL 66 MG/DL (< 200); CPK CREATINE PHOSPHOKINASE 354 U/L (39-308); CREATININE FOR GFR 0.79 MG/DL (0.70-1.30); FERRITIN 1992 NG/ML (26-388); FIBRINOGEN 1157 MG/DL (221-452); GLOMERULAR FILTRATION RATE > 60.0 (>49); GLUCOSE, FASTING 186 MG/DL (70-100); LDH LACTATE DEHYDROGENASE 505 U/L (87-241); NT-PRO BNP 136 PG/ML (<125); PHOSPHORUS LEVEL 2.7 MG/DL (2.5-4.9); POTASSIUM SERUM 3.8 MEQ/L (3.5-5.1); SODIUM LEVEL 138 MEQ/L (136-145); TRIGLYCERIDES LEVEL 170 MG/DL (<150)
[2020-11-28 05:26] LABS: D-DIMER QUANT > 4000 ng/ml (<500)
[2020-11-28] MEDS: SODIUM BICARBONATE 150 MEQ in D5W 1,000 ML IV SCH ×2 (05:29→22:08)
[2020-11-28] MEDS: IPRATROPIUM 0.5MG/ALBUTEROL 2.5MG INH SOL UD 3ML (DUONEB) NEB SCH ×4 (07:48→19:42)
[2020-11-28] MEDS: VECURONIUM BROMIDE 50 MG in D5W 50 ML IV SCH (07:54)
[2020-11-28] MEDS: ENOXAPARIN 100MG/1ML SYRINGE (J1650 PER 10MG) SC SCH ×2 (07:55→20:04)
[2020-11-28] MEDS: LEVEMIR (INSULIN DETEMIR) 1 UNITS/0.01ML SC SCH (07:56)
[2020-11-28] MEDS: CHLORHEXIDINE GLUCONATE 0.12 % 15ML UDC (PERIDEX ORAL RINSE) MT SCH ×2 (07:56→20:04)
[2020-11-28] MEDS: ASPIRIN 81 MG ENTERIC TAB PO SCH (07:56)
[2020-11-28] MEDS: ROSUVASTATIN 10 MG TAB (CRESTOR) PO SCH (07:56)
[2020-11-28] MEDS: BARICITINIB 2MG TABLET (OLUMIANT) FOR EUA PO SCH (07:58)
--- NOTE | 2020-11-28 08:25 | REP ---
INDICATION: ett COMPARISON: 11/27/2020 TECHNIQUE: Portable AP view of the chest FINDINGS: Endotracheal tube and nasogastric tube are in stable satisfactory position. Right subclavian catheter with tip in the SVC. Diffuse bilateral infiltrates with air bronchograms are increased from prior examination. No obvious effusion or pneumothorax. IMPRESSION: 1. Lines and tubes in satisfactory position. 2. Increased bilateral infiltrates with air bronchograms. <Electronically signed by Ángel Oliver > 11/28/20 [id number]
[2020-11-28] MEDS: methylPREDNISolone 125MG 2ML VIAL IV SCH ×2 (12:11→20:04)
[2020-11-28] MEDS: MORPHINE SULF IN 0.9% NACL 100 MG in IV 1 EA IV SCH ×2 (12:11)
[2020-11-28 12:13] LABS: ABG BASE EXCESS 6.8 (-2.0-2.0); ABG HCO3 34.9 MEQ/L (22.0-26.0); ABG O2 SATURATION 90.6 % (95.0-99.0); ABG PARTIAL PRESSURE O2 61.8 mmHg (75.0-100.0); ABG STANDARD HCO3 30.5 MEQ/L (22.0-26.0); ABG pH (ARTERIAL) 7.324 UNITS (7.350-7.450)
[2020-11-28 12:14] LABS: ABG PARTIAL PRESSURE CO2 68.7 mmHg (35.0-45.0)
--- NOTE | 2020-11-28 12:51 | CCN ---
CRITICAL CARE NOTE DATE: 11/28/2020 SUBJECTIVE: The patient is seen in the intensive care unit intubated, mechanical ventilated, sedated, and paralyzed with vecuronium. This is hospital day #3, endotracheal tube day #3, right subclavian catheter day #3. Through the night, oxygen saturations fell prompting a ventilator change. Lung compliance is very poor. OBJECTIVE: VITAL SIGNS: His temperature is 99.9, T-max over the past 24 hours 100.8, pulse rate 111, respirations 26/26 delivered, blood pressure 134/80. INTAKE AND OUTPUT: For the past 24 hours 3245 in, 1325 out; since midnight 925 in, 325 out. GENERAL APPEARANCE: He is ill-appearing and edematous from prone posturing. The endotracheal tube is in good position as is the oropharynx gastric tube. NECK: Supple. No meningismus. HEART: Sounds are regular without appreciable murmur. LUNGS: Breath sounds diffusely diminished with tubular breath sounds now. CHEST: Symmetric. Minimal excursion with respiratory efforts. No spontaneous breathing over the mechanically ventilated breaths. ABDOMEN: Soft. There are bowel sounds in the right lower quadrant. EXTREMITIES: Cool. Pulses diminished, but palpable. DIAGNOSTIC STUDIES: His white cell count is up slightly at 11.4. Differential white cell count shows 83.9% neutrophils. Hemoglobin is up slight at 11.9, hematocrit 40.1, platelet count 317,000. Electrolytes are sodium 138, potassium 3.8, chloride 102, CO2 of 33. BUN is 17, creatinine 0.79, glucose 186. His calcium is 8.1, but albumin is 1.4. Phosphorus is 2.7. Ferritin is down at 1992. Bilirubin is 0.2, AST 61, ALT 52. The LDH is down at 505. CPK is 354. B-type natriuretic peptide this morning was normal at 136. Procalcitonin 1.79. Arterial blood gases at 3:30 this morning with a pH of 7.31, pCO2 of 64, and pO2 of 54. Repeat arterial blood gases just returned with a pH of 7.32, pCO2 of 68, and pO2 of 61. DIAGNOSTIC IMAGING: Chest x-ray shows increased density. MEDICATION REVIEW: This is day #5 of meropenem, day #2 of fluconazole, day #1 of IV Solu-Medrol 80 q. eight hours, and he continues on baricitinib. IV drips include vecuronium, propofol, morphine, and IV D5 with 3 amps of bicarb at 60 mL/hour. MICROBIOLOGY STUDIES: Sputum culture is showing yeast. ASSESSMENT AND PLAN: 1. The primary problem requiring critical attention is acute respiratory distress syndrome (ARDS). The patient is on maximal ventilator support with lung protective settings. Gas exchange is somewhat worse. Solu-Medrol was started earlier in the morning. 2. Respiratory acidosis as the result of permissive hypercapnea. We are countering this IV bicarbonate. Pending the results of the CVP, I may increase the rate of the bicarbonate drip. 3. Infectious disease. This is day #5 of meropenem, day #2 of fluconazole. White cell count is up slightly, but he has not had a fever for the past 24 hours, and sputum cultures are showing only yeast. 4. COVID pneumonia status post remdesivir and three days of dexamethasone. He continues on baricitinib. 5. Procoagulant state of COVID. The patient is on full dose Lovenox and D-dimer remains very elevated. 6. Nutritional support is being addressed with tube feedings. 7. Glycemic control is within acceptable range. 8. Deep vein thrombosis (DVT) and ulcer prophylaxis are being provided. I have updated the intensive care unit (ICU) team with regard to the care plans for the day. CRITICAL CARE TIME: 97 minutes spent in the provision of bedside critical care and coordination; excluding any time for the performance of procedures.
[2020-11-28] MEDS: FLUCONAZOLE 100 MG in IV 1 EA IV SCH (16:09)
[2020-11-28] MEDS: PANTOPRAZOLE 40MG VIAL (C9113 PER 1) IV SCH (16:10)
[2020-11-29] VITALS (27 sets, daily range): BP systolic 84–201; BP diastolic 55–93
[2020-11-29] MEDS ORDERED: PROPOFOL 1,000 MG/100 ML VIAL As Ordered ONE (00:55)
[2020-11-29] MEDS: VECURONIUM BROMIDE 50 MG in D5W 50 ML IV SCH ×2 (00:58→16:27)
[2020-11-29] MEDS: propofoL 1,000 MG in IV 1 EA IV SCH ×6 (00:59→22:08)
[2020-11-29] MEDS: methylPREDNISolone 125MG 2ML VIAL IV SCH ×3 (04:04→20:16)
[2020-11-29] MEDS: MEROPENEM INJ 1 GM in IV 1 EA IV SCH ×3 (04:04→20:15)
[2020-11-29 04:07] LABS: HEMATOCRIT 38.3 % (42.0-52.0); HEMOGLOBIN 11.1 g/dl (13.5-17.5); LYMPH # 0.4 10^3/uL (1.5-5.0); LYMPH % 7.5 % (24.0-44.0); MEAN CORPUSCULAR HEMOGLOBIN 27.5 pg (27.0-33.0); MEAN CORPUSCULAR VOLUME 94.8 fl (80.0-96.0); MONO # 0.2 10^3/uL (0.0-0.8); MONO % 2.7 % (0.0-5.0); NEUTROPHILS # 5.2 10^3/uL (1.5-8.5); NEUTROPHILS % 88.9 % (36.0-66.0); PLATELET COUNT, AUTOMATED 292 10^3/uL (150-450); RED BLOOD COUNT 4.04 10^6/uL (4.30-6.10); WHITE BLOOD COUNT 5.9 10^3/uL (4.0-10.0)
[2020-11-29 04:38] LABS: ALBUMIN 1.4 GM/DL (3.2-5.2); ALT/SGPT 43 U/L (12-78); BILIRUBIN,TOTAL 0.1 MG/DL (0.2-1.0); BLOOD UREA NITROGEN 17 MG/DL (7-18); CALCIUM LEVEL 8.5 MG/DL (8.8-10.2); CARBON DIOXIDE LEVEL 41 MEQ/L (21-32); CHLORIDE LEVEL 95 MEQ/L (98-107); CHOLESTEROL LEVEL 79 MG/DL (< 200); CPK CREATINE PHOSPHOKINASE 213 U/L (39-308); CREATININE FOR GFR 0.74 MG/DL (0.70-1.30); FERRITIN 1878 NG/ML (26-388); GLOMERULAR FILTRATION RATE > 60.0 (>49); GLUCOSE, FASTING 289 MG/DL (70-100); LDH LACTATE DEHYDROGENASE 407 U/L (87-241); PHOSPHORUS LEVEL 2.3 MG/DL (2.5-4.9); POTASSIUM SERUM 4.6 MEQ/L (3.5-5.1); SODIUM LEVEL 138 MEQ/L (136-145); TOTAL PROTEIN 7.1 GM/DL (6.4-8.2); TRIGLYCERIDES LEVEL 193 MG/DL (<150)
[2020-11-29 05:01] LABS: ABG BASE EXCESS 10.9 (-2.0-2.0); ABG HCO3 39.3 MEQ/L (22.0-26.0); ABG O2 SATURATION 92.4 % (95.0-99.0); ABG PARTIAL PRESSURE O2 64.1 mmHg (75.0-100.0); ABG STANDARD HCO3 34.5 MEQ/L (22.0-26.0); ABG TOTAL CO2 41.6 MEQ/L (23.0-31.0); ABG pH (ARTERIAL) 7.347 UNITS (7.350-7.450)
[2020-11-29 05:05] LABS: ABG PARTIAL PRESSURE CO2 73.4 mmHg (35.0-45.0)
[2020-11-29] MEDS: HumaLOG INSULIN (NovoLOG) PER UNIT SC SCH ×3 (05:10→17:45)
--- NOTE | 2020-11-29 08:01 | REP ---
INDICATION: ett COMPARISON: 11/28/2020 TECHNIQUE: Portable AP view of the chest FINDINGS: Endotracheal tube 4.5 cm above the georgi. Right subclavian catheter with tip in the SVC. Nasogastric tube extends below left hemidiaphragm. Mediastinum and cardiac silhouette stable. Lung mcallister demonstrate visibly improved aeration but with continued diffuse bilateral infiltrates. No obvious effusion. No pneumothorax. IMPRESSION: 1. Lines and tubes in satisfactory stable position. 2. Improved aeration, but continued diffuse bilateral infiltrates. <Electronically signed by Ángel Oliver > 11/29/20 0750
[2020-11-29] MEDS: IPRATROPIUM 0.5MG/ALBUTEROL 2.5MG INH SOL UD 3ML (DUONEB) NEB SCH ×4 (08:21→20:47)
[2020-11-29] MEDS: CHLORHEXIDINE GLUCONATE 0.12 % 15ML UDC (PERIDEX ORAL RINSE) MT SCH ×2 (08:54→20:15)
[2020-11-29] MEDS: BARICITINIB 2MG TABLET (OLUMIANT) FOR EUA PO SCH (08:55)
[2020-11-29] MEDS: ENOXAPARIN 100MG/1ML SYRINGE (J1650 PER 10MG) SC SCH ×2 (08:55→20:15)
[2020-11-29] MEDS: LEVEMIR (INSULIN DETEMIR) 1 UNITS/0.01ML SC SCH (08:55)
[2020-11-29] MEDS: METOCLOPRAMIDE INJ 10MG/2ML VIAL (J2765 PER 1) IV SCH ×3 (12:36→23:59)
[2020-11-29] MEDS: ROSUVASTATIN 10 MG TAB (CRESTOR) PO SCH (12:38)
[2020-11-29] MEDS: MORPHINE SULF IN 0.9% NACL 100 MG in IV 1 EA IV SCH ×2 (13:07)
[2020-11-29] MEDS: SODIUM BICARBONATE 150 MEQ in D5W 1,000 ML IV SCH (13:11)
--- NOTE | 2020-11-29 15:49 | CCN ---
CRITICAL CARE NOTE DATE: 11/29/2020 START TIME: 1320 STOP TIME: 1400 I attended Ko Mary here in the intensive care unit. Patient has been examined, chart reviewed. I spoke at length with the nurse at the bedside. I spoke also at length with the primary service. At this point, he remains on proning protocol, at least 16 hours a day. Maximum temperature overnight 97.7, blood pressure 84-150s on varying doses of Levophed. Heart rate 60s to the low 100s with a sinus mechanism. Intake and output midnight to midnight 3669 mL in with 1660 mL out. White blood cell count 5.9 with a hemoglobin 11.1, platelet count 219,000, 88.9 percent segs. No bands. Sodium 138, potassium 4.6, chloride 95, CO2 of 41, BUN 17, creatinine 0.74, glucose 289. Ferritin only minimally diminished from yesterday at 1878. Procalcitonin remains elevated at 1.17. D-dimer down from yesterday, now at 3797. No new imaging today. No new culture data. Medications list has been reviewed. He remains on sliding-scale insulin, barictinib, Lovenox, dose adjusted for weight, meropenem, Protonix, morphine, Norcuron drip, as well as propofol, Diflucan, sodium bicarbonate, and steroids in the form of Solu-Medrol with underlying Reglan. On exam he is ill appearing. Current he is prone. He is globally edematous. Pupils not able to be seen due to his positioning. Posteriorly chest has symmetric expansion. Lung mcallister are clear. Cardiac exam is heard in the distance and is regular. Abdomen unable to be examined due to his prone posturing. Extremities without diffuse edema. No cyanosis or clubbing. Neurologically, he is sedated and paralyzed. The most pressing problems requiring my presence at bedside: 1. COVID pneumonia with profound respiratory failure. 2. Hypoxemic respiratory failure on the basis of above. 3. Diabetes mellitus. His most recent blood gas shows a pH 7.347, pCO2 of 73.4, and a pO2 of 64. Ventilator manipulations were made by myself to give him a little bit more in the way of minute volume without affecting peak airway pressures. He remains on maximal therapy for his underlying COVID as well as underlying microbials in view of his recent fever and his elevated procalcitonin. We have been having daily conversations with his , and I will call her here shortly. We do attempt to convey his level of critical illness and the very high likelihood that he will not survive this event. We will continue as outlined above. For now he remains a full code unless we hear otherwise from the family. He was tolerating tube feeds with only intermittent high residuals. At this point, we will proceed as outlined above. He remains on full-dose anticoagulation as well as ulcer prophylaxis. He showed a little bit of improvement as far as his inflammatory parameters, and we will continue our current plan. I left the bedside at 1400 hours. Forty minutes of critical care at the bedside, not including procedures.
[2020-11-29] MEDS: ACETAMINOPHEN TAB 650MG DOSE (2X325MG) PO PRN ×2 (16:21→21:11)
[2020-11-29] MEDS: PANTOPRAZOLE 40MG VIAL (C9113 PER 1) IV SCH (16:22)
[2020-11-29] MEDS: FLUCONAZOLE 100 MG in IV 1 EA IV SCH (16:22)
[2020-11-29] MEDS: ASPIRIN 81 MG CHEW TABLET PEG SCH (16:23)
[2020-11-29] MEDS ORDERED: MIDAZOLAM INJ 2MG/2ML VIAL (J2250 PER 1MG) As Ordered ONE (21:49)
[2020-11-29] MEDS: MIDAZOLAM INJ 2MG/2ML VIAL (J2250 PER 1MG) IV PRN (21:51)
[2020-11-29] MEDS ORDERED: SUCCINYLCHOLINE INJ 200 MG/10 ML VIAL (J0330) As Ordered ONE (22:00)
[2020-11-29] MEDS ORDERED: ROCURONIUM BROMIDE 50 MG/5 ML VIAL As Ordered ONE (22:00)
[2020-11-30] VITALS (35 sets, daily range): BP systolic 93–195; BP diastolic 53–95
[2020-11-30] MEDS: HumaLOG INSULIN (NovoLOG) PER UNIT SC SCH ×5 (00:02→23:55)
[2020-11-30] MEDS: SODIUM BICARBONATE 150 MEQ in D5W 1,000 ML IV SCH ×4 (01:52→06:07)
[2020-11-30] MEDS: propofoL 1,000 MG in IV 1 EA IV SCH ×4 (02:54→19:20)
[2020-11-30] MEDS: MEROPENEM INJ 1 GM in IV 1 EA IV SCH ×3 (04:19→19:02)
[2020-11-30] MEDS: methylPREDNISolone 125MG 2ML VIAL IV SCH ×3 (04:20→19:53)
[2020-11-30] MEDS: METOCLOPRAMIDE INJ 10MG/2ML VIAL (J2765 PER 1) IV SCH ×4 (05:19→23:47)
[2020-11-30] MEDS: VECURONIUM BROMIDE 50 MG in D5W 50 ML IV SCH ×2 (05:20→18:50)
[2020-11-30 05:37] LABS: HEMATOCRIT 33.1 % (42.0-52.0); HEMOGLOBIN 9.9 g/dl (13.5-17.5); MEAN CORPUSCULAR HEMOGLOBIN 27.7 pg (27.0-33.0); MEAN CORPUSCULAR HGB CONC 29.9 g/dl (32.0-36.5); MEAN CORPUSCULAR VOLUME 92.5 fl (80.0-96.0); PLATELET COUNT, AUTOMATED 291 10^3/uL (150-450); RED BLOOD COUNT 3.58 10^6/uL (4.30-6.10); WHITE BLOOD COUNT 6.6 10^3/uL (4.0-10.0)
[2020-11-30 05:50] LABS: ABG BASE EXCESS 15.5 (-2.0-2.0); ABG HCO3 39.5 MEQ/L (22.0-26.0); ABG O2 SATURATION 95.8 % (95.0-99.0); ABG PARTIAL PRESSURE CO2 45.4 mmHg (35.0-45.0); ABG PARTIAL PRESSURE O2 67.7 mmHg (75.0-100.0); ABG STANDARD HCO3 39.3 MEQ/L (22.0-26.0); ABG TOTAL CO2 40.9 MEQ/L (23.0-31.0); ABG pH (ARTERIAL) 7.557 UNITS (7.350-7.450)
[2020-11-30 06:31] LABS: ALBUMIN 1.4 GM/DL (3.2-5.2); ALT/SGPT 40 U/L (12-78); BILIRUBIN,TOTAL 0.1 MG/DL (0.2-1.0); BLOOD UREA NITROGEN 26 MG/DL (7-18); CALCIUM LEVEL 7.7 MG/DL (8.8-10.2); CARBON DIOXIDE LEVEL 42 MEQ/L (21-32); CHLORIDE LEVEL 93 MEQ/L (98-107); CREATININE FOR GFR 0.84 MG/DL (0.70-1.30); GLOMERULAR FILTRATION RATE > 60.0 (>49); GLUCOSE, FASTING 313 MG/DL (70-100); POTASSIUM SERUM 4.7 MEQ/L (3.5-5.1); SODIUM LEVEL 138 MEQ/L (136-145); TOTAL PROTEIN 5.2 GM/DL (6.4-8.2)
[2020-11-30] MEDS: IPRATROPIUM 0.5MG/ALBUTEROL 2.5MG INH SOL UD 3ML (DUONEB) NEB SCH ×4 (07:28→20:27)
[2020-11-30] MEDS ORDERED: PROPOFOL 1,000 MG/100 ML VIAL As Ordered ONE (08:00)
[2020-11-30] MEDS: ENOXAPARIN 100MG/1ML SYRINGE (J1650 PER 10MG) SC SCH ×2 (08:25→19:53)
[2020-11-30] MEDS: ROSUVASTATIN 10 MG TAB (CRESTOR) PO SCH (08:25)
[2020-11-30] MEDS: LEVEMIR (INSULIN DETEMIR) 1 UNITS/0.01ML SC SCH (08:25)
[2020-11-30] MEDS: ASPIRIN 81 MG CHEW TABLET PEG SCH (08:26)
[2020-11-30] MEDS: BARICITINIB 2MG TABLET (OLUMIANT) FOR EUA PO SCH (08:26)
[2020-11-30] MEDS: CHLORHEXIDINE GLUCONATE 0.12 % 15ML UDC (PERIDEX ORAL RINSE) MT SCH ×2 (08:26→19:53)
[2020-11-30] MEDS ORDERED: propofoL 200 MG/20 ML VIAL IV ONE (09:30)
--- NOTE | 2020-11-30 10:00 | REP ---
INDICATION: tube placement. COMPARISON: 11/30/2020, 7:11 a.m.. TECHNIQUE: SINGLE PORTABLE AP VIEW OF THE CHEST WAS PERFORMED. FINDINGS: The endotracheal tube appears to be advanced to the level of the clavicles, the tip is approximately 4.7 cm above the georgi. A right central venous catheter is seen with tip at the junction of the superior vena cava and right atrium. A nasogastric tube is seen traversing into the stomach, the side port is likely just distal to the gastroesophageal junction. Diffuse bilateral infiltrates are unchanged. IMPRESSION: And tracheal tube tip 4.7 cm above the georgi. Nasogastric tube traverses into the stomach, the side port appears to be just distal to the gastroesophageal junction. <Electronically signed by Gregory Schneider > 11/30/20 0956
--- NOTE | 2020-11-30 10:22 | REP ---
INDICATION: ett. COMPARISON: 11/29/2020. TECHNIQUE: SINGLE PORTABLE AP VIEW OF THE CHEST WAS PERFORMED. FINDINGS: Diffuse bilateral infiltrates are unchanged. Cardiomediastinal silhouette is grossly unchanged. Right central venous catheter is seen with the tip at the junction of the superior vena cava and right atrium. Endotracheal tube tip is 9.8 cm above the georgi. Nasogastric tube side port is just distal to the gastroesophageal junction. IMPRESSION: Essentially stable exam. <Electronically signed by Gregory Schneider > 11/30/20 1018
[2020-11-30] MEDS: D5W/0.45% SODIUM CHLORIDE 1,000 ML IV SCH ×2 (11:47→19:19)
[2020-11-30] MEDS: MORPHINE SULF IN 0.9% NACL 100 MG in IV 1 EA IV SCH ×2 (12:29)
[2020-11-30 12:35] LABS: ABG BASE EXCESS 13.3 (-2.0-2.0); ABG HCO3 35.8 MEQ/L (22.0-26.0); ABG O2 SATURATION 99.4 % (95.0-99.0); ABG PARTIAL PRESSURE CO2 37.5 mmHg (35.0-45.0); ABG PARTIAL PRESSURE O2 139.3 mmHg (75.0-100.0); ABG STANDARD HCO3 37.1 MEQ/L (22.0-26.0); ABG pH (ARTERIAL) 7.598 UNITS (7.350-7.450)
--- NOTE | 2020-11-30 13:22 | CCN ---
CRITICAL CARE NOTE DATE: 11/30/2020 START TIME: 1035 STOP TIME: 1112 I again attended Ko Mary here in the intensive care unit. Patient has been examined, chart reviewed. Chest x-ray this morning showed the endotracheal tube to be quite high. Tube was changed by anesthesia over a bougie. Maximum temperature overnight 97.3, blood pressure 97/120s, heart rate 50s to the 80s with a sinus mechanism, respiratory rate 28 via the ventilator. Intake and output midnight to midnight 4209 mL in with 1540 mL out. White blood cell count 6.6, hemoglobin 9.9, platelet count 291,000. Sodium 138, potassium 4.7, chloride 93, CO2 of 42, BUN 26, creatinine 0.84, calcium 7.7. Ferritin pending today. Albumin 1.4. No new D-dimer today. Arterial blood gas done on a pressure control mode of 28 for a rate: Minute volume in and around 10.5 liters. Has a pH of 7.557, pCO2 of 54.4, paO2 of 67.7, saturation 95.8%. Chest x-ray done post tube change shows the tubes to be in good position. No other acute findings. On exam, he is supine at the moment. Pupils do react. He is edematous. Trachea is in the midline. Lungs are fairly clear anteriorly. Expansion, although diminished, is symmetric. Cardiac exam is regular. Peripheral pulses diminished but palpable. He has diffuse edema. Abdomen is soft. There are faint bowel sounds. Neurologically, he is sedated and paralyzed. No new culture results other than the ones from the 2nd from his sputum, which had some yeast-like organisms. CURRENT MEDICATIONS: His insulin, the Olumiant, Lovenox, meropenem, his morphine vecuronium, propofol. He is on intravenous (IV) steroids. He is also on IV Diflucan. He is on a supplemental bicarbonate drip, and this will be discontinued in view of his current blood gas. The most pressing problems requiring my presence at the bedside: 1. Respiratory failure on the basis of COVID pneumonia. 2. Diabetes mellitus. At this point, he remains on maximal therapy for his COVID pneumonia. We will repeat his inflammatory parameters tomorrow. Given the fact that we have made some progress with his pCO2, I will discontinue his bicarbonate drip started by a different provider. We will continue to assure adequate volume resuscitation. At this point, overall he remains quite critically ill. We will proceed as outline above. I will check a blood gas later today. For now, I would continue his current antimicrobials. I will continue his steroids as well as his Diflucan. At this point, we will proceed as outlined above. I left the bedside at 1112 hours. Thirty-seven minutes of critical care time delivered at the bedside, not including procedures
[2020-11-30] MEDS: MIDAZOLAM INJ 2MG/2ML VIAL (J2250 PER 1MG) IV PRN ×2 (14:51→20:36)
[2020-11-30 16:13] LABS: ABG BASE EXCESS 14.3 (-2.0-2.0); ABG HCO3 41.5 MEQ/L (22.0-26.0); ABG O2 SATURATION 95.5 % (95.0-99.0); ABG PARTIAL PRESSURE CO2 64.7 mmHg (35.0-45.0); ABG PARTIAL PRESSURE O2 77.3 mmHg (75.0-100.0); ABG STANDARD HCO3 38.1 MEQ/L (22.0-26.0); ABG TOTAL CO2 43.5 MEQ/L (23.0-31.0); ABG pH (ARTERIAL) 7.425 UNITS (7.350-7.450)
[2020-11-30 16:50] LABS: MAGNESIUM LEVEL 2.8 MG/DL (1.8-2.4)
[2020-11-30] MEDS: PANTOPRAZOLE 40MG VIAL (C9113 PER 1) IV SCH (17:08)
[2020-11-30] MEDS: FLUCONAZOLE 100 MG in IV 1 EA IV SCH (17:08)
[2020-11-30] MEDS: LACRILUBE (AKWA TEARS) OPHTH OINT 3.5 GM OU SCH ×2 (17:28→19:54)
--- NOTE | 2020-11-30 18:01 | IPNPDOC ---
Text Note Date of Service The patient was seen on 11/30/20. NOTE Subjective: Staff reached out to the hospitalist service at the advisement of Dr. Farnsworth because of concern for possible ventricular tachycardia and a sudden increase in the systolic blood pressure from about 118-187. During the possible beats of V. tach he was thought that is because the patient was prone so they were switched to supine positioning however the arrhythmia continued intermittently but eventually stopped. Her rhythm strips showed at best 3 beats of nonsustained V. tach. Also concern voiced about the possibility patient had suffered a stroke in light of the sudden increase in blood pressure. Objective: General: Sedated and grossly anasarcic-appearing male HEENT: NC, AT. 2 mm pupils are equal round and reactive to light. No scleral icterus. ET tube in place. Neck: No lymphadenopathy or JVD CV: RRR, Normal S1 and S2. No murmurs, gallops, or rubs. Resp: Diminished breath sounds throughout. Abdomen: Bowel sounds present. Soft, NT, ND. Extremities: 3 mm pitting edema extending up to the proximal lower extremities bilaterally Neurologic: Paralyzed, pupils 2mm and reactive. Assessment: Patient is a 70-year-old male with a history of CAD status post CABG, type 2 diabetes, and obesity who was diagnosed with Covid on 11/10 and presented to the emergency department with shortness of breath on 11/18 and initiated on Covid medications and has had a stepwise progressively worsening respiratory status since his admission going from nasal cannula to Vapotherm to CPAP to BiPAP and has now been intubated since 11/26/20 following a discussion where he chose to be intubated. Plan: #. Acute hypoxemic respiratory failure secondary to Covid 19 pneumonia com plicated by ARDS - COVID positive on 11/10 - unable to maintain O2 saturation on BIPAP, noted fatigue - Patient gave consent to be intubated the morning of his intubation on 11/26 - Inflammatory markers elevated, but mildly downtrending - MRSA screen negative - c/w Baricitinib (Day #9); s/p Remdesivir (5 day course) - c/w Meropenem (Day #7), fluconazole (Day #3); s/p Ceftriaxone and Azithromycin (Complected 8 days); - c/w full anticoagulation with Lovenox - c/ w Incentive spirometry / Acapella / Mucinex/duonebs QID - Pulmonology consulted, input is greatly appreciated #. High blood pressure Dr. Farnsworth ordered D5/0.5 NS at 125 mL/HR to improve patient's intravascular volume status as the blood pressure had been trending down prior to this and the patient has had relatively low urine output despite being +10 L for his admission It is unlikely that this elevated blood pressure represented a ischemic stroke as the patient has been receiving therapeutic Lovenox, regardless there is little we can actually do in the event that it was given that we cannot assess his neurologic status and would be unable to tell if his neurologic status improved. For the time being we will continue to monitor. While hemorrhagic strokes are a possible complication with Covid pneumonia the patient's primary problem is his ARDS currently and the patient is again too unstable to go down for a CT scan, moreover this would only change his prognosis and there would be little we could actually do to fix this issue other than holding the Lovenox. However he is at greater risk for an ischemic stroke, PE, DVT given that the benefits of continuing the therapeutic Lovenox outweigh the risks we will continue with the current treatment plan. #. Arrhythmia EKG was unremarkable and rhythm strip showed possible nonsustained ventricular tachycardia, mag mildly elevated, phos mildly low. In the event these continue, the tip of the subclavian central line extends into the right atrium and could be causing the arrhythmia, may consider withdrawing 1-2 cm. 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 Dottie Mary is available at [phone] VS,Alberto, I+O VS, Alberto, I+O Laboratory Tests 11/30/20 05:31 Vital Signs Date Time Temp Pulse Resp B/P (MAP) Pulse Ox O2 Delivery O2 Flow Rate FiO2 11/30/20 16:34 82 28 93 100 11/30/20 15:00 158/80 (106) Ventilator 11/30/20 12:00 97.7 11/26/20 09:15 10.0 I&O- Last 24 Hours up to 6 AM 11/30/20 06:00 Intake Total 4387.6 ml Output Total 1800 ml Balance 2587.6 ml GME ATTESTATION GME ATTESTATION My faculty preceptor for this patient encounter was physically present during the encounter and was fully available. All aspects of the patient interview, examination, medical decision making process, and medical care plan development were reviewed and approved by the faculty preceptor. The faculty preceptor is aware and concurs with the plan as stated in the body of this note and will attest to such by his/her cosignature. ATTENDING NOTE I have seen and examined the patient. I agree with the findings and plan of care as documented in the residents note. Cardiac arrhythmias most likely due to sedation and paralysis mismatch or positional due to displacement of Et tube in prone position to touch the georgi. No elctrolyte abnormality. Arrhythmias resolved on putting back the patietn to supine position an decreasing the sedation. will get an echo. MEOLDY CABRERA DO Nov 30, 2020 18:01 ALFONSO URIBE MD Dec 03, 2020 23:03
--- NOTE | 2020-11-30 18:33 | ECGEPIP ---
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
[2020-12-01] VITALS (29 sets, daily range): BP systolic 105–191; BP diastolic 56–91
[2020-12-01] MEDS: MIDAZOLAM INJ 2MG/2ML VIAL (J2250 PER 1MG) IV PRN ×4 (00:19→08:17)
[2020-12-01] MEDS: propofoL 1,000 MG in IV 1 EA IV SCH ×4 (00:19→09:15)
[2020-12-01] MEDS: methylPREDNISolone 125MG 2ML VIAL IV SCH ×3 (04:09→20:44)
[2020-12-01] MEDS: MEROPENEM INJ 1 GM in IV 1 EA IV SCH ×3 (04:09→19:22)
[2020-12-01] MEDS: VECURONIUM BROMIDE 50 MG in D5W 50 ML IV SCH ×2 (04:30→17:16)
[2020-12-01] MEDS: D5W/0.45% SODIUM CHLORIDE 1,000 ML IV SCH ×3 (04:30→19:23)
[2020-12-01] MEDS: METOCLOPRAMIDE INJ 10MG/2ML VIAL (J2765 PER 1) IV SCH (05:16)
[2020-12-01] MEDS: HumaLOG INSULIN (NovoLOG) PER UNIT SC SCH ×4 (05:24→23:14)
[2020-12-01 05:33] LABS: HEMATOCRIT 33.7 % (42.0-52.0); HEMOGLOBIN 9.9 g/dl (13.5-17.5); MEAN CORPUSCULAR HEMOGLOBIN 27.3 pg (27.0-33.0); MEAN CORPUSCULAR HGB CONC 29.4 g/dl (32.0-36.5); MEAN CORPUSCULAR VOLUME 93.1 fl (80.0-96.0); PLATELET COUNT, AUTOMATED 288 10^3/uL (150-450); RED BLOOD COUNT 3.62 10^6/uL (4.30-6.10); WHITE BLOOD COUNT 6.8 10^3/uL (4.0-10.0)
[2020-12-01 06:05] LABS: INR 1.01; PROTHROMBIN TIME 13.5 SECONDS (12.5-14.3)
[2020-12-01 06:08] LABS: D-DIMER QUANT 1932.28 ng/ml (<500)
[2020-12-01 06:23] LABS: ALBUMIN 1.5 GM/DL (3.2-5.2); ALT/SGPT 46 U/L (12-78); BILIRUBIN,TOTAL 0.1 MG/DL (0.2-1.0); BLOOD UREA NITROGEN 26 MG/DL (7-18); CALCIUM LEVEL 7.7 MG/DL (8.8-10.2); CARBON DIOXIDE LEVEL 42 MEQ/L (21-32); CHLORIDE LEVEL 96 MEQ/L (98-107); CREATININE FOR GFR 0.85 MG/DL (0.70-1.30); GLOMERULAR FILTRATION RATE > 60.0 (>49); GLUCOSE, FASTING 336 MG/DL (70-100); POTASSIUM SERUM 4.8 MEQ/L (3.5-5.1); SODIUM LEVEL 140 MEQ/L (136-145); TOTAL PROTEIN 5.1 GM/DL (6.4-8.2)
[2020-12-01 06:24] LABS: ABG BASE EXCESS 11.5 (-2.0-2.0); ABG HCO3 37.5 MEQ/L (22.0-26.0); ABG O2 SATURATION 97.4 % (95.0-99.0); ABG PARTIAL PRESSURE CO2 56.8 mmHg (35.0-45.0); ABG PARTIAL PRESSURE O2 94.8 mmHg (75.0-100.0); ABG STANDARD HCO3 35.2 MEQ/L (22.0-26.0); ABG TOTAL CO2 39.3 MEQ/L (23.0-31.0); ABG pH (ARTERIAL) 7.438 UNITS (7.350-7.450)
[2020-12-01] MEDS: IPRATROPIUM 0.5MG/ALBUTEROL 2.5MG INH SOL UD 3ML (DUONEB) NEB SCH ×4 (08:26→19:52)
[2020-12-01] MEDS: ENOXAPARIN 100MG/1ML SYRINGE (J1650 PER 10MG) SC SCH ×2 (08:34→20:44)
[2020-12-01] MEDS: ROSUVASTATIN 10 MG TAB (CRESTOR) PO SCH (08:35)
[2020-12-01] MEDS: CHLORHEXIDINE GLUCONATE 0.12 % 15ML UDC (PERIDEX ORAL RINSE) MT SCH ×2 (08:35→20:43)
[2020-12-01] MEDS: BARICITINIB 2MG TABLET (OLUMIANT) FOR EUA PO SCH (08:35)
[2020-12-01] MEDS: ASPIRIN 81 MG CHEW TABLET PEG SCH (08:35)
[2020-12-01] MEDS: LACRILUBE (AKWA TEARS) OPHTH OINT 3.5 GM OU SCH ×3 (08:40→20:44)
[2020-12-01] MEDS ORDERED: LEVEMIR (INSULIN DETEMIR) 1 UNITS/0.01ML SC SCH ×2 (09:00)
[2020-12-01] MEDS ORDERED: PROPOFOL 1,000 MG/100 ML VIAL As Ordered ONE (09:04)
--- NOTE | 2020-12-01 09:48 | REP ---
INDICATION: ett. COMPARISON: 11/30/2020. TECHNIQUE: SINGLE PORTABLE AP VIEW OF THE CHEST WAS PERFORMED. FINDINGS: Diffuse bilateral infiltrates are unchanged. Heart mediastinum are unchanged. Right central venous catheter is unchanged. Endotracheal tube tip is approximately 8 cm above the georgi, appearing more proximal than on the prior study. Nasogastric tube traverses into the stomach. IMPRESSION: Diffuse bilateral infiltrates unchanged. Endotracheal tube tip appears more proximal than on the prior study, approximately 8 cm above the georgi. <Electronically signed by Gregory Schneider > 12/01/20 0964
[2020-12-01] MEDS: propofoL 2,400 MG in IV 1 EA IV SCH ×2 (11:48→19:23)
[2020-12-01] MEDS: MORPHINE SULF IN 0.9% NACL 100 MG in IV 1 EA IV SCH ×2 (11:49)
--- NOTE | 2020-12-01 11:50 | ECGEPIP ---
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 Electronically Signed on 12-01-2020 11:49:49 EST by Skyler Marti
--- NOTE | 2020-12-01 13:36 | IPNPDOC ---
Subjective Date Seen The patient was seen on 12/01/20. Subjective Chief Complaint/HPI Patient having some ET tube leak this am. CXR showed ET tube higher than yesterday. RT adjusted the ET Tube balloon and fixing with improvement of leak. May be advanced 3 cm if recurs. Alkalosis better. Sugars > 300. Oxygen requirement down from 100% to 80%. Slight improvement in inflammatory markers. Mild anasarca as expected in ARDS. Objective Physical Examination General Exam: Positive: Other (sedated, paralyzed on vent) Eye Exam: Positive: PERRLA Neck Exam: Positive: Supple; Negative: JVD, thyromegaly Chest Exam: Positive: Diminished, Other (bilateral crackles) Heart Exam: Positive: Tachycardic, Regular Rhythm, Normal S1, Normal S2; Negative: Murmurs, Rubs Telemetry: Positive: PVCs, Other Telemetry: (NSVT) Abdomen Exam: Positive: Normal bowel sounds, Soft; Negative: Tenderness Extremity Exam: Positive: Edema, Normal pulses; Negative: Clubbing, Cyanosis Assessment /Plan Assessment Patient is a 70-year-old male with a history of CAD status post CABG, type 2 diabetes, and obesity who was diagnosed with Covid on 11/10 and presented to the emergency department with shortness of breath on 11/18 and initiated on Covid medications and has had a stepwise progressively worsening respiratory status since his admission going from nasal cannula to Vapotherm to CPAP to BiPAP and has now been intubated since 11/26/20 following a discussion where he chose to be intubated. #Acute hypoxemic respiratory failure secondary to Covid 19 pneumonia complicated by ARDS - Intubated, ventilated, sedated paralyzed. On morphine, propofol and vecuronium. - COVID positive on 11/10 - unable to maintain O2 saturation on BIPAP, noted fatigue - Patient gave consent to be intubated the morning of his intubation on 11/26 - Inflammatory markers elevated, but mildly downtrending - MRSA screen negative - c/w Baricitinib (Day #10); s/p Remdesivir (5 day course) - c/w Meropenem (Day #8), fluconazole (Day #4); s/p Ceftriaxone and Azithromycin (Complected 8 days); - c/w full anticoagulation with Lovenox - duonebs QID - Cont IVF Dex/ 0.45 NS @ 125 cc/ hour Cardiac Arrhythmias -Bigeminis, non sustained v tach -Electrolytes Ok. -Possibly due to proning with Et tube touching the Lorenza Vs sedation and paralytic agent mismatch -It did improve with supining the patient and increasing the sedation. - Echo ordered. Hypertension -intermittent episodes mostly during proning. -possibly due to paralytic and sedation mismatch. 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 Chronic CAD - c/w ASA 81, Metoprolol, Rosuvastatin BPH Obesity - BMI of 34 - Complicating care GI prophylaxis - c/w Protonix DVT prophylaxis - Lovenox 1 mg/kg q12h Disposition: - guarded prognosis - Patient's Mrs. Dottie Mary is available at [phone]. Spoke with her and she wanted him t be DNR but to continue with the ventilation and all other treatment. Plan/VTE VTE Prophylaxis Ordered?: Yes VS, I&O, 24H, Fishbone Vital Signs/I&O Vital Signs Date Time Temp Pulse Resp B/P (MAP) Pulse Ox O2 Delivery O2 Flow Rate FiO2 12/01/20 11:00 90 12/01/20 11:00 101 172/78 (109) 95 Ventilator 12/01/20 08:05 22 12/01/20 08:00 97.9 11/26/20 09:15 10.0 I&O- Last 24 Hours up to 6 AM 12/01/20 06:00 Intake Total 4500.18 ml Output Total 2420 ml Balance 2080.18 ml Laboratory Data 24H LABS Laboratory Tests 2 11/30/20 15:45: Blood Gas Bicarbonate Standard 38.1H, Arterial Blood pH 7.425, Arterial Blood Partial Pressure CO2 64.7*H, Arterial Blood Partial Pressure O2 77.3, Arterial Blood Total CO2 43.5H, Arterial Blood HCO3 41.5H, Arterial Blood Base Excess 14.3H, Arterial Blood Oxygen Saturation 95.5 11/30/20 17:15: Bedside Glucose (Misc Panel) 306H 11/30/20 23:51: Bedside Glucose (Misc Panel) 318H 12/01/20 05:15: Nucleated Red Blood Cells % (auto) 0.0, Prothrombin Time 13.5, Prothromb Time International Ratio 1.01, D-Dimer, Quantitative 1932.28H, Anion Gap 2L, Glomerular Filtration Rate > 60.0, Calcium Level 7.7L, Total Bilirubin 0.1L, Aspartate Amino Transf (AST/SGOT) 46H, Alanine Aminotransferase (ALT/SGPT) 46, Alkaline Phosphatase 120H, Total Protein 5.1L, Albumin 1.5L, Albumin/Globulin Ratio 0.4 12/01/20 05:21: Bedside Glucose (Misc Panel) 325H 12/01/20 06:10: Blood Gas Bicarbonate Standard 35.2H, Arterial Blood pH 7.438, Arterial Blood Partial Pressure CO2 56.8H, Arterial Blood Partial Pressure O2 94.8, Arterial Blood Total CO2 39.3H, Arterial Blood HCO3 37.5H, Arterial Blood Base Excess 11.5H, Arterial Blood Oxygen Saturation 97.4 12/01/20 08:30: Bedside Glucose (Misc Panel) 328H 12/01/20 11:41: Bedside Glucose (Misc Panel) 309H CBC/BMP Laboratory Tests 12/01/20 05:15 Microbiology Microbiology 11/27/20 Blood Culture - Preliminary, Resulted No Growth after 72 hours. All specime... 11/26/20 Gram Stain - Final, Complete 11/26/20 Sputum Culture - Final, Complete Yeast Like Org W/ Pseudomyceli ALFONSO URIBE MD Dec 01, 2020 13:36
[2020-12-01] MEDS: METOPROLOL TART 12.5 MG PER 1/2 TAB PO SCH ×2 (13:59→20:44)
[2020-12-01] MEDS: FLUCONAZOLE 100 MG in IV 1 EA IV SCH (16:00)
[2020-12-01] MEDS: PANTOPRAZOLE 40MG VIAL (C9113 PER 1) IV SCH (16:00)
[2020-12-02] VITALS (32 sets, daily range): BP systolic 88–198; BP diastolic 51–96
[2020-12-02] MEDS: MIDAZOLAM INJ 2MG/2ML VIAL (J2250 PER 1MG) IV PRN ×2 (01:03→18:51)
[2020-12-02] MEDS ORDERED: PROPOFOL 1,000 MG/100 ML VIAL As Ordered ONE (02:36)
[2020-12-02] MEDS: MEROPENEM INJ 1 GM in IV 1 EA IV SCH ×3 (03:42→19:52)
[2020-12-02] MEDS: propofoL 2,400 MG in IV 1 EA IV SCH ×4 (03:42→16:31)
[2020-12-02] MEDS: D5W/0.45% SODIUM CHLORIDE 1,000 ML IV SCH ×2 (03:43→11:30)
[2020-12-02 04:11] LABS: HEMATOCRIT 37.6 % (42.0-52.0); MEAN CORPUSCULAR HEMOGLOBIN 27.4 pg (27.0-33.0); MEAN CORPUSCULAR HGB CONC 29.3 g/dl (32.0-36.5); MEAN CORPUSCULAR VOLUME 93.8 fl (80.0-96.0); PLATELET COUNT, AUTOMATED 343 10^3/uL (150-450); RED BLOOD COUNT 4.01 10^6/uL (4.30-6.10); WHITE BLOOD COUNT 8.3 10^3/uL (4.0-10.0)
[2020-12-02] MEDS ORDERED: METOPROLOL 5 MG/5 ML VIAL IV STA (04:16)
[2020-12-02] MEDS: methylPREDNISolone 125MG 2ML VIAL IV SCH ×3 (04:24→19:53)
[2020-12-02] MEDS: VECURONIUM BROMIDE 50 MG in D5W 50 ML IV SCH ×2 (04:24→16:32)
[2020-12-02 05:05] LABS: ALBUMIN 1.8 GM/DL (3.2-5.2); ALT/SGPT 46 U/L (12-78); BILIRUBIN,TOTAL 0.2 MG/DL (0.2-1.0); BLOOD UREA NITROGEN 26 MG/DL (7-18); CALCIUM LEVEL 8.7 MG/DL (8.8-10.2); CARBON DIOXIDE LEVEL 40 MEQ/L (21-32); CHLORIDE LEVEL 98 MEQ/L (98-107); CREATININE FOR GFR 0.89 MG/DL (0.70-1.30); GLOMERULAR FILTRATION RATE > 60.0 (>49); GLUCOSE, FASTING 367 MG/DL (70-100); POTASSIUM SERUM 4.7 MEQ/L (3.5-5.1); SODIUM LEVEL 139 MEQ/L (136-145); TOTAL PROTEIN 6.5 GM/DL (6.4-8.2)
[2020-12-02] MEDS: HumaLOG INSULIN (NovoLOG) PER UNIT SC SCH ×4 (05:22→23:38)
[2020-12-02 06:14] LABS: ABG BASE EXCESS 10.9 (-2.0-2.0); ABG HCO3 38.9 MEQ/L (22.0-26.0); ABG O2 SATURATION 97.4 % (95.0-99.0); ABG PARTIAL PRESSURE O2 99.3 mmHg (75.0-100.0); ABG STANDARD HCO3 34.7 MEQ/L (22.0-26.0); ABG TOTAL CO2 41.1 MEQ/L (23.0-31.0); ABG pH (ARTERIAL) 7.361 UNITS (7.350-7.450)
[2020-12-02 06:16] LABS: ABG PARTIAL PRESSURE CO2 70.3 mmHg (35.0-45.0)
[2020-12-02] MEDS: IPRATROPIUM 0.5MG/ALBUTEROL 2.5MG INH SOL UD 3ML (DUONEB) NEB SCH ×4 (07:46→19:52)
--- NOTE | 2020-12-02 08:07 | REP ---
INDICATION: ett. COMPARISON: Comparison chest x-ray 01 December 2020 and 30 November 2020. TECHNIQUE: Portable upright AP chest radiograph. FINDINGS: Today's radiograph demonstrates the nasal gastric tube remains in place. The endotracheal tube is seen somewhat high in position just below the glottis. This should be advanced. A right subclavian line is again seen terminating in the expected location of the superior vena cava. Monitoring electrodes are seen. Extensive interstitial infiltrates are seen throughout the lung this pattern is not changed. Cardiomediastinal silhouette is unchanged... IMPRESSION: Lung mcallister unchanged. Endotracheal tube is high in position just below the glottis.. <Electronically signed by Eliecer Huntley > 12/02/20 0839
[2020-12-02] MEDS: CHLORHEXIDINE GLUCONATE 0.12 % 15ML UDC (PERIDEX ORAL RINSE) MT SCH ×2 (09:11→19:53)
[2020-12-02] MEDS: LEVEMIR (INSULIN DETEMIR) 1 UNITS/0.01ML SC SCH (09:12)
[2020-12-02] MEDS: ENOXAPARIN 100MG/1ML SYRINGE (J1650 PER 10MG) SC SCH ×2 (09:12→19:54)
[2020-12-02] MEDS: LACRILUBE (AKWA TEARS) OPHTH OINT 3.5 GM OU SCH ×3 (09:12→19:54)
[2020-12-02] MEDS: ROSUVASTATIN 10 MG TAB (CRESTOR) PO SCH (09:13)
[2020-12-02] MEDS: METOPROLOL TART 12.5 MG PER 1/2 TAB PO SCH ×2 (09:13→19:53)
--- NOTE | 2020-12-02 09:17 | CCN ---
CRITICAL CARE NOTE DATE: 12/01/2020 START TIME: 1100 hours. STOP TIME: 1141 hours. SUBJECTIVE: I again attended Ko Mary here in the intensive care unit. The patient has been examined and the chart reviewed. I spoke at length with the nurse at the bedside. OBJECTIVE: Maximum temperature (T-max) overnight 97.9, blood pressure in the low 100s systolic, high of 180s when agitated. Heart rate 60s to low 100s and had some significant ventricular ectopy yesterday. Respiratory rate is 22 via the ventilator. Intake and output midnight to midnight: 4192 mL in with 2290 mL out. LABORATORY DATA: Most recent laboratories: White blood cell count 6.8, hemoglobin 9.9, platelet count 288,000. Sodium 140, potassium 4.8, chloride 96, CO2 42, BUN 26, creatinine 0.85, glucose 336. Blood gas shows a pH of 7.438, pCO2 of 56.8, pO2 of 94.8 with a saturation 97.4%. This is on pressure control, rate of 22 minute volume between 8.5 and 9 liters with an FiO2 currently of 90%. Chest x-ray today shows no real overall significant change. D-dimer today down to 1932, down from 3797 two days ago. PHYSICAL EXAMINATION: He is sedate. Pupils still react. Sclerae clear. His edema is unchanged. CHEST: Shows diminished but symmetric expansion to percussion. tactile fremitus was palpable. CARDIAC EXAM: Borderline tachycardic. No ectopy at the moment. Peripheral pulses diminished but palpable. Edema is unchanged. ABDOMEN: Soft. Normoactive bowel sounds. No obvious organomegaly or masses. EXTREMITIES: Without cyanosis or clubbing. NEUROLOGIC: Intubated and sedated, mechanically ventilated. MOST PRESSING PROBLEMS REQUIRING MY PRESENCE AT THE BEDSIDE: 1. COVID pneumonia with respiratory failure. 2. Respiratory failure, chronic mechanical ventilatory support. 3. Intermittent ectopy. 4. DO NOT RESUSCITATE (DNR) status per family request. At this point, we will continue our current level of support. I have been able to make some ventilator changes and his oxygenation status is a little better, as are his minute volume requirements. His ventilatory markers are trending in the right direction. His ectopy is worrisome and I would agree with the changes in his code status, given his current situation. We will be in working on his FiO2. If we are able to get him below 60%, we can stop his paralytics. At this point, he remains quite critically ill. His prognosis still remains guarded at best. I left the bedside at 1141 hours, 41 minutes critical care time at the bedside, not including procedures. AFTAB
[2020-12-02] MEDS: ASPIRIN 81 MG CHEW TABLET PEG SCH (10:30)
[2020-12-02] MEDS: BARICITINIB 2MG TABLET (OLUMIANT) FOR EUA PO SCH (10:30)
[2020-12-02] MEDS: MORPHINE SULF IN 0.9% NACL 100 MG in IV 1 EA IV SCH ×2 (10:31)
--- NOTE | 2020-12-02 11:30 | CCN ---
CRITICAL CARE NOTE DATE: 12/02/2020 START TIME: 1015 STOP TIME: 1049 SUBJECTIVE: I again attended Ko Mary here in the intensive care unit. The patient has been examined, chart reviewed, and I spoke at length with the nurse at the bedside. He had some more ectopy last evening, which was treated with beta-blockers with good response. OBJECTIVE: VITAL SIGNS: T-max 98.4, blood pressure 90s to 100s, heart rate generally in the 70s to the 110 range. Respiratory rate via the ventilator. INTAKE AND OUTPUT: Lokwxtsg-fl-gdwtryas 5770 in with 2625 mL out. GENERAL APPEARANCE: He is sedate and fairly comfortable. HEENT: Pupils do react. Sclerae clear. His diffuse edema is unchanged. CHEST: Shows symmetric expansion with some inspiratory crackles, especially at the bases. No convincing egophony. CARDIAC: Currently borderline tachycardic, but regular. Peripheral pulses diminished, but palpable. Edema is unchanged. ABDOMEN: Soft. I do believe there are active bowel sounds. EXTREMITIES: No cyanosis or clubbing. NEUROLOGIC: He is sedate and paralyzed. LABORATORY DATA: White blood cell count 8.3, hemoglobin 11.0, platelet count 343,000. Sodium 139, K of 4.7, chloride 98, CO2 of 40, BUN 26, creatinine 0.89. Albumin 1.8. D-dimer and ferritin pending for today. Most recent arterial blood gas done on pressure control with pressure of 26, rate of 22, FiO2 of 70%, and PEEP of 8 has a pH of 7.361, pCO2 of 70.3, pO2 of 99. This morning again, his endotracheal tube is somewhat high with an intermittent cuff leak that I believe is fueling the above. No other significant change in his chest x-ray. IMPRESSION: Most pressing problems requiring my presence at the bedside: 1. Respiratory failure on the basis of COVID pneumonia. 2. COVID pneumonia. 3. Ectopy. 4. DO NOT RESUSCITATE (DNR) status. PLAN: At this point, I believe the change in his blood gas is on the bases of leak around his tube. It is again migrated and it is being repositioned. He was having significant difficulties with continued proning and therefore, this has been discontinued. I had spoken with Dr. Zepeda regarding him yesterday. At this point, we will continue his current medications. That list has been reviewed. He remains on weight adjusted Lovenox, as well as meropenem, and Diflucan. He has been receiving p.r.n. metoprolol. His inflammatory parameters were diminishing and we will recheck those today. I have been able to make some changes in his ventilatory support in a positive fashion, hopefully this will continue. Overall, his prognosis remains extremely guarded at best. I have been told by nursing that Dr. Zepeda [place] family [place] to keep them updated, as the nurses have been speaking with them. We will proceed as outlined above. His prognosis remains guarded at best. I left the bedside at 1049 hours. CRITICAL CARE TIME: 34 minutes of critical care delivered at the bedside not including procedures.
[2020-12-02] MEDS ORDERED: propofoL 1,000 MG in IV 1 EA IV SCH (13:15)
--- NOTE | 2020-12-02 14:40 | IPNPDOC ---
Text Note Date of Service The patient was seen on 12/02/20. NOTE SUBJECTIVE: Little change overnight. Inflammatory markers continue to improve. No edema noted. OBJECTIVE: General: Sedated, on vent HEENT: NC, AT. 2 mm pupils are equal round and reactive to light. No scleral icterus. ET tube in place. Neck: No lymphadenopathy or JVD CV: Tachycardic, regular rythmn, no murmurs. Resp: Diminished breath sounds throughout. Abdomen: Bowel sounds present. Soft, NT, ND. Extremities: Muscles normal bilaterally, no edema or peripheral cyanosis Neurologic: Paralyzed, pupils 2mm and reactive. ASSESSMENT/PLAN: Patient is a 70-year-old male with a history of CAD status post CABG, type 2 diabetes, and obesity who was diagnosed with Covid on 11/10 and presented to the emergency department with shortness of breath on 11/18 and initiated on Covid medications and has had a stepwise progressively worsening respiratory status since his admission going from nasal cannula to Vapotherm to CPAP to BiPAP and has now been intubated since 11/26/20. Patients prognosis continues to be be extremely guarded. #Acute hypoxemic respiratory failure secondary to Covid 19 pneumonia complicated by ARDS - Intubated, ventilated, sedated paralyzed. On morphine, propofol and vec uronium. - COVID positive on 11/10 - unable to maintain O2 saturation on BIPAP, noted fatigue, pt gave consent to be intubated on 11/26/20 - Inflammatory markers elevated, but mildly downtrending - MRSA screen negative - c/w Baricitinib (Day #11); s/p Remdesivir (5 day course) - c/w Meropenem (Day #9), fluconazole (Day #4) for yeast POS sputum culture. - c/w full anticoagulation with Lovenox - Duonebs QID - D/C IVF, 250 cc free water via NG tube - Recommend vent setting changes given patients pCO2 for the last two days, question as to whether this is related to a tube leak. #Cardiac Arrhythmias -Bigeminis, non sustained v tach -Electrolytes Ok. -Possibly due to proning with Et tube touching the Lorenza Vs sedation and paralytic agent mismatch -It did improve with supining the patient and increasing the sedation. -Echo ordered, read pending #Hypertension -Intermittent episodes mostly during proning. -Possibly due to paralytic and sedation mismatch. -Restarted metoprolol #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% - c/w ISS and Levemir - c/w Gabapentin - sugars uncontrolled due to steroids will increase levemir. #Chronic CAD - c/w ASA 81, Metoprolol, Rosuvastatin #BPH #Obesity -BMI of 34 -Complicating care #GI prophylaxis -c/w Protonix #DVT prophylaxis -Lovenox 1 mg/kg q12h DISPOSITION: Guarded prognosis Patient's Mrs. Dottie Mary is available at [phone]. VS,Fishbone, I+O VS, Fishbone, I+O Laboratory Tests 12/02/20 04:00 Vital Signs Date Time Temp Pulse Resp B/P (MAP) Pulse Ox O2 Delivery O2 Flow Rate FiO2 12/02/20 11:30 98.1 80 22 95/51 (66) 93 Ventilator 70 12/01/20 14:00 I&O- Last 24 Hours up to 6 AM 12/02/20 06:00 Intake Total 5569.2 ml Output Total 2585 ml Balance 2984.2 ml GME ATTESTATION GME ATTESTATION My faculty preceptor for this patient encounter was physically present during the encounter and was fully available. All aspects of the patient interview, examination, medical decision making process, and medical care plan development were reviewed and approved by the faculty preceptor. The faculty preceptor is aware and concurs with the plan as stated in the body of this note and will attest to such by his/her cosignature. ATTENDING NOTE I, Khanh Stephenson MD, have independently examined this patient and performed my own physical exam, as well as reviewed the documentation and edited where necessary. I have discussed in detail with the resident / student the findings and plan of treatment as documented by the resident / student and edited their note. I agree with their findings and treatment plan and have edited their documentation. GME ATTESTATION GME ATTESTATION My faculty preceptor for this patient encounter was physically present during the encounter and was fully available. All aspects of the patient interview, examination, medical decision making process, and medical care plan development were reviewed and approved by the faculty preceptor. The faculty preceptor is aware and concurs with the plan as stated in the body of this note and will attest to such by his/her cosignature. Mine LEGGETT OMS-3 Dec 02, 2020 13:52 MALIK ADAMS DO Dec 02, 2020 14:40 KHANH STEPHENSON MD Dec 06, 2020 14:17
[2020-12-02 15:02] LABS: FERRITIN 1267 NG/ML (26-388)
[2020-12-02] MEDS: FLUCONAZOLE 100 MG in IV 1 EA IV SCH (16:32)
[2020-12-02] MEDS: PANTOPRAZOLE 40MG VIAL (C9113 PER 1) IV SCH (16:33)
[2020-12-02] MEDS: ACETAMINOPHEN TAB 650MG DOSE (2X325MG) PO PRN (18:52)
[2020-12-03] VITALS (29 sets, daily range): BP systolic 97–202; BP diastolic 55–95
[2020-12-03] MEDS: VECURONIUM BROMIDE 50 MG in D5W 50 ML IV SCH (00:27)
[2020-12-03] MEDS: propofoL 2,400 MG in IV 1 EA IV SCH ×3 (00:28→17:11)
[2020-12-03] MEDS ORDERED: METOPROLOL 5 MG/5 ML VIAL IV STA ×2 (02:21→07:25)
[2020-12-03] MEDS: MEROPENEM INJ 1 GM in IV 1 EA IV SCH ×3 (03:32→20:34)
[2020-12-03] MEDS: MIDAZOLAM INJ 2MG/2ML VIAL (J2250 PER 1MG) IV PRN (04:05)
[2020-12-03] MEDS: methylPREDNISolone 125MG 2ML VIAL IV SCH ×3 (04:05→20:35)
[2020-12-03 04:14] LABS: HEMATOCRIT 37.8 % (42.0-52.0); MEAN CORPUSCULAR HGB CONC 29.1 g/dl (32.0-36.5); MEAN CORPUSCULAR VOLUME 92.6 fl (80.0-96.0); PLATELET COUNT, AUTOMATED 374 10^3/uL (150-450); RED BLOOD COUNT 4.08 10^6/uL (4.30-6.10)
[2020-12-03 04:43] LABS: ALBUMIN 1.9 GM/DL (3.2-5.2); ALT/SGPT 59 U/L (12-78); BILIRUBIN,TOTAL 0.2 MG/DL (0.2-1.0); BLOOD UREA NITROGEN 31 MG/DL (7-18); CALCIUM LEVEL 8.3 MG/DL (8.8-10.2); CARBON DIOXIDE LEVEL 36 MEQ/L (21-32); CHLORIDE LEVEL 99 MEQ/L (98-107); CREATININE FOR GFR 0.82 MG/DL (0.70-1.30); GLOMERULAR FILTRATION RATE > 60.0 (>49); GLUCOSE, FASTING 324 MG/DL (70-100); SODIUM LEVEL 139 MEQ/L (136-145); TOTAL PROTEIN 6.2 GM/DL (6.4-8.2)
[2020-12-03] MEDS: HumaLOG INSULIN (NovoLOG) PER UNIT SC SCH ×3 (05:09→17:29)
[2020-12-03 05:55] LABS: ABG BASE EXCESS 10.5 (-2.0-2.0); ABG O2 SATURATION 96.9 % (95.0-99.0); ABG PARTIAL PRESSURE CO2 59.7 mmHg (35.0-45.0); ABG PARTIAL PRESSURE O2 93.5 mmHg (75.0-100.0); ABG STANDARD HCO3 34.2 MEQ/L (22.0-26.0); ABG TOTAL CO2 38.8 MEQ/L (23.0-31.0)
[2020-12-03] MEDS: IPRATROPIUM 0.5MG/ALBUTEROL 2.5MG INH SOL UD 3ML (DUONEB) NEB SCH ×4 (07:35→19:56)
[2020-12-03] MEDS: METOPROLOL TART 12.5 MG PER 1/2 TAB PO SCH ×2 (07:36→20:34)
--- NOTE | 2020-12-03 07:58 | REP ---
INDICATION: ett. COMPARISON: Comparison chest x-ray 02 December 2020. TECHNIQUE: Portable upright AP chest radiograph. FINDINGS: Nasogastric tube enters the left upper quadrant of the abdomen as before. Right subclavian catheter terminates in the expected location of superior vena cava. Monitoring electrodes and oxygen delivery tubing are seen. At the top of the imaging field of view, there is approximately 1 cm of the endotracheal tube visible just below the level of the glottis unchanged in position from yesterday's radiograph.. Diffuse interstitial lung disease/infiltrates persist essentially unchanged. No visible pleural effusion. There are clips in right upper quadrant the abdomen. IMPRESSION: Lung mcallister unchanged. Endotracheal tube remains just below the glottis.. <Electronically signed by Eliecer Huntley > 12/03/20 [id number]
--- NOTE | 2020-12-03 09:50 | REP ---
INDICATION: ett placement COMPARISON: 12/03/2020 at 7 a.m. TECHNIQUE: Portable AP view of the chest FINDINGS: Endotracheal tube 6.5 cm above the georgi. Nasogastric tube courses below left hemidiaphragm. Diffuse bilateral airspace disease essentially unchanged. Mediastinum and cardiac silhouette stable. No obvious effusion. No pneumothorax. Skeletal structures intact. IMPRESSION: 1. Endotracheal tube 6.5 cm above the georgi. 2. Diffuse bilateral airspace disease essentially unchanged. <Electronically signed by Ángel Oliver > 12/03/20 0946
[2020-12-03] MEDS: CHLORHEXIDINE GLUCONATE 0.12 % 15ML UDC (PERIDEX ORAL RINSE) MT SCH ×2 (09:51→20:34)
[2020-12-03] MEDS: LEVEMIR (INSULIN DETEMIR) 1 UNITS/0.01ML SC SCH (09:51)
[2020-12-03] MEDS: LACRILUBE (AKWA TEARS) OPHTH OINT 3.5 GM OU SCH ×3 (09:51→20:35)
[2020-12-03] MEDS: ENOXAPARIN 100MG/1ML SYRINGE (J1650 PER 10MG) SC SCH ×2 (09:51→20:35)
[2020-12-03] MEDS: BARICITINIB 2MG TABLET (OLUMIANT) FOR EUA PO SCH (09:52)
[2020-12-03] MEDS: ASPIRIN 81 MG CHEW TABLET PEG SCH (09:52)
[2020-12-03] MEDS: ROSUVASTATIN 10 MG TAB (CRESTOR) PO SCH (09:52)
[2020-12-03 10:46] LABS: MAGNESIUM LEVEL 3.1 MG/DL (1.8-2.4); PHOSPHORUS LEVEL 3.6 MG/DL (2.5-4.9)
--- NOTE | 2020-12-03 10:48 | CCN ---
CRITICAL CARE NOTE DATE: 12/03/2020 (start time 0835 and stop time 0912) SUBJECTIVE: I again attended Ko Mary here in the Intensive Care Unit. The patient has been examined, chart reviewed. I spoke at length with the nurse at the bedside. Of significant note is I had approximate 35 minute conversation yesterday on the phone with his daughter Julia and then on speaker phone with his Lynne and multiple other family members. Chest x-ray this morning again shows the ET tube has migrated quite high. It was repositioned by nursing and repeat film showed it to be in better, although less than optimal position. T-max overnight 98.4. Blood pressure 97 to the 180's. Heart rate generally in the 70's to low 100's. He is having increasing difficulties with ectopy. Respiratory rate of 22 via the ventilator. I's and O's midnight to midnight 3,352 cc with 2,775 cc out. MOST RECENT LABORATORIES: White blood cell count 10.0, hemoglobin 11.0, platelet count 374,000. Sodium 139, potassium 5.3, chloride 99, CO2 36, BUN 31, creatinine 0.82, glucose 324. Albumin 1.9. Blood gas done this morning on pressure control of 26; rate of 22, PEEP of 8, FIO2 of 70%, pH of 7.410, pCO2 of 59.7 and pO2 of 93.5. Chest x-ray shows the endotracheal tube as outlined above. His diffuse infiltrates have not changed. PHYSICAL EXAMINATION: He is sedate. We have stopped his Norcuron. Pupils do react. Sclera clear, although he has significant conjunctival edema. Chest again shows his significant castaneda-inspiratory crackles especially at the bases. There maybe some egophony in that area as well. No other focal adventitious breath sounds are identified. Expansion of the lobes diminished, asymmetric. Cardiac exam is borderline tachycardic with frequent ectopy today. Peripheral pulses diminished but palpable. Edema is unchanged. Abdomen is generally soft, active bowel sounds. No obvious organomegaly or masses. Extremities no cyanosis or clubbing. Neurologically, he is sedate. Most pressing problems requiring my presence at the bedside: 1. COVID pneumonia with respiratory failure. 2. Diabetes mellitus. 3. Cardiac ectopy. At this point, we will continue his current empiric antimicrobials in the form of Meropenem and Vancomycin. He has received maximal treatment for his COVID situation. He remains on dosage adjusted Lovenox. We stopped his paralytics today as he has been completely intolerant of proning due to arrhythmias. His ET tube was repositioned again this morning. I had a lengthy conversation as alluded to above with the family. I have strongly urged them to seek visitation today and I believe that is going to happen. They have made him a do not resuscitate, which is completely appropriate. The , Lynne, tells me that she clearly would not want him to have a trach or a PEG. We are at the point where that would be the next consideration if they wished continued support. Although his inflammatory markers have improved, clinically he has not and we would clearly be looking at a very prolonged hospitalization. She is not sure that he would wish to do that. They were going to have a further family discussion last evening. They will notify us if they have made a final decision when they come in later this morning. I did discuss with them that no firm decision absolutely had to be made today. At this point, we will proceed as outlined above. He remains quite critically ill and there is a very very high likelihood he will not survive this hospitalization. I left the bedside at 0912 hours. A total of 37 minutes of critical care time delivered at the bedside not including procedures.
[2020-12-03] MEDS ORDERED: MORPHINE 2 MG/ML 1ML VIAL (J2270) IV PRN (13:15)
--- NOTE | 2020-12-03 14:30 | ECHO ---
DATE OF PROCEDURE: 12/01/2020 Age: 70 Gender: Male Height: 67 inches Weight: 210 pounds Body surface area: 2.06 m2 PATIENT LOCATION: Inpatient PCU, room 3210. REFERRING PHYSICIAN: Pau Zepeda MD. INDICATION: Premature ventricular contractions (PVCs). MEASUREMENTS: 2D Measurements: RV 3.9 cm LV 4.0 cm Septum 1.0 cm Posterior wall 1.0 cm Aortic Root 3.2 cm LA 3.5 cm LVEF 75% Doppler Measurements: AV 1.75 m/s LVOT 1.18 m/s MV-E 99, A 115, E/A ratio 0.9 E prime medial 8.1, A prime medial 14.6, E prime lateral 7.7 Average E/E prime ratio 12.5/PCWP 17.4 mmHg PV 1.2 m/s Pulmonary artery acceleration time 63 msec RVSP 59 mmHg IVC 1.5 cm COMMENTS: Sinus tachycardia at 110 BPM. Occasional isolated PVCs. No intraventricular conduction disturbance. Somewhat challenging study in light of the patients body habitus, but diagnostically useful information was still obtained. M-mode and two-dimensional echocardiography was performed with pulse, continuous wave, color flow, and tissue Doppler studies. Normal left ventricular size, wall thickness, and hyperkinetic wall motion. Left atrial size upper limits of normal with grade 1 LV diastolic dysfunction and current estimated mean left atrial pressure upper limits of normal to slightly increased. Right heart chamber sizes were upper limits of normal with hyperkinetic right ventricular free wall motion and Doppler evidence of moderate pulmonary hypertension. Normal IVC size with reduced respiratory collapse suggestive of an elevated central venous pressure of 10-15 mmHg. Normal aortic dimensions. Normal appearing aortic valve and aortic valve function. Normal appearing mitral valve with trace (physiologic) insufficiency. Normal appearing tricuspid valve with mild-moderate insufficiency. No apparent intracardiac mass or pericardial effusion. MTDD
[2020-12-03] MEDS: FLUCONAZOLE 100 MG in IV 1 EA IV SCH (16:07)
[2020-12-03] MEDS: PANTOPRAZOLE 40MG VIAL (C9113 PER 1) IV SCH (16:07)
--- NOTE | 2020-12-03 18:33 | IPNPDOC ---
Text Note Date of Service The patient was seen on 12/03/20. NOTE SUBJECTIVE: Patient was given Lopressor 2.5 mg last night and this morning due to bigeminis and trigeminis. Otherwise patient's condition remained stable. OBJECTIVE: General: Sedated, on vent HEENT: NC, AT. 2 mm pupils are equal round and reactive to light. No scleral icterus. ET tube in place. Neck: No lymphadenopathy or JVD CV: Tachycardic, regular rhythm, no murmurs. Resp: Diminished breath sounds throughout. Abdomen: Bowel sounds present. Soft, NT, ND. Extremities: Muscles normal bilaterally, no edema or peripheral cyanosis Neurologic: Paralyzed, pupils 2mm and reactive. ASSESSMENT/PLAN: Patient is a 70-year-old male with a history of CAD status post CABG, type 2 diabetes, and obesity who was diagnosed with Covid on 11/10 and presented to the emergency department with shortness of breath on 11/18 and initiated on Covid medications and has had a stepwise progressively worsening respiratory status since his admission going from nasal cannula to Vapotherm to CPAP to BiPAP and has now been intubated since 11/26/20. Patients prognosis continues to be be extremely guarded. A family meeting was held this morning at 10:30 with the patient's and daughter. For the results of this discussion, we will be anticipating withdrawing care tomorrow morning. The patient does have 2 additional daughters who will be arriving to [facility] tomorrow and will be coming to the hospital. This has been cleared with the administration though, these gas will be required to quarantine thereafter. This was also conveyed to the family who were in agreement. #Acute hypoxemic respiratory failure secondary to Covid 19 pneumonia complicated by ARDS - Intubated, ventilated, sedated paralyzed. On morphine, propofol and vecuronium. - COVID positive on 11/10 - unable to maintain O2 saturation on BIPAP, noted fatigue, pt gave consent to be intubated on 11/26/20 - Inflammatory markers elevated, but mildly downtrending - MRSA screen negative - c/w Baricitinib (Day #12); s/p Remdesivir (5 day course) - c/w Meropenem (Day #10), fluconazole (Day #4) for yeast POS sputum culture. - c/w full anticoagulation with Lovenox - Duonebs QID - D/C IVF, 250 cc free water via NG tube -The patient's inflammatory markers continue to improve, he consistently requires 70% FiO2 without any improvement during weaning trials. - Based on the family meeting today, we anticipate withdrawing care tomorrow, #Cardiac Arrhythmias -Bigeminis and trigeminis; given Lopressor 2.5 mg -Is most likely related to patient's high adrenergic state and addition to pro- inflammatory factors secondary to his Covid 19 infection. -Will order phosphorus and magnesium level to rule out an electrolyte imbalance causing arrhythmias and replete as necessary -Possibly due to proning with Et tube touching the Lorenza Vs sedation and paralytic agent mismatch -It did improve with supining the patient and increasing the sedation. #Hypertension -Intermittent episodes mostly during proning. -Possibly due to paralytic and sedation mismatch. -Patient is currently is receiving Lopressor 12.5 twice daily via NG -Continues to have intermittent episodes of hypertension, giving a Lopressor 2.5 on a PRN basis #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% - c/w ISS and Levemir - c/w Gabapentin - sugars uncontrolled due to steroids will increase levemir. #Chronic CAD - c/w ASA 81, Metoprolol, Rosuvastatin #BPH #Obesity -BMI of 34 -Complicating care #GI prophylaxis -c/w Protonix #DVT prophylaxis -Lovenox 1 mg/kg q12h DISPOSITION: Guarded prognosis Patient's Mrs. Dottie Mary is available at [phone]. VS,Fishbone, I+O VS, Fishbone, I+O Laboratory Tests 12/03/20 04:00 Vital Signs Date Time Temp Pulse Resp B/P (MAP) Pulse Ox O2 Delivery O2 Flow Rate FiO2 12/03/20 07:36 103 186/87 12/03/20 07:15 22 97 70 12/03/20 06:00 Ventilator 12/03/20 04:00 98.3 12/01/20 14:00 I&O- Last 24 Hours up to 6 AM 12/03/20 06:00 Intake Total 3150.4 ml Output Total 2650 ml Balance 500.4 ml GME ATTESTATION GME ATTESTATION My faculty preceptor for this patient encounter was physically present during the encounter and was fully available. All aspects of the patient interview, examination, medical decision making process, and medical care plan development were reviewed and approved by the faculty preceptor. The faculty preceptor is aware and concurs with the plan as stated in the body of this note and will attest to such by his/her cosignature. ATTENDING NOTE I, Khanh Stephenson MD, have independently examined this patient and performed my own physical exam, as well as reviewed the documentation and edited where necessary. I have discussed in detail with the resident / student the findings and plan of treatment as documented by the resident / student and edited their note. I agree with their findings and treatment plan and have edited their documentation. GME ATTESTATION GME ATTESTATION My faculty preceptor for this patient encounter was physically present during the encounter and was fully available. All aspects of the patient interview, examination, medical decision making process, and medical care plan development were reviewed and approved by the faculty preceptor. The faculty preceptor is aware and concurs with the plan as stated in the body of this note and will attest to such by his/her cosignature. Mine LEGGETT OMS-3 Dec 03, 2020 08:47 MALIK ADAMS DO Dec 03, 2020 18:33 KHANH STEPHENSON MD Dec 06, 2020 14:19
[2020-12-04] VITALS (9 sets, daily range): BP systolic 116–164; BP diastolic 63–82
[2020-12-04] MEDS: propofoL 2,400 MG in IV 1 EA IV SCH (00:25)
[2020-12-04] MEDS: HumaLOG INSULIN (NovoLOG) PER UNIT SC SCH ×2 (00:34→06:04)
[2020-12-04] MEDS: MEROPENEM INJ 1 GM in IV 1 EA IV SCH (04:25)
[2020-12-04] MEDS: methylPREDNISolone 125MG 2ML VIAL IV SCH (04:25)
[2020-12-04 05:36] LABS: ABG BASE EXCESS 8.4 (-2.0-2.0); ABG HCO3 32.4 MEQ/L (22.0-26.0); ABG O2 SATURATION 98.7 % (95.0-99.0); ABG PARTIAL PRESSURE CO2 42.4 mmHg (35.0-45.0); ABG PARTIAL PRESSURE O2 135.8 mmHg (75.0-100.0); ABG STANDARD HCO3 32.2 MEQ/L (22.0-26.0); ABG TOTAL CO2 33.7 MEQ/L (23.0-31.0); ABG pH (ARTERIAL) 7.501 UNITS (7.350-7.450)
[2020-12-04 06:17] LABS: HEMATOCRIT 34.6 % (42.0-52.0); HEMOGLOBIN 10.4 g/dl (13.5-17.5); MEAN CORPUSCULAR HEMOGLOBIN 27.2 pg (27.0-33.0); MEAN CORPUSCULAR HGB CONC 30.1 g/dl (32.0-36.5); MEAN CORPUSCULAR VOLUME 90.6 fl (80.0-96.0); PLATELET COUNT, AUTOMATED 329 10^3/uL (150-450); RED BLOOD COUNT 3.82 10^6/uL (4.30-6.10); WHITE BLOOD COUNT 9.3 10^3/uL (4.0-10.0)
[2020-12-04 06:48] LABS: ALBUMIN 1.9 GM/DL (3.2-5.2); ALT/SGPT 48 U/L (12-78); BILIRUBIN,TOTAL 0.2 MG/DL (0.2-1.0); BLOOD UREA NITROGEN 33 MG/DL (7-18); CALCIUM LEVEL 7.8 MG/DL (8.8-10.2); CARBON DIOXIDE LEVEL 35 MEQ/L (21-32); CHLORIDE LEVEL 100 MEQ/L (98-107); CREATININE FOR GFR 0.76 MG/DL (0.70-1.30); GLOMERULAR FILTRATION RATE > 60.0 (>49); GLUCOSE, FASTING 292 MG/DL (70-100); POTASSIUM SERUM 5.1 MEQ/L (3.5-5.1); SODIUM LEVEL 139 MEQ/L (136-145); TOTAL PROTEIN 5.3 GM/DL (6.4-8.2)
[2020-12-04] MEDS: IPRATROPIUM 0.5MG/ALBUTEROL 2.5MG INH SOL UD 3ML (DUONEB) NEB SCH (07:06)
--- NOTE | 2020-12-04 07:57 | REP ---
INDICATION: ett COMPARISON: 12/03/2020 TECHNIQUE: Portable AP view of the chest FINDINGS: Endotracheal tube, nasogastric tube, and right subclavian catheter are stable in position. The mediastinum and cardiac silhouette are stable. Diffuse bilateral airspace disease again noted and relatively similar to prior examination. IMPRESSION: No significant change from prior examination. Diffuse bilateral airspace disease again noted. <Electronically signed by Ángel Oliver > 12/04/20 [id number]
[2020-12-04] MEDS: LEVEMIR (INSULIN DETEMIR) 1 UNITS/0.01ML SC SCH (08:06)
[2020-12-04] MEDS: ASPIRIN 81 MG CHEW TABLET PEG SCH (08:07)
[2020-12-04] MEDS: METOPROLOL TART 12.5 MG PER 1/2 TAB PO SCH (08:07)
[2020-12-04] MEDS: LACRILUBE (AKWA TEARS) OPHTH OINT 3.5 GM OU SCH (08:23)
--- NOTE | 2020-12-04 09:50 | CCN ---
CRITICAL CARE NOTE DATE: 12/04/2020 START TIME: 0750 STOP TIME: 829 SUBJECTIVE: I again attended Ko Mary here in the Intensive Care Unit. Patient has been examined. Chart reviewed, and I spoke at length with the nurses at the bedside. T-max overnight 98.2, blood pressure 116 to the 160s, heart rate generally 70s to 80s, respiratory rate generally 22 to 24, and he does overbreathe the ventilator. Ins and outs midnight to midnight 3690 mL in with 2925 mL out. Chest x-ray shows no new findings. He has diffuse interstitial changes, essentially unchanged. Most recent labs show a white blood cell count 9.3, hemoglobin 10.4, platelet count 329,000. Sodium 139, potassium 5.1, chloride 100, CO2 35, BUN 33, creatinine 0.76, glucose 292. Albumin remains depressed at 1.9. Blood gas done on pressure control, pressure 26, rate of 22, FiO2 of 70% with 8 of PEEP shows a pH of 7.501, pCO2 42.4, and a pO2 of 135.8. OBJECTIVE: He is sedate. His paralytics were stopped yesterday. He responds only to deep stimuli. Diffuse edema unchanged. Trachea is in the midline. Chest shows dependent crackles end-inspiratory at the bases. Borderline egophony, left mildly greater than right. Expansion although diminished is symmetric. Cardiac exam is generally regular to mildly tachycardic. Peripheral pulses palpable. Edema is unchanged. Abdomen is soft. Normoactive bowel sounds. No convincing organomegaly or masses. Extremities without cyanosis or clubbing. Neurologically as outlined above. MOST PRESSING PROBLEMS REQUIRING MY PRESENCE AT THE BEDSIDE: 1. COVID pneumonia with respiratory failure. 2. ARDS on the basis of the above. 3. Diabetes mellitus. PLAN: Dr. Stephenson had a very lengthy discussion with the family yesterday, and I am told that the plans are for switching to comfort measures when the remainder of the family is available. I did have a chance to speak with daughter, Julia, and , Lynne, yesterday, and they confirmed this. At this point, he remains on very high ventilator support with very high FiO2 requirements. He would likely require tracheostomy and PEG in the next part of his process, and the family does not wish this, and certainly that is understandable. At the very least, he has a very lengthy road ahead of him should they wish to continue. In view of this, certainly I have no qualms with their choices. We will proceed as per their wishes. Minor ventilator manipulations were made. I left the bedside at 0830 hours. A total of 40 minutes critical care time at the bedside not including procedures.
[2020-12-04] MEDS ORDERED: SCOPOLAMINE 1MG TRANSDERMAL PATCH TOP PRN (10:45)
[2020-12-04] MEDS ORDERED: MORPHINE 10MG/0.5ML ORAL CONCENTRATE SOLUTION U/D SL PRN (10:45)
[2020-12-04] MEDS ORDERED: MORPHINE 2 MG/ML 1ML VIAL (J2270) IV PRN (10:45)
[2020-12-04] MEDS ORDERED: LORazepam 2 MG/ML VIAL IV PRN (10:45)
[2020-12-04] MEDS ORDERED: LORazepam 2 MG/ML VIAL As Ordered ONE (10:54)
--- NOTE | 2020-12-04 11:29 | IPNPDOC ---
Text Note Date of Service The patient was seen on 12/04/20. NOTE SUBJECTIVE: No acute changes overnight. OBJECTIVE: General: Sedated, on vent HEENT: NC, AT. 2 mm pupils are equal round and reactive to light. No scleral icterus. ET tube in place. Neck: No lymphadenopathy or JVD CV: Tachycardic, regular rhythm, no murmurs. Resp: Diminished breath sounds throughout. Abdomen: Bowel sounds present. Soft, NT, ND. Extremities: Muscles normal bilaterally, no edema or peripheral cyanosis Neurologic: Paralyzed, pupils 2mm and reactive. ASSESSMENT/PLAN: Patient is a 70-year-old male with a history of CAD status post CABG, type 2 diabetes, and obesity who was diagnosed with Covid on 11/10 and presented to the emergency department with shortness of breath on 11/18 and initiated on Covid medications and has had a stepwise progressively worsening respiratory status since his admission going from nasal cannula to Vapotherm to CPAP to BiPAP and has now been intubated since 11/26/20. Patients prognosis continues to be be extremely guarded. A family meeting was held yesterday morning at 10:30 with the patient's and daughter. For the results of this discussion, we will be anticipating withdrawing care this morning. The patient does have 2 additional daughters who will be arriving to town today and will be coming to the hospital. This has been cleared with the administration though, these guests will be required to quarantine thereafter. This was also conveyed to the family who were in agreement. #Acute hypoxemic respiratory failure secondary to Covid 19 pneumonia complicated by ARDS - Intubated, ventilated, sedated paralyzed. On morphine, propofol and vecuronium. - COVID positive on 11/10 - unable to maintain O2 saturation on BIPAP, noted fatigue, pt gave consent to be intubated on 11/26/20 - Inflammatory markers elevated, but mildly downtrending - MRSA screen negative - c/w Baricitinib (Day #13); s/p Remdesivir (5 day course) - c/w Meropenem (Day #11), fluconazole (Day #5) for yeast POS sputum culture. - c/w full anticoagulation with Lovenox - Duonebs QID - D/C IVF, 250 cc free water via NG tube -The patient's inflammatory markers continue to improve, he consistently requires 70% FiO2 without any improvement during weaning trials. - Based on the family meeting yesterday, we anticipate withdrawing care today, 12/04/20 #Cardiac Arrhythmias -Bigeminis and trigeminis; given Lopressor 2.5 mg -Is most likely related to patient's high adrenergic state and addition to pro- inflammatory factors secondary to his Covid 19 infection. -Phosphorus returned WNL and Mg was elevated -Possibly due to proning with Et tube touching the Lorenza Vs sedation and paralytic agent mismatch -It did improve with supining the patient and increasing the sedation. #Hypertension -Intermittent episodes mostly during proning. -Possibly due to paralytic and sedation mismatch. -Patient is currently is receiving Lopressor 12.5 twice daily via NG -Continues to have intermittent episodes of hypertension, giving a Lopressor 2.5 on a PRN basis #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% - c/w ISS and Levemir - c/w Gabapentin - sugars uncontrolled due to steroids will increase levemir. #Chronic CAD - c/w ASA 81, Metoprolol, Rosuvastatin #BPH #Obesity -BMI of 34 -Complicating care #GI prophylaxis -c/w Protonix #DVT prophylaxis -Lovenox 1 mg/kg q12h DISPOSITION: Guarded prognosis Patient's Mrs. Dottie Mary is available at [phone]. VS,Fishbone, I+O VS, Fishbone, I+O Laboratory Tests 12/04/20 06:09 Vital Signs Date Time Temp Pulse Resp B/P (MAP) Pulse Ox O2 Delivery O2 Flow Rate FiO2 12/04/20 06:00 79 22 160/81 (107) 95 Ventilator 70 12/04/20 04:00 98.2 12/01/20 14:00 I&O- Last 24 Hours up to 6 AM 12/04/20 06:00 Intake Total 3134.4 ml Output Total 3300 ml Balance -165.6 ml GME ATTESTATION GME ATTESTATION My faculty preceptor for this patient encounter was physically present during the encounter and was fully available. All aspects of the patient interview, examination, medical decision making process, and medical care plan development were reviewed and approved by the faculty preceptor. The faculty preceptor is aware and concurs with the plan as stated in the body of this note and will attest to such by his/her cosignature. ATTENDING NOTE I, Khanh Stephenson MD, have independently examined this patient and performed my own physical exam, as well as reviewed the documentation and edited where necessary. I have discussed in detail with the resident / student the findings and plan of treatment as documented by the resident / student and edited their note. I agree with their findings and treatment plan and have edited their documentation. Mine LEGGETT OMS-3 Dec 04, 2020 08:43 MALIK ADAMS DO Dec 04, 2020 11:28 KHANH STEPHENSON MD Dec 06, 2020 14:20
--- NOTE | 2020-12-04 17:02 | DS.PDOC ---
Discharge Summary General Date of Admission Nov 17, 2020 at 23:31 Date of Discharge 12/04/20 Primary Care Physician: A Attending Physician: KHANH STEPHENSON MD Discharge Summary PROCEDURES PERFORMED DURING STAY: Intubation, O2 sat show 11/26/20 Right subclavian catheter, 11/26/20 ADMITTING DIAGNOSES: Sepsis COVID-19 DM2 Chronic CAD BPH Class 1 obesity DISCHARGE DIAGNOSES: Acute hypoxemic respiratory failure 2/2 COVID-19 Cardiac arrhythmias Hypertension HTN NIDDM2 Chronic CAD BPH Obesity, Class 1 COMPLICATIONS/CHIEF COMPLAINT: Covid 19, SIRS HISTORY OF PRESENT ILLNESS: Patient is a 70-year-old male with a past medical history significant for coronary artery disease, diabetes and obesity. Patient was diagnosed with Covid 19 on November 10. He subsequently presented to the emergency department on 11/12 after experiencing syncope. Patient was admitted overnight for close observation and discharged home shortly thereafter. Patient was quarantined at home when he became more fatigued and short of breath. Patient also reported increasing nausea with decreased appetite. Vision return to the emergency department on 11/18/20 at which time he was found to be hypoxic, maintaining an oxygen saturation of 84% on room air. Per previous documentation, patient saturations did improve with the addition of submental oxygen via nasal cannula however, patient continued to demonstrate desaturation with exertion. Given this, patient was admitted to the hospital for further management and observation. HOSPITAL COURSE: Once on the floor, patient was started on dexamethasone and remdesivir. DVT prophylaxis with weight-based dosing was started. There was initial concern that he may be suffering from a superimposed bacterial infection and was subsequently started on Rocephin and azithromycin while a pro-calcitonin level was pending. During day 1 of hospitalization, patient's oxygen demand continued to increase and Vapotherm was administered. Over the next few days, patient continued to demonstrate increasing oxygen requirements, ultimately coming to the maximum setting of Vapotherm with 100% FiO2 at 40 L/m. Despite this, patient continued to have markedly saturations, and was thus transferred to the [facility] ICU. Unfortunately, patient continued to demonstrate difficulty breathing including accessory muscle use or tachypnea. At this time, patient's dexamethasone was discontinued and he was started on baricitinib. Over the last 24 hours, patient was encouraged to use noninvasive CPAP as tolerated. Continue with prone positioning. Patient was poorly tolerant of CPAP. A d-dimer was repeated and found to be quite elevated, as a result his Lovenox was increased to therapeutic dosing. On 11/24, patient continued to poorly tolerate CPAP and remained on 100% Vapotherm. Patient remained febrile despite antibiotics and a negative pro-calcitonin. His Rocephin and azithromycin were changed to carbapenem. Patient's status remained relatively stable until 11/26 when his oxygen saturations were unable to be maintained on maximal Vapotherm. Importance of intubation were as fully discussed with the patient who was in agreement. At that time, patient underwent endotracheal intubation. Following intubation, patient began demonstrating some low blood pressures. A right-sided subclavian catheter was placed and patient required the addition of levophed for short amount of time before being weaned. Given patient's acidosis, he was also given bicarbonate. Patient continued to remain febrile despite blood cultures being unrevealing. Sputum culture was sent to the lab for further evaluation, ultimately likely revealing yeast. Patient was began on fluconazole. Patient remained relatively stable with minor improvement in his inflammatory markers over the next several days. On 12/01, patient began experiencing ectopy which would indicate a poor prognosis. Patient was changed to DNR status per family request. Several attempts were made to reduce patient's oxygen requirement, however, as was unable to be done successfully. Epic Specialist spoke at detail with the family over the phone and a family meeting was scheduled for the morning of 12/03/20. At that meeting, the primary team discussed the options with the family. It was made clear continued efforts could be made, though they would likely be futile and would limit patient's quality of life. Given this information, patient's family agreed for terminal extubation the following day to allow the patient's daughters to arrive in the area. The morning of 12/04/20, the family's wishes were reaffirmed by the primary team area per their request, a terminal extubation was performed. The patient's family joined him at bedside, and the patient shortly thereafter. DISCHARGE MEDICATIONS: Please see below. ALLERGIES: Please see below. PHYSICAL EXAMINATION ON DISCHARGE: VITAL SIGNS: Please see below. General: Critically ill-appearing, sedated, on vent HEENT: NC, AT. 2 mm pupils are equal round and reactive to light. No scleral icterus. ET tube in place. Neck: No lymphadenopathy or JVD CV: Tachycardic, regular rhythm, no murmurs. Resp: Diminished breath sounds throughout. Abdomen: Bowel sounds present. Soft, NT, ND. Extremities: Muscles normal bilaterally, no edema or peripheral cyanosis Neurologic: Paralyzed, pupils 2mm and reactive. LABORATORY DATA: Please see below. ACTIVITY: As tolerated DISPOSITION: Krysta TIME SPENT ON DISCHARGE: Equal to 40 minutes. Vital Signs/I&Os Vital Signs Date Time Temp Pulse Resp B/P (MAP) Pulse Ox O2 Delivery O2 Flow Rate FiO2 12/04/20 10:45 22 12/04/20 09:00 83 141/72 (95) 93 Ventilator 70 12/04/20 08:00 98.8 12/01/20 14:00 I&O- Last 24 Hours up to 6 AM 12/04/20 06:00 Intake Total 3134.4 ml Output Total 3300 ml Balance -165.6 ml Laboratory Data Labs 24H Laboratory Tests 2 12/03/20 17:22: Bedside Glucose (Misc Panel) 297H 12/04/20 00:30: Bedside Glucose (Misc Panel) 254H 12/04/20 05:25: Blood Gas Bicarbonate Standard 32.2H, Arterial Blood pH 7.501H, Arterial Blood Partial Pressure CO2 42.4, Arterial Blood Partial Pressure O2 135.8H, Arterial Blood Total CO2 33.7H, Arterial Blood HCO3 32.4H, Arterial Blood Base Excess 8.4H, Arterial Blood Oxygen Saturation 98.7 12/04/20 05:59: Bedside Glucose (Misc Panel) 300H 12/04/20 06:09: Nucleated Red Blood Cells % (auto) 0.0, Anion Gap 4L, Glomerular Filtration Rate > 60.0, Calcium Level 7.8L, Total Bilirubin 0.2, Aspartate Amino Transf (AST/SGOT) 34, Alanine Aminotransferase (ALT/SGPT) 48, Alkaline Phosphatase 89, Total Protein 5.3L, Albumin 1.9L, Albumin/Globulin Ratio 0.6 12/04/20 07:52: Bedside Glucose (Misc Panel) 276H CBC/BMP Laboratory Tests 12/04/20 06:09 FSBS Laboratory Tests Test 12/03/20 17:22 12/04/20 00:30 12/04/20 05:59 12/04/20 07:52 Range/Units Bedside Glucose (Misc Panel) 297 254 300 276 80-115 MG/DL Microbiology Microbiology 11/27/20 Blood Culture - Final, Complete NO GROWTH AFTER 5 DAYS 11/26/20 Gram Stain - Final, Complete 11/26/20 Sputum Culture - Final, Complete Yeast Like Org W/ Pseudomyceli Discharge Medications Scheduled Aspirin (Aspirin EC) 81 Mg Tablet.dr, 81 MG PO DAILY, (Reported) Empagliflozin (Jardiance) 25 Mg Tablet, 25 MG PO DAILY, (Reported) Metformin HCl (Metformin HCl) 500 Mg Tablet, 1,000 MG PO BID, (Reported) Metoprolol Succinate (Metoprolol Succinate) 25 Mg Tab.er.24h, 25 MG PO DAILY, (Reported) Montelukast Sodium (Montelukast Sodium) 10 Mg Tablet, 10 MG PO DAILY, (Reported) Rosuvastatin Calcium (Rosuvastatin Calcium) 20 Mg Tablet, 20 MG PO DAILY, (Reported) Tadalafil (Cialis) 5 Mg Tablet, 5 MG PO QHS, (Reported) Tamsulosin HCl (Flomax) 0.4 Mg Capsule, 0.8 MG PO QHS, (Reported) levoFLOXacin (levoFLOXacin) 750 Mg Tablet, 750 MG PO DAILY, (Reported) STARTED 11/13/20 X 6 DAYS Scheduled PRN Albuterol Sulfate (Albuterol Sulfate Hfa) 8.5 Gm Hfa.aer.ad, 2 PUFFS INH Q4H PRN for SHORTNESS OF BREATH, (Reported) Allergies Coded Allergies: No Known Allergies (Unverified , 04/07/20) GME ATTESTATION GME ATTESTATION My faculty preceptor for this patient encounter was physically present during t he encounter and was fully available. All aspects of the patient interview, examination, medical decision making process, and medical care plan development were reviewed and approved by the faculty preceptor. The faculty preceptor is aware and concurs with the plan as stated in the body of this note and will attest to such by his/her cosignature. ATTENDING NOTE I, Khanh Stephenson MD, have independently examined this patient and performed my own physical exam, as well as reviewed the documentation and edited where necessary. I have discussed in detail with the resident / student the findings and plan of treatment as documented by the resident / student and edited their note. I agree with their findings and treatment plan and have edited their documentation. MALIK ADAMS DO Dec 04, 2020 15:25 KHANH STEPHENSON MD Dec 06, 2020 14:23
== END 2020-12-04 13:00 | disposition expired | DRG 870 ==
LOC: M ED 21:51 → M ED INP 23:31 → M 4MAIN 11-18 04:00 → M ICU 11-21 09:50
PROVIDERS: ADMIT Internal Medicine; ATTEND Internal Medicine
PROC: 3E0333Z Introduction of Anti-inflammatory into Peripheral Vein, Percutaneous Approach (ICD-10-PCS; 2020-11-17)
PROC: XW033E5 Introduction of Remdesivir Anti-infective into Peripheral Vein, Percutaneous Approach, New Technology Group 5 (ICD-10-PCS; 2020-11-18)
PROC: 5A1955Z Respiratory Ventilation, Greater than 96 Consecutive Hours (ICD-10-PCS; principal; 2020-11-26)
PROC: 0BH17EZ Insertion of Endotracheal Airway into Trachea, Via Natural or Artificial Opening (ICD-10-PCS; 2020-11-26)
PROC: 02HV33Z Insertion of Infusion Device into Superior Vena Cava, Percutaneous Approach (ICD-10-PCS; 2020-11-26)
DX: A41.9 Sepsis, unspecified organism (principal); U07.1 COVID-19; J12.82 Pneumonia due to coronavirus disease 2019; J96.01 Acute respiratory failure with hypoxia; J15.9 Unspecified bacterial pneumonia; I26.99 Other pulmonary embolism without acute cor pulmonale; D68.69 Other thrombophilia; R57.9 Shock, unspecified; E87.2 Acidosis; I47.2 Ventricular tachycardia; Z51.5 Encounter for palliative care; Z66 Do not resuscitate; E11.40 Type 2 diabetes mellitus with diabetic neuropathy, unspecified; E66.9 Obesity, unspecified; R60.1 Generalized edema; G47.33 Obstructive sleep apnea (adult) (pediatric); N40.0 Benign prostatic hyperplasia without lower urinary tract symptoms; I25.10 Atherosclerotic heart disease of native coronary artery without angina pectoris; Z95.5 Presence of coronary angioplasty implant and graft; Z68.34 Body mass index [BMI] 34.0-34.9, adult; Z90.49 Acquired absence of other specified parts of digestive tract; Z79.82 Long term (current) use of aspirin; Z79.84 Long term (current) use of oral hypoglycemic drugs; Z79.899 Other long term (current) drug therapy; Z68.33 Body mass index [BMI] 33.0-33.9, adult